=== PATIENT | female | born 1960 | race Caucasian/White ===

== ENCOUNTER 2020-03-06 12:08 | Outpatient (REF) | payer BC, SELFPAY ==
[2020-03-06 13:52] LABS: MANUAL DIFF FLAG NO
[2020-03-06 13:55] LABS: Basophils Percent Auto 0.2 % (0-2); Eosinophils Absolute Auto 0.1 X10*3/uL (0.0-0.4); Eosinophils Percent Auto 1.3 % (0-4); Hematocrit 37.4 % (37-47); Hemoglobin 12.6 g/dl (12.0-16.0); Imm Gran Abs Auto 0.01 X10*3/uL (0.00-0.03); Imm Gran Pct Auto 0.2 % (0.0-0.4); Lymphocytes Absolute Auto 1.5 X10*3/uL (1.2-4.9); Lymphocytes Percent Auto 27.3 % (20-40); Mean Corpuscular HGB Conc 33.7 g/dl (31.0-35.0); Mean Corpuscular Hemoglobin 32.9 pg (27.0-33.0); Mean Corpuscular Volume 97.7 fL (80-98); Mean Platelet Volume 10.3 fL (9.4-12.3); Monocytes Absolute Auto 0.4 X10*3/uL (0.1-1.2); Monocytes Percent Auto 6.5 % (2-11); Neutrophils Absolute Auto 3.5 X10*3/uL (2.0-8.3); Neutrophils Percent Auto 64.5 % (45-73); Platelet Count 197 X10*3/uL (160-400); Red Blood Count 3.83 X10*6/uL (4.20-5.50); Red Cell Distribution Width 13.2 % (11.0-16.0); White Blood Count 5.4 X10*3/uL (4.8-10.8)
[2020-03-06 14:25] LABS: Alanine Aminotransferase 11 U/L (0-31); Albumin Level 4.2 g/dL (3.5-5.0); Alkaline Phosphatase 88 U/L (39-117); Anion Gap 14 (12-20); Aspartate Amino Transferase 11 U/L (5-31); Bilirubin Total 0.5 mg/dL (0.0-1.0); Blood Urea Nitrogen 8 mg/dL (9-16); Calcium 8.7 mg/dL (8.4-10.2); Carbon Dioxide 25 mmol/L (22-29); Chloride 107 mmol/L (96-108); Cholesterol 178 mg/dL; Estimated Glomerular Filt Rate > 60; Glucose Fasting 141 mg/dL (60-99); HDL Cholesterol 48 mg/dL; LDL Cholesterol Calculated 107 mg/dl; Potassium 3.6 mmol/l (3.3-5.1); Sodium 142 mmol/L (135-145); Total Protein 6.9 g/dL (6.5-8.0); Triglycerides 119 mg/dL
[2020-03-06 14:36] LABS: Glucose Urine UA NEG (NEG); Leukocyte Esterase Urine NEG (NEG); Nitrite Urine NEG (NEG); Specific Gravity - Urine 1.025 (1.005-1.025); Urine Blood NEG (NEG); Urine Ketones NEG (NEG); Urine Protein NEG (NEG-TRACE)
[2020-03-06 14:40] LABS: Estimated Average Glucose 120 mg/dL; Hemoglobin A1c % 5.8 %
[2020-03-06 14:45] LABS: Appearance Urine CLEAR; Color Urine YELLOW
[2020-03-06 14:49] LABS: Vitamin D 25-OH Total 16.9 ng/mL (>30)
[2020-03-06 15:05] LABS: Folate 15.9 ng/mL (> or = 4.0); Vitamin B12 273 pg/mL (200-900)
[2020-03-06 15:17] LABS: Microalbum/Creatinine Ratio Ur 7.3 ug/mg cr
[2020-03-06 15:27] LABS: RBC Urine 0 /HPF (0); Squamous Epithelial Cell Urine 2+ /LPF; WBC Urine 0-2 /HPF (0-4)
[2020-03-06 15:28] LABS: Bacteria Urine 2+ /LPF
== END 2020-03-06 12:09 | disposition home or self-care (01) ==
LOC: HO.10HDL 12:08
PROVIDERS: Visit Provider Internal Medicine
DX: E55.9 Vitamin D deficiency, unspecified (principal); E78.5 Hyperlipidemia, unspecified; E66.01 Morbid (severe) obesity due to excess calories; M79.7 Fibromyalgia; L40.50 Arthropathic psoriasis, unspecified; E53.8 Deficiency of other specified B group vitamins; E11.9 Type 2 diabetes mellitus without complications
CPT/HCPCS: 36415; 80053; 80061; 81001; 82043; 82306; 82607; 82746; 83036; 84443; 85025

== ENCOUNTER 2022-02-22 15:20 | Outpatient (REF) | payer BC, SELFPAY ==
--- NOTE | ~2022-02-22 | XR_ITS ---
EXAMINATION: XR SHOULDER, LEFT CLINICAL INFORMATION: Pain COMPARISON: None TECHNIQUE: AP external rotation, Grashey, scapular Y, and axillary views of the left shoulder. FINDINGS: There is loss of left AC joint with inferior spurring. The glenohumeral joint space is normal. No visible acute fracture or dislocation seen. The soft tissues are normal. XR/XR shoulder LT min 2V IMPRESSION: Mild degenerative changes left A.C. joint with inferior spurring. No visible acute fracture or dislocation seen.
== END 2022-02-22 15:21 | disposition home or self-care (01) ==
LOC: HO.XRAY 15:20
PROVIDERS: Visit Provider Internal Medicine
DX: M25.512 Pain in left shoulder (principal)
CPT/HCPCS: 73030

== ENCOUNTER 2022-03-13 14:30 | Emergency (ER) | payer BC, MEDICARE, SELFPAY ==
[2022-03-13] VITALS (7 sets, daily range): BP systolic 100–141; BP diastolic 32–80; PULSE 59–81; RESP 16–20; TEMP 36.1–37; O2SAT 95–99; BMI 49.1
--- NOTE | ~2022-03-13 | CT_ITS ---
EXAMINATION: CT BRAIN AND CT CERVICAL SPINE WITHOUT CONTRAST. CLINICAL INFORMATION: Head injury. Trauma. COMPARISON: None TECHNIQUE: 5 mm thin axial and reformatted 2 mm thin sagittal and coronal images of brain were obtained without contrast. Subsequently axial 3 mm thin and reformatted 2 mm thin sagittal and coronal images of cervical spine were obtained. DLP [id number]. FINDINGS: Brain: There is no acute intra-axial, extra-axial bleed, masses or midline shift. There is no acute infarction evolution. There is no edema. The pleitez to white matter differentiation is maintained. The lateral ventricles are symmetrical in size and configuration without enlargement. The bone windows reveal no calvarial abnormality. There is no scalp soft tissue abnormality. There is mucoperiosteal thickening left maxillary sinus. Rest of the paranasal sinuses are clear. The mastoid sinuses are well expanded and clear. Cervical spine: There is normal cervical lordosis. The vertebral heights, alignment and disc heights are normal. No visible acute fracture, dislocation or subluxation seen. There is moderate ventral spondylosis C4-C5, C5-C6 and C6-C7 disc levels. No aggressive lytic or sclerotic process seen. Mild bilateral C4-C5, C5-C6-C6 facet joint arthropathy seen. The lung apices are clear. The prevertebral and paravertebral soft tissues are normal. Asymmetric thyroid lobes with the right slightly larger than the left. Central airways widely patent. CT/CT head/brain wo IV con IMPRESSION: No acute intracranial process seen. There is no acute fracture, dislocation or subluxation seen in cervical spine.
--- NOTE | ~2022-03-13 | CT_ITS ---
EXAMINATION: CT BRAIN AND CT CERVICAL SPINE WITHOUT CONTRAST. CLINICAL INFORMATION: Head injury. Trauma. COMPARISON: None TECHNIQUE: 5 mm thin axial and reformatted 2 mm thin sagittal and coronal images of brain were obtained without contrast. Subsequently axial 3 mm thin and reformatted 2 mm thin sagittal and coronal images of cervical spine were obtained. DLP [id number]. FINDINGS: Brain: There is no acute intra-axial, extra-axial bleed, masses or midline shift. There is no acute infarction evolution. There is no edema. The pleitez to white matter differentiation is maintained. The lateral ventricles are symmetrical in size and configuration without enlargement. The bone windows reveal no calvarial abnormality. There is no scalp soft tissue abnormality. There is mucoperiosteal thickening left maxillary sinus. Rest of the paranasal sinuses are clear. The mastoid sinuses are well expanded and clear. Cervical spine: There is normal cervical lordosis. The vertebral heights, alignment and disc heights are normal. No visible acute fracture, dislocation or subluxation seen. There is moderate ventral spondylosis C4-C5, C5-C6 and C6-C7 disc levels. No aggressive lytic or sclerotic process seen. Mild bilateral C4-C5, C5-C6-C6 facet joint arthropathy seen. The lung apices are clear. The prevertebral and paravertebral soft tissues are normal. Asymmetric thyroid lobes with the right slightly larger than the left. Central airways widely patent. CT/CT cervical spine wo IV con IMPRESSION: No acute intracranial process seen. There is no acute fracture, dislocation or subluxation seen in cervical spine.
--- NOTE | ~2022-03-13 | XR_ITS ---
EXAMINATION: XR SHOULDER, LEFT CLINICAL INFORMATION: Fall. COMPARISON: None TECHNIQUE: AP external rotation, Grashey, scapular Y, and axillary views of the left shoulder. FINDINGS: There is a nondisplaced surgical neck fracture left humerus. There is no dislocation. The AC joint is unremarkable. The soft tissues are normal. XR/XR shoulder LT min 2V IMPRESSION: Nondisplaced surgical neck fracture left humerus. No dislocation.
--- NOTE | 2022-03-13 15:45 | ECG_ITS ---
Test Reason : FALL Blood Pressure : / mmHG Vent. Rate : 065 BPM Atrial Rate : 065 BPM P-R Int : 162 ms QRS Dur : 092 ms QT Int : 432 ms P-R-T Axes : 037 -34 021 degrees QTc Int : 449 ms Sinus rhythm with marked sinus arrhythmia Left axis deviation Abnormal ECG No previous ECGs available Referred By: Yessy Mohr Electronically Signed By:MARIAN NUR MD
--- NOTE | 2022-03-13 15:46 | ED_ITS ---
HPI - Fall General Chief Complaint: Fall Stated Complaint: L SHOULDER PAIN S/P FALL IN TUB,? DISLOCATION,-LOC Time Seen by Provider: 03/13/22 14:39 History of Present Illness HPI Narrative: Patient is a 61-year-old female was in the bath tub she slipped fell hit the left side of her head. Saw stars never had nausea vomiting never passed out. Patient complaining of pain localized to the head localized to the left shoulder. Unable to move the shoulder since. Patient is not on any blood thinners. No history of TX. Has a history of Osteoarthritis usually walks with a cane. Patient is from home. Related Data Home Medications Medication Instructions Recorded Confirmed folic acid 1 mg tablet 1 mg PO DAILY 01/28/20 02/26/22 ixekizumab 80 mg/mL subcutaneous 80 mg subcut Q4W 05/25/20 02/26/22 auto-injector (Fugate.cl Autoinjector (2 Pack)) ergocalciferol (vitamin D2) 1,250 1,250 mcg PO QWEEK 02/19/21 02/26/22 mcg (50,000 unit) capsule methotrexate sodium 2.5 mg tablet 20 mg PO QWEEK 02/26/22 02/26/22 Previous Rx's Medication Instructions Recorded mupirocin 2 % topical ointment 1 appl topical TID 7 days #22 grams 05/26/20 clotrimazole-betamethasone 1 1 appl topical BID 14 days #45 07/11/20 %-0.05 % topical cream grams lidocaine 5 % topical patch 2 patch topical DAILY 30 days #60 06/25/21 ea nystatin 100,000 unit/gram topical 1 appl topical TID 10 days #60 06/25/21 cream grams qqnjkbaslm-bwgokwcpbtqtt-hfkynqch 1 cap PO BID PRN headaches 30 days 12/12/21 50 mg-325 mg-40 mg capsule #60 caps atorvastatin 20 mg tablet 20 mg PO DAILY 90 days #90 tabs 02/05/22 trazodone 100 mg tablet 150 mg PO BEDTIME for insomnia 30 02/05/22 days #45 tabs oxycodone 5 mg tablet 5 mg PO Q8H PRN pain #10 tabs 03/13/22 Allergies Allergy/AdvReac Type Severity Reaction Status Date / Time aspirin Allergy Unknown Unknown Verified 02/26/22 01:29 Sulfa (Sulfonamide Allergy Unknown pruritis, Verified 02/26/22 01:29 Antibiotics) severe itching metformin AdvReac Unknown diarrhea Verified 02/26/22 01:29 Review of Systems Review of Systems: positive pain to the left shoulder Yes all other systems are reviewed and are negative [facility] Past Medical History Attestation statement: The following information was validated with the patient. Medical History Depression Diabetes mellitus Fibromyalgia Insomnia Lumbar degenerative disc disease Migraine Morbid obesity with BMI of 45.0-49.9, adult Nasal sore Psoriatic arthritis Pure hypercholesterolemia Vitamin B12 deficiency Vitamin D deficiency Surgical History History of colonoscopy (~04/06/04) History of esophagogastroduodenoscopy (EGD) Family History Family History Father No problems noted. Mother No problems noted. Social History Social History Housing: House Alcohol intake: current Alcohol intake frequency: holidays/special occasions only Patient Tobacco Use Status: Former Tobacco user Smoked in Last 30 Days: No e-Cigarette/Vaping Use: Never Used Second Hand Smoke Exposure: Yes Advance Directives: No Advance Directives Information Provided: No Patient : No service: No Current occupational status: disabled Cognitive needs: Yes Hearing needs: No Vision needs: Yes Physical Exam Vital Signs: Vital Signs: Last Vital Signs Temp 98.6 F 03/13/22 20:08 Pulse 65 03/13/22 20:08 Resp 16 03/13/22 20:41 BP 141/80 H 03/13/22 20:08 Pulse Ox 96 03/13/22 20:08 O2 Del Method 03/13/22 20:08 BMI result Body Mass Index 49.1 Appearance: Alert. Oriented X3. No acute distress. Eyes: Pupils equal, round and reactive to light. ENT: Pharynx normal. Neck: Normal inspection. Neck supple. No lymph nodes noted. No crepitus. There is no posterior C-spine tenderness elicited on palpation. No gross step-off noted CVS: Normal heart rate and rhythm. Pulses normal. Normal S1 and S2 Respiratory: No respiratory distress. Breath sounds normal. No Wheezing. No rales Abdomen: Soft and nontender. No rigidity. No distention. good BS x4 Skin: Skin warm and dry. Normal skin color. Normal skin turgor. Extremities: patient's left shoulder held in adduction pain on movement. Sensation over the axillary nerve intact skin intact distal neurovascularly intact movement over the elbow wrist hand was intact capillary refill less than 2 seconds pulse 2 +at radial sensation distally over the median radial and ulnar nerve intact Neuro: Oriented X 3. No motor deficit. No sensory deficit. Moving all extermities. No slurred speech Medications Administered Discontinued Medications Generic Name Dose Route Start Last Admin Trade Name Freq PRN Reason Stop Dose Admin Hydromorphone HCl 0.5 mg 03/13/22 15:44 03/13/22 15:50 Hydromorphone Hcl 0.5 Mg/0.5 Ml Syringe IVPUSH 03/13/22 15:45 0.5 mg ONCE ONE Administration Protocol Hydromorphone HCl 0.5 mg 03/13/22 16:56 03/13/22 17:04 Hydromorphone Hcl 0.5 Mg/0.5 Ml Syringe IVPUSH 03/13/22 16:57 0.5 mg ONCE ONE Administration Protocol Hydromorphone HCl 0.5 mg 03/13/22 20:21 03/13/22 20:41 Hydromorphone Hcl 0.5 Mg/0.5 Ml Syringe IVPUSH 03/13/22 20:22 0.5 mg ONCE ONE Administration Protocol Sodium Chloride 1,000 mls @ 999 mls/hr 03/13/22 17:00 03/13/22 17:04 Ns IV 03/13/22 18:00 999 mls/hr .Q1H1M GERRY Administration Medical Decision Making Differential Diagnosis patient is status post accidental fall. Heading left shoulder. X-ray showed a surgical neck fracture. Patient placed in a shoulder immobilizer. Given pain medication. Offered physical therapy and rehab with case management. Patient did not want rehab or case management or physical therapy. Wants to go home. Ambulated with her cane. Patient given pain medication. Told she can come back at any time. Follow-up with orthopedic on an outpatient basis. Ortho was consulted will closely follow on an outpatient basis. Patient lives with family. Family at bedside at the time of discharge. Aware patient's plan. Will monitor carefully. She is in stable condition with discharge home. Consult Healthcare Provider Management of the patient was discussed with: Marketing Project Lead Finding was discussed with orthopedics will follow up on an outpatient basis. Lab Data MDM Lab Attestation statement: I reviewed the patient's lab results. 03/13/22 15:55 03/13/22 15:55 Labs: Lab Results 03/13/22 03/13/22 03/13/22 Range/Units 15:55 15:55 15:55 WBC 8.4 (4.8-10.8) X10*3/uL RBC 3.65 L (4.20-5.50) X10*6/uL Hgb 11.5 L (12.0-16.0) g/dl Hct 33.4 L (37.0-47.0) % MCV 91.5 (80.0-98.0) fL MCH 31.5 (27.0-33.0) pg MCHC 34.4 (31.0-35.0) g/dl RDW 13.7 (11.0-16.0) % Plt Count 171 (160-400) X10*3/uL MPV 10.1 (9.4-12.3) fL Immature Gran % (Auto) 0.4 (0.0-0.4) % Neut % (Auto) 82.3 H (45-73) % Lymph % (Auto) 12.1 L (20-40) % [place] % (Auto) 4.8 (2-11) % Eos % (Auto) 0.4 (0-4) % Baso % (Auto) 0.0 (0-2) % Lymph # (Auto) 1.0 L (1.2-4.9) X10*3/uL [place] # (Auto) 0.4 (0.1-1.2) X10*3/uL Eos # (Auto) 0.0 (0.0-0.4) X10*3/uL Baso # (Auto) 0.0 (0.0-0.2) X10*3/uL Abs Immat Gran (auto) 0.03 (0.00-0.03) X10*3/uL Absolute Neuts (auto) 6.9 (2.0-8.3) x10*3/uL Absolute Nucleated RBC 0.000 (0.0-0.012) X10*3/uL Nucleated RBC % (auto) 0.0 (0.0-0.2) /100WBC Sodium 142 (135-145) mmol/L Potassium 3.4 (3.3-5.1) mmol/L Chloride 113 H (96-108) mmol/L Carbon Dioxide 20 L (22-29) mmol/L Anion Gap 12 (12-20) BUN 13 (9-16) mg/dL Creatinine 0.68 (0.5-1.4) mg/dL Estim Creat Clear Calc 106.6 Estimated GFR > 60 Random Glucose 132 H (60-115) mg/dL Calcium 8.1 L D (8.4-10.2) mg/dL COVID-19 ([facility]) Negative (Negative) COVID-19 Clin Com See Note Independent Interpretation I performed an independent interpretation of an: Plain X-Ray Interpretation: Fracture and the surgical neck of left humerus, minimally displaced External Record Review External record reviewed: Inpatient record Prescription Management I considered prescription management with: Pain Medication Percocet for pain Chronic Conditions Patient?s care impacted by: Diabetes Social Determinants Patient?s care significantly limited by Social Determinants of Health including: Problems related to primary support group Discharge Plan Discharge Clinical Impression: Fx humeral neck Patient Disposition: Home, Self-Care Instructions: Arm Fracture in Adults (ED), Shoulder Immobilizer (ED) Prescriptions: New oxycodone 5 mg tablet 5 mg PO Q8H PRN (Reason: pain) Qty: 10 0RF Rx Instructions: Partial Fill upon patient request. No Action clotrimazole-betamethasone 1-0.05 % cream 1 appl topical BID 14 Days Qty: 45 1RF rbfjrkibgh-dvhpljrfaqflz-xuli 50-325-40 mg capsule 1 cap PO BID PRN (Reason: headaches) 30 Days Qty: 60 3RF folic acid 1 mg tablet 1 mg PO DAILY Taltz Autoinjector (2 Pack) 80 mg/mL auto-injector 80 mg subcut Q4W mupirocin 2 % ointment 1 appl topical TID 7 Days Qty: 22 1RF ergocalciferol (vitamin D2) 1,250 mcg (50,000 unit) capsule 1,250 mcg PO QWEEK trazodone 100 mg tablet 150 mg PO BEDTIME 30 Days Qty: 45 3RF atorvastatin 20 mg tablet 20 mg PO DAILY 90 Days Qty: 90 1RF methotrexate sodium 2.5 mg tablet 20 mg PO QWEEK nystatin 100,000 unit/gram cream 1 appl topical TID 10 Days Qty: 60 5RF lidocaine 5 % adhesive patch,medicated 2 patch topical DAILY 30 Days Qty: 60 3RF Rx Instructions: leave on most painful area for up to 12 hrs Referrals: Jasbir Taylor MD [Physician] - 03/15/22
[2022-03-13] MEDS: HYDROmorphone HCl 0.5 MG/0.5 ML SYRINGE IVPUSH ×3 (15:50→20:41)
[2022-03-13 16:00] LABS: MANUAL DIFF FLAG NO
[2022-03-13 16:02] LABS: Eosinophils Percent Auto 0.4 % (0-4); Hematocrit 33.4 % (37.0-47.0); Hemoglobin 11.5 g/dl (12.0-16.0); Imm Gran Abs Auto 0.03 X10*3/uL (0.00-0.03); Imm Gran Pct Auto 0.4 % (0.0-0.4); Lymphocytes Percent Auto 12.1 % (20-40); Mean Corpuscular HGB Conc 34.4 g/dl (31.0-35.0); Mean Corpuscular Hemoglobin 31.5 pg (27.0-33.0); Mean Corpuscular Volume 91.5 fL (80.0-98.0); Mean Platelet Volume 10.1 fL (9.4-12.3); Monocytes Absolute Auto 0.4 X10*3/uL (0.1-1.2); Monocytes Percent Auto 4.8 % (2-11); Neutrophils Absolute Auto 6.9 x10*3/uL (2.0-8.3); Neutrophils Percent Auto 82.3 % (45-73); Platelet Count 171 X10*3/uL (160-400); Red Blood Count 3.65 X10*6/uL (4.20-5.50); Red Cell Distribution Width 13.7 % (11.0-16.0); White Blood Count 8.4 X10*3/uL (4.8-10.8)
--- NOTE | 2022-03-13 16:16 | PC.NURSE ---
patient to CT for imaging . patient aware of plan of care .
[2022-03-13 16:21] LABS: COVID-19 Test Negative (Negative); IDNOW Serial# 16C4AD1C
[2022-03-13 16:22] LABS: Anion Gap 12 (12-20); Blood Urea Nitrogen 13 mg/dL (9-16); Calcium 8.1 mg/dL (8.4-10.2); Carbon Dioxide 20 mmol/L (22-29); Chloride 113 mmol/L (96-108); Creatinine Clr Calc Pharmacy 106.6; Estimated Glomerular Filt Rate > 60; Glucose Random 132 mg/dL (60-115); Potassium 3.4 mmol/L (3.3-5.1); Sodium 142 mmol/L (135-145)
--- NOTE | 2022-03-13 16:50 | PC.NURSE ---
Patient a/ox4 . olivella . heart rate regular at 78 beats per minutes . breathing even and unlabored . lungs clear throughout . limited mobility on left shoulder , patient guarding reporting 10 out of 10 pain . abdomen soft . positive bowel sounds in all four quadrents . Iv placed in right A.C . patient medicated with diluided as ordered for pain .labs obtained and sent . patient on hospital monitor . patient aware of plan of care .
[2022-03-13] MEDS: 0.9 % Sodium Chloride 1,000 ML 999 ML IV (17:04)
--- NOTE | 2022-03-13 17:47 | MHC.CM.ED ---
Addendum entered by Camila Esquivel 03/13/22 18:12: HCP reviewed, completed and signed. Copies given. Uploaded into [facility] and [email or web address]. Addendum entered by Camila Esquivel 03/13/22 17:52: Requested HCP. Will complete. Original Note: CM met with patient at request of Dr. MOHR. Pt suffered a fall in the shower and fx surgical neck of L humerus. Pt uses a cane. Refuses PT assessment of need for STR. States she has plenty of family help at home. Lives with and sister in law. Daughter and son-in-law live next door in the duplex. Has no services. Dr. Mohr aware. Will medicate patient for pain, IV fluids and assess ambulation. Pt is requesting to go home. MD luna. Amy x4. Will arrange transport. CM to follow for discharge needs.
--- NOTE | 2022-03-13 17:50 | PC.NURSE ---
Patient reporting pain still at 7 out of 10 and hypotensive at 109/51 . 1 liter of normal saline started as ordered . patient aware of plan of care .
--- NOTE | 2022-03-13 20:12 | PC.NURSE ---
Re-ASSESSMENT: Pt's V/S are slightly elevated, pt is in pain 5/10. Pt's IV are running with a blood pressure bag d/t is going slowly. Pt is a/o x4, and able to communicate clearly. This nurse will work with the tech to place a sling and to ambulate before d/c.
--- NOTE | 2022-03-13 21:13 | MHC.EDTECH ---
patient ambulated well with side by side supervision from this pct and jaimie jama
== END 2022-03-13 21:33 | disposition home or self-care (01) ==
PROVIDERS: Emergency Provider Emergency Medicine Emergency Medical Services; PCP Internal Medicine
DX: S42.215A Unspecified nondisplaced fracture of surgical neck of left humerus, initial encounter for closed fracture (principal); W18.2XXA Fall in (into) shower or empty bathtub, initial encounter; E11.9 Type 2 diabetes mellitus without complications; E78.00 Pure hypercholesterolemia, unspecified; Z87.891 Personal history of nicotine dependence; Z20.822 Contact with and (suspected) exposure to COVID-19; Y93.E1 Activity, personal bathing and showering; Y92.012 Bathroom of single-family (private) house as the place of occurrence of the external cause; Y99.9 Unspecified external cause status
CPT/HCPCS: 36415; 70450; 72125; 73030; 80048; 85025; 87635; 93005; 96361; 96374; 96376; 99285; J1170

== ENCOUNTER → 2022-03-19 10:22 | Outpatient (BNVA) | payer BC, MEDICARE, SELFPAY | PROVIDERS: PCP Internal Medicine; Visit Provider Physician Assistant | DX: S42.202A Unspecified fracture of upper end of left humerus, initial encounter for closed fracture (principal) ==

== ENCOUNTER 2022-04-16 09:46 | Outpatient (REF) | payer BC, SELFPAY | END 2022-04-16 09:47 | disposition home or self-care (01) | LOC: HO.HOSX 09:46 | PROVIDERS: Visit Provider Physician Assistant | DX: Z13.89 Encounter for screening for other disorder (principal) ==

== ENCOUNTER 2022-05-01 09:54 | Outpatient (REF) | payer BC, SELFPAY ==
--- NOTE | ~2022-05-01 | XR_ITS ---
EXAMINATION: XR CERVICAL SPINE XR SHOULDER, RIGHT XR SHOULDER, LEFT XR HUMERUS, LEFT XR HIPS WITH PELVIS, BILATERAL CLINICAL INFORMATION: Nondisplaced fracture medial condyle left humerus. Bilateral osteoarthritis. COMPARISON: None TECHNIQUE: AP pelvis and bilateral hips 5 views, bilateral shoulder 4 views. FINDINGS: AP PELVIS AND BILATERAL HIPS: There is mild reduction in bilateral hip joint space without bony erosive changes. There are no loose bodies or joint effusion seen. There is no visible acute fracture or dislocation. There are subchondral cystic changes bilateral femoral heads. RIGHT SHOULDER: The glenohumeral joint space is mildly reduced with no visible acute fracture or dislocation. There is enthesophyte along the inferior acromion. No soft tissue calcification seen. LEFT SHOULDER: The glenohumeral joint space is reduced. There is a healing fracture left humeral neck, no dislocation seen. The soft tissues are normal. CERVICAL SPINE: There is mild straightening of cervical lordosis. The vertebral heights and alignment are normal. There is loss of C4-C5 disc height with mild ventral spondylosis. The rest of the disc heights are normal. No visible acute fracture, dislocation or lytic process seen. The prevertebral soft tissues are normal. XR/XR hip BI w PEL1V IMPRESSION: Mild degenerative changes bilateral hip joints. No visible acute fracture or dislocation seen. Mild degenerative changes right shoulder joint with enthesophyte along the inferior acromion. There is a healing fracture left humeral neck without dislocation. The soft tissues are normal. Degenerative disc changes C4-C5 disc level with ventral spondylosis. No visible acute fracture or dislocation seen.
--- NOTE | ~2022-05-01 | XR_ITS ---
EXAMINATION: XR CERVICAL SPINE XR SHOULDER, RIGHT XR SHOULDER, LEFT XR HUMERUS, LEFT XR HIPS WITH PELVIS, BILATERAL CLINICAL INFORMATION: Nondisplaced fracture medial condyle left humerus. Bilateral osteoarthritis. COMPARISON: None TECHNIQUE: AP pelvis and bilateral hips 5 views, bilateral shoulder 4 views. FINDINGS: AP PELVIS AND BILATERAL HIPS: There is mild reduction in bilateral hip joint space without bony erosive changes. There are no loose bodies or joint effusion seen. There is no visible acute fracture or dislocation. There are subchondral cystic changes bilateral femoral heads. RIGHT SHOULDER: The glenohumeral joint space is mildly reduced with no visible acute fracture or dislocation. There is enthesophyte along the inferior acromion. No soft tissue calcification seen. LEFT SHOULDER: The glenohumeral joint space is reduced. There is a healing fracture left humeral neck, no dislocation seen. The soft tissues are normal. CERVICAL SPINE: There is mild straightening of cervical lordosis. The vertebral heights and alignment are normal. There is loss of C4-C5 disc height with mild ventral spondylosis. The rest of the disc heights are normal. No visible acute fracture, dislocation or lytic process seen. The prevertebral soft tissues are normal. XR/XR humerus LT IMPRESSION: Mild degenerative changes bilateral hip joints. No visible acute fracture or dislocation seen. Mild degenerative changes right shoulder joint with enthesophyte along the inferior acromion. There is a healing fracture left humeral neck without dislocation. The soft tissues are normal. Degenerative disc changes C4-C5 disc level with ventral spondylosis. No visible acute fracture or dislocation seen.
--- NOTE | ~2022-05-01 | XR_ITS ---
EXAMINATION: XR CERVICAL SPINE XR SHOULDER, RIGHT XR SHOULDER, LEFT XR HUMERUS, LEFT XR HIPS WITH PELVIS, BILATERAL CLINICAL INFORMATION: Nondisplaced fracture medial condyle left humerus. Bilateral osteoarthritis. COMPARISON: None TECHNIQUE: AP pelvis and bilateral hips 5 views, bilateral shoulder 4 views. FINDINGS: AP PELVIS AND BILATERAL HIPS: There is mild reduction in bilateral hip joint space without bony erosive changes. There are no loose bodies or joint effusion seen. There is no visible acute fracture or dislocation. There are subchondral cystic changes bilateral femoral heads. RIGHT SHOULDER: The glenohumeral joint space is mildly reduced with no visible acute fracture or dislocation. There is enthesophyte along the inferior acromion. No soft tissue calcification seen. LEFT SHOULDER: The glenohumeral joint space is reduced. There is a healing fracture left humeral neck, no dislocation seen. The soft tissues are normal. CERVICAL SPINE: There is mild straightening of cervical lordosis. The vertebral heights and alignment are normal. There is loss of C4-C5 disc height with mild ventral spondylosis. The rest of the disc heights are normal. No visible acute fracture, dislocation or lytic process seen. The prevertebral soft tissues are normal. XR/XR cervical spine 5V IMPRESSION: Mild degenerative changes bilateral hip joints. No visible acute fracture or dislocation seen. Mild degenerative changes right shoulder joint with enthesophyte along the inferior acromion. There is a healing fracture left humeral neck without dislocation. The soft tissues are normal. Degenerative disc changes C4-C5 disc level with ventral spondylosis. No visible acute fracture or dislocation seen.
--- NOTE | ~2022-05-01 | XR_ITS ---
EXAMINATION: XR CERVICAL SPINE XR SHOULDER, RIGHT XR SHOULDER, LEFT XR HUMERUS, LEFT XR HIPS WITH PELVIS, BILATERAL CLINICAL INFORMATION: Nondisplaced fracture medial condyle left humerus. Bilateral osteoarthritis. COMPARISON: None TECHNIQUE: AP pelvis and bilateral hips 5 views, bilateral shoulder 4 views. FINDINGS: AP PELVIS AND BILATERAL HIPS: There is mild reduction in bilateral hip joint space without bony erosive changes. There are no loose bodies or joint effusion seen. There is no visible acute fracture or dislocation. There are subchondral cystic changes bilateral femoral heads. RIGHT SHOULDER: The glenohumeral joint space is mildly reduced with no visible acute fracture or dislocation. There is enthesophyte along the inferior acromion. No soft tissue calcification seen. LEFT SHOULDER: The glenohumeral joint space is reduced. There is a healing fracture left humeral neck, no dislocation seen. The soft tissues are normal. CERVICAL SPINE: There is mild straightening of cervical lordosis. The vertebral heights and alignment are normal. There is loss of C4-C5 disc height with mild ventral spondylosis. The rest of the disc heights are normal. No visible acute fracture, dislocation or lytic process seen. The prevertebral soft tissues are normal. XR/XR shoulder LT min 2V IMPRESSION: Mild degenerative changes bilateral hip joints. No visible acute fracture or dislocation seen. Mild degenerative changes right shoulder joint with enthesophyte along the inferior acromion. There is a healing fracture left humeral neck without dislocation. The soft tissues are normal. Degenerative disc changes C4-C5 disc level with ventral spondylosis. No visible acute fracture or dislocation seen.
--- NOTE | ~2022-05-01 | XR_ITS ---
EXAMINATION: XR CERVICAL SPINE XR SHOULDER, RIGHT XR SHOULDER, LEFT XR HUMERUS, LEFT XR HIPS WITH PELVIS, BILATERAL CLINICAL INFORMATION: Nondisplaced fracture medial condyle left humerus. Bilateral osteoarthritis. COMPARISON: None TECHNIQUE: AP pelvis and bilateral hips 5 views, bilateral shoulder 4 views. FINDINGS: AP PELVIS AND BILATERAL HIPS: There is mild reduction in bilateral hip joint space without bony erosive changes. There are no loose bodies or joint effusion seen. There is no visible acute fracture or dislocation. There are subchondral cystic changes bilateral femoral heads. RIGHT SHOULDER: The glenohumeral joint space is mildly reduced with no visible acute fracture or dislocation. There is enthesophyte along the inferior acromion. No soft tissue calcification seen. LEFT SHOULDER: The glenohumeral joint space is reduced. There is a healing fracture left humeral neck, no dislocation seen. The soft tissues are normal. CERVICAL SPINE: There is mild straightening of cervical lordosis. The vertebral heights and alignment are normal. There is loss of C4-C5 disc height with mild ventral spondylosis. The rest of the disc heights are normal. No visible acute fracture, dislocation or lytic process seen. The prevertebral soft tissues are normal. XR/XR shoulder RT min 2V IMPRESSION: Mild degenerative changes bilateral hip joints. No visible acute fracture or dislocation seen. Mild degenerative changes right shoulder joint with enthesophyte along the inferior acromion. There is a healing fracture left humeral neck without dislocation. The soft tissues are normal. Degenerative disc changes C4-C5 disc level with ventral spondylosis. No visible acute fracture or dislocation seen.
== END 2022-05-01 09:55 | disposition home or self-care (01) ==
LOC: HO.XRAY 09:54
PROVIDERS: PCP Internal Medicine; Visit Provider Physical Medicine & Rehabilitation
DX: S42.465A Nondisplaced fracture of medial condyle of left humerus, initial encounter for closed fracture (principal); M16.0 Bilateral primary osteoarthritis of hip; M54.12 Radiculopathy, cervical region; X58.XXXA Exposure to other specified factors, initial encounter; Y93.9 Activity, unspecified; Y92.9 Unspecified place or not applicable; Y99.9 Unspecified external cause status
CPT/HCPCS: 72050; 73030; 73060; 73521

== ENCOUNTER 2022-06-10 11:53 | Outpatient (REF) | payer BC, SELFPAY ==
[2022-06-10 13:53] LABS: Alanine Aminotransferase 15 U/L (0-31); Albumin Level 3.7 g/dL (3.5-5.0); Alkaline Phosphatase 104 U/L (39-117); Anion Gap 11 (12-20); Aspartate Amino Transferase 15 U/L (5-31); Bilirubin Total 0.5 mg/dL (0.0-1.0); Blood Urea Nitrogen 11 mg/dL (9-16); C Reactive Protein 0.86 mg/dL (< or = 0.50); Calcium 8.8 mg/dL (8.4-10.2); Carbon Dioxide 25 mmol/L (22-29); Chloride 111 mmol/L (96-108); Cholesterol 128 mg/dL; Estimated Glomerular Filt Rate > 60; Gamma Glutamyl Transpeptidase 34 U/L (7-33); Glucose Fasting 123 mg/dL (60-99); HDL Cholesterol 39 mg/dL; LDL Cholesterol Calculated 73 mg/dl; Potassium 3.8 mmol/L (3.3-5.1); Sodium 143 mmol/L (135-145); Total Protein 6.4 g/dL (6.5-8.0); Triglycerides 82 mg/dL
[2022-06-10 14:10] LABS: Free T4 (Free Thyroxine) 1.05 ng/dL (0.71-1.85); Insulin 14 uU/mL (2-29); Vitamin D 25-OH Total 39.9 ng/mL (>30)
[2022-06-12 01:23] LABS: Thyroglobulin Antibodies <1 IU/mL (< or = 1); Thyroid Peroxidase Antibodies <1 IU/mL (<9)
[2022-06-14 09:39] LABS: Methylmalonic Acid 136 nmol/L (87-318)
[2022-06-15 15:19] LABS: Triiodothyronine T3 Reverse 20 ng/dL (8-25)
== END 2022-06-10 11:54 | disposition home or self-care (01) ==
LOC: HO.10HDL 11:53
PROVIDERS: Visit Provider Internal Medicine
DX: E03.9 Hypothyroidism, unspecified (principal); E11.9 Type 2 diabetes mellitus without complications; E55.9 Vitamin D deficiency, unspecified; D64.9 Anemia, unspecified; E78.5 Hyperlipidemia, unspecified; K76.0 Fatty (change of) liver, not elsewhere classified; R53.83 Other fatigue; N95.9 Unspecified menopausal and perimenopausal disorder
CPT/HCPCS: 36415; 80053; 80061; 82306; 82977; 83525; 83921; 84439; 84482; 86140; 86376; 86800

== ENCOUNTER 2022-06-11 09:12 | Outpatient (REF) | payer BC, SELFPAY ==
[2022-06-11 13:24] LABS: Hematocrit 35.7 % (37.0-47.0); Hemoglobin 11.4 g/dl (12.0-16.0); Mean Corpuscular HGB Conc 31.9 g/dl (31.0-35.0); Mean Corpuscular Hemoglobin 29.9 pg (27.0-33.0); Mean Corpuscular Volume 93.7 fL (80.0-98.0); Mean Platelet Volume 10.4 fL (9.4-12.3); Platelet Count 188 X10*3/uL (160-400); Red Blood Count 3.81 X10*6/uL (4.20-5.50); Red Cell Distribution Width 14.6 % (11.0-16.0); White Blood Count 5.3 X10*3/uL (4.8-10.8)
[2022-06-12 18:28] LABS: Calcium (PTHI) 9.2 mg/dL (8.6-10.4); PTHI 33 pg/mL (16-77)
[2022-06-13 00:09] LABS: DHEA Sulfate 49 mcg/dL (5-167); Follicle Stimulating Hormone 60.8 mIU/mL; Lutenizing Hormone 38.1 mIU/mL
[2022-06-13 00:13] LABS: Triiodothyronine T3 Free 2.9 pg/mL (2.3-4.2)
[2022-06-13 18:14] LABS: Homocysteine 10.1 umol/L (<10.4)
[2022-06-17 13:59] LABS: Testosterone, Total 21 ng/dL (2-45)
[2022-06-17 19:38] LABS: Progesterone <0.1 ng/mL
[2022-06-17 21:30] LABS: Dihydrotestosterone 6 ng/dL (< OR = 20)
[2022-06-20 21:13] LABS: Estradiol Free 0.15 pg/mL; Estradiol, Ultrasensitive 9 pg/mL
== END 2022-06-11 09:13 | disposition home or self-care (01) ==
LOC: HO.10HDL 09:12
PROVIDERS: Visit Provider Internal Medicine
DX: E03.9 Hypothyroidism, unspecified (principal); E11.9 Type 2 diabetes mellitus without complications; E55.9 Vitamin D deficiency, unspecified; D64.9 Anemia, unspecified; E78.5 Hyperlipidemia, unspecified; K76.0 Fatty (change of) liver, not elsewhere classified; N95.9 Unspecified menopausal and perimenopausal disorder; R53.83 Other fatigue
CPT/HCPCS: 36415; 82627; 82642; 82670; 82681; 83001; 83002; 83090; 83970; 84144; 84402; 84403; 84481; 85027

== ENCOUNTER 2022-09-04 09:15 | Outpatient (REF) | payer BC, SELFPAY ==
--- NOTE | ~2022-09-04 | MM_ITS ---
EXAMINATION: BONE DENSITOMETRY CLINICAL INDICATION: Asymptomatic menopausal state. COMPARISON: This is the patient's baseline examination. TECHNIQUE: Using a [email or web address] DXA System (software version: 13.1) manufactured by [employer], dual-energy x-ray absorptiometry was performed of the lumbar spine and left hip. The images are of good technical quality. Summary results are attached. FINDINGS: AP SPINE L1-L4: BMD 0.944 g/cm2, Z-score -1.9, T-score -2.0, osteopenia. LEFT FEMUR, NECK: BMD 0.830 g/cm2, Z-score -1.0, T-score -1.5, osteopenia. LEFT FEMUR, TOTAL: BMD 0.770 g/cm2, Z-score -1.8, T-score -1.9, osteopenia. IDENTIFIED RISK FACTORS: Early menopause, secondary osteoporosis, hysterectomy, bilateral oophorectomy, history of fracture (adult). HISTORY OF FRACTURE: Humerus. MEDICATIONS: Vitamin D. MM/XR DEXA axial skeleton IMPRESSION: 1. DIAGNOSIS: Osteopenia based on the lowest T-score value of -2.0 in the lumbar spine applying World Health Organization criteria. 2. 10-YEAR FRACTURE RISK PREDICTION, FRAX: Major osteoporotic fracture (clinical spine, forearm, hip or shoulder) 11.6%. Hip fracture 0.9%. 3. Treatment Recommendations: NOF guidelines recommend consideration for treatment in postmenopausal women and men age 50 and older presenting with the following: -A hip or vertebral (clinical or morphometric) fracture. -T-score less than or equal to -2.5 at the femoral neck or spine after appropriate evaluation to exclude secondary causes. -Low bone mass at the hip or spine and a 10-year fracture probability by FRAX of greater than or equal to 3% for hip fracture or greater than or equal to 20% for major osteoporotic fracture based on the [place] adapted WHO algorithm. 4. Other Recommendations: All treatment decisions require clinical judgment and consideration of individual patient factors, including patient preferences, comorbidities, previous drug use, risk factors not captured in the FRAX model (e.g. frailty, falls, vitamin D deficiency, increased bone turnover, interval significant decline in bone density) and possible under or overestimation of fracture risk by FRAX. Additional medical evaluation for secondary cause of low bone mineral density may be appropriate. FUTURE SCAN RECOMMENDATION: People with diagnosed cases of osteoporosis or at high risk for fracture should have regular bone mineral density tests. For patients eligible for Medicare, routine testing is allowed once every 2 years. The testing frequency can be increased to one year for patients who have rapidly progressing disease, those who are receiving or discontinuing medical therapy to restore bone mass, or have additional risk factors.
--- NOTE | ~2022-09-04 | MM_ITS ---
EXAMINATION: MM SCREENING DIGITAL BREAST TOMOSYNTHESIS, BILATERAL CLINICAL INFORMATION: Screening. Asymptomatic. The lifetime risk of breast cancer based on the Tyrer-Cuzick Model is 3.6%. COMPARISON: Mammography: This study is compared with prior exams dating back to 2017. TECHNIQUE: Digital breast tomosynthesis is performed in both the craniocaudal and mediolateral oblique views along with computer-aided detection (CAD). Synthesized 2D images are generated from the tomosynthesis. FINDINGS: There are scattered areas of fibroglandular density (ACR BI-RADS breast composition Category b). In approximately the 12:00 position, there are grouped calcifications which warrant additional imaging with magnification mammography. There is a tissue marker present in the lateral aspect of the left breast from prior benign stereotactic biopsy. In the right breast, there no significant masses, abnormal calcifications, or other abnormalities. MM/MM tomosynthesis screening BI IMPRESSION: Left breast calcifications warrant additional mammographic imaging magnification. No mammographic signs of malignancy right breast. ASSESSMENT: BI-RADS BI-RADS 0 - Incomplete: Needs additional Imaging. RECOMMENDATION: 1. Additional views of the left breast. 2. Radiology department staff will contact the patient for additional imaging. Additional Imaging required This examination should not preclude the clinical evaluation of a suspicious palpable abnormality. This patient's information was entered into a reminder system with a target due date for their next mammogram.
== END 2022-09-04 09:16 | disposition home or self-care (01) ==
LOC: HO.MAMMO 09:15
PROVIDERS: PCP Internal Medicine; Visit Provider Internal Medicine
DX: Z12.31 Encounter for screening mammogram for malignant neoplasm of breast (principal); Z13.820 Encounter for screening for osteoporosis; Z78.0 Asymptomatic menopausal state
CPT/HCPCS: 77063; 77067; 77080

== ENCOUNTER → 2022-09-04 09:30 | Outpatient (BNV) | payer BC, SELFPAY | PROVIDERS: PCP Internal Medicine; Visit Provider Radiology Diagnostic Radiology | DX: Z12.31 Encounter for screening mammogram for malignant neoplasm of breast (principal) | CPT/HCPCS: 77063; 77067 ==

== ENCOUNTER 2022-10-08 11:03 | Outpatient (REF) | payer BC, SELFPAY ==
--- NOTE | ~2022-10-08 | MM_ITS ---
EXAMINATION: MM DIAGNOSTIC DIGITAL MAMMOGRAPHY, LEFT CLINICAL INFORMATION: Follow-up left breast calcifications upper outer quadrant, middle one third. Previous benign biopsy for calcifications left breast. COMPARISON: Mammography: 09/04/2022, dating back to 2018. TECHNIQUE: Digital mammography is performed in the following views: 2-D spot magnification left CC and ML views. FINDINGS: There are scattered areas of fibroglandular density (ACR BI-RADS breast composition Category b). There are loosely grouped calcifications in the upper outer left breast, middle one third. Some of these appear coarse and benign, some of these appear vascular, and some of these appear punctate with tight grouping. No significant pleomorphism, casting, or branching. These calcifications are probably benign. Results are provided to the patient at time of visit by the technologist. MM/MM added views LT IMPRESSION: Probably benign calcifications left breast upper outer quadrant as detailed. Six-month interval follow-up the left breast CC and ML magnification views are recommended to ensure stability. ASSESSMENT: BI-RADS BI-RADS 3 - Probably benign finding(s) - 6 month follow-up suggested RECOMMENDATION: 6 Month F/U This patient's information was entered into a reminder system with a target due date for their next mammogram.
== END 2022-10-08 11:04 | disposition home or self-care (01) ==
LOC: HO.MAMMO 11:03
PROVIDERS: PCP Internal Medicine; Visit Provider Internal Medicine
DX: R92.1 Mammographic calcification found on diagnostic imaging of breast (principal)
CPT/HCPCS: 77065

== ENCOUNTER → 2022-10-08 11:30 | Outpatient (BNV) | payer BC, SELFPAY | PROVIDERS: PCP Internal Medicine; Visit Provider Radiology Diagnostic Radiology | DX: R92.1 Mammographic calcification found on diagnostic imaging of breast (principal) | CPT/HCPCS: 77061; 77065 ==

== ENCOUNTER 2022-10-09 16:08 | Outpatient (AMB) | payer BC, SELFPAY ==
--- NOTE | 2022-10-09 16:10 | MHC.PC.OV ---
Vital Signs 10/09/22 16:11 Height 5 ft 1 in Weight 252 lb 3.341 oz BMI 47.6 BP 116/86 Blood Pressure Location Lt brachial Position Sitting Pulse 101 H Pulse Source Pulse Oximeter Pulse Oximetry (%) 96 Oxygen Delivery Method Room Air Intake Visit Reasons: psoriatic arthritis Feeder Catcher Required: No Accompanied by: Self / Same As Patient Allergies aspirin Allergy (Unknown, Verified 10/10/22 08:31) Unknown Sulfa (Sulfonamide Antibiotics) Allergy (Unknown, Verified 10/10/22 08:31) pruritis, severe itching metformin Adverse Reaction (Unknown, Verified 10/10/22 08:31) diarrhea Medication List - Last Reconciled 10/10/22 by Alexis Murrieta MD atorvastatin 20 mg PO DAILY azithromycin take 500 mg today (day 1), then 250 mg for 4 days (days 2-5) PO tvajlkmovn-mktulfmlbwyfd-hdjs 50-325-40 mg 1 cap PO BID PRN 30 days clotrimazole-betamethasone 1-0.05 % 1 appl topical BID 14 days ergocalciferol (vitamin D2) 1,250 mcg PO QWEEK fluconazole (Diflucan) 150 mg PO DAILY 1 day folic acid 1 mg PO DAILY ixekizumab (Taltz Autoinjector (2 Pack)) 80 mg subcut Q4W lidocaine 5% 2 patches topical DAILY 30 days methotrexate sodium 20 mg PO QWEEK mupirocin 2% 1 appl topical TID 7 days nystatin 1 appl topical TID 10 days prednisone 5 mg PO DIRECTED PRN tramadol 50 mg PO Q4H PRN 7 days trazodone 150 mg (1.5 x 100 mg) PO BEDTIME 30 days Tobacco use date assessed: 10/09/22 Dental Screening Dental Screen Date: 10/09/22 Did you have a dental visit in the last 12 months?: No Did you have a dental problem in the last 6 months where you did not have access to dental care?: No Was dental information given to patient?: Patient has dentist HPI psoriatic arthritis HPI Details Patient comes in today for her follow up visit States that she is starting to get over a cold - has had cough/cold symptoms for a couple of weeks now but still has a recurrent cough and some chest congestion She was reportedly seen by a doctor recently and advised that she has bronchitis and prescribed some oral Prednisone for a few days, which gave her some symptomatic relief She denies any headaches, dizziness, fever or sore throat Denies any chest pains or SOB although her chest still feels slightly tight at times, and using her inhaler gives her some relief when these occur No nausea/vomiting, no abdominal pain No change in bowel habits noted States that she still has a lot of pain and tried going to [facility] a few months ago but finds that she gets more relief from her chiropractor and is now just going to her chiropractor regularly for treatments to help manage her chronic pains She has not been able to get her follow-up labs done prior to her visit today [facility] Medical History Depression Diabetes mellitus Fibromyalgia Insomnia Lumbar degenerative disc disease Migraine Morbid obesity with BMI of 45.0-49.9, adult Nasal sore Psoriatic arthritis Pure hypercholesterolemia Vitamin B12 deficiency Vitamin D deficiency Surgical History History of colonoscopy (~04/06/04) History of esophagogastroduodenoscopy (EGD) Family History Father No problems noted. Mother No problems noted. Social History Housing: House Alcohol intake: current Alcohol intake frequency: holidays/special occasions only Patient Tobacco Use Status: Former Tobacco user e-Cigarette/Vaping Use: Never Used Second Hand Smoke Exposure: Yes service: No Current occupational status: disabled Current occupation: rt hand Cognitive needs: Yes Hearing needs: No Vision needs: Yes Questionnaire PHQ-9 Over the last 2 weeks, how often have you been bothered by any of the following problems? 1. Little interest or pleasure in doing things: not at all 2. Feeling down, depressed, or hopeless: not at all 3. Trouble falling or staying asleep, or sleeping too much: not at all 4. Feeling tired or having little energy: not at all 5. Poor appetite or overeating: not at all 6. Feeling bad about yourself - or that you are a failure or have let yourself or your family down: not at all 7. Trouble concentrating on things, such as reading the newspaper or watching television: not at all 8. Moving or speaking so slowly that other people could have noticed. Or the opposite - being so fidgety or restless that you have been moving around a lot more than usual: not at all 9. Thoughts that you would be better off or of hurting yourself in some way: not at all Total score: 0 Depression Screening Interpretation: Negative 67143 - PHQ-9 Billing: Yes Source: Developed by Drs. Xavier Lewis, Ashley Rea, Jose Napier and colleagues, with an educational jade from [employer] by [employer]. Thrive Questionnaire Date Thrive assessed: 10/09/22 I am a: Patient What is your living situation today?: I have a steady place to live Within the past 12 months, did the food you bought not last and you didn't have the money to get more?: Never true Within the past 12 months, did you worry whether your food would run out before you got money to buy more?: Never true Do you have trouble paying for medicines?: No Do you have trouble getting transportation to medical appointments?: No Do you have trouble paying your heating and electricity bill?: No Do you have trouble taking care of your child, family member or friend?: No Do you have trouble with day-to-day activities such as bathing, preparing meals, shopping, managing finances, etc.?: No Are you currently unemployed and looking for a job?: No Are you interested in more education?: No Please select the resources that you would like help with: None Currently or been in a relationship where the following occur: no concerns reported AUDIT C Alcohol Use Questionnaire (AUDIT-C) 1. How often do you have a drink containing alcohol?: Never 3. How often do you have six or more drinks on one occasion?: Never Total Score: 0 Score Reviewed/Action Taken: Yes NAWAF-7 AMB Questionnaire NAWAF-7 Date NAWAF - 7 assessed: 10/09/22 Feeling nervous, anxious, or on edge: 0 = Not at all Not being able to stop or control worryin = Not at all Worrying too much about different things: 0 = Not at all Trouble relaxin = Not at all Being so restless that it is hard to sit still: 0 = Not at all Becoming easily annoyed or irritable: 0 = Not at all Feeling afraid as if something awful might happen: 0 = Not at all Total NAWAF-7 score (0-4 normal; 5-9 mild; 10-14 moderate; 15-21 severe): 0 Source: Developed by Drs. Xavier Lewis, Ashley Rea, Jose Napier and colleagues, with an educational jade from [employer]. Review of Systems Const Denies chills, Reports fatigue, Denies fever(s) and Denies headache(s) ENT Denies dysphagia, Denies dizziness, Denies otalgia, Denies headache(s), Reports nasal congestion, Reports neck pain, Denies odynophagia, Denies sinus pain and Denies sore throat Card Denies chest pain, Denies palpitations and Denies dyspnea Resp Reports chest congestion, Reports cough (on and off), Denies excessive phlegm production, Denies dyspnea and Denies wheezing GI Denies abdominal pain, Denies constipation, Denies dysphagia, Denies heartburn, Denies diarrhea, Denies nausea, Denies odynophagia and Denies vomiting Denies difficulty voiding, Denies nocturia and Denies dysuria Musc Reports back pain (chronic), Reports myalgias (diffuse), Reports arthralgias (over multiple joints, including knees and hips & more recently, L shoulder), Reports neck pain and Reports stiffness Neuro Denies dizziness and Denies headache(s) Endo Reports fatigue and Denies palpitations Aller/Immun Denies wheezing Physical exam (Primary Care) Vital Signs: Last Vital Signs Pulse 101 H 10/09/22 16:11 BP 116/86 10/09/22 16:11 Pulse Ox 96 10/09/22 16:11 Oxygen Delivery Method Room Air 10/09/22 16:11 BMI result Body Mass Index 47.6 Tobacco/Smoking Status: Tobacco use Status Tobacco use date assessed 10/09/22 10/09/22 16:19 Patient Tobacco Use Status Former Tobacco user 10/09/22 16:19 e-Cigarette/Vaping Use Never Used 10/09/22 16:19 PHQ-9: PHQ-9 Score PHQ-9: Total score 0 10/10/22 08:32 Depression Screening Interpretation: Negative Thrive Assessment: Date of Thrive Assessment Date Thrive assessed 10/09/22 10/09/22 16:19 Currently or been in a relationship where the following occur: no concerns reported Const General: no acute distress and alert HENMT Ears: TM's normal bilaterally and EAC's normal Face and sinus: No sinus tenderness Throat: Yes posterior oropharynx normal and Yes tonsils normal (no TP congestion noted) Neck Neck: Yes no lymphadenopathy and Yes supple Resp Auscultation: no rales, rhonchi throughout and no wheezes Cardio Rate: regular rate Rhythm: regular rhythm Heart sounds: no murmurs GI Palpation (GI): Soft to palpation and nontender Auscultation: normal bowel sounds Back/Spine/Pelvis Cervical Spine: Cervical spine tenderness Thoracic/Lumbar Spine: lumbar spinal tenderness Extrem General: Yes no clubbing, cyanosis or edema Left upper extremity: shoulder/upper arm Details: tenderness Location: of the A-C joint and of the proximal humerus Right lower extremity: hip/thigh Details: tenderness and knee Details: tenderness; no swelling Left lower extremity: hip/thigh Details: tenderness and knee Details: tenderness; no swelling Assessment and Plan Assessment & Plan (1) Osteoarthritis involving multiple joints on both sides of body: Code(s): M15.9 - Polyosteoarthritis, unspecified Plan: Continue Lidocaine patches 5% QD PRN X-rays done a few months ago revealed (+) mild degenerative changes in the hip joints bilaterally with no visible acute changes or fracture and mild degenerative changes in the right shoulder joint with enthesophyte along the inferior acromion. There is a healing fracture of the left humeral neck without dislocation; the soft tissues are normal. (+) degenerative disc changes at the C4-C5 disc level with ventral spondylosis and no visible acute fracture or dislocation seen Follow-up with [facility] as scheduled (2) Psoriatic arthritis: Code(s): L40.50 - Arthropathic psoriasis, unspecified Plan: Is currently still on Methotrexate 8 tablets (20 mg) once a week and Taltz 80 mg SQ Q 4 weeks, and has been seeing Dr. Lopez in [place] for rheumatology follow up and management for the past few years Per request, she was previously referred to the [facility] for a second rheumatology evaluation/opinion and management but has not been seen there yet Follow-up with rheumatology as scheduled (3) Lumbar degenerative disc disease: Code(s): M51.36 - Other intervertebral disc degeneration, lumbar region Plan: Reinforced activity and weight lifting restrictions MRI back in 1999 showed (+) minimal degenerative changes; MRI in 2006 was normal but states that her low back pains have gotten a lot worse over the years; repeat lumbar spine MRI ordered last year for follow up was denied by insurance? Patient used to take?Vicodin ES?tablet 7.5-325 mg 1 tablet up to 4 times a day as needed and?MS Contin ER 60 mg?1 tablet twice a day but she gradually stopped and came off her pain meds over the past year or so and has not really noticed any significant change in her overall pain Is currently only using topical Lidocaine patches daily as needed (4) Fibromyalgia: Code(s): M79.7 - Fibromyalgia Plan: She is again encouraged to continue to try to exercise regularly to help manage her fibromyalgia symptoms but states that this is proving difficult due to the progression of her psoriatic arthritis Patient was also on Carisoprodol 350 mg TID PRN in the past but was encouraged to come off of this due to its habit-forming potential and high risk of dependence and drug interactions with her opioids - this was DISCONTINUED months ago and she is now completely off Soma as well If needed, will start on Tizanidine 4 mg TID PRN Per request, referral is made out today for integrative medicine for her to see Dr. Whiteside to explore alternative treatment options for her chronic pain but states that she also has not been seen by Dr. Whiteside yet and is currently just seeing her chiropractor regularly for treatments (5) Diabetes mellitus: Code(s): E11.9 - Type 2 diabetes mellitus without complications Qualifiers: Diabetes mellitus type: type 2 Diabetes mellitus terminal clerk insulin use: without terminal clerk use Diabetes mellitus complication status: without complication Qualified Code(s): E11.9 - Type 2 diabetes mellitus without complications Plan: In-office HgbA1c was at 6.0% and 6.1% when previously checked over the past year - goal is < 7.0% Reinforced diabetic diet Used to take Januvia 100 mg QD, Metformin 500 mg BID and Glipizide ER 5 mg QD but has not been on any Rx for her DM in a while now (6) Pure hypercholesterolemia: Code(s): E78.00 - Pure hypercholesterolemia, unspecified Plan: Reinforced low cholesterol diet Continue Atorvastatin 20 mg QD Will recheck her labs and fasting lipids in 4 months for follow up (7) Respiratory tract infection: Code(s): J98.8 - Other specified respiratory disorders Plan: Will start patient on Azithromycin QD x5 days (8) Migraine: Code(s): G43.909 - Migraine, unspecified, not intractable, without status migrainosus Qualifiers: Migraine type: unspecified Status migrainosus presence: without status migrainosus Intractability: not intractable Qualified Code(s): G43.909 - Migraine, unspecified, not intractable, without status migrainosus Plan: Continue Fiorinal 1 to 2 tablets every 6 to 8 hours as needed Reinforced avoidance of potential migraine triggers May need to see neurology again if her headaches get worse (9) Vitamin B12 deficiency: Code(s): E53.8 - Deficiency of other specified B group vitamins Plan: Continue Vitamin B12 tablets 1000 mcg daily (10) Vitamin D deficiency: Code(s): E55.9 - Vitamin D deficiency, unspecified Plan: Continue Vitamin D2 66107 units once a week (11) Insomnia: Code(s): G47.00 - Insomnia, unspecified Qualifiers: Insomnia type: unspecified Qualified Code(s): G47.00 - Insomnia, unspecified Plan: Sleep hygiene reinforced Was taking Carisoprodol at bedtime in the past to help her sleep better at night but she has since discontinued Rx Continue Trazodone 100 mg 1.5 tablets (150 mg) Q HS PRN (12) Depression: Code(s): F32.9 - Major depressive disorder, single episode, unspecified Qualifiers: Depression Type: unspecified Qualified Code(s): F32.9 - Major depressive disorder, single episode, unspecified Plan: States that she has been doing okay lately - does not feel that she needs anything at this time but will call if anything changes (13) Morbid obesity with BMI of 45.0-49.9, adult: Code(s): E66.01 - Morbid (severe) obesity due to excess calories; Z68.42 - Body mass index [BMI] 45.0-49.9, adult Plan: Reinforced diet/lose weight; exercise is difficult and is an unlikely option at this time due to patient's physical incapacities and disabilities Plan Follow up in 4 months Orders: Orders Lipid Panel 4 Months E78.00 - Pure hypercholesterolemia, unspecified Hemoglobin A1c 4 Months E11.9 - Type 2 diabetes mellitus without complications Comprehensive [place]. Panel Fast 4 Months E78.00 - Pure hypercholesterolemia, unspecified Vitamin B12 and Folate 4 Months E53.8 - Deficiency of other specified B group vitamins, L40.50 - Arthropathic psoriasis, unspecified C Reactive Protein 4 Months L40.50 - Arthropathic psoriasis, unspecified TSH reflex Free T4 4 Months E78.00 - Pure hypercholesterolemia, unspecified, L40.50 - Arthropathic psoriasis, unspecified Vitamin D 25-OH Total 4 Months E55.9 - Vitamin D deficiency, unspecified, L40.50 - Arthropathic psoriasis, unspecified Complete Blood Count Auto Diff 4 Months I10 - Essential (primary) hypertension, L40.50 - Arthropathic psoriasis, unspecified Erythrocyte Sedimentation Rate 4 Months L40.50 - Arthropathic psoriasis, unspecified, M79.7 - Fibromyalgia UA CC w/rflx Micro + Cult 4 Months L40.50 - Arthropathic psoriasis, unspecified, R30.0 - Dysuria Medications: New prednisone see taper instructions 5 mg PO DIRECTED PRN 18 tabs 0RF joint pain flare up Refilled azithromycin take 500 mg today (day 1), then 250 mg for 4 days (days 2-5) PO 6 tabs 0RF Discontinued amoxicillin-pot clavulanate 875-125 mg Discontinued Reason: Patient Completed Course 1 tab PO BID 10 days 20 tabs 0RF Coding Level of Care Code Est Pt Level 4 (40633) Diagnoses Osteoarthritis involving multiple joints on both sides of body M15.9 Psoriatic arthritis L40.50 Lumbar degenerative disc disease M51.36 Fibromyalgia M79.7 Diabetes mellitus E11.9 Diabetes mellitus type: type 2 Diabetes mellitus shelter insulin use: without shelter use Diabetes mellitus complication status: without complication Pure hypercholesterolemia E78.00 Respiratory tract infection J98.8 Migraine G43.909 Migraine type: unspecified Status migrainosus presence: without status migrainosus Intractability: not intractable Vitamin B12 deficiency E53.8 Vitamin D deficiency E55.9 Insomnia G47.00 Insomnia type: unspecified Depression F32.9 Depression Type: unspecified Morbid obesity with BMI of 45.0-49.9, adult E66.01; Z68.42
[2022-10-09 16:11] VITALS: BP 116/86; PULSE 101; O2SAT 96; BMI 47.6
== END 2022-10-09 16:43 | disposition home or self-care (01) ==
PROVIDERS: PCP Internal Medicine; Visit Provider Internal Medicine
DX: G43.909 Migraine, unspecified, not intractable, without status migrainosus (principal); E11.9 Type 2 diabetes mellitus without complications; E66.01 Morbid (severe) obesity due to excess calories; Z68.42 Body mass index [BMI] 45.0-49.9, adult; F32.9 Major depressive disorder, single episode, unspecified; L40.50 Arthropathic psoriasis, unspecified; E55.9 Vitamin D deficiency, unspecified; M15.9 Polyosteoarthritis, unspecified; M79.7 Fibromyalgia; M51.36 Other intervertebral disc degeneration, lumbar region; E78.00 Pure hypercholesterolemia, unspecified; J98.8 Other specified respiratory disorders
CPT/HCPCS: 99214

== ENCOUNTER 2023-01-09 07:11 | Outpatient (AMB) | payer BC, SELFPAY ==
--- NOTE | 2023-01-09 07:13 | A.OFFPC_ITS ---
Vital Signs 01/09/23 07:13 Height 5 ft 1 in Blood Pressure Location Lt brachial Position Sitting Pulse Source Pulse Oximeter Oxygen Delivery Method Room Air Intake Visit Reasons: left shoulder, arm pain; left leg pain Allergies aspirin Allergy (Unknown, Verified 01/09/23 07:38) Unknown Sulfa (Sulfonamide Antibiotics) Allergy (Unknown, Verified 01/09/23 07:38) pruritis, severe itching metformin Adverse Reaction (Unknown, Verified 01/09/23 07:38) diarrhea Tobacco use date assessed: 10/09/22 Dental Screening Dental Screen Date: 01/09/23 Did you have a dental visit in the last 12 months?: No Did you have a dental problem in the last 6 months where you did not have access to dental care?: No Was dental information given to patient?: Patient has dentist HPI HPI Comments History of Present Illness Details 62-year-old female past medical history significant for diabetes mellitus, lumbar degenerative disc disease, psoriatic arthritis, fibromyalgia, hypercholesteremia, migraines and osteoarthritis involving multiple joints. Patient of Dr. Murrieta, presents today for a telehealth appointment for ongoing left shoulder and left like pain. Patient reports agonizing left leg pain x4 months and left shoulder pain x1 patient reports pain is like a shooting squeezing pain down extremities. Patient states she is unsure if it is just arthritis. Patient takes tramadol or gabapentin as needed for pain with some relief. Patient denies any numbness and left lower extremity, states she does have numbness and left hand with this is related to her history of carpal tunnel. Patient denies any left upper arm and left leg weakness denies any service speech, facial droop or stroke-like symptoms. Denies any chest pain. Denies any bowel or bladder incontinence. Patient currently follows with Dr. Lopez and [place] for rheumatology currently on methotrexate. CT of lumbar spine showed age undetermined compression deformity of superior endplate L3, 35% disc height loss, severe canal narrowing at L4-L5 recommended further evaluation with MRI. Patient reports has upcoming MRI scheduled on January 22. Case reviewed with patients pcp, will start patient on Tizanidine 4mg TID prn. Patient also reports sore throat since Friday, patient states she took at home strep test which was positive; send antibiotics for this. [facility], [facility] Medical History Depression Diabetes mellitus Fibromyalgia Insomnia Lumbar degenerative disc disease Migraine Morbid obesity with BMI of 45.0-49.9, adult Nasal sore Psoriatic arthritis Pure hypercholesterolemia Vitamin B12 deficiency Vitamin D deficiency Surgical History History of colonoscopy (~04/06/04) History of esophagogastroduodenoscopy (EGD) Family History Father No problems noted. Mother No problems noted. Social History Housing: House Alcohol intake: current Alcohol intake frequency: holidays/special occasions only Patient Tobacco Use Status: Former Tobacco user Tobacco use type: Cigarette e-Cigarette/Vaping Use: Never Used Second Hand Smoke Exposure: Yes service: No Current occupational status: disabled Current occupation: rt hand Cognitive needs: Yes Hearing needs: No Vision needs: Yes Questionnaire PHQ-9 Over the last 2 weeks, how often have you been bothered by any of the following problems? 1. Little interest or pleasure in doing things: not at all 2. Feeling down, depressed, or hopeless: not at all 3. Trouble falling or staying asleep, or sleeping too much: not at all 4. Feeling tired or having little energy: not at all 5. Poor appetite or overeating: not at all 6. Feeling bad about yourself - or that you are a failure or have let yourself or your family down: not at all 7. Trouble concentrating on things, such as reading the newspaper or watching television: not at all 8. Moving or speaking so slowly that other people could have noticed. Or the opposite - being so fidgety or restless that you have been moving around a lot more than usual: not at all 9. Thoughts that you would be better off or of hurting yourself in some way: not at all Total score: 0 Depression Screening Interpretation: Negative Depression Screening Done: Yes 58397 - PHQ-9 Billing: Yes Source: Developed by Drs. Xavier Lewis, Ashley Rea, Jose Napier and colleagues, with an educational jade from [employer]. Thrive Questionnaire Date Thrive assessed: 10/09/22 AUDIT C Alcohol Use Questionnaire (AUDIT-C) 1. How often do you have a drink containing alcohol?: Never 3. How often do you have six or more drinks on one occasion?: Never Total Score: 0 Score Reviewed/Action Taken: Yes NAWAF-7 AMB Questionnaire NAWAF-7 Date NAWAF - 7 assessed: 10/09/22 Source: Developed by Drs. Xavier Lewis, Ashley Rea, Jose Napier and colleagues, with an educational jade from [employer]. Review of Systems ENT Denies neck pain and Reports sore throat Card Denies chest pain Musc Reports arthralgias (left shoulder and leg pain ), Denies muscle weakness and Denies neck pain Physical exam (Primary Care) Vital Signs: Oxygen Delivery Method Room Air 01/09/23 07:13 unable to assess telehealth appointment Tobacco/Smoking Status: Tobacco use Status Tobacco use date assessed 10/09/22 01/09/23 07:15 Patient Tobacco Use Status Former Tobacco user 01/09/23 07:15 Tobacco use type Cigarette 01/09/23 07:15 e-Cigarette/Vaping Use Never Used 01/09/23 07:15 PHQ-9: PHQ-9 Score PHQ-9: Total score 0 01/09/23 11:34 Depression Screening Interpretation: Negative Thrive Assessment: Date of Thrive Assessment Date Thrive assessed 10/09/22 01/09/23 07:15 Telehealth Telehealth Location of provider rendering services: practice address Location of patient: address on file Patient Identification confirmed using: Name, : Yes Telehealth method: video (Iphone) Patient verbally consented to treatment: Yes Patient verbally consented to billing insurance company: Yes Patient informed of any privacy concerns related to visit: Yes Assessment and Plan Assessment & Plan (1) Strep throat: Code(s): J02.0 - Streptococcal pharyngitis Plan: At home strep test positive. Given patient currently on methotrexate and there is a severe interaction between methotrexate and penicillins, azithromycin sent to patient's pharmacy. (2) Left shoulder pain: Code(s): M25.512 - Pain in left shoulder Plan: Previous left shoulder x-ray showed healing fracture of left humeral neck without dislocation, mild degenerative changes; soft tissues are normal. Degenerative disc changes at C4-C5 disc level with ventral spondylosis and no visible acute fracture or dislocation seen. (3) Left hip pain: Code(s): M25.552 - Pain in left hip Plan: X-rays completed few months ago revealed mild degenerative changes in the hip joints bilaterally with no visible acute changes or fractures. (4) Fibromyalgia: Code(s): M79.7 - Fibromyalgia Plan: She is again encouraged to continue to try to exercise regularly to help manage her fibromyalgia symptoms but states that this is proving difficult due to the progression of her psoriatic arthritis. Patient previous on Carisoprodol 35omg TID prn, but was this was discontinued months ago due to medication being habit-forming and high risk for Tizanidine 4mg TID prn sent to patients pharmacy. Patient currently waiting appointment with [facility] Dr. Whiteside and sees a chiropractor regularly for treatments. (5) Psoriatic arthritis: Code(s): L40.50 - Arthropathic psoriasis, unspecified Plan: Is currently still on Methotrexate 8 tablets (20 mg) once a week and Taltz 80 mg SQ Q 4 weeks, and has been seeing Dr. Lopez in [place] for rheumatology follow up and management for the past few years Follow-up with rheumatology as schedule (6) Lumbar degenerative disc disease: Code(s): M51.36 - Other intervertebral disc degeneration, lumbar region Plan: Most recent CT cuts and showed severe canal narrowing at L4-5 recommended further evaluation with MRI. Patient reports has MRI scheduled for January 22. Patient denies any lower extremity weakness or bowel or bladder incontinence. Patient currently takes tramadol as needed for pain. Plan Keep scheduled follow up with pcp or follow up sooner if needed. Medications: New azithromycin For 250 mg dose pack: take 500 mg today (day 1), then 250 mg for 4 days (days 2-5) PO 6 tabs 0RF J02.0 - Streptococcal pharyngitis tizanidine 4 mg PO TID PRN 30 tabs 0RF muscle spasticity M79.7 - Fibromyalgia Coding Level of Care Code Tele New Pt Level 4 (61169) Diagnoses Strep throat J02.0 Left shoulder pain M25.512 Left hip pain M25.552 Fibromyalgia M79.7 Psoriatic arthritis L40.50 Lumbar degenerative disc disease M51.36
== END 2023-01-09 10:38 | disposition home or self-care (01) ==
LOC: HO.HMGH 07:11
PROVIDERS: PCP Internal Medicine; Visit Provider Nurse Practitioner Family
DX: J02.0 Streptococcal pharyngitis (principal); M25.512 Pain in left shoulder; M25.552 Pain in left hip; M79.7 Fibromyalgia; M51.36 Other intervertebral disc degeneration, lumbar region
CPT/HCPCS: 99443

== ENCOUNTER 2023-02-10 14:21 | Outpatient (REF) | payer BC, SELFPAY ==
--- NOTE | ~2023-02-10 | XR_ITS ---
EXAMINATION: XR SHOULDER, LEFT CLINICAL INFORMATION: Left shoulder pain. COMPARISON: 05/01/2022 TECHNIQUE: Four views of the left shoulder. FINDINGS: There is a healed proximal humeral fracture with valgus angulation at the fracture site. Glenohumeral joint appears well-preserved. Mild acromioclavicular osteoarthritis. Soft tissues are unremarkable. Bones are osteopenic. Left hemithorax is unremarkable. XR/XR shoulder LT min 2V IMPRESSION: Healed left proximal humeral fracture with valgus angulation at the fracture site. No acute osseous findings.
== END 2023-02-10 14:22 | disposition home or self-care (01) ==
LOC: HO.XRAY 14:21
PROVIDERS: PCP Internal Medicine; Visit Provider Internal Medicine
DX: M25.512 Pain in left shoulder (principal)
CPT/HCPCS: 73030

== ENCOUNTER 2023-02-12 15:20 | Outpatient (AMB) | payer BC, SELFPAY ==
--- NOTE | 2023-02-12 15:20 | A.OFFPC_ITS ---
Intake Visit Reasons: 6M FU psoriatic arthritis, fibromyalgia, HTN, DM Trade Marker Required: No Accompanied by: Self / Same As Patient Allergies aspirin Allergy (Unknown, Verified 02/17/23 11:11) Unknown Sulfa (Sulfonamide Antibiotics) Allergy (Unknown, Verified 02/17/23 11:11) pruritis, severe itching metformin Adverse Reaction (Unknown, Verified 02/17/23 11:11) diarrhea Medication List - Last Reconciled 02/17/23 by Alexis Murrieta MD alendronate 70 mg PO QWEEK atorvastatin 20 mg PO DAILY urbztvdtxq-atcmxmbtgxvhk-uvgd 50-325-40 mg 1 cap PO BID PRN 30 days clotrimazole-betamethasone 1-0.05 % 1 appl topical BID 14 days ergocalciferol (vitamin D2) 1,250 mcg PO QWEEK folic acid 1 mg PO DAILY gabapentin 300 mg PO TID PRN ixekizumab (Taltz Autoinjector (2 Pack)) 80 mg subcut Q4W lidocaine 5% 2 patches topical DAILY 30 days methotrexate sodium 20 mg PO QWEEK mupirocin 2% 1 appl topical TID 7 days nystatin 1 appl topical TID 10 days tizanidine 4 mg PO TID PRN tramadol 50 mg PO Q6H PRN 15 days trazodone 150 mg (1.5 x 100 mg) PO BEDTIME 30 days Tobacco use date assessed: 02/12/23 Dental Screening Dental Screen Date: 02/12/23 Did you have a dental visit in the last 12 months?: No Did you have a dental problem in the last 6 months where you did not have access to dental care?: No Was dental information given to patient?: No HPI 6M FU psoriatic arthritis, fibromyalgia, HTN, DM HPI Details Patient's follow up visit / consultation today is done over video conference (iPhone/iPad/Google Meets/[employer]) - this is a TELEHEALTH visit Patient requested to have her visit changed to a telehealth today due to her increasing pain and limited mobility Patient's current medications have been reviewed and verified with patient and / or caregiver / proxy and have been updated accordingly in the medication list States that she just had an injection into her lower back at L4-L5 yesterday at [facility] - feels that her low back pack is now improving somewhat from her injection She is currently still on Methotrexate and Taltz for psoriatic arthritis and multiple joint pains States that she feels okay otherwise She denies any headaches or dizziness Denies any chest pains, no increased shortness of breath No nausea /vomiting, no abdominal pain No change in bowel habits noted Needs her Atorvastatin Rx refilled States that she had some follow-up labs done at [facility] a couple of weeks ago and would like to know how she did on her recent lab PFS Medical History Insomnia Nasal sore Morbid obesity with BMI of 45.0-49.9, adult Depression Vitamin D deficiency Vitamin B12 deficiency Migraine Pure hypercholesterolemia Fibromyalgia Diabetes mellitus Psoriatic arthritis Lumbar degenerative disc disease Surgical History History of esophagogastroduodenoscopy (EGD) History of colonoscopy (~04/06/04) Family History Father No problems noted. Mother No problems noted. Social History Housing: House Alcohol intake: current Alcohol intake frequency: holidays/special occasions only Patient Tobacco Use Status: Former Tobacco user Tobacco use type: Cigarette e-Cigarette/Vaping Use: Never Used Second Hand Smoke Exposure: Yes service: No Current occupational status: disabled Current occupation: rt hand Cognitive needs: Yes Hearing needs: No Vision needs: Yes Questionnaire PHQ-9 Over the last 2 weeks, how often have you been bothered by any of the following problems? 1. Little interest or pleasure in doing things: not at all 2. Feeling down, depressed, or hopeless: not at all 3. Trouble falling or staying asleep, or sleeping too much: not at all 4. Feeling tired or having little energy: not at all 5. Poor appetite or overeating: not at all 6. Feeling bad about yourself - or that you are a failure or have let yourself or your family down: not at all 7. Trouble concentrating on things, such as reading the newspaper or watching television: not at all 8. Moving or speaking so slowly that other people could have noticed. Or the opposite - being so fidgety or restless that you have been moving around a lot more than usual: not at all 9. Thoughts that you would be better off or of hurting yourself in some way: not at all Total score: 0 Depression Screening Interpretation: Negative Depression Screening Done: Yes 31451 - PHQ-9 Billing: Yes Source: Developed by Drs. Xavier Lewis, Ashley Rea, Jose Naiper and colleagues, with an educational jade from [employer]. Thrive Questionnaire Date Thrive assessed: 02/12/23 I am a: Patient What is your living situation today?: I have a steady place to live Within the past 12 months, did the food you bought not last and you didn't have the money to get more?: Never true Within the past 12 months, did you worry whether your food would run out before you got money to buy more?: Never true Do you have trouble paying for medicines?: No Do you have trouble getting transportation to medical appointments?: No Do you have trouble paying your heating and electricity bill?: No Do you have trouble taking care of your child, family member or friend?: No Do you have trouble with day-to-day activities such as bathing, preparing meals, shopping, managing finances, etc.?: No Are you currently unemployed and looking for a job?: No Are you interested in more education?: No Please select the resources that you would like help with: None Currently or been in a relationship where the following occur: no concerns reported AUDIT C Alcohol Use Questionnaire (AUDIT-C) 1. How often do you have a drink containing alcohol?: Never 3. How often do you have six or more drinks on one occasion?: Never Total Score: 0 Score Reviewed/Action Taken: Yes NAWAF-7 AMB Questionnaire NAWAF-7 Date NAWAF - 7 assessed: 02/12/23 Feeling nervous, anxious, or on edge: 0 = Not at all Not being able to stop or control worryin = Not at all Worrying too much about different things: 0 = Not at all Trouble relaxin = Not at all Being so restless that it is hard to sit still: 0 = Not at all Becoming easily annoyed or irritable: 0 = Not at all Feeling afraid as if something awful might happen: 0 = Not at all Total NAWAF-7 score (0-4 normal; 5-9 mild; 10-14 moderate; 15-21 severe): 0 Source: Developed by Drs. Xavier Lewis, Ashley Rea, Jose Napier and colleagues, with an educational jade from [employer]. Review of Systems Const Denies chills, Reports fatigue, Denies fever(s) and Denies headache(s) ENT Denies dysphagia, Denies dizziness, Denies otalgia, Denies headache(s), Reports neck pain, Denies odynophagia and Denies sore throat Card Denies chest pain, Denies palpitations and Denies dyspnea Resp Denies cough, Denies excessive phlegm production, Denies dyspnea and Denies wheezing GI Denies abdominal pain, Denies constipation, Denies dysphagia, Denies heartburn, Denies diarrhea, Denies nausea, Denies odynophagia and Denies vomiting Denies difficulty voiding, Denies nocturia and Denies dysuria Musc Reports back pain (chronic), Reports myalgias (diffuse), Reports arthralgias (over multiple joints, including knees and hips & more recently, L shoulder), Reports neck pain and Reports stiffness Neuro Denies dizziness and Denies headache(s) Endo Reports fatigue and Denies palpitations Aller/Immun Denies wheezing Physical exam (Primary Care) Vital Signs: Physical examination is not performed as visit / consultation today is done over videoconference - Telehealth visit All physical findings indicated here, if present, are as per patient's and / or caregivers / proxy's report and visual inspection over videoconference, if appropriate or applicable Tobacco/Smoking Status: Tobacco use Status Tobacco use date assessed 02/12/23 02/12/23 15:24 Patient Tobacco Use Status Former Tobacco user 02/12/23 15:24 Tobacco use type Cigarette 02/12/23 15:24 e-Cigarette/Vaping Use Never Used 02/12/23 15:24 PHQ-9: PHQ-9 Score PHQ-9: Total score 0 02/17/23 11:14 Depression Screening Interpretation: Negative Thrive Assessment: Date of Thrive Assessment Date Thrive assessed 02/12/23 02/12/23 15:24 Currently or been in a relationship where the following occur: no concerns reported Telehealth Telehealth Location of provider rendering services: practice address Location of patient: address on file Patient Identification confirmed using: Name, : Yes Telehealth method: video (IPhone) Patient verbally consented to treatment: Yes Patient verbally consented to billing insurance company: Yes Patient informed of any privacy concerns related to visit: Yes Minutes spent on Phone/Video with Pt.: 22 Assessment and Plan Assessment & Plan (1) Osteoarthritis involving multiple joints on both sides of body: Code(s): M15.9 - Polyosteoarthritis, unspecified Plan: Continue Lidocaine patches 5% QD PRN X-rays done a few months ago revealed (+) mild degenerative changes in the hip joints bilaterally with no visible acute changes or fracture and mild d egenerative changes in the right shoulder joint with enthesophyte along the inferior acromion. There is a healed fracture of the left humeral neck without dislocation; the soft tissues are normal. (+) degenerative disc changes at the C4-C5 disc level with ventral spondylosis and no visible acute fracture or dislocation seen Follow-up with [facility] as scheduled (2) Psoriatic arthritis: Code(s): L40.50 - Arthropathic psoriasis, unspecified Plan: She is currently still on Methotrexate 8 tablets (20 mg) once a week and Taltz 80 mg SQ Q 4 weeks, and has been seeing Dr. Lopez in [place] for rheumatology follow up and management for the past few years Per request, she was previously referred to the [facility] for a second rheumatology evaluation/opinion and management but has not been seen there yet Follow-up with rheumatology as scheduled (3) Lumbar degenerative disc disease: Code(s): M51.36 - Other intervertebral disc degeneration, lumbar region Plan: Reinforced activity and weight lifting restrictions MRI back in 1999 showed (+) minimal degenerative changes; MRI in 2006 was normal but states that her low back pains have gotten a lot worse over the years; repeat lumbar spine MRI ordered last year for follow up was denied by insurance? Patient used to take?Vicodin ES?tablet 7.5-325 mg 1 tablet up to 4 times a day as needed and?MS Contin ER 60 mg?1 tablet twice a day but she gradually stopped and came off her pain meds over the past year or so and she has not really noticed any significant change in her overall pain Is currently only using topical Lidocaine patches daily as needed for pain Just had an injection into her lower back at L4-L5 yesterday at [facility] - feels that her low back pack is now improving somewhat from her injection (4) Fibromyalgia: Code(s): M79.7 - Fibromyalgia Plan: She is again encouraged to continue to try to exercise regularly to help manage her fibromyalgia symptoms but states that this is proving difficult due to the progression of her psoriatic arthritis Patient was also on Carisoprodol 350 mg TID PRN in the past but was encouraged to come off of this due to its habit-forming potential and high risk of dependence and drug interactions with her opioids - this was DISCONTINUED months ago and she is now completely off Soma as well If needed, will start on Tizanidine 4 mg TID PRN Per request, a referral was previously made out for integrative medicine for her to see Dr. Whiteside to explore alternative treatment options for her chronic pain but states that she also was not seen by Dr. Whiteside yet and is currently just seeing her chiropractor regularly for treatments (5) Diabetes mellitus: Code(s): E11.9 - Type 2 diabetes mellitus without complications Qualifiers: Diabetes mellitus complication status: without complication Diabetes mellitus termite control representative insulin use: without termite control representative use Diabetes mellitus type: type 2 Qualified Code(s): E11.9 - Type 2 diabetes mellitus without complications Plan: In-office HgbA1c was at 6.0% and 6.1% when previously checked over the past year - goal is < 7.0% Reinforced diabetic diet Used to take Januvia 100 mg QD, Metformin 500 mg BID and Glipizide ER 5 mg QD but has not been on any Rx for her DM in a while now (6) Pure hypercholesterolemia: Code(s): E78.00 - Pure hypercholesterolemia, unspecified Plan: Results of her labs done at [facility] last week reviewed and discussed with patient Reinforced low cholesterol diet Continue Atorvastatin 20 mg QD Will recheck her labs and fasting lipids in 4 months for follow up (7) Migraine: Code(s): G43.909 - Migraine, unspecified, not intractable, without status migrainosus Qualifiers: Intractability: not intractable Migraine type: unspecified Status migrainosus presence: without status migrainosus Qualified Code(s): G43.909 - Migraine, unspecified, not intractable, without status migrainosus Plan: Continue Fiorinal 1 to 2 tablets every 6 to 8 hours as needed Reinforced avoidance of potential migraine triggers May need to see neurology again if her headaches get worse (8) Vitamin B12 deficiency: Code(s): E53.8 - Deficiency of other specified B group vitamins Plan: Continue Vitamin B12 tablets 1000 mcg daily (9) Vitamin D deficiency: Code(s): E55.9 - Vitamin D deficiency, unspecified Plan: Continue Vitamin D2 26187 units once a week (10) Insomnia: Code(s): G47.00 - Insomnia, unspecified Qualifiers: Insomnia type: unspecified Qualified Code(s): G47.00 - Insomnia, unspecified Plan: Sleep hygiene reinforced Was taking Carisoprodol at bedtime in the past to help her sleep better at night but she has since discontinued Rx Continue Trazodone 100 mg 1.5 tablets (150 mg) Q HS PRN (11) Depression: Code(s): F32.9 - Major depressive disorder, single episode, unspecified Qualifiers: Depression Type: unspecified Qualified Code(s): F32.9 - Major depressive disorder, single episode, unspecified Plan: States that she has been doing okay lately - does not feel that she needs anything at this time but will call if anything changes (12) Morbid obesity with BMI of 45.0-49.9, adult: Code(s): E66.01 - Morbid (severe) obesity due to excess calories; Z68.42 - Body mass index [BMI] 45.0-49.9, adult Plan: Reinforced diet/lose weight; exercise is difficult and is an unlikely option at this time due to patient's physical incapacities and disabilities Plan Follow up in 4 months Orders: Orders Complete Blood Count Auto Diff 4 Months I10 - Essential (primary) hypertension UA CC w/rflx Micro + Cult 4 Months R30.0 - Dysuria TSH reflex Free T4 4 Months E78.00 - Pure hypercholesterolemia, unspecified Comprehensive [place]. Panel Fast 4 Months E78.00 - Pure hypercholesterolemia, unspecified Lipid Panel 4 Months E78.00 - Pure hypercholesterolemia, unspecified Vitamin D 25-OH Total 4 Months E55.9 - Vitamin D deficiency, unspecified Medications: Refilled atorvastatin 20 mg PO DAILY 90 tabs 1RF E78.00 - Pure hypercholesterolemia, unspecified Coding Level of Care Code Tele Est Pt Level 4 (17427) Diagnoses Osteoarthritis involving multiple joints on both sides of body M15.9 Psoriatic arthritis L40.50 Lumbar degenerative disc disease M51.36 Fibromyalgia M79.7 Type 2 diabetes mellitus without complication, without long-term current use of insulin E11.9 Diabetes mellitus complication status: without complication Diabetes mellitus nursing home insulin use: without termite control representative use Diabetes mellitus type: type 2 Pure hypercholesterolemia E78.00 Migraine without status migrainosus, not intractable, unspecified migraine type G43.909 Intractability: not intractable Migraine type: unspecified Status migrainosus presence: without status migrainosus Vitamin B12 deficiency E53.8 Vitamin D deficiency E55.9 Insomnia, unspecified type G47.00 Insomnia type: unspecified Depression, unspecified depression type F32.9 Depression Type: unspecified Morbid obesity with BMI of 45.0-49.9, adult E66.01; Z68.42
== END 2023-02-12 16:57 | disposition home or self-care (01) ==
LOC: HO.HMGH 15:20
PROVIDERS: PCP Internal Medicine; Visit Provider Internal Medicine
DX: L40.50 Arthropathic psoriasis, unspecified (principal); M79.7 Fibromyalgia; E11.9 Type 2 diabetes mellitus without complications; F33.9 Major depressive disorder, recurrent, unspecified; E78.00 Pure hypercholesterolemia, unspecified; G43.909 Migraine, unspecified, not intractable, without status migrainosus; E53.8 Deficiency of other specified B group vitamins; E55.9 Vitamin D deficiency, unspecified; G47.00 Insomnia, unspecified
CPT/HCPCS: 99213

== ENCOUNTER 2023-05-06 10:59 | Outpatient (REF) | payer BC, SELFPAY ==
--- NOTE | ~2023-05-06 | MM_ITS ---
EXAMINATION: MM DIAGNOSTIC DIGITAL BREAST TOMOSYNTHESIS, LEFT CLINICAL INFORMATION: Six-month follow-up left breast probably benign calcifications, centrally. Prior benign stereotactic biopsy left breast with clip in the posterolateral inferior aspect. COMPARISON: Mammography: 10/08/2022, 09/04/2022 (BI-RADS 0), 09/30/2018, 09/04/2017, 07/02/2016. TECHNIQUE: Digital breast tomosynthesis is performed in both the craniocaudal and mediolateral oblique views along with computer-aided detection (CAD). Synthesized 2D images are generated from the tomosynthesis. In addition to standard views, a 3-D full-field digital ML view was obtained, as well as 2-D spot magnification left CC and ML views. FINDINGS: There are scattered areas of fibroglandular density (ACR BI-RADS breast composition Category b). There are unchanged loosely grouped calcifications in the upper outer left breast, middle one third. Some of these appear coarse and benign, some of these appear vascular, and some of these appear punctate with tight grouping. No significant pleomorphism, casting, or branching. These calcifications remain probably benign. No aggressive changes. Post benign biopsy clip present in the posterior lateral inferior left breast. The parenchymal pattern is unchanged from prior exams, which has a somewhat nodular appearance. No new masses, developing architectural distortions, or new suspicious calcifications in the left breast. No skin or axillary abnormalities. MM/MM tomosynthesis diagnostic LT IMPRESSION: There are stable probably benign calcifications in the central left breast without aggressive change. No findings suspicious for malignancy left breast. Recommend six-month interval follow-up diagnostic mammogram to include standard magnification to establish a one-year stability when the patient is due for bilateral screening. ASSESSMENT: BI-RADS BI-RADS 3 - Probably benign finding(s) - 12 month follow-up suggested RECOMMENDATION: 6 Month F/U Results were provided to the patient at time of visit by the technologist. This patient's information was entered into a reminder system with a target due date for their next mammogram.
== END 2023-05-06 11:00 | disposition home or self-care (01) ==
LOC: HO.MAMMO 10:59
PROVIDERS: PCP Internal Medicine; Visit Provider Internal Medicine
DX: R92.1 Mammographic calcification found on diagnostic imaging of breast (principal)
CPT/HCPCS: 77061; 77065

== ENCOUNTER → 2023-05-06 11:30 | Outpatient (BNV) | payer BC, SELFPAY | PROVIDERS: PCP Internal Medicine; Visit Provider Radiology Diagnostic Radiology | DX: R92.1 Mammographic calcification found on diagnostic imaging of breast (principal) | CPT/HCPCS: 77061; 77065 ==

== ENCOUNTER 2023-05-16 11:16 | Outpatient (REF) | payer BC, SELFPAY ==
[2023-05-16 12:39] LABS: MANUAL DIFF FLAG NO
[2023-05-16 13:40] LABS: Basophils Percent Auto 0.5 % (0-2); Eosinophils Absolute Auto 0.1 X10*3/uL (0.0-0.4); Eosinophils Percent Auto 2.1 % (0-4); Hematocrit 38.9 % (37.0-47.0); Imm Gran Abs Auto 0.02 X10*3/uL (0.00-0.03); Imm Gran Pct Auto 0.3 % (0.0-0.4); Lymphocytes Absolute Auto 1.5 X10*3/uL (1.2-4.9); Lymphocytes Percent Auto 25.3 % (20-40); Mean Corpuscular HGB Conc 33.4 g/dl (31.0-35.0); Mean Corpuscular Hemoglobin 32.1 pg (27.0-33.0); Mean Platelet Volume 9.9 fL (9.4-12.3); Monocytes Absolute Auto 0.3 X10*3/uL (0.1-1.2); Monocytes Percent Auto 5.9 % (2-11); Neutrophils Absolute Auto 3.8 x10*3/uL (2.0-8.3); Neutrophils Percent Auto 65.9 % (45-73); Platelet Count 182 X10*3/uL (160-400); Red Blood Count 4.05 X10*6/uL (4.20-5.50); Red Cell Distribution Width 13.7 % (11.0-16.0); White Blood Count 5.8 X10*3/uL (4.8-10.8)
[2023-05-16 14:02] LABS: C Reactive Protein 0.54 mg/dL (< or = 0.50); Rheumatoid Factor < 13.0 IU/mL (<15.0)
[2023-05-16 14:18] LABS: Alanine Aminotransferase 35 U/L (0-31); Albumin Level 4.4 g/dL (3.5-5.0); Alkaline Phosphatase 78 U/L (39-117); Anion Gap 13 (12-20); Aspartate Amino Transferase 37 U/L (5-31); Bilirubin Total 0.9 mg/dL (0.0-1.0); Blood Urea Nitrogen 15 mg/dL (9-16); Calcium 9.6 mg/dL (8.4-10.2); Carbon Dioxide 26 mmol/L (22-29); Chloride 107 mmol/L (96-108); Cholesterol 178 mg/dL (<200); Estimated Glomerular Filt Rate > 60; Glucose Fasting 117 mg/dL (60-99); HDL Cholesterol 56 mg/dL (>40); LDL Cholesterol Calculated 102 mg/dL (<100); Potassium 3.8 mmol/L (3.3-5.1); Sodium 142 mmol/L (135-145); Total Protein 7.6 g/dL (6.5-8.0); Triglycerides 104 mg/dL (<150)
[2023-05-16 14:24] LABS: TSH reflex Free T4 0.91 uIU/mL (0.32-4.0); Vitamin D 25-OH Total 27.1 ng/mL (>30)
[2023-05-16 14:27] LABS: Erythrocyte Sedimentation Rate 12 MM/HR (0-20)
[2023-05-16 15:24] LABS: Appearance Urine Cloudy; Color Urine Yellow; Glucose Urine UA Negative (Negative); Leukocyte Esterase Urine Small (1+) (Negative); Nitrite Urine Negative (Negative); PH 5.5 (5.0-9.0); UMIC TRIGGER UACC YES; Urine Blood Negative (Negative); Urine Ketones Negative (Negative); Urine Protein Negative (Neg-Trace)
[2023-05-16 15:27] LABS: Bacteria Urine 1+ (None Seen); Hyaline Casts Urine 0-2 /LPF (0-2); RBC Urine 0-2 /HPF (0-2); UACC Culture Trigger YES
[2023-05-16 16:00] LABS: Creatinine Urine 116.09 mg/dL; Total Protein Urine Random < 7 mg/dL (<12)
[2023-05-19 15:19] LABS: Cyclic Citrullinated Peptide <16 UNITS
== END 2023-05-16 11:17 | disposition home or self-care (01) ==
LOC: HO.LAB 11:16
PROVIDERS: PCP Internal Medicine; Visit Provider Internal Medicine
DX: I10 Essential (primary) hypertension (principal); E78.00 Pure hypercholesterolemia, unspecified; E55.9 Vitamin D deficiency, unspecified; M19.90 Unspecified osteoarthritis, unspecified site; Z79.899 Other long term (current) drug therapy; L40.50 Arthropathic psoriasis, unspecified; L40.9 Psoriasis, unspecified; Z11.59 Encounter for screening for other viral diseases
CPT/HCPCS: 36415; 80053; 80061; 81001; 82306; 82570; 84156; 84443; 85025; 85652; 86140; 86200; 86431; 87086

== ENCOUNTER 2023-05-19 16:52 | Outpatient (AMB) | payer BC, SELFPAY ==
--- NOTE | 2023-05-19 16:58 | A.OFFPC_ITS ---
Vital Signs 05/19/23 17:00 Height 5 ft 1 in Weight 270 lb BMI 51.0 BP 92/56 L Blood Pressure Location Lt brachial Position Sitting Pulse 64 Pulse Source Pulse Oximeter Pulse Oximetry (%) 98 Oxygen Delivery Method Room Air Intake Visit Reasons: , osteopenia, vertebral compression Fx, lumbar DDD Intake Note: Patient is here to follow up on Osteopenia, Vertebral Compression kx, LDDD, DM. [employer] Team Member Required: No Complex Commercial Litigation Paralegal: Not Required per policy Accompanied by: Self / Same As Patient Allergies aspirin Allergy (Unknown, Verified 05/19/23 17:20) Unknown Sulfa (Sulfonamide Antibiotics) Allergy (Unknown, Verified 05/19/23 17:20) pruritis, severe itching metformin Adverse Reaction (Unknown, Verified 05/19/23 17:20) diarrhea Medication List - Last Reconciled 05/19/23 by Alexis Murrieta MD alendronate 70 mg PO QWEEK atorvastatin 20 mg PO DAILY ziaoiwqnzq-bqzjsybockmsz-iedz 50-325-40 mg 1 cap PO BID PRN 30 days clotrimazole-betamethasone 1-0.05 % 1 appl topical BID 14 days ergocalciferol (vitamin D2) 1,250 mcg PO QWEEK folic acid 1 mg PO DAILY gabapentin 300 mg PO TID PRN hydroxychloroquine 200 mg PO BID ixekizumab (Taltz Autoinjector (2 Pack)) 80 mg subcut Q4W lidocaine 5% 2 patches topical DAILY 30 days methotrexate sodium 20 mg PO QWEEK mupirocin 2% 1 appl topical TID 7 days nystatin 1 appl topical TID 10 days secukinumab (Cosentyx UnoReady Pen) mg subcut tizanidine 4 mg PO TID PRN tramadol 50 mg PO Q6H PRN 15 days trazodone 150 mg (1.5 x 100 mg) PO BEDTIME 30 days Tobacco use date assessed: 05/19/23 Dental Screening Dental Screen Date: 05/19/23 Did you have a dental visit in the last 12 months?: Yes Did you have a dental problem in the last 6 months where you did not have access to dental care?: No Was dental information given to patient?: Patient has dentist HPI , osteopenia, vertebral compression Fx, lumbar DDD HPI Details Patient comes in today for her follow up visit States that she has had some sore throat for the past couple of days now and would like to get tested for strep She denies any fever; denies any headaches or dizziness Denies any chest pains, no increased SOB No nausea/vomiting, no abdominal pain No change in bowel habits noted Her her follow up labs done a few days ago - to discuss her results [facility] Medical History Insomnia Nasal sore Morbid obesity with BMI of 45.0-49.9, adult Depression Vitamin D deficiency Vitamin B12 deficiency Migraine Pure hypercholesterolemia Fibromyalgia Diabetes mellitus Psoriatic arthritis Lumbar degenerative disc disease Surgical History History of esophagogastroduodenoscopy (EGD) History of colonoscopy (~04/06/04) Family History Father No problems noted. Mother No problems noted. Social History Housing: House Alcohol intake: current Alcohol intake frequency: holidays/special occasions only Patient Tobacco Use Status: Former Tobacco user Tobacco use type: Cigarette e-Cigarette/Vaping Use: Never Used Second Hand Smoke Exposure: Yes service: No Current occupational status: disabled Current occupation: rt hand Cognitive needs: Yes Hearing needs: No Vision needs: Yes Questionnaire PHQ-9 Over the last 2 weeks, how often have you been bothered by any of the following problems? 1. Little interest or pleasure in doing things: not at all 2. Feeling down, depressed, or hopeless: not at all 3. Trouble falling or staying asleep, or sleeping too much: not at all 4. Feeling tired or having little energy: not at all 5. Poor appetite or overeating: not at all 6. Feeling bad about yourself - or that you are a failure or have let yourself or your family down: not at all 7. Trouble concentrating on things, such as reading the newspaper or watching television: not at all 8. Moving or speaking so slowly that other people could have noticed. Or the opp osite - being so fidgety or restless that you have been moving around a lot more than usual: not at all 9. Thoughts that you would be better off or of hurting yourself in some way: not at all Total score: 0 Depression Screening Interpretation: Negative Depression Screening Done: Yes [id number] - PHQ-9 Billing: Yes Source: Developed by Drs. Xavier Lewis, Ashley Rea, Jose Napier and colleagues, with an educational jade from [employer]. Thrive Questionnaire Date Thrive assessed: 05/19/23 I am a: Patient What is your living situation today?: I have a steady place to live Within the past 12 months, did the food you bought not last and you didn't have the money to get more?: Never true Within the past 12 months, did you worry whether your food would run out before you got money to buy more?: Never true Do you have trouble paying for medicines?: No Do you have trouble getting transportation to medical appointments?: No Do you have trouble paying your heating and electricity bill?: No Do you have trouble taking care of your child, family member or friend?: No Do you have trouble with day-to-day activities such as bathing, preparing meals, shopping, managing finances, etc.?: No Are you currently unemployed and looking for a job?: No Are you interested in more education?: No Currently or been in a relationship where the following occur: no concerns reported THRIVE Score: 0 AUDIT C Alcohol Use Questionnaire (AUDIT-C) 1. How often do you have a drink containing alcohol?: Never 3. How often do you have six or more drinks on one occasion?: Never Total Score: 0 Score Reviewed/Action Taken: Yes NAWAF-7 AMB Questionnaire NAWAF-7 Date NAWAF - 7 assessed: 05/19/23 Feeling nervous, anxious, or on edge: 0 = Not at all Not being able to stop or control worryin = Not at all Worrying too much about different things: 0 = Not at all Trouble relaxin = Not at all Being so restless that it is hard to sit still: 0 = Not at all Becoming easily annoyed or irritable: 0 = Not at all Feeling afraid as if something awful might happen: 0 = Not at all Total NAWAF-7 score (0-4 normal; 5-9 mild; 10-14 moderate; 15-21 severe): 0 Source: Developed by Drs. Xavier Lewis, Ashley Rea, Jose Napier and colleagues, with an educational jade from [employer]. NAWAF-7 Assessment Billing NAWAF-7 Assessment Tool: NAWAF-7 Assessment 03831 Review of Systems Const Denies chills, Reports fatigue, Denies fever(s) and Denies headache(s) ENT Denies dysphagia, Denies dizziness, Denies otalgia, Denies headache(s), Reports neck pain, Denies odynophagia and Reports sore throat Card Denies chest pain, Denies palpitations and Denies dyspnea Resp Denies cough, Denies excessive phlegm production, Denies dyspnea and Denies wheezing GI Denies abdominal pain, Denies constipation, Denies dysphagia, Denies heartburn, Denies diarrhea, Denies nausea, Denies odynophagia and Denies vomiting Denies difficulty voiding, Denies post void dribbling, Denies nocturia, Denies dysuria and Denies urinary urgency Musc Reports back pain (chronic), Reports myalgias (diffuse), Reports arthralgias (over multiple joints, including knees and hips & more recently, L shoulder), Reports neck pain and Reports stiffness Skin/Breast Denies rash Neuro Denies dizziness and Denies headache(s) Endo Reports fatigue and Denies palpitations Aller/Immun Denies wheezing Physical exam (Primary Care) Vital Signs: Last Vital Signs Pulse 64 05/19/23 17:00 BP 92/56 L 05/19/23 17:00 Pulse Ox 98 05/19/23 17:00 Oxygen Delivery Method Room Air 05/19/23 17:00 BMI result Body Mass Index 51.0 Tobacco/Smoking Status: Tobacco use Status Tobacco use date assessed 05/19/23 05/19/23 17:00 Patient Tobacco Use Status Former Tobacco user 05/19/23 16:58 Tobacco use type Cigarette 05/19/23 16:58 e-Cigarette/Vaping Use Never Used 05/19/23 16:58 PHQ-9: PHQ-9 Score PHQ-9: Total score 0 05/19/23 17:25 Depression Screening Interpretation: Negative Thrive Assessment: Date of Thrive Assessment Date Thrive assessed 05/19/23 05/19/23 17:00 Currently or been in a relationship where the following occur: no concerns reported Const General: no acute distress and alert HENMT Ears: TM's normal bilaterally and EAC's normal Face and sinus: No sinus tenderness Throat: Yes posterior oropharynx normal (only (+) minimal erythema) and Yes tonsils normal (no TP congestion noted) Neck Neck: Yes no lymphadenopathy and Yes supple Thyroid: Thyroid normal Resp Auscultation: clear to auscultation bilaterally, no rales and no wheezes Cardio Rate: regular rate Rhythm: regular rhythm Heart sounds: no murmurs GI Palpation (GI): Soft to palpation and nontender Auscultation: normal bowel sounds Back/Spine/Pelvis Cervical Spine: Cervical spine tenderness Thoracic/Lumbar Spine: lumbar spinal tenderness Skin Rashes: no rashes Extrem General: Yes no clubbing, cyanosis or edema Left upper extremity: shoulder/upper arm Details: tenderness Location: of the A- C joint and of the proximal humerus Right lower extremity: hip/thigh Details: tenderness and knee Details: tenderness; no swelling Left lower extremity: hip/thigh Details: tenderness and knee Details: tenderness; no swelling Results AMB Hemoglobin A1c AMB Hemoglobin A1c 5.3 % Last Edit by PRAVIN Mora on 05/19/23 17:30 AMB Rapid Strep AMB Rapid Strep Negative Last Edit by PRAVIN Mora on 05/19/23 17:31 Results Reviewed Results Reviewed: Laboratory Last Values Hgb A1c (Clinic) 5.3 % (4.0-6.0) 05/19/23 16:58 Strep Scn Rapid Clinic Negative 05/19/23 17:18 Laboratory Tests 05/16/23 05/16/23 05/16/23 12:17 12:30 12:30 WBC 5.8 Hgb 13.0 Hct 38.9 Plt Count 182 Sodium 142 Potassium 3.8 Creatinine 0.75 Estimated GFR > 60 Fasting Glucose 117 H Calcium 9.6 D AST 37 H ALT 35 H C-Reactive Protein 0.54 H Triglycerides 104 Cholesterol 178 LDL Cholesterol, Calc 102 H HDL Cholesterol 56 25-OH Vitamin D Total 27.1 L TSH 0.91 Ur Specific [place] 1.020 Urine Protein Negative Urine Glucose (UA) Negative Urine Blood Negative Urine Nitrite Negative Ur Leukocyte Esterase Small (1+) H Rheumatoid Factor < 13.0 Cycl Citrul Peptide IgG <16 Assessment and Plan Assessment & Plan (1) Osteoarthritis involving multiple joints on both sides of body: Code(s): M15.9 - Polyosteoarthritis, unspecified Plan: Continue Lidocaine patches 5% QD PRN X-rays done last year revealed (+) mild degenerative changes in the hip joints bilaterally with no visible acute changes or fracture and mild degenerative changes in the right shoulder joint with enthesophyte along the inferior acromion. There is a healed fracture of the left humeral neck without dislocation; the soft tissues are normal. (+) degenerative disc changes at the C4-C5 disc level with ventral spondylosis and no visible acute fracture or dislocation seen Follow-up with [facility] as scheduled (2) Psoriatic arthritis: Code(s): L40.50 - Arthropathic psoriasis, unspecified Plan: She is currently still on Methotrexate 8 tablets (20 mg) once a week; was switched over from Taltz 80 mg SQ Q 4 weeks to Cosentyx by her current bike designer a few weeks ago Was seeing Dr. Lopez in [place] for rheumatology follow up and management for the past few years but recently switched over to the [facility] [place] Follow-up with rheumatology in [place], [place] as scheduled (3) Lumbar degenerative disc disease: Code(s): M51.36 - Other intervertebral disc degeneration, lumbar region Plan: Reinforced activity and weight lifting restrictions MRI back in 1999 showed (+) minimal degenerative changes; MRI in 2006 was normal but states that her low back pains have gotten a lot worse over the years; repeat lumbar spine MRI ordered last year for follow up was denied by insurance? Patient used to take?Vicodin ES?tablet 7.5-325 mg 1 tablet up to 4 times a day as needed and?MS Contin ER 60 mg?1 tablet twice a day but she gradually stopped and came off her pain meds a couple of years ago and she has not really noticed any significant change in her overall pain Is currently only using topical Lidocaine patches daily as needed for pain She received an injection into her lower back at L4-L5 at [facility] a few months ago, with some relief of her low back pain (4) Fibromyalgia: Code(s): M79.7 - Fibromyalgia Plan: She is again encouraged to continue to try to exercise regularly to help manage her fibromyalgia symptoms but states that this is proving difficult due to the progression of her psoriatic arthritis Patient was also on Carisoprodol 350 mg TID PRN in the past but was encouraged to come off of this due to its habit-forming potential and high risk of dependence and drug interactions with her opioids - this was DISCONTINUED months ago and she is now completely off Soma as well If needed, will start on Tizanidine 4 mg TID PRN Per request, a referral was previously made out for integrative medicine for her to see Dr. Whiteside to explore alternative treatment options for her chronic pain but states that she also was not seen by Dr. Whiteside yet and is currently just seeing her chiropractor regularly for treatments (5) Diabetes mellitus: Code(s): E11.9 - Type 2 diabetes mellitus without complications Qualifiers: Diabetes mellitus complication status: without complication Diabetes mellitus longterm insulin use: without longterm use Diabetes mellitus type: type 2 Qualified Code(s): E11.9 - Type 2 diabetes mellitus without complications Plan: In-office HgbA1c done today is at 5.3% (was at 6.0% and 6.1% when previously checked last year) - goal is < 7.0% Reinforced diabetic diet Used to take Januvia 100 mg QD, Metformin 500 mg BID and Glipizide ER 5 mg QD but has not been on any Rx for her DM in a while now (6) Pure hypercholesterolemia: Code(s): E78.00 - Pure hypercholesterolemia, unspecified Plan: Results of her labs done a few days ago reviewed and discussed with patient Reinforced low cholesterol diet Continue Atorvastatin 20 mg QD Will recheck her labs and fasting lipids in 4 months for follow up (7) Migraine: Code(s): G43.909 - Migraine, unspecified, not intractable, without status migrainosus Qualifiers: Intractability: not intractable Migraine type: unspecified Status migrainosus presence: without status migrainosus Qualified Code(s): G43.909 - Migraine, unspecified, not intractable, without status migrainosus Plan: Reinforced avoidance of potential migraine triggers Continue Fiorinal 1 to 2 tablets every 6 to 8 hours as needed May need to see neurology again if her headaches get worse (8) Vitamin B12 deficiency: Code(s): E53.8 - Deficiency of other specified B group vitamins Plan: Continue Vitamin B12 tablets 1000 mcg daily (9) Vitamin D deficiency: Code(s): E55.9 - Vitamin D deficiency, unspecified Plan: Continue Vitamin D2 41443 units once a week (10) Insomnia: Code(s): G47.00 - Insomnia, unspecified Qualifiers: Insomnia type: unspecified Qualified Code(s): G47.00 - Insomnia, unspecified Plan: Sleep hygiene reinforced Was taking Carisoprodol at bedtime in the past to help her sleep better at night but she has since discontinued Rx Continue Trazodone 100 mg 1.5 tablets (150 mg) Q HS PRN (11) Depression: Code(s): F32.9 - Major depressive disorder, single episode, unspecified Qualifiers: Depression Type: unspecified Qualified Code(s): F32.9 - Major depressive disorder, single episode, unspecified Plan: States that she has been doing okay lately - does not feel that she needs anything at this time but will call if anything changes (12) Morbid obesity with BMI of 45.0-49.9, adult: Code(s): E66.01 - Morbid (severe) obesity due to excess calories; Z68.42 - Body mass index [BMI] 45.0-49.9, adult Plan: Reinforced diet/lose weight; exercise is difficult and is an unlikely option at this time due to patient's physical incapacities and disabilities Plan Follow up in 4 months Orders: Orders AMB Rapid Strep Screen 05/19/23 J02.0 - Streptococcal pharyngitis AMB Hemoglobin A1c 05/19/23 E11.9 - Type 2 diabetes mellitus without complications Comprehensive [place]. Panel Fast 4 Months E78.00 - Pure hypercholesterolemia, unspecified Complete Blood Count Auto Diff 4 Months D64.9 - Anemia, unspecified Lipid Panel 4 Months E78.00 - Pure hypercholesterolemia, unspecified TSH reflex Free T4 4 Months E78.00 - Pure hypercholesterolemia, unspecified Hemoglobin A1c 4 Months E11.9 - Type 2 diabetes mellitus without complications Coding Level of Care Code Est Pt Level 4 (53142) Diagnoses Osteoarthritis involving multiple joints on both sides of body M15.9 Psoriatic arthritis L40.50 Lumbar degenerative disc disease M51.36 Fibromyalgia M79.7 Type 2 diabetes mellitus without complication, without long-term current use of insulin E11.9 Diabetes mellitus complication status: without complication Diabetes mellitus longterm insulin use: without longterm use Diabetes mellitus type: type 2 Pure hypercholesterolemia E78.00 Migraine without status migrainosus, not intractable, unspecified migraine type G43.909 Intractability: not intractable Migraine type: unspecified Status migrainosus presence: without status migrainosus Vitamin B12 deficiency E53.8 Vitamin D deficiency E55.9 Insomnia, unspecified type G47.00 Insomnia type: unspecified Depression, unspecified depression type F32.9 Depression Type: unspecified Morbid obesity with BMI of 45.0-49.9, adult E66.01; Z68.42 Additional Codes NAWAF-7 Assessment Billing - NAWAF-7 Assessment Tool: NAWAF-7 Assessment [id number] ([id number])
[2023-05-19 17:00] VITALS: BP 92/56; PULSE 64; O2SAT 98; BMI 51.0
== END 2023-05-19 17:39 | disposition home or self-care (01) ==
PROVIDERS: PCP Internal Medicine; Visit Provider Internal Medicine
DX: E11.9 Type 2 diabetes mellitus without complications (principal); J02.0 Streptococcal pharyngitis
CPT/HCPCS: 83036; 87880; 99214

== ENCOUNTER 2023-08-27 11:20 | Outpatient (AMB) | payer BC, SELFPAY ==
--- NOTE | 2023-08-27 11:20 | MHC.PC.OV ---
Intake Visit Reasons: 7.2 [facility] Fractured Vertebre Allergies aspirin Allergy (Unknown, Verified 08/27/23 12:05) Unknown Sulfa (Sulfonamide Antibiotics) Allergy (Unknown, Verified 08/27/23 12:05) pruritis, severe itching metformin Adverse Reaction (Unknown, Verified 08/27/23 12:05) diarrhea Medication List - Last Reconciled 08/27/23 by Alexis Murrieta MD alendronate 70 mg PO QWEEK atorvastatin 20 mg PO DAILY utoaileuxq-xzhevfnqmpbyj-imce 50-325-40 mg 1 cap PO BID PRN 30 days clotrimazole-betamethasone 1-0.05 % 1 appl topical BID 14 days ergocalciferol (vitamin D2) 1,250 mcg PO QWEEK folic acid 1 mg PO DAILY gabapentin 300 mg PO TID PRN hydroxychloroquine 200 mg PO BID lidocaine 5% 2 patches topical DAILY 30 days methotrexate sodium 20 mg PO QWEEK mupirocin 2% 1 appl topical TID 7 days nystatin 1 appl topical TID 10 days oxycodone 5 mg PO TID PRN 7 days secukinumab (Cosentyx UnoReady Pen) 300 mg subcut Q4W tizanidine 4 mg PO TID PRN tramadol 50 mg PO Q6H PRN 15 days trazodone 150 mg (1.5 x 100 mg) PO BEDTIME 30 days Tobacco use date assessed: 05/19/23 Dental Screening Dental Screen Date: 05/19/23 HPI 7.2 [facility] Fractured [facility]te[facility] HPI Details Patient's follow up visit / consultation today is done over video conference (iPhone/iPad/Google Meets/Doximity) - this is a TELEHEALTH visit Patient's current medications have been reviewed and verified with patient and/or caregiver/proxy and have been updated accordingly in the medication list Patient states that she is currently experiencing increased pain over her lower back and is looking for a refill on her Oxycodone 5 mg that was prescribed by the ER when she was seen there last week Relates that she went to the ER at [facility] early last week for increasing low back pain that occurred suddenly Recalls that she suddenly felt the sharp pain (in addition to her chronic baseline level of low back pain) after she took a step while she was walking at home and states that she could not move for a few seconds due to the abrupt onset of increased pain over her lower back and the increased pain has been present since Imaging studies done at [facility] revealed (+) L3 vertebral compression fracture that appears to be acute when compared to previous imagings She was seen by PT and was advised outpatient rehab, which she will be starting soon She was also prescribed Lidocaine patches as well as some Oxycodone 5 mg, which patient states that she has been taking sparingly but now needs some refill on this She denies any fever or chills Denies any headaches or dizziness Denies any chest pains, no increased SOB No nausea/vomiting, no abdominal pain No change in bowel habits noted [facility] Medical History Compression fracture of L3 vertebra Insomnia Nasal sore Morbid obesity with BMI of 45.0-49.9, adult Depression Vitamin D deficiency Vitamin B12 deficiency Migraine Pure hypercholesterolemia Fibromyalgia Diabetes mellitus Psoriatic arthritis Lumbar degenerative disc disease Surgical History History of esophagogastroduodenoscopy (EGD) History of colonoscopy (~04/06/04) Family History Father No problems noted. Mother No problems noted. Social History Housing: House Alcohol intake: current Alcohol intake frequency: holidays/special occasions only Patient Tobacco Use Status: Former Tobacco user Tobacco use type: Cigarette e-Cigarette/Vaping Use: Never Used Second Hand Smoke Exposure: Yes service: No Current occupational status: disabled Current occupation: rt hand Cognitive needs: Yes Hearing needs: No Vision needs: Yes Questionnaire Thrive Questionnaire Date Thrive assessed: 05/19/23 AUDIT C Alcohol Use Questionnaire (AUDIT-C) 1. How often do you have a drink containing alcohol?: Never 3. How often do you have six or more drinks on one occasion?: Never Total Score: 0 Score Reviewed/Action Taken: Yes NAWAF-7 AMB Questionnaire NAWAF-7 Date NAWAF - 7 assessed: 05/19/23 Source: Developed by Drs. Xavier Lewis, Ashley Rea, Jose Napier and colleagues, with an educational jade from [employer]. Review of Systems Const Reports fatigue, Denies fever(s) and Denies headache(s) ENT Denies dysphagia, Denies dizziness, Denies otalgia, Denies headache(s), Reports neck pain, Denies odynophagia and Denies sore throat Card Denies chest pain, Denies palpitations and Denies dyspnea Resp Denies cough, Denies excessive phlegm production, Denies dyspnea and Denies wheezing GI Denies abdominal pain, Denies constipation, Denies dysphagia, Denies heartburn, Denies diarrhea, Denies nausea, Denies odynophagia and Denies vomiting Denies difficulty voiding, Denies post void dribbling, Denies nocturia, Denies dysuria and Denies urinary urgency Musc Reports back pain (chronic - increased lately due to acute injury), Reports myalgias (diffuse), Reports arthralgias (over multiple joints, including knees and hips & more recently, L shoulder), Reports neck pain and Reports stiffness Skin/Breast Denies rash Neuro Denies dizziness and Denies headache(s) Endo Reports fatigue and Denies palpitations Aller/Immun Denies wheezing Physical exam (Primary Care) Vital Signs: Physical examination is not performed as visit / consultation today is done over videoconference - Telehealth visit All physical findings indicated here, if present, are as per patient's and / or caregivers / proxy's report and visual inspection over videoconference, if appropriate or applicable Tobacco/Smoking Status: Tobacco use Status Tobacco use date assessed 05/19/23 08/27/23 11:23 Patient Tobacco Use Status Former Tobacco user 08/27/23 11:23 Tobacco use type Cigarette 08/27/23 11:23 e-Cigarette/Vaping Use Never Used 08/27/23 11:23 Thrive Assessment: Date of Thrive Assessment Date Thrive assessed 05/19/23 08/27/23 11:23 Telehealth Telehealth Telehealth Platform: Telephone Location of provider rendering services: practice address Location of patient: address on file Patient Identification confirmed using: Name, : Yes Telehealth method: video (iphone ) Patient verbally consented to treatment: Yes Patient verbally consented to billing insurance company: Yes Patient informed of any privacy concerns related to visit: Yes Minutes spent on Phone/Video with Pt.: 21 Assessment and Plan Assessment & Plan (1) Compression fracture of L3 vertebra: Code(s): S32.030A - Wedge compression fracture of third lumbar vertebra, initial encounter for closed fracture Qualifiers: Encounter type: sequela Qualified Code(s): S32.030S - Wedge compression fracture of third lumbar vertebra, sequela Plan: This was seen on imaging studies done at [facility] last week and appears to be acute in onset Patient denies any recent falls or injuries BMD done last year (08/2022) revealed (+) osteopenia with the lowest T-score value of -2.0 in the lumbar spine She has a Hx of multilevel lumbar spine DDD and was getting injections into her lower back for pain; she most recently had injection to L4-L5 at [facility] a few months ago, with some relief of her low back pain Fall precautions reinforced Patient states that she has an appointment with [facility] in a couple of weeks for her hips and is wondering if they can see her for her back as well - have advised her that she will need to see a neurosurgeon for her back and that the one seeing her in a couple of weeks will be an orthopedic surgeon so she will need a separate referral for her back issue Will refer her to Dr. Hernández at [facility] for further evaluation and management of her compression fracture Have advised patient that I will agree to refill her Oxycodone 5 mg for now but she should continue to be diligent in the way she takes her pain meds and take them as sparingly as possible Oxycodone 5 mg TID PRN #20 - Rx sent She should continue on Tramadol 50 mg TID PRN and take Oxycodone 5 mg only for increased pain that is not adequately relieved by her Tramadol and other usual Rx for pain (2) Psoriatic arthritis: Code(s): L40.50 - Arthropathic psoriasis, unspecified Plan: She was switched over from Taltz 80 mg SQ Q 4 weeks to Cosentyx 300 mg Q 4 weeks by her current options trader a few months ago She was seeing Dr. Lopez in [place] for rheumatology follow up and management for the past few years but recently switched over to the [facility] Follow-up with rheumatology in [place], [place] as scheduled (3) Osteoarthritis involving multiple joints on both sides of body: Code(s): M15.9 - Polyosteoarthritis, unspecified Plan: Continue Lidocaine patches 5% QD PRN X-rays done last year revealed (+) mild degenerative changes in the hip joints bilaterally with no visible acute changes or fracture and mild degenerative changes in the right shoulder joint with enthesophyte along the inferior acromion. There is a healed fracture of the left humeral neck without dislocation; the soft tissues are normal. (+) degenerative disc changes at the C4-C5 disc level with ventral spondylosis and no visible acute fracture or dislocation seen Follow-up with [facility] as scheduled (4) Fibromyalgia: Code(s): M79.7 - Fibromyalgia Plan: She is again encouraged to continue to try to exercise regularly to help manage her fibromyalgia symptoms but states that this is proving difficult due to the progression of her psoriatic arthritis Patient was also on Carisoprodol 350 mg TID PRN in the past but was encouraged to come off of this due to its habit-forming potential and high risk of dependence and drug interactions with her opioids - this was DISCONTINUED months ago and she is now completely off Soma as well If needed, will start her on Tizanidine 4 mg TID PRN Per request, a referral was previously made out for integrative medicine for her to see Dr. Whiteside to explore alternative treatment options for her chronic pain but states that she also was not seen by Dr. Whiteside yet and is currently just seeing her chiropractor regularly for treatments at this time (5) Diabetes mellitus: Code(s): E11.9 - Type 2 diabetes mellitus without complications Qualifiers: Diabetes mellitus type: type 2 Diabetes mellitus superintendent [employer] insulin use: without superintendent [employer] use Diabetes mellitus complication status: without complication Qualified Code(s): E11.9 - Type 2 diabetes mellitus without complications Plan: Her in-office HgbA1c was at 5.3% at her last visit a few months ago (was at 6.0% and 6.1% when previously checked last year) - goal is < 7.0% Reinforced diabetic diet She used to take Januvia 100 mg QD, Metformin 500 mg BID and Glipizide ER 5 mg QD but has not been on any Rx for her DM in a while now and appears to be doing well OFF meds (6) Pure hypercholesterolemia: Code(s): E78.00 - Pure hypercholesterolemia, unspecified Plan: Reinforced low cholesterol diet Continue Atorvastatin 20 mg QD Will recheck her labs and fasting lipids in a couple of months for follow up (7) Migraine: Code(s): G43.909 - Migraine, unspecified, not intractable, without status migrainosus Qualifiers: Migraine type: unspecified Status migrainosus presence: without status migrainosus Intractability: not intractable Qualified Code(s): G43.909 - Migraine, unspecified, not intractable, without status migrainosus Plan: Reinforced avoidance of potential migraine triggers Continue Fiorinal 1 to 2 tablets every 6 to 8 hours as needed May need to see neurology again if her headaches get worse (8) Vitamin B12 deficiency: Code(s): E53.8 - Deficiency of other specified B group vitamins Plan: Continue Vitamin B12 tablets 1000 mcg daily (9) Vitamin D deficiency: Code(s): E55.9 - Vitamin D deficiency, unspecified Plan: Continue Vitamin D2 55583 units once a week (10) Insomnia: Code(s): G47.00 - Insomnia, unspecified Qualifiers: Insomnia type: unspecified Qualified Code(s): G47.00 - Insomnia, unspecified Plan: Sleep hygiene reinforced She was taking Carisoprodol at bedtime in the past to help her sleep better at night but she has since discontinued Rx Continue Trazodone 100 mg 1.5 tablets (150 mg) Q HS PRN (11) Depression: Code(s): F32.9 - Major depressive disorder, single episode, unspecified Qualifiers: Depression Type: unspecified Qualified Code(s): F32.9 - Major depressive disorder, single episode, unspecified Plan: States that she has been doing okay lately - does not feel that she needs anything at this time but will call if anything changes (12) Morbid obesity with BMI of 45.0-49.9, adult: Code(s): E66.01 - Morbid (severe) obesity due to excess calories; Z68.42 - Body mass index [BMI] 45.0-49.9, adult Plan: Reinforced diet/lose weight; exercise is difficult and is an unlikely option at this time due to patient's physical incapacities and disabilities Plan Follow up in early October 2023 (will reschedule appt on 09/10/2023) Orders: Referrals Neurosurgery Referral M48.061 - Spinal stenosis, lumbar region without neurogenic claudication, M51.36 - Other intervertebral disc degeneration, lumbar region, S32.030A - Wedge compression fracture of third lumbar vertebra, initial encounter for closed fracture Medications: New oxycodone Take as needed ONLY for SEVERE pain 5 mg PO TID 7 days PRN 20 tabs 0RF severe pain S32.030A - Wedge compression fracture of third lumbar vertebra, initial encounter for closed fracture Coding Level of Care Code Tele Est Pt Level 4 (01903) Diagnoses Compression fracture of L3 vertebra, sequela S32.030S Encounter type: sequela Psoriatic arthritis L40.50 Osteoarthritis involving multiple joints on both sides of body M15.9 Fibromyalgia M79.7 Type 2 diabetes mellitus without complication, without long-term current use of insulin E11.9 Diabetes mellitus type: type 2 Diabetes mellitus assisted insulin use: without superintendent marine [employer] use Diabetes mellitus complication status: without complication Pure hypercholesterolemia E78.00 Migraine without status migrainosus, not intractable, unspecified migraine type G43.909 Migraine type: unspecified Status migrainosus presence: without status migrainosus Intractability: not intractable Vitamin B12 deficiency E53.8 Vitamin D deficiency E55.9 Insomnia, unspecified type G47.00 Insomnia type: unspecified Depression, unspecified depression type F32.9 Depression Type: unspecified Morbid obesity with BMI of 45.0-49.9, adult E66.01; Z68.42
--- OUTSIDE RECORDS SUMMARY | 2023-08-27 11:21 | XMS_ITS | Continuity of Care Document ---
Author Organization [facility] Address [address] [place] [address]- Care Team Providers Care Licensed Clinical Social Worker Name Role Phone Alexis Murrieta MD Primary Care Physician [phone] [place] [facility] [place] 10/03/22 [facility] [address] [place] [address]- Encounter Diagnosis Cough(Discharge Diagnosis) - 09/26/22 Acute bronchitis(Discharge Diagnosis) - 09/26/22 Attending Physician: Surekha Blanton Referring Physician: Alexis Murrieta MD Allergies, Adverse Reactions, Alerts No Known Allergies Medications atorvastatin 10 mg oral tablet 1 tablet = 10 mg, By Mouth, Daily, # 30 tablet, 0 Refills, Maintenance, 09/26/22 10:25:00 EDT, Partial fill upon patient request if the prescription is for a schedule II opioid drug. Start Date: 09/26/22 Status: Ordered benzonatate 200 mg oral capsule 1 capsule = 200 mg, By Mouth, 3 times a day, PRN as needed for cough, for 14 days, # 42 capsule, 0 Refills, Acute 10/10/22 11:56:00 EDT, 09/26/22 11:56:00 EDT, Capsule, [id number], Partial fill upon patient request if the prescription... Start Date: 09/26/22 Stop Date: 10/10/22 Status: Ordered Cosentyx Subcutaneous Infusion, 0 Refills, Maintenance, 09/26/22 10:25:00 EDT, Partial fill upon patient request if the prescription is for a schedule II opioid drug. Start Date: 09/26/22 Status: Ordered ibuprofen 600 mg oral tablet 1 tablet = 600 mg, By Mouth, Every 6 hours, # 20 tablet, 0 Refills, Maintenance, 04/23/14 21:01:48,Tablet Start Date: 04/23/14 Stop Date: 04/28/14 Status: Ordered Methotrexate 0 Refills, Maintenance, 09/26/22 10:26:00 EDT, Partial fill upon patient request if the prescription is for a schedule II opioid drug. Start Date: 09/26/22 Status: Ordered ProAir HFA 90 mcg/inh inhalation aerosol 2 puffs, Inhalation, 4 times a day, PRN as needed for wheezing, # 18 Gm, 0 Refills, Maintenance, 09/26/22 11:56:00 EDT, Aerosol, [facility] #[id number], Partial fill upon patient request if the prescription is for a schedule II opioid drug., 2 pu... Start Date: 09/26/22 Status: Ordered Problem List Diagnosis Diagnosis Type Effective Dates Health Status Clinical Service Informant Cough Discharge Diagnosis 09/26/22 Acute bronchitis Discharge Diagnosis 09/26/22 Vital Signs Most recent to oldest [Reference Range]: 1 Oxygen Saturation [94-100 %] 96 % (09/26/22 10:26 AM) Pulse Rate [55-90 bpm] 89 bpm (09/26/22 10:26 AM) Blood Pressure [90-138/55-84 mm Hg] 97/6 0mm Hg (09/26/22 10:26 AM) Respiratory Rate [16-30 br/min] 16 br/mi n (09/26/22 10:26 AM) Temperature [96.8-100.4 DegF] 97.8 DegF (09/26/22 10:26 AM) Mode of Delivery (Oxygen) Room air (09/26/22 10:26 AM) Blood pressure sites Arm, right (09/26/22 10:26 AM) Temperature Route Temporal (09/26/22 10:26 AM) Patient Care team information Care Team Personnel Name: Alexis Murrieta MD Position: Reference Physician Member Role: PCP Address: Address: [address] [place] [address]- Care Team Related Persons Name: PRIYANK ALBARRAN Address: [address] [place] [address]
--- OUTSIDE RECORDS SUMMARY | 2023-08-27 11:21 | XMS_ITS | Continuity of Care Document ---
Author Organization [facility] Address [address] [place] [address]- Care Team Providers Care Portable Track Line Marker Name Role Phone Alexis Murrieta MD Primary Care Physician En[place] [facility] [place](s): 09/26/22 - 10/26/22 [facility] [address] [place] [address]- Attending Physician: Millie Muller Admitting Physician: Millie Muller Referring Physician: AdmtrMillie Allergies, Adverse Reactions, Alerts No Known Allergies Medications atorvastatin 10 mg oral tablet 1 tablet = 10 mg, By Mouth, Daily, # 30 tablet, 0 Refills, Maintenance, 09/26/22 10:25:00 EDT, Partial fill upon patient request if the prescription is for a schedule II opioid drug. Start Date: 09/26/22 Status: Ordered Cosentyx Subcutaneous Infusion, 0 Refills, [...] 0 Refills, Maintenance, 09/26/22 11:56:00 EDT, Aerosol, [id number], Partial fill upon patient request if the prescription is for a schedule II opioid drug., 2 pu... Start Date: 09/26/22 Status: Ordered Patient Care team information Care Team Personnel Name: Lit BROOKS, Alexis Gorman Position: Reference Physician Member Role: PCP Address: Address: [address] [place] [address] [address] [place] [address]- Care Team Related Persons Name: PRIYANK ALBARRAN Address: home [address] [place] [address]
--- OUTSIDE RECORDS SUMMARY | 2023-08-27 11:21 | XMS_ITS | Continuity of Care Document ---
Author Organization [facility] ter Address [address] [place] [id number]- Care Team Providers Care Color Worker Name Role Phone Alexis Murrieta MD Primary Care Physician Encounter [facility] Date(s): 08/14/23 - 08/18/[address] [address]- Encounter Diagnosis Compression fracture of L3 vertebra(Final) - 08/14/23 Discharge Disposition: A-D/C Home Attending Physician: Melisa Zhang MD Admitting Physician: Marcelino Baker MD Referring Physician: Not on Staff, Referring MD Referring Physician: Nimo Allen MD Allergies, Adverse Reactions, Alerts No Known Allergies Medications acetaminophen 325 mg oral tablet 650 mg, By Mouth, Every 6 hours, PRN, Refills 0, Maintenance, Pain , Mild, 08/15/23 14:18:00 EDT, Partial fill upon patient request if the prescription is for a schedule II opioid drug. Start Date: 08/15/23 Status: Ordered alendronate 70 mg oral tablet 1 tablet = 70 mg, By Mouth, Every week, # 12 tablet, 0 Refills, Maintenance, 08/14/23 18:44:00 EDT,Tablet, Partial fill upon patient request if the prescription is for a schedule II opioid drug. Start Date: 08/14/23 Status: Ordered atorvastatin 20 mg oral tablet 1 tablet = 20 mg, By Mouth, Daily, # 30 tablet, 0 Refills, Maintenance, 08/14/23 18:44:00 EDT, Tablet, Partial fill upon patient request if the prescription is for a schedule II opioid drug. Start Date: 08/14/23 Status: Ordered Cosentyx UnoReady Pen 300 mg/2 mL subcutaneous solution = 300 mg, Subcutaneous Injection, Every week, 0 Refills, Maintenance, 08/14/23 18:43:00 EDT, Solution, Partial fill upon patient request if the prescription is for a schedule II opioid drug. Start Date: 08/14/23 Stop Date: 09/11/23 Status: Ordered folic acid 1 mg oral tablet 1 mg, 1, tablet, By Mouth, Daily, # 30 tablet, Refills 0, Maintenance, 08/18/23 10:47:00 EDT, Partial fill upon patient request if the prescription is for a schedule II opioid drug. Start Date: 08/18/23 Status: Ordered hydroxychloroquine 400 mg oral tablet = 400 mg, By Mouth, Daily, 0 Refills, Maintenance, 08/18/23 10:46:00 EDT, Tablet, Partial fill uponpatient request if the prescription is for a schedule II opioid drug. Start Date: 08/18/23 Status: Ordered insulin lispro 100 units/mL injectable solution 2-10 units, Subcutaneous Injection, 3 times a day before meals, << Sliding Scale Comments >> 150 - 199 2 units Call if less than 70 200 - 249 4 units 250 - 299 6 units 300 - 349 8 units 350 - 399 10 units Call if greater than 400 <<... Start Date: 08/15/23 Status: Ordered lidocaine 5% topical film Topically, Daily, 0 Refills, Maintenance, 08/15/23 14:18:00 EDT, Patch, Partial fill upon patient request if the prescription is for a schedule II opioid drug. Start Date: 08/15/23 Status: Ordered Nystatin Topical 1 applicator, Topically, 2 times a day, 0 Refills, Maintenance, Powder Start Date: 08/18/23 Status: Ordered oxyCODONE 5 mg oral tablet 5 mg, Tablet, By Mouth, Every 4 hours, Hold for: Drowsiness or RR < 12 or SBP < 90, PRN for Pain , Moderate, Routine, 08/17/23 16:16:00 EDT Start Date: 08/17/23 Stop Date: 08/18/23 Status: Discontinued tiZANidine 4 mg oral tablet 4 mg, 1, tablet, By Mouth, Every 8 hours, PRN, # 90 tablet, Refills 0, Maintenance, Spasm, 08/13/2417:44:00 EDT, Partial fill upon patient request if the prescription is for a schedule II opioid drug. Start Date: 08/14/23 Status: Ordered traZODone 100 mg oral tablet 150 mg, 1.5, tablet, By Mouth, Daily at bedtime, PRN, TAKE 1.5 TABLET BY MOUTH AT BEDTIME NEEDEDFOR INSOMNIA FOR 30 DAYS, Insomnia Start Date: 08/14/23 Status: Ordered Problem List Condition Confirmation Course Effective Dates Status Health St atus Informant Severe obesity Confirmed Active Results Radiology Reports * Exam Date Time Procedure Performing Provider Status 08/14/23 1:48 PM XR Hip w/Pelvis 2-3 View Left Meghan Pineda; Auth (Verified) Notes: (XR Hip w/Pelvis 2-3 View Left) Reason For Exam: nontraumatic pain;Pain RESULT: XR Hip w/Pelvis 2-3 View Left XR Hip w/Pelvis 2-3 View Left Reason: Pain; nontraumatic pain; Clinical Question(s): Fracture COMPARISON: None. FINDINGS: Limited examination due to technique/body habitus. A single view of the pelvis and 2 views of the left hip, a total of 4 radiographs. No evidence of acute fracture. Advanced osteoarthritis is suggested in the hips bilaterally. IMPRESSION: Limited exam without evidence of an acute osseous abnormality. WSN: [id number] Ordering Physician: Asif Walton Dictated By: Fransisco Carranza MD Dictated Date/Time: 08/14/23 1:55 pm Reviewed By: Fransisco Carranza MD Signed By: Fransisco Carranza MD Signed Date/Time: 08/14/23 1:55 pm Transcribed By: OLINDA Transcribed Date/Time: 08/14/23 1:54 pm * Exam Date Time Procedure Performing Provider Status 08/14/23 1:[address] Lumbar Spine W/O Contrast Leighann Coello (Verified) Notes: (CT Lumbar Spine W/O Contrast) Reason For Exam: Spine fracture, recent steroid injection;Other: RESULT: CT Lumbar Spine W/O Contrast CT Lumbar Spine W/O Contrast Reason: Other:; Spine fracture, recent steroid injection; Clinical Question(s): Fracture Dislocation; Order Comment: CLINICAL QUESTION: Fracture/Dislocation TECHNIQUE: Thin section axial images were acquired through the lumbar spine. Bone and soft tissue algorithms were reconstructed along with coronal and sagittal reformats. Weight-based protocol using automatic tube modulation was used to optimize exposure parameters. CTDIvol Body: 67.40 mGy, DLP Body: 1960 mGy*cm. COMPARISON: No relevant FINDINGS: The study is limited due to patient body habitus. There is a superior endplate compression fracture at the L3 level, acute. There is less than 25% loss of height of the vertebral body. No retropulsion is seen. No additional fractures are noted. No definite disc herniation or epidural hematoma is seen. The gallbladder is surgically absent. The remainder of the abdominal contents are unremarkable. IMPRESSION: Acute superior L3 endplate compression fracture. An actionable message ([place]) has been communicated via the [employer] system on 08/14/2023 1:47 PM, Message ID [id number]. WSN: [id number] Ordering Physician: Asif Walton Dictated By: Diandra Blackburn MD Dictated Date/Time: 08/14/23 1:47 pm Reviewed By: Diandra Blackburn MD Signed By: Diandra Blackburn MD Signed Date/Time: 08/14/23 1:47 pm Transcribed By: OLINDA Transcribed Date/Time: 08/14/23 1:45 pm Vital Signs Most recent to oldest [Reference Range]: 1 2 3 Height 155 cm (08/18/23 3:38 AM) 155 cm (08/18/23 12:00 AM) 155 cm (08/17/23 7:18 PM) Weight 118.3 kg (08/14/23 7:01 PM) 118 kg (08/14/23 6:13 PM) 118 kg (08/14/23 2:25 PM) Oxygen Saturation [94-100 %] 100 % (08/18/23 10:00 AM) 99 % (08/18/23 7:00 AM) 98 % (08/18/23 3:38 AM) Pulse Rate [55-90 bpm] 61 bpm (08/18/23 10:00 AM) 58 bpm (08/18/23 7:00 AM) 63 bpm (08/18/23 3:38 AM) Body Mass Index [18.5-24.99 kg/m2] 49.12 kg/m2 *>HHI* (08/14/23 6:13 PM) 49.12 kg/m2 *>HHI* (08/14/23 2:25 PM) Blood Pressure [90-138/55-84 mm Hg] 108/66mm Hg (08/18/23 10:00 AM) 107/53mm Hg (08/18/23 7:00 AM) 104/50mm Hg (08/18/23 3:38 AM) Respiratory Rate [16-30 br/min] 18 br/min (08/18/23 10:11 AM) 17 br/min (08/18/23 7:00 AM) 16 br/min (08/18/23 4:07 AM) Temperature [96.8-100.4 DegF] 98.2 DegF (08/18/23 10:00 AM) 97.8 DegF (08/18/23 7:00 AM) 97.3 DegF (08/18/23 3:38 AM) Mode of Delivery (Oxygen) Room air (08/18/23 10:00 AM) Room air (08/18/23 7:00 AM) Room air (08/18/23 3:38 AM) Blood pressure sites Arm, right (08/18/23 10:00 AM) Arm, right (08/18/23 7:00 AM) Arm, right (08/18/23 3:38 AM) Temperature Route Oral (08/18/23 10:00 AM) Oral (08/18/23 7:00 AM) Oral (08/18/23 3:38 AM) Dry Weight 118 kg (08/14/23 6:13 PM) 118 kg (08/14/23 2:25 PM) 118 kg (08/14/23 12:00 PM) Weight Obtained Via Bed scale (08/14/23 7:01 PM) Social History Social History Type Response Smoking Status Former smoker, quit more than 30 days ago entered on: 08/14/23 Sex Admission evaluation note * Marcelino Baker MD: MODIFY Marcelino Baker MD: MODIFY, MODIFY Shawn BROOKS, Conrad: MODIFY, MODIFY Shawn BROOKS, Conrad: MODIFY, MODIFY Shawn BROOKS, Conrad: MODIFY, MODIFY Conrad Escobar MD: MODIFY Event Display: Admission Note Authored Date: [id number] Patient: ??XIMENA ALBARRAN ? Age:??63 Years?Sex:??Female?:??1960?? Chief Complaint/Reason for Consultation From home. 3 days ago was walking normally and had acute, atraumatic L hip pain, since has progressively gotten worse, today has been unable to ambulate well. History of Present Illness This is a case of a 63-year-old female with past medical history concerning for diabetes, lumbar spinal stenosis, osteoporosis, arthritis who presents to the emergency department on 08/13 in setting of left hip pain.?? Patient states that she has been experiencing chronic lower back pain for severalyears in addition to left-sided hip pain.?? She recently received a steroid injection 1 week ago for the back pain.?? The daughter reports that over the course of the last week, she has been complaining of increased lower back pain and left hip pain.?? The patient reports that while in the bathroomtoday, her left foot gave out due to pain traveling from the foot to the hip however the patient was able to catch herself before falling.?? Medical staff at home were able to bring the patient to the emergency department.?? She also reports that she has numbness over the left lateral thigh howeverthis appears to be a chronic finding. ?? Initial ED evaluation: ? H&H: Within normal limits ??? No white count, borderline platelet level at 160 ??? ESR: 6, CRP: 0.3 ??? Bicarbonate was found to be 20 ??? Otherwise normal electrolytes ??? renal function with creatinine of 0.70 and BUN of 18 ??? Found to be normotensive in the emergency department and bradycardic in the 40s to 50s ??? Saturating well on room air, afebrile ??? CT lumbar spine without contrast: Acute superior L3 endplate compression fracture ??? X-ray hip with pelvis (left): No evidence of acute osseous abnormality ?? Initial ED management: ??? IV morphine 4 mg x 2 ?? Neurosurgery was able to comment on the patient regarding the nontraumatic L3 superior endplate compression fracture with acutely worsening lower back pain and no neurological deficits.?? There isno neurosurgical intervention that is indicated or bracing.?? Recommending pain control at this time. Review of Systems Constitutional: Alert, in no distress. Mental Status: Oriented to person, place and time. Respiratory: Clear to auscultation. No wheezing, rales or rhonchi. Cardiovascular: S1 S2 regular. No murmurs, rubs or gallops. Gastrointestinal: Abdomen soft, non-tender, non-distended. Normal bowel sounds. No pulsatile mass. No hepatosplenomegaly. Genitourinary: No costovertebral angle tenderness. Neurologic: Moves all extremities spontaneously. Sensation intact bilaterally. Psychiatric: Normal mood and affect Objective Vital Signs?? Temperature: 98.1 DegF (08/14/23 16:07:00) Temperature Route: Oral (08/14/23 16:07:00) Pulse Rate:??49 bpm??Low (08/14/23 16:07:00) Respiratory Rate:??15 br/min??Low (08/14/23 16:07:00) Systolic Blood Pressure: 122 mm Hg (08/14/23 16:07:00) Diastolic Blood Pressure:??53 mm Hg??Low (08/14/23 16:07:00) Blood pressure sites: Arm, left (08/14/23 16:07:00) Mean Arterial Pressure: 78 mm Hg (08/14/23 14:25:00) Pulse Pressure: 69 mm Hg (08/14/23 16:07:00) Oxygen Saturation: 98 % (08/14/23 16:07:00) Mode of Delivery (Oxygen): Room air (08/14/23 16:07:00) Early Warning Score: 1 (08/14/23 18:10:02) ? Intake/Output? No Data Available ? Physical Exam Constitutional: Alert, in no distress. Mental Status: Oriented to person, place and time. Respiratory: Clear to auscultation. No wheezing, rales or rhonchi. Cardiovascular: S1 S2 regular. No murmurs, rubs or gallops. Gastrointestinal: Abdomen soft, non-tender, non-distended. Normal bowel sounds. No pulsatile mass. No hepatosplenomegaly. Genitourinary: No costovertebral angle tenderness. Neurologic: Moves all extremities spontaneously. Sensation intact bilaterally. Psychiatric: Normal mood and affect Assessment/Plan This is a case of a 63-year-old female with past medical history concerning for diabetes, lumbar spinal stenosis, osteoporosis, arthritis who presents to the emergency department on 08/13 in setting of left hip pain. ?? Acute back pain ??(M54.9) Compression fracture of L3 vertebra ??(S32.030A) Osteoporosis ??(M81.0) This patient is presenting with acute on chronic lower back pain without??any recent history of trauma??and was found to have L3??endplate compression fracture??with CT imaging Neurosurgery not recommending any acute management, bracing or outpatient follow-up/routine imaging No history of IV drug use, no current concern for STI without recent fever/chills??or bacteremia, urinary/fecal incontinence On examination: neurovascularly intact without any weakness of UE/LE or sensory deficits; Upon review of outside records,??pelvic radiographs??reveals severe bilateral??degenerative arthrosis??with [id number] contact, subcortical sclerosis and subcortical cystic changes and osteophytes??of the hip; Additionally??x-ray of lumbar spine??at OSH reveals??retrolisthesis of L3 on L4 and??anterolisthesis of L4??and L5; facet hypertrophy at L4-L5??and mild L5- S1??neuroforaminal stenosis The reason for the patient's acute presentation is likely the compression fracture however she will??require outpatient management??of??the??bony changes??as mentioned above Likely longstanding osteoporosis??and vitamin deficiencies ?? Plan: ?Pain management??with Tylenol, oxycodone??and lidocaine patch??(pain is now improving) ?Patient taking alendronate outpatient, I will not continue??here as she recently??took it ?Continue to follow-up with pain management??outpatient ? Chronic Medical Conditions: Diabetes mellitus ??(E11.9)??will add on A1c; for the time being we will continue??SSI, hypoglycemia measures and POC's ACHS Hyperlipidemia ??(E78.5): Continue atorvastatin ?? Quality Measures: Code Status:??Full resuscitation Diet:??Regular DVT Prophylaxis:??Enoxaparin ?? Patient has been??seen and discussed with Dr. Baker ?? Dr. Conrad Escobar PGY2 Pager: [phone]? Attending attestation: I have seen and evaluated this patient. ??I have individually performed physical exam, reviewed laboratory and radiologic data. I have discussed the case and its management with the resident in detail and agree with the findings and plan as documented in the resident???s note as above.?? Histories Past Medical History/Problem List Active Problems(1) Severe obesity ? Past Surgical History No surgery history documented. ? Social History Tobacco Details:??Use: Former smoker, quit more than 30 days ago. ? Family History No Family History documented. ? Medications Home Medications Albuterol (ProAir HFA 90 mcg/inh inhalation aerosol)?2?puff(s)?Inhalation?4 times a day?as needed?as needed for wheezing Atorvastatin (atorvastatin 10 mg oral tablet)?1?tab(s)?10?Milligram?By Mouth?Daily Ibuprofen (ibuprofen 600 mg oral tablet)?1?tab(s)?600?Milligram?By Mouth?Every 6 hours?for 5?Days secukinumab (Cosentyx)?Subcutaneous Infusion Trazodone (traZODone 100 mg oral tablet)?TAKE 1.5 TABLET BY MOUTH AT BEDTIME NEEDED FOR INSOMNIA FOR 30 DAYS ? Inpatient Medications Medications (2) Active SCHEDULED: (1) NaCl 0.9% Flush 3ml (NaCL 0.9% Flush) ??3 mL, IV Push, Every 8 hours CONTINUOUS: (0) PRN: (1) NaCl 0.9% Flush 3ml (NaCL 0.9% Flush) ??3 mL, IV Push, Every 8 hours ? Results Recent Labs BLOOD COUNT & DIFF WBC 7.3 k/mm3 ()?? 08/14/2023 12:04 RBC 3.77 m/mm3 (Low)?? 08/14/2023 12:04 Hgb 11.9 Gm/dL ()?? 08/14/2023 12:04 Hct 35.7 % ()?? 08/14/2023 12:04 MCV 94.7 femtoliters ()?? 08/14/2023 12:04 MCH 31.6 pg ()?? 08/14/2023 12:04 MCHC 33.3 g/dL ()?? 08/14/2023 12:04 Platelet Count 160 k/mm3 ()?? 08/14/2023 12:04 RDW-SD 47.9 femtoliters (High)?? 08/14/2023 12:04 MPV 10.4 femtoliters ()?? 08/14/2023 12:04 Nucleated RBC (Automated) 0.0 #/100 WBC'S ()?? 08/14/2023 12:04 Abs. NRBC 0.0 k/mm3 ()?? 08/14/2023 12:04 Abs. Neut 4.9 k/mm3 ()?? 08/14/2023 12:04 Abs. Lymph 1.6 k/mm3 ()?? 08/14/2023 12:04 Abs. [place] 0.5 k/mm3 ()?? 08/14/2023 12:04 Abs. Eo 0.1 k/mm3 ()?? 08/14/2023 12:04 Abs. Baso 0.0 k/mm3 ()?? 08/14/2023 12:04 Neut % 67.9 % ()?? 08/14/2023 12:04 Lymph % 21.8 % ()?? 08/14/2023 12:04 [place] % 6.6 % ()?? 08/14/2023 12:04 Eos % 1.8 % ()?? 08/14/2023 12:04 Baso % 0.1 % ()?? 08/14/2023 12:04 Imm Gran 1.8 % ()?? 08/14/2023 12:04 Abs. Imm Gran 0.1 k/mm3 ()?? 08/14/2023 12:04 ?? CHEM GENERAL Sodium 139 mmol/L ()?? 08/14/2023 12:04 Potassium 4.1 mmol/L ()?? 08/14/2023 12:04 Chloride 105 mmol/L ()?? 08/14/2023 12:04 Bicarbonate Level 20 mmol/L (Low)?? 08/14/2023 12:04 Anion Gap 14 ()?? 08/14/2023 12:04 Glucose Level 116 mg/dL (High)?? 08/14/2023 12:04 BUN 18 mg/dL ()?? 08/14/2023 12:04 Creatinine-Blood 0.70 mg/dL ()?? 08/14/2023 12:04 Estimated GFR Creatinine 98 ML/MIN/1.73 M2 ()?? 08/14/2023 12:04 Calcium 9.5 mg/dL ()?? 08/14/2023 12:04 C-Reactive Protein 0.3 mg/dL ()?? 08/14/2023 12:04 ?? HEME OTHER Sed Rate 6 mm/hr ()?? 08/14/2023 12:04 ?? URINE OTHER Est Creatinine Clearance 63.76 mL/min ()?? 08/14/2023 14:18 ? Hospital Progress note * Keke Sam RN: PERFORM, SIGN, VERIFY Event Display: Progress Note Hospital Authored Date: Patient: XIMENA ALBARRAN Age: 63 years Sex: Female : 1960 Associated Diagnoses: None Author: Keke Sam RN Findings Narrative/Incidental Patient is alert and oriented times 4, denies chestpain, dizziness, and shortness of breath, c/o 6-8/10 low back pain, medicated with tylenol and oxycodone as ordered, plan of care reviewed with pt and hospital team, callbell with pt, will continue to monitor signs and symptoms, and lab results.. * Jennifer BROOKS, [employer]: PERFORM Event Display: Progress Note Hospital Authored Date: Patient: ??XIMENA ALBARRAN ? Age:??63 Years?Sex:??Female?:??1960?? Subjective seen and examined at the bedside; vital, labs and charts reviewed.?? She stated that oxycodone is great for pain control but it only lasted for around 4hrs. Increased oxycodone frequency from Q6hr >> Q4hr prn today for better pain control. CM on board for rehab. Pending ins auth and per CM unlikely will get approval on the . Will f/u on Friday. Review of Systems Negative except as above. Objective Vital Signs?? Temperature: 98.4 DegF (08/17/23 11:01:00) Temperature Route: Oral (08/17/23 11:01:00) Pulse Rate: 56 bpm (08/17/23 11:01:00) Respiratory Rate: 18 br/min (08/17/23 12:54:00) Systolic Blood Pressure: 119 mm Hg (08/17/23 11:01:00) Diastolic Blood Pressure: 75 mm Hg (08/17/23 11:01:00) Blood pressure sites: Arm, right (08/17/23 11:01:00) Mean Arterial Pressure: 90 mm Hg (08/17/23 11:01:00) Pulse Pressure: 44 mm Hg (08/17/23 11:01:00) Oxygen Saturation: 100 % (08/17/23 11:01:00) Mode of Delivery (Oxygen): Room air (08/17/23 11:01:00) Early Warning Score: 0 (08/17/23 12:54:53) ? Intake/Output? 08/13 11:19 08/16 07:00 08/15 07:00 08/14 07:00 08/13 07:00 ?? 08/16 15:47 08/16 15:47 08/16 06:59 08/15 06:59 08/14 06:59 Intake ?360 ?0 ?0 ?360 ?0 Output ? 2150 ?0 ?0 ? 2150 ?0 Net Total ?-1790 ?0 ?0 ?-1790 ?0 ? Urine Count ?1 ?0 ?0 ?1 ?0 ? Physical Exam General : patient is lying on the bed in no apparent acute distress. Respiration : bilateral air entry (+) , no wheezing or crepitations. CVS: S1+S2. Abd: soft, no tenderness. Normoactive bowel sounds. Ext: no pedal edema.?? _ Inpatient Medications Medications (17) Active SCHEDULED: (7) Atorvastatin 20 mg Tablet (atorvastatin 20 mg oral tablet) ??20 mg, By Mouth, Daily Enoxaparin 30 mg Inj (Enoxaparin Inj) ??30 mg 0.3 mL, Subcutaneous Injection, 2 times a day Insulin Lispro 100 units/mL Inj (Insulin LISPRO Sliding Scale) ??2-10 units, Subcutaneous Injection, 3 times a day before meals Lidocaine 5% Topical Patch (Lidocaine 5% Patch) ??1 each, Topically, Daily NaCl 0.9% Flush 3ml (NaCL 0.9% Flush) ??3 mL, IV Push, Every 8 hours Nystatin Powder (Nystatin Topical) ??1 application, Topically, 2 times a day Remove Patch (Remove Lidocaine Patch) ??1 each, Topically, Daily at bedtime CONTINUOUS: (0) PRN: (10) Acetaminophen 325 mg Tablet (Acetaminophen Tablet) ??650 mg, By Mouth, Every 6 hours Dextrose Inj Syringe (Dextrose 50% Inj Syringe (25Gm)) ??12.5 Gm, IV Push Slowly, Every 20 minutes Dextrose Inj Syringe (Dextrose 50% Inj Syringe (25Gm)) ??25 Gm, IV Push Slowly, Every 15 minutes Glucagon 1 mg Inj (Glucagon Inj) ??1 mg, Intramuscular, Once Glucose 40% Gel (15 Gm) (Glucose Gel) ??15 Gm, By Mouth, Every 20 minutes Glucose 40% Gel (15 Gm) (Glucose Gel) ??30 Gm, By Mouth, Every 20 minutes NaCl 0.9% Flush 3ml (NaCL 0.9% Flush) ??3 mL, IV Push, Every 8 hours OxyCODONE 5 mg IR Tablet (oxyCODONE 5 mg oral tablet) ??5 mg, By Mouth, Every 4 hours Tizanidine 4 mg Tablet (tiZANidine 4 mg oral tablet) ??4 mg, By Mouth, Every 8 hours Trazodone 50 mg Tablet (traZODone 50 mg oral tablet) ??150 mg, By Mouth, Daily at bedtime ? Assessment/Plan ?? This is a case of a 63-year-old female with past medical history concerning for diabetes, lumbar spinal stenosis, osteoporosis, arthritis who presents to the emergency department on 08/13 in setting of left hip pain. ?? Acute back pain ??(M54.9) Compression fracture of L3 vertebra ??(S32.030A) Osteoporosis ??(M81.0) This patient is presenting with acute on chronic lower back pain without??any recent history of trauma??and was found to have L3??endplate compression fracture??with CT imaging Neurosurgery not recommending any acute management, bracing or outpatient follow-up/routine imaging On examination: neurovascularly intact without any weakness of UE/LE or sensory deficits; Upon review of outside records,??pelvic radiographs??reveals severe bilateral??degenerative arthrosis??with mgvt-vt-phvq contact, subcortical sclerosis and subcortical cystic changes and osteophytes??of the hip; Additionally??x-ray of lumbar spine??at OSH reveals??retrolisthesis of L3 on L4 and??anterolisthesis of L4??and L5; facet hypertrophy at L4-L5??and mild L5- S1??neuroforaminal stenosis The reason for the patient's acute presentation is likely the compression fracture however she will??require outpatient management??of??the??bony changes??as mentioned above Likely longstanding osteoporosis??and vitamin deficiencies ?? Plan: ?Pain management??with Tylenol, oxycodone??and lidocaine patch?Patient taking alendronate outpatient Seen by PT , recommends rehab, pt agreeable and has a accepting facility, pending ins auth. CM on board. ? Chronic Medical Conditions: Diabetes mellitus ??(E11.9)??we will continue??SSI, hypoglycemia measures and POC's ACHS Hyperlipidemia ??(E78.5): Continue atorvastatin ?Quality Measures: Code Status:??Full resuscitation Diet:??Regular DVT Prophylaxis:??Enoxaparin ? * Verito Huertas RN: PERFORM, SIGN, VERIFY Event Display: Progress Note Hospital Authored Date: [id number] Patient: XIMENA ALBARRAN Age: 63 years Sex: Female : 1960 Associated Diagnoses: None Author: Verito Huertas RN Findings Narrative/Incidental Alert and oriented x 3, vital sign stable except HR-ranges from 40 to low 50's. no complaint of dizziness or lightheaded. C/o low back and left leg pain. no weakness, tingling or numbness reported. Oxycodone 5mg and Tylenol 2 tabs given. also, all scheduled meds and prn trazadone-150mg given per ordered. Pt has been sleeping quitely with no further complain. Will conitnue to monitor for acute changes. Discharge Information Rehabilitation Discharge : Rehab Discharge Index 08/15/2023 10:56 EDT Comments on treatment indicated 63F p/w acute, atraumatic L hip pain after stepping down a step. L3 compression Fx. PT indicated to improve strength, balance, bed mob, transfers, gait, and stairs. Walker: distance < 10 Distance pt will ambulate 20 Full chart review completed Yes Hospital course Hospital course Other findings Received in supine. Pt agreeable to session. Supine-sit CGA. Reports her L hip doesn't sit well. Sit-stand Min A to the RW, for LE positioning to prevent pain, with minimal compliance. Pt stood at the RW with good balance initially, then the pain Plan of care PT Gait training, Transfer training, Therapeutic exercise, Functional Activities, Balance training Note * Sarah Brown LPN: PERFORM Event Display: Discharge/Transfer Note Hospital Authored Date: [id number] Nursing Discharge Note Entered On: 08/18/2023 16:40 EDT Performed On: 08/18/2023 12:20 EDT by Sarah Brown LPN Nursing Discharge Note 2 Discharge Time : 08/18/2023 12:20 EDT Discharge Level of Care at Discharge : FDC facility Discharge Nursing Homes/Rehab Facilities : [facility] Patient Left Unit Via : Wheelchair Patient Accompanied Off Unit with : Responsible adult DC Instructions Provided & Signed by Pt : Yes Patient Understands D/C Instructions : Yes Patient Instructions Discharge Signed : Yes Did Pt have Specialty Bed or Wound Vac : No Sarah Brown LPN - 08/18/2023 16:39 EDT * Melisa Zhang MD: PERFORM Event Display: Discharge/Transfer Note Hospital Authored Date: [id number] Patient: ??XIMENA ALBARRAN ? Age:??63 Years?Sex:??Female?:??1960?? Patient Information Discharge Location: [facility] Primary Care Physician: Alexis Murrieta MD Admit Date/Time: 08/14/23 11:19 Discharge Disposition Discharge Disposition: Usp Facility/Rehab Discharge Diagnosis Compression fracture of L3 vertebra (S32.030A) Acute back pain (M54.9) Diabetes mellitus (E11.9) Hyperlipidemia (E78.5) Osteoporosis (M81.0) _ Discharge Medications Acetaminophen (acetaminophen 325 mg oral tablet)?650?Milligram?By Mouth?Every 6 hours?as needed?Pain , Mild Alendronate (alendronate 70 mg oral tablet)?1?tab(s)?70?Milligram?By Mouth?Every week Atorvastatin (atorvastatin 20 mg oral tablet)?1?tab(s)?20?Milligram?By Mouth?Daily Folic Acid (folic acid 1 mg oral tablet)?1?Milligram?1?tablet?By Mouth?Daily Hydroxychloroquine (hydroxychloroquine 400 mg oral tablet)?400?Milligram?By Mouth?Daily Insulin Lispro (insulin lispro 100 units/mL injectable solution)?2-10 units?Subcutaneous Injection?3 times a day before meals?<< Sliding Scale Comments >>150 - 199 ?? 2 units Call if less than 32511 - 249 ?? 4 units 250 - 299 ?? 6 units 300 - 349 ?? 8 units 350 - 399 ?? 10 units Call if greater than 400<< Sliding Scale Comments >> Lidocaine Topical (lidocaine 5% topical film)?Topically?Daily Nystatin Topical?1?applicator?Topically?2 times a day Oxycodone (oxyCODONE 5 mg oral tablet)?5?Milligram?By Mouth?Every 6 hours?as needed?for 3?Days?Pain , Moderate secukinumab (Cosentyx UnoReady Pen 300 mg/2 mL subcutaneous solution)?300?Milligram?Subcutaneous Injection?Every week?for 4?week(s) Tizanidine (tiZANidine 4 mg oral tablet)?4?Milligram?1?tablet?By Mouth?Every 8 hours?as needed?Spasm Trazodone (traZODone 100 mg oral tablet)?150?Milligram?1.5?tablet?By Mouth?Daily at bedtime?as needed?TAKE 1.5 TABLET BY MOUTH AT BEDTIME NEEDED FOR INSOMNIA FOR 30 DAYS?Insomnia ? Durable Medical Equipment Discharge recommendations: Rehab (08/15/23) Ambulatory devices needed: None (08/15/23) ? Medications Started Oxycodone Allergies Allergies ?(Active and Proposed Allergies Only) NKA? (Severity: Unknown severity, Onset: Unknown) ? Objective Assessment and Plan ??This is a case of a 63-year-old female with past medical history concerning for diabetes, lumbar spinal stenosis, osteoporosis, arthritis who presents to the emergency department on 08/13 in settingof left hip pain. ?? Acute back pain ??(M54.9) Compression fracture of L3 vertebra ??(S32.030A) Osteoporosis ??(M81.0) This patient is presenting with acute on chronic lower back pain without??any recent history of trauma??and was found to have L3??endplate compression fracture??with CT imaging Neurosurgery not recommending any acute management, bracing or outpatient follow-up/routine imaging On examination: neurovascularly intact without any weakness of UE/LE or sensory deficits; Upon review of outside records,??pelvic radiographs??reveals severe bilateral??degenerative arthrosis??with [id number] contact, subcortical sclerosis and subcortical cystic changes and osteophytes??of the hip; Additionally??x-ray of lumbar spine??at [facility] reveals??retrolisthesis of L3 on L4 and??anterolisthesis of L4??and L5; facet hypertrophy at L4-L5??and mild L5- S1??neuroforaminal stenosis The reason for the patient's acute presentation is likely the compression fracture however she will??require outpatient management??of??the??bony changes??as mentioned above Likely longstanding osteoporosis??and vitamin deficiencies ?? Plan: ?Pain management??with Tylenol, oxycodone??and lidocaine patch?Patient taking alendronate outpatient Seen by PT , recommends rehab, pt agreeable and has a accepting facility ? Chronic Medical Conditions: Diabetes mellitus ??(E11.9)??we will continue??SSI, hypoglycemia measures and POC's ACHS Hyperlipidemia ??(E78.5): Continue atorvastatin ?Quality Measures: Code Status:??Full resuscitation Diet:??Regular ? . Physical Exam GENERAL: In no apparent distress HEENT: Head normocephalic, PERRL,Moist mucous membrane. Neck supple CARDIOVASCULAR: Normal rate and rhythm, no murmurs, no rubs, no gallops RESPIRATORY: Lungs clear to auscultation, no wheezes , no crackles ABDOMEN/GI: Nondistended, soft, nontender, normal bowel sounds EXTREMITIES: No pitting edema CONSUMER ANALYST: Alert and oriented x 3.Non focal neuro exam. ? Consultants Neurosurgery Pending Results Add On Lab Order ordered on 08/14/2023 Patient Education Titles WebMD Ignite Patient Education - Back Pain (Acute or Chronic)?? Follow-Up Appointments Added Follow Up ?Time Frame ?Comments Lit BROOKS, Alexis Gorman?1 to 2 weeks Post Discharge Care Discharge Prescriptions ?Written, 08/15/23 14:21:00 EDT Home Health Face to Face ^[facility] Results Discharge Labs BLOOD COUNT & DIFF WBC 8.8 k/mm3 ()?? 08/15/2023 00:45 RBC 3.61 m/mm3 (Low)?? 08/15/2023 00:45 Hgb 11.3 Gm/dL (Low)?? 08/15/2023 00:45 Hct 33.8 % (Low)?? 08/15/2023 00:45 MCV 93.6 femtoliters ()?? 08/15/2023 00:45 MCH 31.3 pg ()?? 08/15/2023 00:45 MCHC 33.4 g/dL ()?? 08/15/2023 00:45 Platelet Count 151 k/mm3 ()?? 08/15/2023 00:45 RDW-SD 47.3 femtoliters (High)?? 08/15/2023 00:45 MPV 10.0 femtoliters ()?? 08/15/2023 00:45 Nucleated RBC (Automated) 0.0 #/100 WBC'S ()?? 08/15/2023 00:45 Abs. NRBC 0.0 k/mm3 ()?? 08/15/2023 00:45 Abs. Neut 4.9 k/mm3 ()?? 08/14/2023 12:04 Abs. Lymph 1.6 k/mm3 ()?? 08/14/2023 12:04 Abs. Catahoula 0.5 k/mm3 ()?? 08/14/2023 12:04 Abs. Eo 0.1 k/mm3 ()?? 08/14/2023 12:04 Abs. Baso 0.0 k/mm3 ()?? 08/14/2023 12:04 Neut % 67.9 % ()?? 08/14/2023 12:04 Lymph % 21.8 % ()?? 08/14/2023 12:04 Catahoula % 6.6 % ()?? 08/14/2023 12:04 Eos % 1.8 % ()?? 08/14/2023 12:04 Baso % 0.1 % ()?? 08/14/2023 12:04 Imm Gran 1.8 % ()?? 08/14/2023 12:04 Abs. Imm Gran 0.1 k/mm3 ()?? 08/14/2023 12:04 ?? CHEM GENERAL Sodium 139 mmol/L ()?? 08/14/2023 12:04 Potassium 4.1 mmol/L ()?? 08/14/2023 12:04 Chloride 105 mmol/L ()?? 08/14/2023 12:04 Bicarbonate Level 20 mmol/L (Low)?? 08/14/2023 12:04 Anion Gap 14 ()?? 08/14/2023 12:04 Glucose Level 116 mg/dL (High)?? 08/14/2023 12:04 Glucose, POC 109 mg/dL (High)?? 08/18/2023 05:39 Hemoglobin A1C (Monitoring) 5.9 % (High)?? 08/14/2023 12:04 BUN 18 mg/dL ()?? 08/14/2023 12:04 Creatinine-Blood 0.70 mg/dL ()?? 08/14/2023 12:04 Estimated GFR Creatinine 98 ML/MIN/1.73 M2 ()?? 08/14/2023 12:04 Calcium 9.5 mg/dL ()?? 08/14/2023 12:04 Magnesium 1.7 mg/dL ()?? 08/15/2023 00:45 C-Reactive Protein 0.3 mg/dL ()?? 08/14/2023 12:04 ?? HEME OTHER Sed Rate 6 mm/hr ()?? 08/14/2023 12:04 ? URINE OTHER Est Creatinine Clearance 63.76 mL/min ()?? 08/14/2023 14:18 ? 35_ minutes spent on discharge * Leighann Kaplan RN: PERFORM, SIGN, VERIFY Event Display: Case Management Discharge Plan Authored Date: [id number] Patient: XIMENA ALBARRAN Age: 63 years Sex: Female : 1960 Associated Diagnoses: None Author: Leighann Kaplan RN Discharge Plan Case Management Discharge Plan : Case Management Discharge Plan Data 08/18/2023 10:47 EDT Discharge Level of Care at Discharge FDC facility Discharge Nursing Homes/Rehab Facilities [facility] Discharge Transportation Arranged [facility] [place] [facility] [address] [facility] [address] [phone] Discharge Arranged Transport Date/Time 08/18/2023 12:00 Mode of Transportation Arranged Ambulance Name of Agency [facility] * Sarah Brown LPN: PERFORM Event Display: Patient Education/Instruction Authored Date: Inpatient Adult Discharge Instructions. [address] [id number] Name: XIMENA ALBARRAN : 1960?? Visit: 08/14/2023 11:19?? Current Date: 08/18/2023 12:02 ?? Account: [id number]?? Inpatient Adult Discharge Instructions We would like to thank you for allowing us to assist you with your healthcare needs. The following includes patient education materials and information regarding your injury/illness. Our entire staffstrives to provide an excellent experience for our patients and their families. PLEASE ENSURE YOU FOLLOW-UP PER THE INSTRUCTIONS BELOW! ?? YOUR OPINION IS IMPORTANT TO US! Please complete the survey you may receive by mail or email. Your feedback will be used to make improvements to the healthcare experiences of our patients and their families. Surveys are administered by [employer] ?? If further treatment with your primary care physician or another doctor is recommended, it is important for you to keep the appointment. Call your primary care physician or return to the Emergency Department immediately if your condition worsens, fails to improve, or new symptoms develop. If you need to find a doctor, you can call [facility] [employer] for a referral at [phone] or toll free at [phone] ([phone]) or log in to [email or web address].. ?? [facility], in keeping with [facility] guidance, no longer requires face masks for staff, patientsor visitors in most situations. Similiar to time spent indoors at other locations, there is the chance that you were exposed to repiratory viruses during your time with us (such as flu or COVID-19). If you develop symptoms concerning for a viral respiratory infection, please seek testing (and treatment if indicated) from your medical provider or home test kit. ?? You can view and manage your care through the patient portal or by using a health care des of your choosing. [employer] is a website that allows you to securely view your medical information including your hospital discharge summary, office visit summaries, medications and follow-up visits. You can also request appointments, renew medications, and request access to your medical information using a health care des of your choosing, or just ask a question. You can enroll at [email or web address] or register during your next office visit. You have been discharged from [facility], Patient Care Unit: D3B??. If you have any questions regarding these instructions, including results of studies pending, afteryou leave, please call us and we will be happy to assist you 16/09. [facility] Your Care Team Attending Physician Melisa Zhang MD?? Consulting Providers Melisa Zhang MD?? Discharging Providers Melisa Zhang MD Reason for Your Visit From home. 3 days ago was walking normally and had acute, atraumatic L hip pain, since has progressively gotten worse, today has been unable to ambulate well.?? Your Diagnosis Acute back pain Diabetes mellitus Hyperlipidemia Osteoporosis Tests Performed Below is a partial list of the tests performed during your hospitalization. You may have had other tests and procedures not included in this list. Please discuss all test results with your provider. Basic Metabolic Panel CBC CBC w/ Differential CRP GLUCOSE POC HEMOGLOBIN A1C Magnesium Level Sedimentation Rate CT Lumbar Spine W/O Contrast XR Hip w/Pelvis 2-3 View Left Add On Lab Order?? Primary Care Provider Alexis Murrieta MD? Advance Directive Health Care Proxy on File No Patient refuses to discuss Discharge Vitals Temperature: 98.2 DegF Height: 155 cm Pulse Rate: 61 bpm Weight: 118.3 kg Respiratory Rate: 18 br/min Body Mass Index:??49.12 kg/m2??Critical Systolic Blood Pressure: 108 mm Hg Body surface area: 2.25 Diastolic Blood Pressure: 66 mm Hg ?? Oxygen Saturation: 100 % ?? Studies Pending All studies ordered during this hospital stay have been completed unless listed below. Please discuss all pending results with your provider listed above in these instructions. ?? Add On Lab Order?? What to do next Instructions From Your Doctor ?? Orders? 08/18/23 11:35:00 EDT?? Prescriptions??, ??08/18/23 11:35:00 EDT , ??08/15/23 14:21:00 EDT?? You Need to Schedule the Following Appointments Follow Up with??Alexis Murrieta MD When:??Within 1 to 2 weeks Where: [address] [place] [address] [place] [id number]- Discharge Medications XIMENA ALBARRAN :1960 Visit Date:08/14/2023 Medications: Please continue your medications until treatment is completed or stopped by your provider. Medications not listed below should be discontinued. Discuss any questions related to medications with your provider. What How Much When Instructions Next Dose New Acetaminophen (acetaminophen 325 mg oral tablet) 650 Milligram Oral Every 6 hours as needed for Pain , Mild as needed follow as prescribe New Hydroxychloroquine (hydroxychloroquine 400 mg oral tablet) 400 Milligram Oral Daily 08/19/23 New Insulin Lispro (insulin lispro 100 units/ mL injectable solution) 2-10 units Subcutaneous Injection 3 times a day before meals << Sliding Scale Comments >> 150 - 199 ?? 2 units Call if less than 70 200 - 249 ?? 4 units 250 - 299 ?? 6 units 300 - 349 ?? 8 units 350 - 399 ?? 10 units Call if greater than 400 << Sliding Scale Comments >> ?? follow as prescribe New Lidocaine Topical (lidocaine 5% topical film) Topically Daily 07/30/23 New Nystatin Topical 1 applicator Topically Twice a day 08/18/23 evening New Oxycodone (oxyCODONE 5 mg oral tablet) 5 Milligram Oral Every 6 hours as needed for Pain , Moderate Duration: 3 Days Printed Prescription as needed follow as prescribe Changed Atorvastatin (atorvastatin 20 mg oral tablet) 1 tab(s) Oral Daily 08/19/23 Changed Folic Acid (folic acid 1 mg oral tablet) 1 tab(s) Oral Daily 08/19/23 Changed Tizanidine (tiZANidine 4 mg oral tablet) 1 tab(s) Oral Every 8 hours as needed for Spasm as needed follow as prescribe Changed Trazodone (traZODone 100 mg oral tablet) 1.5 tab(s) Oral Daily at Bedtime as needed for Insomnia TAKE 1.5 TABLET BY MOUTH AT BEDTIME NEEDED FOR INSOMNIA FOR 30 DAYS ?? as needed follow as prescribe bedtime Changed secukinumab (Cosentyx UnoReady Pen 300 mg/ 2 mL subcutaneous solution) 300 Milligram Subcutaneous Injection Every week Duration: 4 week(s) follow as prescribe Unchanged Alendronate (alendronate 70 mg oral tablet) 1 tab(s) Oral Every week follow as prescribe ?? What How Much When Why Comments Stop Taking Albuterol (ProAir HFA 90 mcg/ inh inhalation aerosol) 2 puff(s) Inhalation 4 times a day as needed for as needed for wheezing Acute bronchitis Stop Taking Ibuprofen (ibuprofen 600 mg oral tablet) 1 tab(s) Oral Every 6 hours Duration: 5 Days Stop Taking Methotrexate Stop Taking Tramadol (traMADol 50 mg oral tablet) 1 tab(s) Oral Every 6 hours as needed for as needed for pain Prescription Given During Visit Oxycodone (oxyCODONE 5 mg oral tablet) - 5 mg, By Mouth, Every 6 hours, # 10 tablet, 0 Refills?? Laboratory Results Below is a partial list of the most recent Laboratory test results done prior to this discharge. You may have had other tests and procedures not included in this list. Please discuss all test resultswith your provider. Est Creatinine Clearance - 63.76 mL/min (08/14/2023) Basic Metabolic Panel (08/14/2023) ???Sodium - 139 mmol/L???Potassium - 4.1 mmol/L???Chloride - 105 mmol/L???Bicarbonate Level - 20 mmol/L???Anion Gap - 14???Glucose Level - 116 mg/dL???BUN - 18 mg/dL???Creatinine-Blood - 0.70 mg/dL???Estimated GFR Creatinine - 98 ML/MIN/1.73 M2???Calcium - 9.5 mg/dL CBC (08/15/2023) ???WBC - 8.8 k/mm3???RBC - 3.61 m/mm3???Hgb - 11.3 Gm/dL???Hct - 33.8 %???MCV - 93.6 femtoliters???MCH - 31.3 pg???MCHC - 33.4 g/dL???Platelet Count - 151 k/mm3???RDW-SD - 47.3 femtoliters???MPV - 10.0 femtoliters???Nucleated RBC (Automated) - 0.0 #/100 WBC'S???Abs. NRBC - 0.0 k/mm3 CBC w/ Differential (08/14/2023) ???WBC - 7.3 k/mm3???RBC - 3.77 m/mm3???Hgb - 11.9 Gm/dL???Hct - 35.7 %???MCV - 94.7 femtoliters???MCH - 31.6 pg???MCHC - 33.3 g/dL???Platelet Count - 160 k/mm3???RDW-SD - 47.9 femtoliters???MPV - 10.4 femtoliters???Nucleated RBC (Automated) - 0.0 #/100 WBC'S???Abs. NRBC - 0.0 k/mm3???Abs. Neut - 4.9 k/mm3???Abs. Lymph - 1.6 k/mm3???Abs. Catahoula - 0.5 k/mm3???Abs. Eo - 0.1 k/mm3???Abs. Baso - 0.0 k/mm3???Neut % - 67.9 %???Lymph % - 21.8 %???Catahoula % - 6.6 %???Eos % - 1.8 %???Baso % - 0.1 %???Imm Gran - 1.8 %???Abs. Imm Gran - 0.1 k/mm3 CRP (08/14/2023) ???C-Reactive Protein - 0.3 mg/dL GLUCOSE POC (08/18/2023) ???Glucose, POC - 139 mg/dL HEMOGLOBIN A1C (08/14/2023) ???Hemoglobin A1C (Monitoring) - 5.9 % Magnesium Level (08/15/2023) ???Magnesium - 1.7 mg/dL Sedimentation Rate (08/14/2023) ???Sed Rate - 6 mm/hr Allergies (NKA means No Known Allergies) NKA Problems Active Problems??(1) Severe obesity?? Education Materials Below is the list of Educational Leaflet Providered with your Discharge Instructions. WebMD Ignite Patient Education - Back Pain (Acute or Chronic)?? Valuables and Belongings I fully understand and agree that [facility] accepts no responsibility for all my personal property including clothing, toilet articles, radios, jewelry, dentures, hearing aids, rings, money, or any other property that is in my possession or is brought to me after admission. I understand certain valuables may be placed in a hospital safe for a short period of time. I understand that the hospital is not liable for loss or damage due to accident, fire, or other natural occurrence while said property is in the safe. I accept full responsibility for any personal property that I keep with me, and will not hold the hospital responsible in case of loss or disappearance. I acknowledge that i have been encouraged to send valuables and belongings home. ?? Review of Valuable and Belonging List: With patient Date for Pt to Sign Valuables/Belongings: 08/14/23 17:44:00 ?? Other Discharge Information ? Case Management Discharge Plan?? Discharge Plan?? Discharge Agency Information?? Discharge Level of Care at Discharge: FDC facility Name [facility] Discharge Transportation Arranged: [facility] [address] [facility] [id number] [phone] ?? Mode of Transportation Arranged: Ambulance ?? Discharge Arranged Transport Date/Time: 08/18/23 12:00:00 ?? Discharge Nursing Homes/Rehab Facilities: [facility] ? Pulmonary Rehab Status?? Pulmonary Rehab Discharge Status?? Respiratory Rate: 18 br/min ? Common Emergency Awareness Tips IS IT A STROKE? Act FAST and Check for these signs: FACE Does the face look uneven? ARM Does one arm drift down? SPEECH Does their speech sound strange? TIME Call at any sign of stroke ?? Heart Attack Signs Chest discomfort: Most heart attacks involve discomfort in the center of the chest and lasts more than a few minutes, or goes away and comes back. It can feel like uncomfortable pressure, squeezing, fullness or pain. Discomfort in upper body: Symptoms can include pain or discomfort in one or both arms, back, neck, jaw or stomach. Shortness of breath: With or without discomfort. Other signs: Breaking out in a cold sweat, nausea, or lightheaded. Remember, MINUTES DO MATTER. If you experience any of these heart attack warning signs, call to get immediate medical attention! ?? Smoking can increase your chances of developing chronic health problems and can cause harmful effects to other family members in your house. If you smoke, you are strongly encouraged to quit. Please call [facility] [employer] at [phone] or [phone] ([phone]) or log in to [email or web address] for referrals to smoking cessation programs. ?? 585 Suicide & Crisis Lifeline is available 16/09 if you or someone you know needs to find a reason to keep living. By calling 663 you'll be connected to a skilled, trained counselor at a crisis center in your area. INPATIENT DISCHARGE INSTRUCTIONS SIGNATURE XIMENA MASON Location:[facility] Registration Date and Time:08/14/2023 11:19 EDT Primary Care Physician: Alexis Murrieta MD, Attending Physician: Melisa Zhang MD, I XIMENA ALBARRAN, have received the above patient education materials/instructions and have verbalized understanding. If ambulance or transport services are being used I further acknowledge being givena choice of service. ?? If you need to contact me, please call me at this number: . Patient/Appraiser Personal Property Name: Patient/Appraiser Personal Property Signature: Relationship to Patient: Witness Name/Signature: Date: * Melisa Zhang MD: PERFORM Event Display: Discharge/Transfer Note Hospital Authored Date: Patient: ??XIMENA ALBARRAN ? Age:??63 Years?Sex:??Female?:??1960?? Patient Information Discharge Location: [facility] Primary Care Physician: Alexis Murrieta MD Admit Date/Time: 08/14/23 11:19 Discharge Disposition Discharge Disposition: Home: No Services Discharge Diagnosis Compression fracture of L3 vertebra (S32.030A) Acute back pain (M54.9) Diabetes mellitus (E11.9) Hyperlipidemia (E78.5) Osteoporosis (M81.0) _ Discharge Medications Acetaminophen (acetaminophen 325 mg oral tablet)?650?Milligram?By Mouth?Every 6 hours?as needed?Pain , Mild Alendronate (alendronate 70 mg oral tablet)?1?tab(s)?70?Milligram?By Mouth?Every week Atorvastatin (atorvastatin 20 mg oral tablet)?1?tab(s)?20?Milligram?By Mouth?Daily Insulin Lispro (insulin lispro 100 units/mL injectable solution)?2-10 units?Subcutaneous Injection?3 times a day before meals?<< Sliding Scale Comments >>150 - 199 ?? 2 units Call if less than [id number] - 249 ?? 4 units 250 - 299 ?? 6 units 300 - 349 ?? 8 units 350 - 399 ?? 10 units Call if greater than 400<< Sliding Scale Comments >> Lidocaine Topical (lidocaine 5% topical film)?Topically?Daily Oxycodone (oxyCODONE 5 mg oral tablet)?5?Milligram?By Mouth?Every 6 hours?as needed?for 3?Days?Pain , Moderate secukinumab (Cosentyx UnoReady Pen 300 mg/2 mL subcutaneous solution)?300?Milligram?Subcutaneous Injection?Every week?for 4?week(s) Tizanidine (tiZANidine 4 mg oral tablet)?4?Milligram?1?tablet?By Mouth?Every 8 hours?as needed?Spasm Trazodone (traZODone 100 mg oral tablet)?150?Milligram?1.5?tablet?By Mouth?Daily at bedtime?as needed?TAKE 1.5 TABLET BY MOUTH AT BEDTIME NEEDED FOR INSOMNIA FOR 30 DAYS?Insomnia ? Durable Medical Equipment Discharge recommendations: Rehab (08/15/23) ? Medications Started Oxycodone Allergies Allergies ?(Active and Proposed Allergies Only) NKA? (Severity: Unknown severity, Onset: Unknown) ? Objective Assessment and Plan ??This is a case of a 63-year-old female with past medical history concerning for diabetes, lumbar spinal stenosis, osteoporosis, arthritis who presents to the emergency department on 08/13 in settingof left hip pain. ?? Acute back pain ??(M54.9) Compression fracture of L3 vertebra ??(S32.030A) Osteoporosis ??(M81.0) This patient is presenting with acute on chronic lower back pain without??any recent history of trauma??and was found to have L3??endplate compression fracture??with CT imaging Neurosurgery not recommending any acute management, bracing or outpatient follow-up/routine imaging On examination: neurovascularly intact without any weakness of UE/LE or sensory deficits; Upon review of outside records,??pelvic radiographs??reveals severe bilateral??degenerative arthrosis??with [id number] contact, subcortical sclerosis and subcortical cystic changes and osteophytes??of the hip; Additionally??x-ray of lumbar spine??at [facility] reveals??retrolisthesis of L3 on L4 and??anterolisthesis of L4??and L5; facet hypertrophy at L4-L5??and mild L5- S1??neuroforaminal stenosis The reason for the patient's acute presentation is likely the compression fracture however she will??require outpatient management??of??the??bony changes??as mentioned above Likely longstanding osteoporosis??and vitamin deficiencies ?? Plan: ?Pain management??with Tylenol, oxycodone??and lidocaine patch?Patient taking alendronate outpatient Seen by PT , recommends rehab, pt agreeable and has a accepting facility ? Chronic Medical Conditions: Diabetes mellitus ??(E11.9)??we will continue??SSI, hypoglycemia measures and POC's ACHS Hyperlipidemia ??(E78.5): Continue atorvastatin ? . Physical Exam GENERAL:?? tearful HEENT: Head normocephalic, PERRL,Moist mucous membrane. Neck supple CARDIOVASCULAR: Normal rate and rhythm, no murmurs, no rubs, no gallops RESPIRATORY: Lungs clear to auscultation, no wheezes , no crackles ABDOMEN/GI: Nondistended, soft, nontender, normal bowel sounds EXTREMITIES: No pitting edema CONSUMER ANALYST: Alert and oriented x 3.Non focal neuro exam. ? Pending Results Add On Lab Order ordered on 08/14/2023 Hemoglobin A1C (Monitoring) ordered on 08/14/2023 Patient Education Titles WebMD Ignite Patient Education - Back Pain (Acute or Chronic)?? Follow-Up Appointments Added Follow Up ?Time Frame ?Comments Lit BROOKS, Alexis Gorman?1 to 2 weeks Post Discharge Care Discharge Prescriptions ?Written, 08/15/23 14:21:00 EDT Home Health Face to Face ^HomeHealth[facility] Results Discharge Labs BLOOD COUNT & DIFF WBC 8.8 k/mm3 ()?? 08/15/2023 00:45 RBC 3.61 m/mm3 (Low)?? 08/15/2023 00:45 Hgb 11.3 Gm/dL (Low)?? 08/15/2023 00:45 Hct 33.8 % (Low)?? 08/15/2023 00:45 MCV 93.6 femtoliters ()?? 08/15/2023 00:45 MCH 31.3 pg ()?? 08/15/2023 00:45 MCHC 33.4 g/dL ()?? 08/15/2023 00:45 Platelet Count 151 k/mm3 ()?? 08/15/2023 00:45 RDW-SD 47.3 femtoliters (High)?? 08/15/2023 00:45 MPV 10.0 femtoliters ()?? 08/15/2023 00:45 Nucleated RBC (Automated) 0.0 #/100 WBC'S ()?? 08/15/2023 00:45 Abs. NRBC 0.0 k/mm3 ()?? 08/15/2023 00:45 Abs. Neut 4.9 k/mm3 ()?? 08/14/2023 12:04 Abs. Lymph 1.6 k/mm3 ()?? 08/14/2023 12:04 Abs. Cata[place]oula 0.5 k/mm3 ()?? 08/14/2023 12:04 Abs. Eo 0.1 k/mm3 ()?? 08/14/2023 12:04 Abs. Baso 0.0 k/mm3 ()?? 08/14/2023 12:04 Neut % 67.9 % ()?? 08/14/2023 12:04 Lymph % 21.8 % ()?? 08/14/2023 12:04 [place]oula % 6.6 % ()?? 08/14/2023 12:04 Eos % 1.8 % ()?? 08/14/2023 12:04 Baso % 0.1 % ()?? 08/14/2023 12:04 Imm Gran 1.8 % ()?? 08/14/2023 12:04 Abs. Imm Gran 0.1 k/mm3 ()?? 08/14/2023 12:04 ?? CHEM GENERAL Sodium 139 mmol/L ()?? 08/14/2023 12:04 Potassium 4.1 mmol/L ()?? 08/14/2023 12:04 Chloride 105 mmol/L ()?? 08/14/2023 12:04 Bicarbonate Level 20 mmol/L (Low)?? 08/14/2023 12:04 Anion Gap 14 ()?? 08/14/2023 12:04 Glucose Level 116 mg/dL (High)?? 08/14/2023 12:04 Glucose, POC 125 mg/dL (High)?? 08/15/2023 10:41 BUN 18 mg/dL ()?? 08/14/2023 12:04 Creatinine-Blood 0.70 mg/dL ()?? 08/14/2023 12:04 Estimated GFR Creatinine 98 ML/MIN/1.73 M2 ()?? 08/14/2023 12:04 Calcium 9.5 mg/dL ()?? 08/14/2023 12:04 Magnesium 1.7 mg/dL ()?? 08/15/2023 00:45 C-Reactive Protein 0.3 mg/dL ()?? 08/14/2023 12:04 ? HEME OTHER Sed Rate 6 mm/hr ()?? 08/14/2023 12:04 ? URINE OTHER Est Creatinine Clearance 63.76 mL/min ()?? 08/14/2023 14:18 ? _35 minutes spent on discharge * Melisa Zhang MD: PERFORM Event Display: Patient Education Leaflets Authored Date: Back Pain (Acute or Chronic) ?? [id number] Back Pain (Acute or Chronic) Back pain is one of the most common problems. The good news is that most people feel better in 1 to2 weeks, and most of the rest in 1 to 2 months. Most people can remain active. People who have pain??describe it differently???not??everyone is the same. ??? The pain can be sharp, stabbing, shooting, aching, cramping or burning. ??? Movement, standing,bending, lifting, sitting, or walking may worsen pain. ??? It can be limited to one spot or area, or it can be more generalized. ??? It can spread upwards, to the front, or go down your arms or legs (sciatica). ??? It can cause muscle spasm. Most of the time, mechanical problems with the muscles??or spine cause the pain. Mechanical problems??are usually caused by an injury to the muscles or ligaments. Illness can cause back pain, but it's usually not caused by a serious illness. Mechanical problems include:? Physical activity such as sports, exercise, work, or normal activity ??? Overexertion, lifting,pushing, pulling incorrectly or too aggressively ??? Sudden twisting, bending, or stretching from an accident, or accidental movement ??? Poor posture ??? Stretching or moving wrong, without noticingpain at the time ??? Poor coordination, lack of regular exercise (check with your doctor about this) ??? Spinal disc disease or arthritis ??? Stress Pain can also be related to , or illness such as appendicitis, bladder or kidney infections, kidney stones, and pelvic infections. Acute back pain usually gets better in??1 to 2 weeks. Back pain related to disk disease, arthritis in the spinal joints, or narrowing of the spinal canal (spinal stenosis) can become chronic and lastfor months or years. Unless you had a physical injury such as a car accident or fall, X-rays are usually not needed for the first assessment of back pain. If pain continues and does not respond to medical treatment, you may need X-rays and other tests. Home care Try this home care advice: ??? When in bed, try??to find a position of comfort. A firm mattress is best. Try lying flat on your back with pillows under your knees. You can also try lying on your side with your knees bent up toward your chest and a pillow between your knees. ??? At first, don't try to stretch out the sore spots. If there is a strain, it's not like the good soreness you get after exercising without an injury. In this case, stretching may make it worse. ??? Don't sit for long periods, as in a long car ride or during other??travel. This puts more stress on the lower back than standing or walking. ??? During the first 24 to 72 hours after an acute injury or flare up of chronic back pain, apply an ice pack to the painful area for 20 minutes and then remove it for 20 minutes. Do this over a period of 60 to 90 minutes or several times a day. This will reduce swelling and pain. Wrap the ice pack in a thintowel or plastic to protect your skin. ??? You can start with ice, then switch to heat. Heat (hot shower, hot bath, or heating pad) reduces pain and works well for muscle spasms. Heat can be applied to the painful area for 20 minutes then remove it for 20 minutes. Do this over a period of 60 to 90 minutes or several times a day. Don't sleep on a heating pad. It can lead to skin wilder or tissue damage. ??? You can alternate ice and heat therapy. Talk with your doctor about??the best treatment for your back pain. ??? Therapeutic massage can help relax the back muscles without stretching them. ??? Be aware of safe lifting methods. Don't lift anything without stretching first. Medicines Talk to your doctor before using medicine, especially if you have other medical problems or are taking other medicines. ??? You may use [id number] medicine as directed on the bottle to control pain, unless another pain medicine was prescribed. Talk with your healthcare provider before using these medicines if you have chronic conditions such as diabetes, liver or kidney disease, stomach ulcers, or digestive bleeding. Also talk with your provider if you take blood thinners. ??? Be careful if you are given a prescription medicines, narcotics, or medicine for muscle spasms. They can cause drowsiness, affect your coordination, reflexes, and judgment. Don't drive or operate heavy machinery. ?? Follow-up care Follow up with your healthcare provider, or as advised.?? If X-rays were taken, you will be told of any new findings that may affect your care. ?? Call 911 Call 911 if any of the following occur: ??? Trouble breathing ??? Confusion ??? Very drowsy or trouble awakening ??? Fainting or loss of consciousness ??? Rapid or very slow heart rate ??? Loss of bowel or bladder control ?? When to seek medical advice Call your healthcare provider right away if any of these occur:? Pain gets worse or spreads toyour legs ??? Your bowel or bladder control changes ??? Fever ??? Blood in your urine ??? Weakness or numbness in one or both legs ??? Numbness in the groin or genital area ?? Last Reviewed Date: 2021 ?? [id number] [employer]. All rights reserved. This information is not intended as a substitute for professional medical care. Always follow your healthcare professional's instructions. ?? Patient Care team information Care Team Personnel Name: Alexis Murrieta MD Position: Reference Physician Member Role: PCP Address: Address: [address] [place] [address] [address] [place] [address]- Name: Mandy Gray RN Position: S RN Member Role: Primary Care Nurse Name: Sarah Brown LPN Position: S RN Member Role: Primary Care Nurse Care Team Related Persons Name: PRIYANK ALBARRAN Address: [address] [place] [address]
== END 2023-08-27 14:05 | disposition home or self-care (01) ==
LOC: HO.HMGH 11:20
PROVIDERS: PCP Internal Medicine; Visit Provider Internal Medicine
DX: E11.9 Type 2 diabetes mellitus without complications (principal); L40.50 Arthropathic psoriasis, unspecified; E66.01 Morbid (severe) obesity due to excess calories; Z68.42 Body mass index [BMI] 45.0-49.9, adult; S32.030S Wedge compression fracture of third lumbar vertebra, sequela; M15.9 Polyosteoarthritis, unspecified; M79.7 Fibromyalgia; E78.00 Pure hypercholesterolemia, unspecified; G43.909 Migraine, unspecified, not intractable, without status migrainosus; E53.8 Deficiency of other specified B group vitamins; E55.9 Vitamin D deficiency, unspecified; G47.00 Insomnia, unspecified; F32.9 Major depressive disorder, single episode, unspecified
CPT/HCPCS: 99214

== ENCOUNTER → 2023-09-15 23:59 | Outpatient (BNV) | payer BC, SELFPAY | PROVIDERS: PCP Internal Medicine; Visit Provider Internal Medicine | DX: E11.9 Type 2 diabetes mellitus without complications (principal); L40.50 Arthropathic psoriasis, unspecified; G47.00 Insomnia, unspecified | CPT/HCPCS: G0179; G0180 ==

== ENCOUNTER 2023-11-06 09:22 | Outpatient (REF) | payer BC, SELFPAY ==
--- NOTE | ~2023-11-06 | MM_ITS ---
EXAMINATION: MM DIAGNOSTIC DIGITAL BREAST TOMOSYNTHESIS, BILATERAL CLINICAL INFORMATION: -6 month follow-up for left breast probably benign calcifications (for 1 year stability). History of benign left stereotactic breast biopsy. COMPARISON: Mammography: 05/06/2023, 10/08/2022, 09/04/2022 (BI-RADS 0), 09/30/2018, 09/04/2017, 07/02/2016. TECHNIQUE: Digital breast tomosynthesis is performed in both the craniocaudal and mediolateral oblique views along with computer-aided detection (CAD). Synthesized 2D images are generated from the tomosynthesis. In addition, added 3-D focal feel the right MLO and left CC views were obtained, as well as spot magnification to the left CC and ML x2 views. FINDINGS: There are scattered areas of fibroglandular density (ACR BI-RADS breast composition Category b). There are unchanged loosely grouped calcifications in the upper outer left breast, middle one third. There has been no increase in number or change in morphology over the past year. Some of these again appear coarse and benign, with some appearing vascular, and some appear punctate with tight grouping, as before. These remain probably benign. Post benign biopsy clip again noted posterior inferior lateral left breast. Scattered dermal calcifications right breast. Stable nodular parenchymal pattern is unchanged from prior exams. No new masses, developing architectural distortions, or suspicious calcifications in either breast. No skin or axillary abnormalities. MM/MM tomosynthesis diagnostic BI IMPRESSION: -There are no findings in either breast suspicious for malignancy. Stable benign findings bilaterally. -Calcifications in the left breast are stable and unchanged over one year. These remain probably benign, and one year follow-up diagnostic left breast mammography (standard magnification views) recommended when the patient is due for bilateral screening. ASSESSMENT: BI-RADS BI-RADS 3 - Probably benign finding(s) - 12 month follow-up suggested RECOMMENDATION: 12 month diagnostic follow up Results were provided to the patient at time of visit by the technologist. This patient's information was entered into a reminder system with a target due date for their next mammogram. Electronically signed by: Elias Rutherford MD 11/06/2023 11:00 AM EDT
== END 2023-11-06 09:23 | disposition home or self-care (01) ==
LOC: HO.MAMMO 09:22
PROVIDERS: PCP Internal Medicine; Visit Provider Internal Medicine
DX: R92.1 Mammographic calcification found on diagnostic imaging of breast (principal)
CPT/HCPCS: 77062; 77066

== ENCOUNTER → 2023-11-06 09:30 | Outpatient (BNV) | payer BC, SELFPAY | PROVIDERS: PCP Internal Medicine; Visit Provider Radiology Diagnostic Radiology | DX: R92.1 Mammographic calcification found on diagnostic imaging of breast (principal) | CPT/HCPCS: 77062; 77066 ==

== ENCOUNTER 2023-12-08 15:47 | Outpatient (AMB) | payer BC, SELFPAY ==
[2023-12-08 15:48] VITALS: BP 110/64; PULSE 78; O2SAT 95; BMI 54.9
--- NOTE | 2023-12-08 15:48 | MHC.PC.OV ---
Vital Signs 12/08/23 15:48 Height 5 ft 1 in Weight 290 lb 9.108 oz BMI 54.9 BP 110/64 Blood Pressure Location Lt brachial Position Sitting Pulse 78 Pulse Source Pulse Oximeter Pulse Oximetry (%) 95 Oxygen Delivery Method Room Air Intake Visit Reasons: lumbar DDD [employer] Apprentice Required: No Accompanied by: Self / Same As Patient Allergies aspirin Allergy (Unknown, Verified 01/23/24 08:14) Unknown Sulfa (Sulfonamide Antibiotics) Allergy (Unknown, Verified 01/23/24 08:14) pruritis, severe itching metformin Adverse Reaction (Unknown, Verified 01/23/24 08:14) diarrhea Medication List - Last Reconciled 12/08/23 by Alexis Murrieta MD atorvastatin 20 mg PO DAILY usawjxuvaf-mcgogpfzogajl-xvku 50-325-40 mg 1 cap PO BID PRN 30 days ergocalciferol (vitamin D2) 1,250 mcg PO QWEEK folic acid 1 mg PO DAILY gabapentin 300 mg PO TID PRN hydroxychloroquine 200 mg PO BID lidocaine 5% 2 patches topical DAILY 30 days methotrexate sodium 20 mg PO QWEEK nystatin 1 appl topical TID 10 days oxycodone 5 mg PO TID PRN 7 days secukinumab (Cosentyx UnoReady Pen) 300 mg subcut Q4W tizanidine 4 mg PO TID PRN tramadol 50 mg PO Q6H PRN 15 days trazodone 150 mg (1.5 x 100 mg) PO BEDTIME 30 days Tobacco use date assessed: 12/08/23 Dental Screening Dental Screen Date: 12/08/23 Did you have a dental visit in the last 12 months?: Yes Did you have a dental problem in the last 6 months where you did not have access to dental care?: No Was dental information given to patient?: Patient has dentist HPI lumbar DDD HPI Details Patient comes in today for her follow up visit States that she continues to experience increased pain in her lower back and over both hips She apparently sustained a compression fracture of her L3 vertebra early last year (sometime around February 2022) from a ground-level fall (recalls that she just stepped down with her foot and suddenly felt a sharp pain in her lower back States that since then, her level of activity has gone down significantly as her low back pain and hip pain gets worse with prolonged walking or standing and as a result, she has gained a lot of weight over the past couple of years even though she hardly eats anything and continues to make a conscious effort not to eat too much She is also now seeing rheumatology at [facility] and continues on her Cosentyx and Methotrexate as well as Hydroxychloroquine for her psoriatic arthritis She is most recently trying epidural steroid injections again to see if this will help calm down her low back pain as she has gotten good results with injections in the past She is also looking for help with her weight and is wondering if in her current condition, she would be able to try some of the GLP-1s to help her lose weight States that she is not looking for any miracles and would be happy if she can take the GLP-1s even if it is just for a couple of months as long as she can shed some of her weight off and thinks that this may also be helpful in easing off some of her lower back and hip pains Adds that she's had some nasal congestion and sore throat for the past couple of days but denies any fever or cough; denies any increased phlegm or sputum production She denies any headaches or dizziness Denies any chest pains, no increased SOB No nausea/vomiting, no abdominal pain No change in bowel habits noted Needs a couple of her Rx refilled She was not able to get her previously ordered labs done prior to her appointment today [facility] Medical History Morbid obesity with BMI of 50.0-59.9, adult Compression fracture of L3 vertebra Insomnia Nasal sore Morbid obesity with BMI of 45.0-49.9, adult Depression Vitamin D deficiency Vitamin B12 deficiency Migraine Pure hypercholesterolemia Fibromyalgia Diabetes mellitus Psoriatic arthritis Lumbar degenerative disc disease Surgical History History of esophagogastroduodenoscopy (EGD) History of colonoscopy (~04/06/04) Family History Father No problems noted. Mother No problems noted. Social History Housing: House Alcohol intake: current Alcohol intake frequency: holidays/special occasions only Patient Tobacco Use Status: Former Tobacco user Tobacco use type: Cigarette e-Cigarette/Vaping Use: Never Used Second Hand Smoke Exposure: Yes service: No Current occupational status: disabled Current occupation: rt hand Cognitive needs: Yes Hearing needs: No Vision needs: Yes Questionnaire PHQ-9 Over the last 2 weeks, how often have you been bothered by any of the following problems? 1. Little interest or pleasure in doing things: not at all 2. Feeling down, depressed, or hopeless: not at all 3. Trouble falling or staying asleep, or sleeping too much: not at all 4. Feeling tired or having little energy: not at all 5. Poor appetite or overeating: not at all 6. Feeling bad about yourself - or that you are a failure or have let yourself or your family down: not at all 7. Trouble concentrating on things, such as reading the newspaper or watching television: not at all 8. Moving or speaking so slowly that other people could have noticed. Or the opposite - being so fidgety or restless that you have been moving around a lot more than usual: not at all 9. Thoughts that you would be better off or of hurting yourself in some way: not at all Total score: 0 Depression Screening Interpretation: Negative Depression Screening Done: Yes 74409 - PHQ-9 Billing: Yes Source: Developed by Drs. Xavier Lewis, Ashley Rea, Jose Napier and colleagues, with an educational jade from [employer] Thrive Questionnaire Date Thrive assessed: 12/08/23 I am a: Patient What is your living situation today?: I have a steady place to live Within the past 12 months, did the food you bought not last and you didn't have the money to get more?: Never true Within the past 12 months, did you worry whether your food would run out before you got money to buy more?: Never true Do you have trouble paying for medicines?: No Do you have trouble getting transportation to medical appointments?: No Do you have trouble paying your heating and electricity bill?: No Do you have trouble taking care of your child, family member or friend?: No Do you have trouble with day-to-day activities such as bathing, preparing meals, shopping, managing finances, etc.?: No Are you currently unemployed and looking for a job?: No Are you interested in more education?: No Please select the resources that you would like help with: None Currently or been in a relationship where the following occur: No concerns reported THRIVE Score: 0 AUDIT C Alcohol Use Questionnaire (AUDIT-C) 1. How often do you have a drink containing alcohol?: Never 3. How often do you have six or more drinks on one occasion?: Never Total Score: 0 Score Reviewed/Action Taken: Yes NAWAF-7 AMB Questionnaire NAWAF-7 Date NAWAF - 7 assessed: 12/08/23 Feeling nervous, anxious, or on edge: 0 = Not at all Not being able to stop or control worryin = Not at all Worrying too much about different things: 0 = Not at all Trouble relaxin = Not at all Being so restless that it is hard to sit still: 0 = Not at all Becoming easily annoyed or irritable: 0 = Not at all Feeling afraid as if something awful might happen: 0 = Not at all Total NAWAF-7 score (0-4 normal; 5-9 mild; 10-14 moderate; 15-21 severe): 0 Source: Developed by Drs. Xavier Lewis, Ashley Rea, Jose Napier and colleagues, with an educational jade from [employer] Review of Systems Const Denies chills, Reports fatigue, Denies fever(s) and Denies headache(s) ENT Denies dysphagia, Denies dizziness, Denies otalgia, Denies headache(s), Reports nasal congestion (mild), Reports neck pain, Denies odynophagia and Reports sore throat (mild; over the past couple of days) Card Denies chest pain, Denies palpitations, Denies dyspnea and Denies dyspnea on exertion Resp Denies chest congestion, Denies cough, Denies excessive phlegm production, Denies dyspnea, Denies dyspnea on exertion and Denies wheezing GI Denies abdominal pain, Denies constipation, Denies dysphagia, Denies heartburn, Denies diarrhea, Denies nausea, Denies odynophagia and Denies vomiting Denies difficulty voiding, Denies post void dribbling, Denies nocturia, Denies dysuria and Denies urinary urgency Musc Reports back pain (chronic - increased lately due to acute injury), Reports myalgias (diffuse), Reports arthralgias (over multiple joints, including knees and hips & more recently, L shoulder), Reports neck pain and Reports stiffness Skin/Breast Reports rash (recurrent - especially over the skin folds under her breasts) Neuro Denies dizziness and Denies headache(s) Endo Reports fatigue and Denies palpitations Aller/Immun Denies wheezing Physical exam (Primary Care) Vital Signs: Last Vital Signs Pulse 78 12/08/23 15:48 BP 110/64 12/08/23 15:48 Pulse Ox 95 12/08/23 15:48 Oxygen Delivery Method Room Air 12/08/23 15:48 BMI result Body Mass Index 54.9 Tobacco/Smoking Status: Tobacco use Status Tobacco use date assessed 12/08/23 12/08/23 15:50 Patient Tobacco Use Status Former Tobacco user 12/08/23 15:50 Tobacco use type Cigarette 12/08/23 15:50 e-Cigarette/Vaping Use Never Used 12/08/23 15:50 PHQ-9: PHQ-9 Score PHQ-9: Total score 0 12/09/23 09:45 Depression Screening Interpretation: Negative Thrive Assessment: Date of Thrive Assessment Date Thrive assessed 12/08/23 12/08/23 15:50 Currently or been in a relationship where the following occur: No concerns reported Const General: no acute distress, alert and tired appearing HENMT Ears: TM's normal bilaterally and EAC's normal Throat: Yes posterior oropharynx normal and Yes tonsils normal (no TP congestion noted) Neck Neck: Yes no lymphadenopathy and Yes supple Thyroid: Thyroid normal Resp Auscultation: clear to auscultation bilaterally, no rales and no wheezes Cardio Rate: regular rate Rhythm: regular rhythm Heart sounds: no murmurs GI Palpation (GI): Soft to palpation and nontender Auscultation: normal bowel sounds General: Yes no CVA tenderness Back/Spine/Pelvis Back: no CVA tenderness Cervical Spine: Cervical spine tenderness Thoracic/Lumbar Spine: lumbar spinal tenderness Skin Other: (+) patchy erythematous rash on the skin folds under her breasts bilaterally Extrem General: Yes no clubbing, cyanosis or edema Left upper extremity: shoulder/upper arm Details: tenderness Location: of the A-C joint and of the proximal humerus Right lower extremity: hip/thigh Details: tenderness and knee Details: tenderness; no swelling Left lower extremity: hip/thigh Details: tenderness and knee Details: tenderness; no swelling Coding Level of Care Code Est Pt Level 4 (85848) Diagnoses Compression fracture of L3 vertebra, sequela S32.030S Encounter type: sequela Psoriatic arthritis L40.50 Osteoarthritis involving multiple joints on both sides of body M15.9 Fibromyalgia M79.7 Type 2 diabetes mellitus without complication, without long-term current use of insulin E11.9 Diabetes mellitus complication status: without complication Diabetes mellitus salvage determiner insulin use: without salvage determiner use Diabetes mellitus type: type 2 Pure hypercholesterolemia E78.00 Migraine without status migrainosus, not intractable, unspecified migraine type G43.909 Intractability: not intractable Migraine type: unspecified Status migrainosus presence: without status migrainosus Candidal intertrigo B37.2 Vitamin B12 deficiency E53.8 Vitamin D deficiency E55.9 Insomnia, unspecified type G47.00 Insomnia type: unspecified Depression, unspecified depression type F32.9 Depression Type: unspecified Morbid obesity with BMI of 50.0-59.9, adult E66.01; Z68.43 Assessment & Plan Assessment & Plan (1) Compression fracture of L3 vertebra: Code(s): S32.030A - Wedge compression fracture of third lumbar vertebra, initial encounter for closed fracture Category: Medical Qualifiers: Encounter type: sequela Qualified Code(s): S32.030S - Wedge compression fracture of third lumbar vertebra, sequela Plan: This was first seen on imaging studies done at [facility] in late July 2023 and appeared to be acute in onset at the time Patient denies any recent falls or injuries prior to her injury being discovered BMD done last year (08/2022) revealed (+) osteopenia with the lowest T-score value of -2.0 in the lumbar spine She has a Hx of multilevel lumbar spine DDD and was getting injections into her lower back for pain; she most recently had injection to L4-L5 at [facility] a few months prior, with some relief of her low back pain Fall precautions reinforced She was referred to Dr. Hernández at [facility] for further evaluation and management of her compression fracture and was subsequently admitted to [facility] in [place] for short-term rehab, which she states helped Continue Tramadol 50 mg TID PRN for pain (2) Psoriatic arthritis: Code(s): L40.50 - Arthropathic psoriasis, unspecified Category: Medical Plan: She was switched over from Taltz 80 mg SQ Q 4 weeks to Cosentyx 300 mg Q 4 weeks by her current petrologist a few months ago She was seeing Dr. Lopez in [place] for rheumatology follow up and management for the past few years but recently switched over to the [facility] and is now following up with her current petrologist in [place] regularly as scheduled (3) Osteoarthritis involving multiple joints on both sides of body: Code(s): M15.9 - Polyosteoarthritis, unspecified Category: Medical Plan: Continue Lidocaine patches 5% QD PRN X-rays done last year revealed (+) mild degenerative changes in the hip joints bilaterally with no visible acute changes or fracture and mild degenerative changes in the right shoulder joint with enthesophyte along the inferior acromion. There is a healed fracture of the left humeral neck without dislocation; the soft tissues are normal. (+) degenerative disc changes at the C4-C5 disc level with ventral spondylosis and no visible acute fracture or dislocation are seen Follow-up with [facility] as scheduled (4) Fibromyalgia: Code(s): M79.7 - Fibromyalgia Category: Medical Plan: She is again encouraged to continue to try exercising regularly to help manage her fibromyalgia symptoms but patient states that this is proving to be difficult due to the progression of her psoriatic arthritis Patient was on Carisoprodol 350 mg TID PRN in the past but was encouraged to come off of it due to its habit-forming potential and high risk of dependence and drug interactions with her opioids - this was DISCONTINUED months ago and she is now completely off Soma as well She was started on Tizanidine 4 mg TID PRN at her last appointment Per request, a referral was also previously made out for integrative medicine for her to see Dr. Whitesied to explore alternative treatment options for her chronic pain but states that she still has not seen Dr. Whiteside yet and is currently just seeing her chiropractor regularly for treatments at this time (5) Diabetes mellitus: Code(s): E11.9 - Type 2 diabetes mellitus without complications Category: Medical Qualifiers: Diabetes mellitus complication status: without complication Diabetes mellitus detention insulin use: without salvage determiner use Diabetes mellitus type: type 2 Qualified Code(s): E11.9 - Type 2 diabetes mellitus without complications Plan: Her in-office HgbA1c was at 5.3% when last checked in April 2023 As she is being sent for follow up labs, will just have her HgbA1c rechecked at the same time Reinforced diabetic diet She used to take Januvia 100 mg QD, Metformin 500 mg BID and Glipizide ER 5 mg QD but has not been on any Rx for her diabetes in a while now and appears to be doing well OFF all meds (6) Pure hypercholesterolemia: Code(s): E78.00 - Pure hypercholesterolemia, unspecified Category: Medical Plan: Reinforced low cholesterol diet Continue Atorvastatin 20 mg QD Patient is advised to try getting her previously ordered follow up labs done ANDRES (7) Migraine: Code(s): G43.909 - Migraine, unspecified, not intractable, without status migrainosus Category: Medical Qualifiers: Intractability: not intractable Migraine type: unspecified Status migrainosus presence: without status migrainosus Qualified Code(s): G43.909 - Migraine, unspecified, not intractable, without status migrainosus Plan: Reinforced avoidance of all potential migraine triggers Continue Fiorinal 1 capsule BID PRN She may need to see neurology again if her headaches progress or get worse (8) Candidal intertrigo: Code(s): B37.2 - Candidiasis of skin and nail Category: Medical Plan: Continue Nystatin topical cream [id number] gm to rash under the breasts TID - Rx refilled (9) Vitamin B12 deficiency: Code(s): E53.8 - Deficiency of other specified B group vitamins Category: Medical Plan: Continue Vitamin B12 tablets 1000 mcg daily (10) Vitamin D deficiency: Code(s): E55.9 - Vitamin D deficiency, unspecified Category: Medical Plan: Continue Vitamin D2 65699 units once a week Will recheck her Vitamin D level as well for follow up (11) Insomnia: Code(s): G47.00 - Insomnia, unspecified Category: Medical Qualifiers: Insomnia type: unspecified Qualified Code(s): G47.00 - Insomnia, unspecified Plan: Sleep hygiene reinforced She was taking Carisoprodol at bedtime in the past to help her sleep better at night but she has since discontinued Rx Continue Trazodone 100 mg 1.5 tablets (150 mg) Q HS PRN (12) Depression: Code(s): F32.9 - Major depressive disorder, single episode, unspecified Category: Medical Qualifiers: Depression Type: unspecified Qualified Code(s): F32.9 - Major depressive disorder, single episode, unspecified Plan: She is currently not on any Rx for depression and states that she has been doing okay lately - does not feel that she needs anything at this time but will call if anything changes (13) Morbid obesity with BMI of 50.0-59.9, adult: Code(s): E66.01 - Morbid (severe) obesity due to excess calories; Z68.43 - Body mass index [BMI] 50.0-59.9, adult Category: Medical Plan: Reinforced diet/lose weight; exercise is difficult and is an unlikely option at this time due to patient's physical incapacities and disabilities Patient is inquiring about the possibility of starting her on a GLP1 for weight loss Have advised her to try getting her follow up labs done first and if these come back okay, then I will consider starting her on a GLP1 to try to help her lose some weight - she states that she will try to get them done ANDRES Plan Follow up in 4 months Orders: Orders Vitamin D 25-OH Total 12/08/23 E55.9 - Vitamin D deficiency, unspecified UA CC w/rflx Micro + Cult 12/08/23 R30.0 - Dysuria Medications: Refilled nystatin 1 appl topical TID 60 grams 5RF 10 days trazodone 150 mg (1.5 x 100 mg) PO BEDTIME 45 tabs 3RF for insomnia 30 days
== END 2023-12-08 17:00 | disposition home or self-care (01) ==
PROVIDERS: PCP Internal Medicine; Visit Provider Internal Medicine
DX: E11.9 Type 2 diabetes mellitus without complications (principal); L40.50 Arthropathic psoriasis, unspecified; E66.01 Morbid (severe) obesity due to excess calories; Z68.43 Body mass index [BMI] 50.0-59.9, adult; S32.030S Wedge compression fracture of third lumbar vertebra, sequela; M15.9 Polyosteoarthritis, unspecified; M79.7 Fibromyalgia; E78.00 Pure hypercholesterolemia, unspecified; G43.909 Migraine, unspecified, not intractable, without status migrainosus; B37.2 Candidiasis of skin and nail; E53.8 Deficiency of other specified B group vitamins; E55.9 Vitamin D deficiency, unspecified

== ENCOUNTER → 2023-12-08 15:47 | Outpatient (BNVA) | payer BC, SELFPAY | PROVIDERS: PCP Internal Medicine; Visit Provider Internal Medicine ==

== ENCOUNTER 2024-01-21 10:21 | Outpatient (REF) | payer BC, SELFPAY ==
[2024-01-21 11:00] LABS: MANUAL DIFF FLAG NO
[2024-01-21 11:45] LABS: Appearance Urine Clear; Basophils Percent Auto 0.2 % (0-2); Color Urine Yellow; Eosinophils Absolute Auto 0.1 X10*3/uL (0.0-0.4); Eosinophils Percent Auto 3.3 % (0-4); Glucose Urine UA Negative (Negative); Hematocrit 37.8 % (37.0-47.0); Hemoglobin 12.5 g/dl (12.0-16.0); Leukocyte Esterase Urine Trace (Negative); Lymphocytes Absolute Auto 1.7 X10*3/uL (1.2-4.9); Lymphocytes Percent Auto 39.3 % (20-40); Mean Corpuscular HGB Conc 33.1 g/dl (31.0-35.0); Mean Corpuscular Hemoglobin 31.6 pg (27.0-33.0); Mean Corpuscular Volume 95.5 fL (80.0-98.0); Mean Platelet Volume 10.3 fL (9.4-12.3); Monocytes Absolute Auto 0.3 X10*3/uL (0.1-1.2); Monocytes Percent Auto 7.9 % (2-11); Neutrophils Absolute Auto 2.1 x10*3/uL (2.0-8.3); Neutrophils Percent Auto 49.3 % (45-73); Nitrite Urine Negative (Negative); PH 5.5 (5.0-9.0); Platelet Count 178 X10*3/uL (160-400); Red Blood Count 3.96 X10*6/uL (4.20-5.50); Red Cell Distribution Width 13.6 % (11.0-16.0); UMIC TRIGGER UACC YES; Urine Blood Negative (Negative); Urine Ketones Negative (Negative); Urine Protein Trace mg/dL (Neg-Trace); White Blood Count 4.2 X10*3/uL (4.8-10.8)
[2024-01-21 11:48] LABS: Bacteria Urine None Seen (None Seen); RBC Urine 0-2 /HPF (0-2); WBC Urine 0-5 /HPF (0-5)
[2024-01-21 12:04] LABS: Estimated Average Glucose 114 mg/dL; Hemoglobin A1C 118.6317 umol/L; Hemoglobin A1c % 5.6 % (<6.0); Total Hemoglobin (HGBA1C) 3139.8536 umol/L
[2024-01-21 12:20] LABS: Alanine Aminotransferase 23 U/L (0-31); Albumin Level 4.1 g/dL (3.5-5.0); Alkaline Phosphatase 84 U/L (39-117); Anion Gap 15 (12-20); Aspartate Amino Transferase 29 U/L (5-31); Bilirubin Total 0.8 mg/dL (0.0-1.0); Blood Urea Nitrogen 17 mg/dL (9-16); C Reactive Protein 0.66 mg/dL (< or = 0.50); Calcium 9.4 mg/dL (8.4-10.2); Carbon Dioxide 23 mmol/L (22-29); Chloride 108 mmol/L (96-108); Cholesterol 134 mg/dL (<200); Estimated Glomerular Filt Rate > 60; Glucose Fasting 146 mg/dL (60-99); HDL Cholesterol 49 mg/dL (>40); LDL Cholesterol Calculated 68 mg/dL (<100); Potassium 3.8 mmol/L (3.3-5.1); Sodium 142 mmol/L (135-145); Total Protein 7.1 g/dL (6.5-8.0); Triglycerides 85 mg/dL (<150)
[2024-01-21 12:25] LABS: Erythrocyte Sedimentation Rate 13 MM/HR (0-20)
[2024-01-21 12:46] LABS: Folate 10.5 ng/mL (> or = 4.0); TSH reflex Free T4 1.28 uIU/mL (0.32-4.0); Vitamin B12 331 pg/mL (200-900); Vitamin D 25-OH Total 22.3 ng/mL (>30)
== END 2024-01-21 10:22 | disposition home or self-care (01) ==
LOC: HO.LAB 10:21
PROVIDERS: PCP Internal Medicine; Visit Provider Internal Medicine
DX: E53.8 Deficiency of other specified B group vitamins (principal); L40.50 Arthropathic psoriasis, unspecified; M79.7 Fibromyalgia; E11.9 Type 2 diabetes mellitus without complications; E78.00 Pure hypercholesterolemia, unspecified; D64.9 Anemia, unspecified; E55.9 Vitamin D deficiency, unspecified
CPT/HCPCS: 36415; 80053; 80061; 81001; 82306; 82607; 82746; 83036; 84443; 85025; 85652; 86140

== ENCOUNTER 2024-01-21 12:03 | Outpatient (AMB) | payer BC, SELFPAY ==
[2024-01-21 12:22] VITALS: BP 122/70; BMI 51.8
--- NOTE | 2024-01-21 12:22 | A.OFFPC_ITS ---
Vital Signs 01/21/24 12:22 Height 5 ft 1 in Weight 274 lb BMI 51.8 BP 122/70 Blood Pressure Location Lt brachial Intake Visit Reasons: Yeast Infection Watch Assembly Instructor Required: No Accompanied by: Self / Same As Patient Allergies aspirin Allergy (Unknown, Verified 01/23/24 08:14) Unknown Sulfa (Sulfonamide Antibiotics) Allergy (Unknown, Verified 01/23/24 08:14) pruritis, severe itching metformin Adverse Reaction (Unknown, Verified 01/23/24 08:14) diarrhea Medication List - Last Reconciled 01/23/24 by Alexis Murrieta MD atorvastatin 20 mg PO DAILY ushqgsvjsm-cwjpzhrizgpsx-hthp 50-325-40 mg 1 cap PO BID PRN 30 days doxycycline monohydrate 100 mg PO BID 10 days ergocalciferol (vitamin D2) 1,250 mcg PO QWEEK folic acid 1 mg PO DAILY gabapentin 300 mg PO TID PRN hydroxychloroquine 200 mg PO BID lidocaine 5% 2 patches topical DAILY 30 days methotrexate sodium 20 mg PO QWEEK nystatin 1 appl topical TID 10 days oxycodone 5 mg PO TID PRN 7 days secukinumab (Cosentyx UnoReady Pen) 300 mg subcut Q4W semaglutide (weight loss) (Wegovy) 0.25 mg (0.5 mL) subcut QWEEK 4 weeks tizanidine 4 mg PO TID PRN tramadol 50 mg PO Q6H PRN 15 days trazodone 150 mg (1.5 x 100 mg) PO BEDTIME 30 days Tobacco use date assessed: 12/08/23 Dental Screening Dental Screen Date: 12/08/23 HPI Yeast Infection HPI Details Patient comes in today mainly for the persistent rash under her breasts She was previously being treated for this with Nystatin topical powder, which she states helped clear up her rash initially but the rash keeps recurring and notes that lately it does not even seem to be helping anymore Patient feels that her recent rash not only does not clear up with Nystatin powder any longer but notes that it seems to be deeper lately as she has noticed that the rash would sometimes bleed slightly She would also like to know how her labs done earlier today came out and if she is now able to be started on a GLP1 to help her lose weight States that she plans to talk to her web application dev specialist regarding her Hydroxychloroquine at her upcoming appointment whether it can be stopped or not if she is to start on a GLP1 for weight loss She denies any fever, headaches or dizziness Denies any chest pains, no SOB No nausea/vomiting, no abdominal pain No change in bowel habits noted Still has increased pain (chronic) over her lower back and over her joints, especially in her hips - states that her current meds help but sometimes barely PFSH Medical History Morbid obesity with BMI of 50.0-59.9, adult Compression fracture of L3 vertebra Insomnia Nasal sore Morbid obesity with BMI of 45.0-49.9, adult Depression Vitamin D deficiency Vitamin B12 deficiency Migraine Pure hypercholesterolemia Fibromyalgia Diabetes mellitus Psoriatic arthritis Lumbar degenerative disc disease Surgical History History of esophagogastroduodenoscopy (EGD) History of colonoscopy (~04/06/04) Family History Father No problems noted. Mother No problems noted. Social History Housing: House Alcohol intake: current Alcohol intake frequency: holidays/special occasions only Patient Tobacco Use Status: Former Tobacco user Tobacco use type: Cigarette e-Cigarette/Vaping Use: Never Used Second Hand Smoke Exposure: Yes service: No Current occupational status: disabled Current occupation: rt hand Cognitive needs: Yes Hearing needs: No Vision needs: Yes Questionnaire Thrive Questionnaire Date Thrive assessed: 12/08/23 NAWAF-7 AMB Questionnaire NAWAF-7 Date NAWAF - 7 assessed: 12/08/23 Source: Developed by Drs. Xavier Lewis, Ashley Rea, Jose Napier and colleagues, with an educational jade from [employer]. Review of Systems Const Denies chills, Reports fatigue, Denies fever(s) and Denies headache(s) ENT Denies dysphagia, Denies dizziness, Denies otalgia, Denies headache(s), Reports neck pain (chronic), Denies odynophagia and Denies sore throat Card Denies chest pain, Denies palpitations, Denies dyspnea and Denies dyspnea on exertion Resp Denies chest congestion, Denies cough, Denies excessive phlegm production, Denies dyspnea, Denies dyspnea on exertion and Denies wheezing GI Denies abdominal pain, Denies constipation, Denies dysphagia, Denies heartburn, Denies diarrhea, Denies nausea, Denies odynophagia and Denies vomiting Denies difficulty voiding, Denies post void dribbling, Denies nocturia, Denies dysuria and Denies urinary urgency Musc Reports back pain (chronic - increased lately due to acute injury), Reports myalgias (diffuse), Reports arthralgias (over multiple joints, including knees and hips & more recently, L shoulder), Reports neck pain (chronic) and Reports stiffness Skin/Breast Reports rash (painful rash under breasts - see HPI) Neuro Denies dizziness and Denies headache(s) Endo Reports fatigue and Denies palpitations Aller/Immun Denies wheezing Physical exam (Primary Care) Vital Signs: Last Vital Signs BP 122/70 01/21/24 12:22 BMI result Body Mass Index 51.8 Tobacco/Smoking Status: Tobacco use Status Tobacco use date assessed 12/08/23 01/21/24 12:23 Patient Tobacco Use Status Former Tobacco user 01/21/24 12:23 Tobacco use type Cigarette 01/21/24 12:23 e-Cigarette/Vaping Use Never Used 01/21/24 12:23 Thrive Assessment: Date of Thrive Assessment Date Thrive assessed 12/08/23 01/21/24 12:23 Const General: no acute distress, alert and tired appearing HENMT Ears: TM's normal bilaterally and EAC's normal Throat: Yes posterior oropharynx normal and Yes tonsils normal (no TP congestion noted) Neck Neck: Yes no lymphadenopathy and Yes supple Thyroid: Thyroid normal Resp Auscultation: clear to auscultation bilaterally, no rales and no wheezes Cardio Rate: regular rate Rhythm: regular rhythm Heart sounds: no murmurs GI Palpation (GI): Soft to palpation and nontender Auscultation: normal bowel sounds General: Yes no CVA tenderness Back/Spine/Pelvis Back: no CVA tenderness Cervical Spine: Cervical spine tenderness Thoracic/Lumbar Spine: lumbar spinal tenderness Skin Other: (+) patchy erythema over the skin folds under the breasts, with a large area of abraded skin under the right breast Extrem General: Yes no clubbing, cyanosis or edema Left upper extremity: shoulder/upper arm Details: tenderness Location: of the A- C joint and of the proximal humerus Right lower extremity: hip/thigh Details: tenderness and knee Details: tenderness; no swelling Left lower extremity: hip/thigh Details: tenderness and knee Details: tenderness; no swelling Results Reviewed Results Reviewed: Laboratory Tests 03/06/20 05/16/23 01/21/24 12:43 12:30 10:52 WBC 4.2 L Hgb 12.5 Hct 37.8 Plt Count 178 ESR 13 Sodium 142 Potassium 3.8 Creatinine 0.83 Estimated GFR > 60 Fasting Glucose 146 H Hemoglobin A1c % 5.8 5.6 Calcium 9.4 AST 29 ALT 23 Triglycerides 85 Cholesterol 134 LDL Cholesterol, Calc 68 HDL Cholesterol 49 TSH 0.91 Ur Specific [place] 1.020 Urine Protein Trace Urine Glucose (UA) Negative Urine Blood Negative Urine Nitrite Negative Ur Leukocyte Esterase Trace H Coding Level of Care Code Est Pt Level 4 (71270) Complex EM visit Add On G2211 Diagnoses Candidal intertrigo B37.2 Cellulitis of skin L03.90 Compression fracture of L3 vertebra, sequela S32.030S Encounter type: sequela Psoriatic arthritis L40.50 Osteoarthritis involving multiple joints on both sides of body M15.9 Fibromyalgia M79.7 Type 2 diabetes mellitus without complication, without long-term current use of insulin E11.9 Diabetes mellitus type: type 2 Diabetes mellitus press tender long goods insulin use: without half-way use Diabetes mellitus complication status: without complication Pure hypercholesterolemia E78.00 Migraine without status migrainosus, not intractable, unspecified migraine type G43.909 Migraine type: unspecified Status migrainosus presence: without status migrainosus Intractability: not intractable Vitamin B12 deficiency E53.8 Vitamin D deficiency E55.9 Insomnia, unspecified type G47.00 Insomnia type: unspecified Depression, unspecified depression type F32.9 Depression Type: unspecified Morbid obesity with BMI of 50.0-59.9, adult E66.01; Z68.43 Assessment & Plan Assessment & Plan (1) Candidal intertrigo: Code(s): B37.2 - Candidiasis of skin and nail Category: Medical Plan: Continue Nystatin topical cream 841708 gm to rash under the breasts TID (2) Cellulitis of skin: Code(s): L03.90 - Cellulitis, unspecified Category: Medical Plan: Mainly involving the intertriginous areas under the breasts, especially on the right side Will start patient empirically on oral Doxycycline 100 mg BID x 10 days (3) Compression fracture of L3 vertebra: Code(s): S32.030A - Wedge compression fracture of third lumbar vertebra, initial e ncounter for closed fracture Category: Medical Qualifiers: Encounter type: sequela Qualified Code(s): S32.030S - Wedge compression fracture of third lumbar vertebra, sequela Plan: This was first seen on imaging studies done at [facility] in late July 2023 and appeared to be acute in onset at the time Patient denies any recent falls or injuries prior to her injury being discovered BMD done last year (08/2022) revealed (+) osteopenia with the lowest T-score value of -2.0 in the lumbar spine She has a Hx of multilevel lumbar spine DDD and was getting injections into her lower back for pain; she most recently had injection to L4-L5 at [facility] a few months prior, with some relief of her low back pain Fall precautions reinforced She was referred to Dr. Hernández at [facility] for further evaluation and management of her compression fracture and was subsequently admitted to [facility] in [place] for short-term rehab, which she states helped Continue Tramadol 50 mg TID PRN for pain (4) Psoriatic arthritis: Code(s): L40.50 - Arthropathic psoriasis, unspecified Category: Medical Plan: She was switched over from Taltz 80 mg SQ Q 4 weeks to Cosentyx 300 mg Q 4 weeks by her current web application dev specialist a few months ago She was seeing Dr. Lopez in [place] for rheumatology follow up and management for the past few years but recently switched over to the [place] [facility] and is now following up with her current web application dev specialist in [place], [place] regularly as scheduled (5) Osteoarthritis involving multiple joints on both sides of body: Code(s): M15.9 - Polyosteoarthritis, unspecified Category: Medical Plan: Continue Lidocaine patches 5% QD PRN X-rays done last year revealed (+) mild degenerative changes in the hip joints bilaterally with no visible acute changes or fracture and mild degenerative changes in the right shoulder joint with enthesophyte along the inferior acromion. There is a healed fracture of the left humeral neck without dislocation; the soft tissues are normal. (+) degenerative disc changes at the C4-C5 disc level with ventral spondylosis and no visible acute fracture or dislocation are seen Follow-up with [facility] as scheduled (6) Fibromyalgia: Code(s): M79.7 - Fibromyalgia Category: Medical Plan: She is again encouraged to continue to try exercising regularly to help manage her fibromyalgia symptoms but patient states that this is proving to be very difficult due to the progression of her psoriatic arthritis Patient was on Carisoprodol 350 mg TID PRN in the past but was encouraged to come off of it due to its habit-forming potential and high risk of dependence and drug interactions with her opioids - this was DISCONTINUED months ago and she is now completely off Soma as well She was started on Tizanidine 4 mg TID PRN at her last appointment Per request, a referral was also previously made out for integrative medicine for her to see Dr. Whiteside to explore alternative treatment options for her chronic pain but states that she still has not seen Dr. Whiteside yet and is currently just seeing her chiropractor regularly for treatments at this time (7) Diabetes mellitus: Code(s): E11.9 - Type 2 diabetes mellitus without complications Category: Medical Qualifiers: Diabetes mellitus type: type 2 Diabetes mellitus press tender long goods insulin use: without press tender long goods use Diabetes mellitus complication status: without complication Qualified Code(s): E11.9 - Type 2 diabetes mellitus without complications Plan: Her HgbA1c was at 5.6% on her labs done earlier today; was at 5.3% earlier this year Reinforced diabetic diet She used to take Januvia 100 mg QD, Metformin 500 mg BID and Glipizide ER 5 mg QD but has not been on any Rx for her diabetes in a while now and appears to be doing well OFF all meds (8) Pure hypercholesterolemia: Code(s): E78.00 - Pure hypercholesterolemia, unspecified Category: Medical Plan: Results of her labs done earlier today reviewed and discussed with patient - her cholesterol levels remain well-controlled on her current Rx Reinforced low cholesterol diet Continue Atorvastatin 20 mg QD (9) Migraine: Code(s): G43.909 - Migraine, unspecified, not intractable, without status migrainosus Category: Medical Qualifiers: Migraine type: unspecified Status migrainosus presence: without status migrainosus Intractability: not intractable Qualified Code(s): G43.909 - Migraine, unspecified, not intractable, without status migrainosus Plan: Reinforced avoidance of all potential migraine triggers Continue Fiorinal 1 capsule BID PRN She may need to see neurology again if her headaches progress or get worse (10) Vitamin B12 deficiency: Code(s): E53.8 - Deficiency of other specified B group vitamins Category: Medical Plan: Continue Vitamin B12 tablets 1000 mcg daily (11) Vitamin D deficiency: Code(s): E55.9 - Vitamin D deficiency, unspecified Category: Medical Plan: Continue Vitamin D2 72283 units once a week (12) Insomnia: Code(s): G47.00 - Insomnia, unspecified Category: Medical Qualifiers: Insomnia type: unspecified Qualified Code(s): G47.00 - Insomnia, unspecified Plan: Sleep hygiene reinforced She was taking Carisoprodol at bedtime in the past to help her sleep better at night but she has since discontinued Rx Continue Trazodone 100 mg 1.5 tablets (150 mg) Q HS PRN (13) Depression: Code(s): F32.9 - Major depressive disorder, single episode, unspecified Category: Medical Qualifiers: Depression Type: unspecified Qualified Code(s): F32.9 - Major depressive disorder, single episode, unspecified Plan: She is currently not on any Rx for depression and states that she has been doing okay lately - does not feel that she needs anything at this time but will call if anything changes (14) Morbid obesity with BMI of 50.0-59.9, adult: Code(s): E66.01 - Morbid (severe) obesity due to excess calories; Z68.43 - Body mass index [BMI] 50.0-59.9, adult Category: Medical Plan: Reinforced diet/lose weight; exercise is difficult and is an unlikely option at this time due to patient's physical incapacities and disabilities As previously discussed and with her labs done earlier today all coming out okay, will go ahead and start patient on a trial of Wegovy 0.25 mg SQ once a week Plan Follow up as scheduled in March 2024 Medications: New semaglutide (weight loss) (Wegovy) administer weeks 1 through 4 of therapy 0.25 mg (0.5 mL) subcut QWEEK 4 weeks 2 mL 0RF doxycycline monohydrate 100 mg PO BID 10 days 20 caps 0RF
== END 2024-01-21 13:22 | disposition home or self-care (01) ==
PROVIDERS: PCP Internal Medicine; Visit Provider Internal Medicine
DX: E11.9 Type 2 diabetes mellitus without complications (principal); L40.50 Arthropathic psoriasis, unspecified; E66.01 Morbid (severe) obesity due to excess calories; Z68.43 Body mass index [BMI] 50.0-59.9, adult; L03.90 Cellulitis, unspecified; B37.2 Candidiasis of skin and nail; M15.9 Polyosteoarthritis, unspecified; S32.030S Wedge compression fracture of third lumbar vertebra, sequela; M79.7 Fibromyalgia; E78.00 Pure hypercholesterolemia, unspecified; G43.909 Migraine, unspecified, not intractable, without status migrainosus; E53.8 Deficiency of other specified B group vitamins

== ENCOUNTER 2024-03-31 08:54 | Outpatient (REF) | payer BC, SELFPAY ==
--- NOTE | ~2024-03-31 | XR_ITS ---
CLINICAL HISTORY: J98.8 - Other specified respiratory disorders 2 view chest x-ray Comparison: CR - CHEST 2 VIEWS [id number] - 04/03/16 12:19 EST Findings: The lungs are clear. Normal size heart. No acute fracture. IMPRESSION: 1. No acute findings. This document has been electronically signed by: Melissa Cheek MD on 03/31/2024 16:57:54
--- OUTSIDE RECORDS SUMMARY | 2024-03-31 09:03 | XMS_ITS | Encounter Summary ---
Author Organization [facility] Address [address] [place] [address] Care Team Providers Care Consulting Practice Manager Name Role Phone Alexis Murrieta MD Primary Care Provider [phone]- [phone] Encounter Details Date Type Department Care Team (Late st Contact Info) Description 03/05/2024 Refill [facility] [address] [place] [address] Shannan Avalos, PharmD [address] [place], [place] [id number] Psoriatic arthritis (HCC) Social History Tobacco Use Types Packs/Day Years Used Date Smoking Tobacco: Former Cigarettes Smokeless Tobacco: Never Alcohol Use Standard Drinks/Week Comments Yes 2 (1 standard drink = 0.6 oz pur e alcohol) [facility] [place] [facility] Occupat [facility] - Occupational Stress Questionnaire Answer Date Recorded Do you feel stress - tense, restless, nervous, or anxious, or unable to sleep at night because your mind is troubled all the time - these days? Not at all 08/07/2023 Physical Activity Answer Date Recorded On average, how many days pe r week do you engage in moderate to strenuous exercise (like a brisk walk)? 0 days 08/07/2023 On average, how many minutes do you exercise per day at this level? 0 min 08/07/2023 Sex and Gender Information Value Date Recorded Sex Assigned at Female 10/20/2023 3:45 PM EDT Gender Identity Female 10/20/2023 3:45 PM EDT Sexual Orientation Heterosexual (straight) 10/19 3:45 PM EDT documented as of this encounter Plan of Treatment Not on file documented as of this encounter Visit Diagnoses Diagnosis Psoriatic arthritis (HCC) Psoriatic arthropathy documented in this encounter Care Teams Consulting Practice Manager Relationship Specialty Start Date End Date Alexis Murrieta MD [address] [place] [address] Dr [place]ley, [place] [address] PCP - General Internal Medicine 02/27/22 documented as of this encounter
--- OUTSIDE RECORDS SUMMARY | 2024-03-31 09:03 | XMS_ITS | Encounter Summary ---
Author Organization [facility] Address [address] [place] [address] Care Team Providers Care Director Radio News Name Role Phone Alexis Murrieta MD Primary Care Provider [phone]- [phone] Encounter Details Date Type Department Care Team (Late st Contact Info) Description 11/25/2023 Scanned Document [facility] Rheumatology [address] [phone] Osei Dickey MD [address] [place] [id number] Social History Tobacco Use Types Packs/Day Years Used Date Smoking Tobacco: Former Cigarettes Smokeless Tobacco: Never Alcohol Use Standard Drinks/Week Comments Yes 2 (1 standard drink = 0.6 oz pur e alcohol) [facility] [place] [facility] Occupat ional Health - Occupational Stress [...] documented as of this encounter Visit Diagnoses Not on filedocumented in this encounter Care Teams Director Radio News Relationship Specialty Start Date End Date Alexis Murrieta MD [address] [place] [address] Dr Hartley, [place] [address] PCP - General Internal Medicine 02/27/22 documented as of this encounter
--- OUTSIDE RECORDS SUMMARY | 2024-03-31 09:03 | XMS_ITS | Clinical Summary ---
Author Organization [facility] Address [address] [place] [id number] Care Team Providers Care Emotionally Impaired Teacher Name Role Phone Alexis Murrieta MD Primary Care Provider +1- [phone] Allergies No known active allergies Medications Medication Sig Dispensed Refills Start Date End Date Status traMADol (ULTRAM) 50 MG tablet TAKE 1 TO 2 TABLETS BY MOUTH TWICE DAILY NEEDED ONLY WITH ACETAMINOPHEN 1000MG 3 Active traZODone (DESYREL) 100 MG tablet TAKE 1 AND 1/2 TABLETS BY MOUTH AT BEDTIME FOR INSOMNIA 3 Active atorvastatin (LIPITOR) 20 MG tablet Take 1 tablet (20 mg total) by mouth daily. 3 Active lidocaine (LIDODERM) 5 % patch APPLY 2 PATCHES TOPICALLY TO THE SKIN DAILY. LEAVE ON MOST PAINFUL AREA FOR UP TO 12 HOURS 3 Active ergocalciferol 62258 units Cap TAKE 1 CAPSULE BY MOUTH 1 TIME A WEEK 3 Active gabapentin (NEURONTIN) 300 MG capsule Take 1 capsule (300 mg total) by mouth 3 (three) times a day as needed. 3 Active tiZANidine (ZANAFLEX) 4 MG tablet 3 Active clobetasol (TEMOVATE) 0.05 % creamIndications :Psoriasis Apply topically 2 (two) times a day. 2 times a day no more than 2 weeks at a time 30 g 1 3 Active LORazepam (ATIVAN) 1 MG tabletIndication s:Anxiety due to invasive procedure,Spinal stenosis of lumbar region with neurogenic claudication Take 1-2 tabs by mouth 1 hour before the procedure 10 tablet 4 Active doxycycline (MONODOX) 100 MG capsule 1 capsule (100 mg total) by Mouth/Oral Cavity route every 12 hours. 4 Active Wegovy 0.25 MG/0.5ML Solution Auto-injector 4 Active nystatin (MYCOSTATIN) 760175 UNIT/GM cream APPLY TOPICALLY TO THE AFFECTED AREA THREE TIMES DAILY FOR 10 DAYS 4 Active folic acid (FOLVITE) 1 MG tabletIndication s:Psoriatic arthritis (HCC) Take 1 tablet (1 mg total) by mouth daily. 90 tablet 1 4 Active methoTREXate (RHEUMATREX) 2.5 mg tabletIndication s:Psoriatic arthritis (HCC) Take 8 tablets (20 mg total) by mouth once a week 96 tablet 4 Active secukinumab (Cosentyx UnoReady) 300 MG/2ML subcutaneous auto-injectorInd ications:Psoriat ic arthritis (HCC) Inject 2 mL (300 mg total) under the skin every 28 days (4 weeks). 2 mL 3 5 Active secukinumab (Cosentyx UnoReady) 300 MG/2ML subcutaneous auto-injectorInd ications:Psoriat ic arthritis (HCC) Inject 2 mL (300 mg total) under the skin every 28 days (4 weeks). 2 mL 2 4 025 Discontinued Cosentyx UnoReady 300 MG/2ML subcutaneous auto-injectorInd ications:Psoriat ic arthritis (HCC) INJECT 300MG SUBCUTANEOUSLY EVERY 4 WEEKS 2 mL 2 5 025 Discontinued(Re order) Active Problems Problem Noted Date Diagnosed Date Spinal stenosis of lumbar re gion with neurogenic claudication 08/07/2023 Chronic bilateral low back pain with bilateral s ciatica 06/13/2023 Bilateral hip pain 06/13/2023 Psoriatic arthritis 06/26/2022 Encounters Date Type Department Care Team Description 03/05/2024 Refill [facility] [address] [place] [address] Shannan Avalos, PharmD Psoriatic arthritis ([facility]) 03/05/[address] [facility] [place] [address] [facility] [address] [place] [phone] Osei Dickey MD Psoriatic arthritis ([facility]) 01/27/2024 3:00 PM EST Office Visit [facility] Rheumatology [address] [place] [phone] Osei Dickey MD Psoriatic arthritis (HCC) (Primary Dx); Psoriasis; Osteoarthritis of both hips, unspecified osteoarthritis type; Chronic midline low back pain with left-sided sciatica; Arthritis; High risk medication use; Need for hepatitis B screening test; Need for hepatitis C screening test 01/27/2024 Travel 01/08/2024 Telephone [facility] [address] [place] [address] [address] [place] [phone] Osei Dickey MD Prior Authorization Renewal Approval (COSENTYX UNOREADY SOLUTION AUTO-INJECTOR 300 MG/2ML) from Last 3 Months Family History Relation Name Status Comments Father Mother Social History Tobacco Use Types Packs/Day Years Used Date Smoking Tobacco: Former Cigarettes Smokeless Tobacco: Never Tobacco Cessation:Counseling Given: Not Answered Alcohol Use Standard Drinks/Week Comments Yes 2 (1 standard drink = 0.6 oz pur e alcohol) [facility] [place] [facility] Occupat ional Health - Occupational Stress [...] Orientation Heterosexual (straight) 10/19 3:45 PM EDT Last Filed Vital Signs Vital Sign Reading Time Taken Comments Blood Pressure 107/66 01/27/2024 2:40 PM EST Pulse 64 01/27/2024 2:40 PM EST Temperature 36.6 ??C (97.9 ??F) 01/21/2023 3:26 PM ES T Respiratory Rate - - Oxygen Saturation 98% 01/27/2024 2:40 PM EST Inhaled Oxygen Concentration - - Weight 122 kg (270 lb) 01/27/2024 2:40 PM EST Height 154.9 cm (5' 1 ) 01/27/2024 2:40 PM EST Body Mass Index 51.02 01/27/2024 2:40 PM EST Plan of Treatment Health Maintenance Due Date Last Done Comments Hepatitis C Virus Screening 1962 Quantiferon Gold TB 1972 HIV Screening 08/05/1975 DTaP/Tdap/Td Vaccines (1 - Tdap) 1981 Pneumococcal Vaccines 50+ (1 of 2 - PCV) 1981 Zoster (Shingles) Vaccine (1 of 2) 1981 Pap Smear (Ages 21-65) 08/05/1983 Mammogram 2002 Colonoscopy 08/05/2007 RSV Vaccine 60 years and older and Patients (1 - Risk 60-74 years 1-dose series) 2022 Influenza Vaccine 09/25/2023 11/23/2022 COVID-19 Vaccine ( season) 2023 11/23/2022, 12/26/2021, 01/24/2021, Additional history exists Hepatitis B Vaccines Aged Out No long er eligible based on patient's age to complete this topic Care Teams Emotionally Impaired Teacher Relationship Specialty Start Date End Date Alexis Murrieta MD [address] [place] [address] Dr [address] [place] [address] PCP - General Internal Medicine 02/27/22
--- OUTSIDE RECORDS SUMMARY | 2024-03-31 09:03 | XMS_ITS | Encounter Summary ---
Author Organization [facility] Address [address] [place] [address] Care Team Providers Care Digital Marketing Program Manager Name Role Phone Alexis Murrieta MD Primary Care Provider +1- [phone] Reason for Visit * Reason Comments Prior Authorization Encounter Details Date Type Department Care Team ([facility] st Contact Info) Description 2023 Telephone [facility] [place] [address] [place] [id number] Rob Schroeder MD [address] [place] [phone] Prior Authorization Social History Tobacco Use Types Packs/Day Years Used Date Smoking Tobacco: Former Cigarettes Smokeless Tobacco: Never Alcohol Use Standard Drinks/Week Comments Yes 2 (1 standard drink = 0.6 oz pur e alcohol) [facility] - Occupational Stress [...] on filedocumented in this encounter Care Teams Digital Marketing Program Manager Relationship Specialty Start Date End Date Alexis Murrieta MD [address] [place] [address] Dr Hartley, [place] [address] PCP - General Internal Medicine 02/27/22 documented as of this encounter
--- OUTSIDE RECORDS SUMMARY | 2024-03-31 09:03 | XMS_ITS ---
Author Name [facility] Organization Unknown History of Medication Use Medication Directions Dispensed Refills Start Date End Date Status Cosentyx UnoReady 300 MG/2ML subcutaneous auto-injector INJECT 300MG SUBCUTANEOUSLY EVERY 4 WEEKS 5 03/05/19 25 aborted gabapentin (NEURONTIN) 300 MG capsule Take 1 capsule (300 mg total) by mouth 3 (three) times a day as needed. 3 active Wegovy 0.25 MG/0.5ML Solution Auto-injector 4 active hydroxychloroquine (PLAQUENIL) 200 MG tablet Take 2 tablets (400 mg total) by mouth every morning with breakfast. With food or milk. 4 08/12/19 24 active bupivacaine preservative free (MARCAINE) 0.25 % injection 1 mL 1 mL, Epidural, Once, On [place] 08/07/23 at 1330, For 1 dose 4 08/07/19 24 completed ergocalciferol 37348 units Cap TAKE 1 CAPSULE BY MOUTH 1 TIME A WEEK 3 active folic acid (FOLVITE) 1 MG tablet 3 05/13/19 24 active triamcinolone acetonide (KENALOG-40) 40 MG/ML injection 40 mg 40 mg, Epidural, Once, On [place] 08/07/23 at 1330, For 1 dose, Shake well before use. Administer immediately after withdrawal from vial. 4 08/07/19 24 completed alendronate (FOSAMAX) 70 MG tablet TAKE 1 TABLET BY MOUTH EVERY 7 DAYS IN THE AM WITH FULL GLASS OF WATER ON EMPTY STOMACH. DONT TAKE ANYTHING BY MOUTH /LIE DOWN FOR NEXT 30 MINS 4 01/27/20 24 active clobetasol (TEMOVATE) 0.05 % cream Apply topically 2 (two) times a day. 2 times a day no more than 2 weeks at a time 3 active doxycycline (MONODOX) 100 MG capsule 1 capsule (100 mg total) by Mouth/Oral Cavity route every 12 hours. 4 active lidocaine (LIDODERM) 5 % patch APPLY 2 PATCHES TOPICALLY TO THE SKIN DAILY. LEAVE ON MOST PAINFUL AREA FOR UP TO 12 HOURS 3 active secukinumab (COSENTYX SENSOREADY PEN) 150 MG/ML subcutaneous injection Inject 1 mL (150 mg total) under the skin. 3 05/13/19 24 active traZODone (DESYREL) 100 MG tablet TAKE 1 AND 1/2 TABLETS BY MOUTH AT BEDTIME FOR INSOMNIA 3 active Problems Problem Status Onset Date Problem Type Date of Resoluti on Source Chronic bilateral low back pain with bilateral sciatica active 2023-06-13 [facility] Bilateral hip pain active 2023-06-13 [facility] Psoriatic arthritis active 2022-06-26 [facility] Spinal stenosis of lumbar region with neurogenic claudication active 2023-08-07 [facility]Act [facility]
--- OUTSIDE RECORDS SUMMARY | 2024-03-31 09:03 | XMS_ITS | Encounter Summary ---
Author Organization [facility] Address [address] [place] [address] Care Team Providers Care Inventory Transcriber Name Role Phone Alexis Murrieta MD Primary Care Provider [phone]- [phone] Reason for Visit * Reason Comments Medication Refill Encounter Details Date Type Department Care Team ([facility] st Contact Info) Description 03/05/2024 Refill [facility] Rheumatology [address] [phone] Osei Dickey MD [address] [place] [phone] Psoriatic arthritis (HCC) Social History Tobacco Use Types Packs/Day Years Used Date Smoking Tobacco: Former Cigarettes Smokeless Tobacco: Never Alcohol Use Standard Drinks/Week Comments Yes 2 (1 standard drink = 0.6 oz pur e alcohol) [facility] [place] of Occupat ional Health - Occupational Stress [...] arthropathy documented in this encounter Care Teams Inventory Transcriber Relationship Specialty Start Date End Date Alexis Murrieta MD [address] [place] [address] Dr Hartley, [place] [address] PCP - General Internal Medicine 02/27/22 documented as of this encounter
--- OUTSIDE RECORDS SUMMARY | 2024-03-31 09:03 | XMS_ITS ---
Author Organization [facility] on Address Unknown Problems Problem Status Start Date End Date WEDGE COMPRESSION FRACTURE O F THIRD LUMBAR VERTEBRA, SUBSEQUENT ENCOUNTER FOR FRACTURE WITH ROUTINE HEALING (Primary) (S32.030D - ICD-10-CM) ACTIVE 08/18/2023 SPINAL STENOSIS, LUMBAR CONSTANCE ON WITHOUT NEUROGENIC CLAUDICATION (M48.061 - ICD-10-CM) ACTIVE 08/18/2023 OTHER LOW BACK PAIN (M54.59 - ICD-10-CM) ACTIVE 08/18/2023 TYPE 2 DIABETES MELLITUS WIT HOUT COMPLICATIONS (E11.9 - ICD-10-CM) ACTIVE 08/18/2023 AGE-RELATED OSTEOPOROSIS WIT HOUT CURRENT PATHOLOGICAL FRACTURE (M81.0 - ICD-10-CM) ACTIVE 08/18/2023 ARTHROPATHIC PSORIASIS, UNSPECIFIED (L40.50 - ICD-10-C M) ACTIVE 08/18/2023 FIBROMYALGIA (M79.7 - ICD-10-CM) ACTIVE 08/18/19 OBSTRUCTIVE SLEEP APNEA (ROSALEE LT) (PEDIATRIC) (G47.33 - ICD-10-CM) ACTIVE 08/18/2023 CHRONIC FATIGUE, UNSPECIFIED (R53.82 - ICD-10-CM) ACTI VE 08/18/2023 POLYOSTEOARTHRITIS, UNSPECIFIED (M15.9 - ICD-10-CM) AC TIVE 08/18/2023 INSOMNIA, UNSPECIFIED (G47.00 - ICD-10-CM) ACTIVE 08/18/2023 Encounters Encounter Performer Performer Role Encounter Diagnoses Location Date Discharge - Discharged to home or self care - [facility] [place] - Private home/apt. with home health services [facility] 08/18/2023 01:08 pm EDT - 08/26/2023 11:36 am EDT Immunizations Vaccine Date Pneumococcal Polysaccharide Vaccine (PPS V23) 11/06/2016 12:00 am EDT TDAP( Tetanus/Diptheria/Perutssis) 06/18 12:00 am EDT SARS-COV-2 (COVID-19) 06/06/2020 12:00 a m EDT SARS-COV-2 (COVID-19) 05/09/2020 12:00 a m EDT SARS-COV-2 (COVID-19 BOOSTER) 12/26/2021 12:00 am EDT SARS-COV-2 (COVID-19 BOOSTER) 01/24/2021 12:00 am EST RSV, recombinant, protein subunit RSVpre F, adjuvant rec influenza, unspecified formulation 11/23 12:00 am EDT COVID-19 vaccine, vector-nr, rS-Ad26, PF , 0.5 mL 11/23/2022 12:00 am EDT COVID-19 vaccine, vector-nr, rS-Ad26, PF , 0.5 mL 11/23/2022 12:00 am EDT Social History
--- OUTSIDE RECORDS SUMMARY | 2024-03-31 09:03 | XMS_ITS | Encounter Summary ---
Author Organization [facility] Address [address] [place] [address] Care Team Providers Care Ratings Analyst Name Role Phone Alexis Murrieta MD Primary Care Provider +1- [phone] Encounter Details Date Type Department Care Team (Late st Contact Info) Description 02/26/2022 Scanned Document [facility] Rheumatology, Scan Social History Tobacco Use Types Packs/Day Years Used Date Smoking Tobacco: Never Assessed Sex and Gender Information Value Date Recorded Sex Assigned at Female 10/20/2023 3:45 PM EDT Gender Identity Female 10/20/2023 3:45 PM EDT Sexual Orientation Heterosexual (straight) 10/19 3:45 PM EDT documented as of this encounter Plan of Treatment Not on file documented as of this encounter Visit Diagnoses Not on filedocumented in this encounter Care Teams Ratings Analyst Relationship Specialty Start Date End Date Alexis Murrieta MD [address] [place] [address] [place] [id number] PCP - General Internal Medicine 02/27/22 documented as of this encounter
[2024-03-31 10:30] LABS: Appearance Urine Clear; Color Urine Yellow; Glucose Urine UA Negative (Negative); Leukocyte Esterase Urine Negative (Negative); Nitrite Urine Negative (Negative); PH 5.5 (5.0-9.0); Specific Gravity - Urine 1.025 (1.005-1.025); Urine Blood Negative (Negative); Urine Ketones Negative (Negative); Urine Protein Negative (Neg-Trace)
== END 2024-03-31 08:55 | disposition home or self-care (01) ==
LOC: HO.LAB 08:54
PROVIDERS: PCP Internal Medicine; Visit Provider Internal Medicine
DX: J40 Bronchitis, not specified as acute or chronic (principal); S32.030S Wedge compression fracture of third lumbar vertebra, sequela; L40.50 Arthropathic psoriasis, unspecified; M15.9 Polyosteoarthritis, unspecified; M79.7 Fibromyalgia; E11.9 Type 2 diabetes mellitus without complications; E78.00 Pure hypercholesterolemia, unspecified; G43.909 Migraine, unspecified, not intractable, without status migrainosus; E53.8 Deficiency of other specified B group vitamins; E55.9 Vitamin D deficiency, unspecified; G47.00 Insomnia, unspecified; F32.9 Major depressive disorder, single episode, unspecified; E66.01 Morbid (severe) obesity due to excess calories; Z68.43 Body mass index [BMI] 50.0-59.9, adult; R30.0 Dysuria; J98.8 Other specified respiratory disorders; Z79.899 Other long term (current) drug therapy
CPT/HCPCS: 71046; 81003; 96127

== ENCOUNTER 2024-03-31 15:07 | Outpatient (AMB) | payer BC, SELFPAY ==
[2024-03-31 15:09] VITALS: BP 128/84; PULSE 75; O2SAT 97; BMI 52.9
--- NOTE | 2024-03-31 15:09 | A.OFFPC_ITS ---
Vital Signs 03/31/24 15:09 Height 5 ft 1 in Weight 279 lb 15.793 oz BMI 52.9 BP 128/84 Blood Pressure Location Lt brachial Position Sitting Pulse 75 Pulse Source Pulse Oximeter Pulse Oximetry (%) 97 Oxygen Delivery Method Room Air Intake Visit Reasons: 4 month f/u Global Sales Manager Required: No Accompanied by: Self / Same As Patient Allergies aspirin Allergy (Unknown, Verified 03/31/24 15:38) Unknown Sulfa (Sulfonamide Antibiotics) Allergy (Unknown, Verified 03/31/24 15:38) pruritis, severe itching metformin Adverse Reaction (Unknown, Verified 03/31/24 15:38) diarrhea Medication List - Last Reconciled 03/31/24 by Alexis Murrieta MD alendronate 70 mg PO QWEEK 3 months atorvastatin 20 mg PO DAILY kltqwsuvbq-psegkkhuchzmu-xzwf 50-325-40 mg 1 cap PO BID PRN 30 days cefuroxime axetil 500 mg PO BID 10 days doxycycline monohydrate 100 mg PO BID 10 days ergocalciferol (vitamin D2) 1,250 mcg PO QWEEK folic acid 1 mg PO DAILY gabapentin 300 mg PO TID PRN hydroxychloroquine 200 mg PO BID lidocaine 5% 2 patches topical DAILY 30 days methotrexate sodium 20 mg PO QWEEK nystatin 1 appl topical TID 10 days oxycodone 5 mg PO TID PRN 7 days secukinumab (Cosentyx UnoReady Pen) 300 mg subcut Q4W semaglutide (weight loss) (Wegovy) 0.25 mg (0.5 mL) subcut QWEEK 4 weeks tizanidine 4 mg PO TID PRN tramadol 50 mg PO Q6H PRN 15 days trazodone 150 mg (1.5 x 100 mg) PO BEDTIME 30 days Tobacco use date assessed: 03/31/24 Dental Screening Dental Screen Date: 03/31/24 Did you have a dental visit in the last 12 months?: Yes Did you have a dental problem in the last 6 months where you did not have access to dental care?: No Was dental information given to patient?: Patient has dentist HPI 4 month f/u HPI Details Patient comes in today for her follow up visit States that she has been experiencing increased cough and congestion for over a couple of weeks now Was recently prescribed some Abx at a local walk-in clinic for what she states was diagnosed as a walking pneumonia - states that she just finished her Abx Tx but has only experienced partial relief of her symptoms She continues to experience increased fatigue, with frequent/recurrent chest tightness and congestion often to the point were she sometimes feels like choking on her own phlegm States that she has also noticed some wheezing at times recently She denies any fever; denies any headaches or dizziness Denies any exertional chest pains No nausea/vomiting, no abdominal pain No change in bowel habits noted She is currently again on Cosentyx, which she started back in January 2024 for her psoriatic arthritis She was also supposed to start on Wegovy to help with weight loss but she has not yet started the medication because she has been sick lately There was also a question from [facility] as to why she was taken off her Fosamax - patient states that this was temporarily held when she was diagnosed with vertebral compression fracture last year but she also started back on this a couple weeks ago when her prescription was renewed [facility] Medical History Morbid obesity with BMI of 50.0-59.9, adult Compression fracture of L3 vertebra Insomnia Nasal sore Morbid obesity with BMI of 45.0-49.9, adult Depression Vitamin D deficiency Vitamin B12 deficiency Migraine Pure hypercholesterolemia Fibromyalgia Diabetes mellitus Psoriatic arthritis Lumbar degenerative disc disease Surgical History History of esophagogastroduodenoscopy (EGD) History of colonoscopy (~04/06/04) Family History Father No problems noted. Mother No problems noted. Social History Housing: House Alcohol intake: current Alcohol intake frequency: holidays/special occasions only Patient Tobacco Use Status: Former Tobacco user Tobacco use type: Cigarette e-Cigarette/Vaping Use: Never Used Second Hand Smoke Exposure: Yes service: No Current occupational status: disabled Current occupation: rt hand Cognitive needs: Yes Hearing needs: No Vision needs: Yes Questionnaire PHQ-9 Over the last 2 weeks, how often have you been bothered by any of the following problems? 1. Little interest or pleasure in doing things: not at all 2. Feeling down, depressed, or hopeless: not at all 3. Trouble falling or staying asleep, or sleeping too much: not at all 4. Feeling tired or having little energy: not at all 5. Poor appetite or overeating: not at all 6. Feeling bad about yourself - or that you are a failure or have let yourself or your family down: not at all 7. Trouble concentrating on things, such as reading the newspaper or watching television: not at all 8. Moving or speaking so slowly that other people could have noticed. Or the opposite - being so fidgety or restless that you have been moving around a lot more than usual: not at all 9. Thoughts that you would be better off or of hurting yourself in some way: not at all Total score: 0 Depression Screening Interpretation: Negative Depression Screening Done: Yes 81630 - PHQ-9 Billing: Yes Source: Developed by Drs. Xavier Lewis, Ashley Rea, Jose Napier and colleagues, with an educational jade from [employer] Business Plan. Thrive Questionnaire Date Thrive assessed: 03/31/24 I am a: Patient What is your living situation today?: I have a steady place to live Within the past 12 months, did the food you bought not last and you didn't have the money to get more?: Never true Within the past 12 months, did you worry whether your food would run out before you got money to buy more?: Never true Do you have trouble paying for medicines?: No Do you have trouble getting transportation to medical appointments?: No Do you have trouble paying your heating and electricity bill?: No Do you have trouble taking care of your child, family member or friend?: No Do you have trouble with day-to-day activities such as bathing, preparing meals, shopping, managing finances, etc.?: No Are you currently unemployed and looking for a job?: No Are you interested in more education?: No Please select the resources that you would like help with: None Currently or been in a relationship where the following occur: No concerns reported THRIVE Score: 0 AUDIT C Alcohol Use Questionnaire (AUDIT-C) 1. How often do you have a drink containing alcohol?: Never 3. How often do you have six or more drinks on one occasion?: Never Total Score: 0 Score Reviewed/Action Taken: Yes NAWAF-7 AMB Questionnaire NAWAF-7 Date NAWAF - 7 assessed: 03/31/24 Feeling nervous, anxious, or on edge: 0 = Not at all Not being able to stop or control worryin = Not at all Worrying too much about different things: 0 = Not at all Trouble relaxin = Not at all Being so restless that it is hard to sit still: 0 = Not at all Becoming easily annoyed or irritable: 0 = Not at all Feeling afraid as if something awful might happen: 0 = Not at all Total NAWAF-7 score (0-4 normal; 5-9 mild; 10-14 moderate; 15-21 severe): 0 Source: Developed by Drs. Xavier Lewis, Ashley Rea, Jose Napier and colleagues, with an educational jade from [employer] Business Plan. Review of Systems Const Denies chills, Reports fatigue, Denies fever(s) and Denies headache(s) ENT Denies dysphagia, Denies dizziness, Denies otalgia, Denies headache(s), Reports neck pain (chronic), Denies odynophagia and Denies sore throat Card Denies chest pain, Denies palpitations and Reports dyspnea on exertion Resp Reports chest congestion (chest feels tight often lately), Reports cough (recurrent), Reports excessive phlegm production (feels like choking on her phlegm at times), Reports dyspnea on exertion and Reports wheezing (at times) GI Denies abdominal pain, Denies constipation, Denies dysphagia, Denies heartburn, Denies diarrhea, Denies nausea, Denies odynophagia and Denies vomiting Denies difficulty voiding, Denies post void dribbling, Denies nocturia, Denies dysuria and Denies urinary urgency Musc Reports back pain (chronic - increased lately due to acute injury), Reports myalgias (diffuse), Reports arthralgias (over multiple joints, including knees and hips & more recently, L shoulder), Reports neck pain (chronic) and Reports stiffness Skin/Breast Reports rash (painful rash under breasts - see HPI) Neuro Denies dizziness and Denies headache(s) Endo Reports fatigue and Denies palpitations Aller/Immun Reports wheezing (at times) Physical exam (Primary Care) Vital Signs: Last Vital Signs Pulse 75 03/31/24 15:09 BP 128/84 03/31/24 15:09 Pulse Ox 97 03/31/24 15:09 Oxygen Delivery Method Room Air 03/31/24 15:09 BMI result Body Mass Index 52.9 Tobacco/Smoking Status: Tobacco use Status Tobacco use date assessed 03/31/24 03/31/24 15:18 Patient Tobacco Use Status Former Tobacco user 03/31/24 15:18 Tobacco use type Cigarette 03/31/24 15:18 e-Cigarette/Vaping Use Never Used 03/31/24 15:18 PHQ-9: PHQ-9 Score PHQ-9: Total score 0 03/31/24 16:03 Depression Screening Interpretation: Negative Thrive Assessment: Date of Thrive Assessment Date Thrive assessed 03/31/24 03/31/24 15:18 Currently or been in a relationship where the following occur: No concerns reported Const General: no acute distress, alert and tired appearing HENMT Ears: TM's normal bilaterally and EAC's normal Throat: Yes posterior oropharynx normal and Yes tonsils normal (no TP congestion noted) Neck Neck: Yes supple and No lymphadenopathy Thyroid: Thyroid normal Resp Auscultation: no crackles, no rales, rhonchi (scattered) throughout, wheezes expiratory wheezes and diminished lung sounds bilateral Cardio Rate: regular rate Rhythm: regular rhythm Heart sounds: no murmurs GI Palpation (GI): Soft to palpation and nontender Auscultation: normal bowel sounds General: Yes no CVA tenderness Back/Spine/Pelvis Back: no CVA tenderness Cervical Spine: Cervical spine tenderness Thoracic/Lumbar Spine: lumbar spinal tenderness Skin Other: (+) patchy erythema over the skin folds under the breasts, with a large area of abraded skin under the right breast Extrem General: Yes no clubbing, cyanosis or edema Left upper extremity: shoulder/upper arm Details: tenderness Location: of the A- C joint and of the proximal humerus Right lower extremity: hip/thigh Details: tenderness and knee Details: tenderness; no swelling Left lower extremity: hip/thigh Details: tenderness and knee Details: tenderness; no swelling Coding Level of Care Code Est Pt Level 4 (96712) Diagnoses Bronchitis J40 Compression fracture of L3 vertebra, sequela S32.030S Encounter type: sequela Psoriatic arthritis L40.50 Osteoarthritis involving multiple joints on both sides of body M15.9 Fibromyalgia M79.7 Type 2 diabetes mellitus without complication, without long-term current use of insulin E11.9 Diabetes mellitus type: type 2 Diabetes mellitus long-term insulin use: without long-term use Diabetes mellitus complication status: without complication Pure hypercholesterolemia E78.00 Migraine without status migrainosus, not intractable, unspecified migraine type G43.909 Migraine type: unspecified Status migrainosus presence: without status migrainosus Intractability: not intractable Vitamin B12 deficiency E53.8 Vitamin D deficiency E55.9 Insomnia, unspecified type G47.00 Insomnia type: unspecified Depression, unspecified depression type F32.9 Depression Type: unspecified Morbid obesity with BMI of 50.0-59.9, adult E66.01; Z68.43 Additional Codes PHQ-9 - 67354 - PHQ-9 Billing: Yes ([id number]) Assessment & Plan Assessment & Plan (1) Bronchitis: Code(s): J40 - Bronchitis, not specified as acute or chronic Category: Medical Plan: Will send patient for chest x-rays for further evaluation - suspect that she may have asthma and/or COPD, which is currently being exacerbation by her recent respiratory tract infection Will start her for now on oral Prednisone 20 mg QD x 5 days, as well as on Pulmicort Flexhaler 180 mcg 1 inhalation BID and Albuterol HFA 2 inhalations Q 6 hours PRN (2) Compression fracture of L3 vertebra: Code(s): S32.030A - Wedge compression fracture of third lumbar vertebra, initial encounter for closed fracture Category: Medical Qualifiers: Encounter type: sequela Qualified Code(s): S32.030S - Wedge compression fracture of third lumbar vertebra, sequela Plan: This was first seen on imaging studies done at [facility] in late July 2023 and appeared to be acute in onset at the time Patient denies any recent falls or injuries prior to her injury being discovered BMD done in 08/2022 revealed (+) osteopenia with the lowest T-score value of -2.0 in the lumbar spine She has a Hx of multilevel lumbar spine DDD and was getting injections into her lower back for pain; she most recently had injection to L4-L5 at [facility] a few months prior, with some relief of her low back pain Fall precautions reinforced She was referred to Dr. Hernández at [facility] for further evaluation and management of her compression fracture and was subsequently admitted to [facility] in [place] for short-term rehab, which she states helped Continue Tramadol 50 mg TID PRN for pain (3) Psoriatic arthritis: Code(s): L40.50 - Arthropathic psoriasis, unspecified Category: Medical Plan: She was switched over from Taltz 80 mg SQ Q 4 weeks to Cosentyx 300 mg Q 4 weeks by her current ultrasound tech a few months ago - she was off Cosentyx for a while but started back on it a couple of months ago in January [address] Lopez in [place] for rheumatology follow up and management for the past few years but recently switched over to the [facility] and is now following up with her current ultrasound tech in [place], [place] regularly as scheduled (4) Osteoarthritis involving multiple joints on both sides of body: Code(s): M15.9 - Polyosteoarthritis, unspecified Category: Medical Plan: Continue Lidocaine patches 5% QD PRN X-rays done last year revealed (+) mild degenerative changes in the hip joints bilaterally with no visible acute changes or fracture and mild degenerative changes in the right shoulder joint with enthesophyte along the inferior acromion. There is a healed fracture of the left humeral neck without dislocation; the soft tissues are normal. (+) degenerative disc changes at the C4-C5 disc level with ventral spondylosis and no visible acute fracture or dislocation are seen Follow-up with [facility] as scheduled (5) Fibromyalgia: Code(s): M79.7 - Fibromyalgia Category: Medical Plan: She is again encouraged to continue to try exercising regularly to help manage her fibromyalgia symptoms but patient states that this is proving to be very difficult due to the progression of her psoriatic arthritis Patient was on Carisoprodol 350 mg TID PRN in the past but was encouraged to come off of it due to its habit-forming potential and high risk of dependence and drug interactions with her opioids - this was DISCONTINUED months ago and she is now completely off Soma as well She is now on Tizanidine 4 mg TID PRN Per request, a referral was also previously made out for integrative medicine for her to see Dr. Whiteside to explore alternative treatment options for her c hronic pain but states that she still has not seen Dr. Whiteside yet and is currently just seeing her chiropractor regularly for treatments at this time (6) Diabetes mellitus: Code(s): E11.9 - Type 2 diabetes mellitus without complications Category: Medical Qualifiers: Diabetes mellitus type: type 2 Diabetes mellitus long-term insulin use: without ferry terminal supervisor use Diabetes mellitus complication status: without complication Qualified Code(s): E11.9 - Type 2 diabetes mellitus without complications Plan: Her HgbA1c was at 5.6% when last checked in December 2023 Reinforced diabetic diet She used to take Januvia 100 mg QD, Metformin 500 mg BID and Glipizide ER 5 mg QD but has not been on any Rx for her diabetes in a while now and appears to be doing well OFF all meds (7) Pure hypercholesterolemia: Code(s): E78.00 - Pure hypercholesterolemia, unspecified Category: Medical Plan: She does not have any follow up labs done since December 2023 Reinforced low cholesterol diet Continue Atorvastatin 20 mg QD Will recheck her labs and fasting lipids in 3 months for follow up (8) Migraine: Code(s): G43.909 - Migraine, unspecified, not intractable, without status migrainosus Category: Medical Qualifiers: Migraine type: unspecified Status migrainosus presence: without status migrainosus Intractability: not intractable Qualified Code(s): G43.909 - Migraine, unspecified, not intractable, without status migrainosus Plan: Reinforced avoidance of all potential migraine triggers Continue Fiorinal 1 capsule BID PRN She may need to see neurology again if her headaches progress or get worse (9) Vitamin B12 deficiency: Code(s): E53.8 - Deficiency of other specified B group vitamins Category: Medical Plan: Continue Vitamin B12 tablets 1000 mcg daily (10) Vitamin D deficiency: Code(s): E55.9 - Vitamin D deficiency, unspecified Category: Medical Plan: Continue Vitamin D2 39266 units once a week (11) Insomnia: Code(s): G47.00 - Insomnia, unspecified Category: Medical Qualifiers: Insomnia type: unspecified Qualified Code(s): G47.00 - Insomnia, unspecified Plan: Sleep hygiene reinforced She was taking Carisoprodol at bedtime in the past to help her sleep better at night but she has since discontinued Rx Continue Trazodone 100 mg 1.5 tablets (150 mg) Q HS PRN (12) Depression: Code(s): F32.9 - Major depressive disorder, single episode, unspecified Category: Medical Qualifiers: Depression Type: unspecified Qualified Code(s): F32.9 - Major depressive disorder, single episode, unspecified Plan: She is currently not on any Rx for depression and states that she has been doing okay lately - does not feel that she needs anything at this time but will call if anything changes (13) Morbid obesity with BMI of 50.0-59.9, adult: Code(s): E66.01 - Morbid (severe) obesity due to excess calories; Z68.43 - Body mass index [BMI] 50.0-59.9, adult Category: Medical Plan: Reinforced diet/lose weight; exercise is difficult and is an unlikely option at this time due to patient's physical incapacities and disabilities We started patient on a trial of Wegovy 0.25 mg SQ once a week at her last visit but patient states that since she has been sick for the past several weeks, she has not yet started on the medication States that she would like to wait until her current respiratory symptoms improve before starting on Wegovy in his hoping she should be able to get this started in the next week or two Plan Follow up in 3 months Orders: Orders Hemoglobin A1c 3 Months R73.9 - Hyperglycemia, unspecified Comprehensive [place]. Panel Fast 3 Months E78.00 - Pure hypercholesterolemia, unspecified Lipid Panel 3 Months E78.00 - Pure hypercholesterolemia, unspecified UA CC w/rflx Micro + Cult 3 Months R30.0 - Dysuria Vitamin D 25-OH Total 3 Months E55.9 - Vitamin D deficiency, unspecified XR chest 2V 05/25 J98.8 - Other specified respiratory disorders Complete Blood Count Auto Diff 3 Months D64.9 - Anemia, unspecified TSH reflex Free T4 3 Months E78.00 - Pure hypercholesterolemia, unspecified Vitamin B12 and Folate 3 Months E53.8 - Deficiency of other specified B group vitamins Medications: New budesonide 180 mcg/actuation (Pulmicort Flexhaler) 1 inh inhalation BID 30 days 1 ea 3RF albuterol sulfate 90 mcg/actuation (Ventolin HFA) 2 puffs inhalation Q6H 30 days PRN 8.5 grams 5RF shortness of breath or wheezing prednisone 20 mg PO DAILY 5 days 5 tabs 0RF
--- OUTSIDE RECORDS SUMMARY | 2024-03-31 16:08 | XMS_ITS | Encounter Summary ---
Author Organization [facility] Address [address] [place] [address] Care Team Providers Care International Relations Professor Name Role Phone Alexis Murrieta MD Primary Care Provider [phone] Reason for Visit * Reason Comments Prior Authorization Encounter Details Date Type Department Care Team ([facility] st Contact Info) Description 2023 Telephone [facility] [place] [address] [place] [id number] Rob Schroeder MD [address] [place] [id number] Prior Authorization Social History Tobacco Use Types Packs/Day Years Used Date Smoking Tobacco: Former Cigarettes Smokeless Tobacco: Never Alcohol Use Standard Drinks/Week Comments Yes 2 (1 standard drink = 0.6 oz pur e alcohol) [facility] [place] of Occupat ional Health - Occupational Stress [...] on filedocumented in this encounter Care Teams International Relations Professor Relationship Specialty Start Date End Date Alexis Murrieta MD [address] [place] [address] Dr [place], [place] [address] PCP - General Internal Medicine 02/27/22 documented as of this encounter
--- OUTSIDE RECORDS SUMMARY | 2024-03-31 16:08 | XMS_ITS | Clinical Summary ---
Author Organization [facility] Address [address] [place] [id number] Care Team Providers Care Civil Service Worker Name Role Phone Alexis Murrieta MD Primary Care Provider [phone]- [phone] Allergies No known active allergies Medications Medication [...] UP TO 12 HOURS 3 Active ergocalciferol 28496 units Cap TAKE 1 CAPSULE BY MOUTH [...] MG/0.5ML Solution Auto-injector 4 Active nystatin (MYCOSTATIN) 583140 UNIT/GM cream APPLY TOPICALLY TO THE AFFECTED [...] Type Department Care Team Description 03/05/2024 Refill [facility] [address] [place] [address] Shannan Avalos, PharmD Psoriatic arthritis ([facility]) 03/05/2024 Refill [facility] [place] [address] [facility] [address] [place] [phone] Osei Dickey MD Psoriatic arthritis ([facility]) 01/27/2024 3:00 PM EST Office Visit [facility] [address] [place] [phone] Osei Dickey MD Psoriatic arthritis (HCC) (Primary Dx); Psoriasis; Osteoarthritis of both hips, unspecified osteoarthritis type; Chronic midline low back pain with left-sided sciatica; Arthritis; High risk medication use; Need for hepatitis B screening test; Need for hepatitis C screening test 01/27/2024 Travel 01/08/2024 Telephone [facility] [address] [place] [address] [address] [place] [phone] Osei Dickey MD Prior Authorization Renewal Approval (COSENTYX UNOREADY SOLUTION AUTO-INJECTOR 300 MG/2ML) from Last 3 Months Family History Relation Name Status Comments Father Mother Social History Tobacco Use Types Packs/Day Years Used Date Smoking Tobacco: Former Cigarettes Smokeless Tobacco: Never Tobacco Cessation:Counseling Given: Not Answered Alcohol Use Standard Drinks/Week Comments Yes 2 (1 standard drink = 0.6 oz pur e alcohol) [facility] [place] of Occupat ional Health - Occupational Stress [...] age to complete this topic Care Teams Civil Service Worker Relationship Specialty Start Date End Date Alexis Murrieta MD [address] [place] [address] Dr [address] [place] [address] PCP - General Internal Medicine 02/27/22
--- OUTSIDE RECORDS SUMMARY | 2024-03-31 16:08 | XMS_ITS | Encounter Summary ---
Author Organization [facility] Address [address] [place] [address] Care Team Providers Care Business Development Specialist Name Role Phone Alexis Murrieta MD Primary Care Provider +1- [phone] Encounter Details Date Type Department Care Team (Late st Contact Info) Description 11/25/2023 Scanned Document [facility] Rheumatology [address] [address] Osei Dickey MD [address] [place] [id number] Social History Tobacco Use Types Packs/Day Years Used Date Smoking Tobacco: Former Cigarettes Smokeless Tobacco: Never Alcohol Use Standard Drinks/Week Comments Yes 2 (1 standard drink = 0.6 oz pur e alcohol) [facility] [place] of Occupat ional Health - Occupational Stress [...] on filedocumented in this encounter Care Teams Business Development Specialist Relationship Specialty Start Date End Date Alexis Murrieta MD [address] [place] [address] Dr Hartley, [place]EN[place] [address] PCP - General Internal Medicine 02/27/22 documented as of this encounter
--- OUTSIDE RECORDS SUMMARY | 2024-03-31 16:08 | XMS_ITS | Encounter Summary ---
Author Organization [facility] Address [address] [place] [address] Care Team Providers Care Mandarin Tutor Name Role Phone Alexis Murrieta MD Primary Care Provider +1- [phone] Encounter Details Date Type Department Care Team (Late st Contact Info) Description 02/26/2022 Scanned Document [facility] RHEUMATOLOGY SCAN Rheumatology, Scan Social History Tobacco [...] on filedocumented in this encounter Care Teams Mandarin Tutor Relationship Specialty Start Date End Date Alexis Murrieta MD [address] [place] [address] [place] [address] PCP - General Internal Medicine 02/27/22 documented as of this encounter
--- OUTSIDE RECORDS SUMMARY | 2024-03-31 16:08 | XMS_ITS | Encounter Summary ---
Author Organization [facility] Address [address] [place] [address] Care Team Providers Care General Road Supervisor Name Role Phone Alexis Murrieta MD Primary Care Provider +1- [phone] Encounter Details Date Type Department Care Team (Late st Contact Info) Description 03/05/2024 Refill [facility] [address] [place] [address] Shannan Avalos, PharmD [address] [place], [place] [id number] Psoriatic arthritis (HCC) Social History Tobacco Use Types Packs/Day Years Used Date Smoking Tobacco: Former Cigarettes Smokeless Tobacco: Never Alcohol Use Standard Drinks/Week Comments Yes 2 (1 standard drink = 0.6 oz pur e alcohol) [facility] [place] of Occupat ional Health - Occupational Stress [...] arthropathy documented in this encounter Care Teams General Road Supervisor Relationship Specialty Start Date End Date Alexis Murrieta MD [address] [place] [address] Dr Hartley, [place]EN[place] [address] PCP - General Internal Medicine 02/27/22 documented as of this encounter
--- OUTSIDE RECORDS SUMMARY | 2024-03-31 16:08 | XMS_ITS | Encounter Summary ---
Author Organization [facility] Address [address] [place] [address] Care Team Providers Care Trucking Contractor Name Role Phone Alexis Murrieta MD Primary Care Provider +1- [phone] Reason for Visit * Reason Comments Medication Refill Encounter Details Date Type Department Care Team ([facility] st Contact Info) Description 03/05/2024 Refill [facility] Medical [facility] Rheumatology [address] [address] Osei Dickey MD [address] [place] [phone] Psoriatic arthritis (HCC) Social History Tobacco Use Types Packs/Day Years Used Date Smoking Tobacco: Former Cigarettes Smokeless Tobacco: Never Alcohol Use Standard Drinks/Week Comments Yes 2 (1 standard drink = 0.6 oz pur e alcohol) [facility] [place] of Occupat ional Health - Occupational Stress [...] arthropathy documented in this encounter Care Teams Trucking Contractor Relationship Specialty Start Date End Date Alexis Murrieta MD [address] [place] [address] Dr Hartley, [place]EN[place] [address] PCP - General Internal Medicine 02/27/22 documented as of this encounter
== END 2024-03-31 16:08 | disposition home or self-care (01) ==
PROVIDERS: PCP Internal Medicine; Visit Provider Internal Medicine
DX: E11.9 Type 2 diabetes mellitus without complications (principal); L40.50 Arthropathic psoriasis, unspecified; Z68.43 Body mass index [BMI] 50.0-59.9, adult; E66.01 Morbid (severe) obesity due to excess calories; J40 Bronchitis, not specified as acute or chronic; S32.030S Wedge compression fracture of third lumbar vertebra, sequela; M15.9 Polyosteoarthritis, unspecified; M79.7 Fibromyalgia; E78.00 Pure hypercholesterolemia, unspecified; G43.909 Migraine, unspecified, not intractable, without status migrainosus; E53.8 Deficiency of other specified B group vitamins; E55.9 Vitamin D deficiency, unspecified

== ENCOUNTER → 2024-03-31 16:27 | Outpatient (BNV) | payer BC, SELFPAY | PROVIDERS: PCP Internal Medicine; Visit Provider Radiology Diagnostic Radiology | DX: J98.8 Other specified respiratory disorders (principal) | CPT/HCPCS: 71046 ==

== ENCOUNTER 2024-07-06 15:29 | Outpatient (AMB) | payer BC, SELFPAY ==
[2024-07-06 15:44] VITALS: BP 130/76; PULSE 81; O2SAT 97; BMI 48.9
--- NOTE | 2024-07-06 15:44 | MHC.PC.OV ---
Vital Signs 07/06/24 15:44 Height 5 ft 1 in Weight 259 lb BMI 48.9 BP 130/76 Blood Pressure Location Lt brachial Position Sitting Pulse 81 Pulse Source Pulse Oximeter Pulse Oximetry (%) 97 Oxygen Delivery Method Room Air Intake Visit Reasons: 3 month f/u Inverted Block Operator Required: No Accompanied by: Self / Same As Patient Allergies aspirin Allergy (Unknown, Verified 07/06/24 16:13) Unknown Sulfa (Sulfonamide Antibiotics) Allergy (Unknown, Verified 07/06/24 16:13) pruritis, severe itching metformin Adverse Reaction (Unknown, Verified 07/06/24 16:13) diarrhea Medication List - Last Reconciled 07/06/24 by Alexis Murrieta MD albuterol sulfate 90 mcg/actuation (Ventolin HFA) 2 puffs inhalation Q6H PRN 30 days alendronate 70 mg PO QWEEK 3 months atorvastatin 20 mg PO DAILY azithromycin take 500 mg today (day 1), then 250 mg for 4 days (days 2-5) PO budesonide 180 mcg/actuation (Pulmicort Flexhaler) 1 inh inhalation BID 30 days lsohuxmpeo-hbzdwxhlbguiq-uups 50-325-40 mg 1 cap PO BID PRN 30 days cefuroxime axetil 500 mg PO BID 10 days doxycycline monohydrate 100 mg PO BID 10 days ergocalciferol (vitamin D2) 1,250 mcg PO QWEEK folic acid 1 mg PO DAILY gabapentin 300 mg PO TID PRN hydroxychloroquine 200 mg PO BID lidocaine 5% 2 patches topical DAILY 30 days methotrexate sodium 20 mg PO QWEEK nystatin 1 appl topical TID 10 days oxycodone 5 mg PO TID PRN 7 days prednisone 20 mg PO DAILY 5 days secukinumab (Cosentyx UnoReady Pen) 300 mg subcut Q4W semaglutide (weight loss) 0.5 mg (0.5 mL) subcut QWEEK 4 weeks tizanidine 4 mg PO TID PRN tramadol 50 mg PO Q6H PRN 15 days trazodone 150 mg (1.5 x 100 mg) PO BEDTIME 30 days Tobacco use date assessed: 07/06/24 Dental Screening Dental Screen Date: 07/06/24 Did you have a dental visit in the last 12 months?: Yes Did you have a dental problem in the last 6 months where you did not have access to dental care?: No Was dental information given to patient?: Patient has dentist HPI 3 month f/u HPI Details Patient comes in today for her follow up visit States that she has been experiencing recurrent sharp chest pains over the past couple of weeks Notes that her symptoms appear randomly and do not seem to be associated with activity or exertion She denies any increased SOB She denies any headaches or dizziness No nausea/vomiting, no abdominal pain No change in bowel habits noted States that she has been tolerating her Ozempic well without any problems and so far has already lost about 20 pound since she started taking the medication a couple of months ago She was not able to get her follow up labs done prior to her appointment today as she was waiting for her labs orders from her automatic serging machine operator in [place] so she can get them all done at the same time [facility] Medical History Morbid obesity with BMI of 50.0-59.9, adult Compression fracture of L3 vertebra Insomnia Nasal sore Morbid obesity with BMI of 45.0-49.9, adult Depression Vitamin D deficiency Vitamin B12 deficiency Migraine Pure hypercholesterolemia Fibromyalgia Diabetes mellitus Psoriatic arthritis Lumbar degenerative disc disease Surgical History History of esophagogastroduodenoscopy (EGD) History of colonoscopy (~04/06/04) Family History Father No problems noted. Mother No problems noted. Social History Housing: House Alcohol intake: current Alcohol intake frequency: holidays/special occasions only Patient Tobacco Use Status: Former Tobacco user Tobacco use type: Cigarette e-Cigarette/Vaping Use: Never Used Second Hand Smoke Exposure: Yes service: No Current occupational status: disabled Current occupation: rt hand Current occupational exposures/hazards: No Cognitive needs: Yes Hearing needs: No Vision needs: Yes Questionnaire PHQ-9 Over the last 2 weeks, how often have you been bothered by any of the following problems? 1. Little interest or pleasure in doing things: not at all 2. Feeling down, depressed, or hopeless: not at all 3. Trouble falling or staying asleep, or sleeping too much: not at all 4. Feeling tired or having little energy: not at all 5. Poor appetite or overeating: not at all 6. Feeling bad about yourself - or that you are a failure or have let yourself or your family down: not at all 7. Trouble concentrating on things, such as reading the newspaper or watching television: not at all 8. Moving or speaking so slowly that other people could have noticed. Or the opposite - being so fidgety or restless that you have been moving around a lot more than usual: not at all 9. Thoughts that you would be better off or of hurting yourself in some way: not at all Total score: 0 Depression Screening Interpretation: Negative Depression Screening Done: Yes 33130 - PHQ-9 Billing: Yes Source: Developed by Drs. Xavier Lewis, Ashley Rea, Jose Napier and colleagues, with an educational jade from [employer]. Thrive Questionnaire Date Thrive assessed: 07/06/24 I am a: Patient What is your living situation today?: I have a steady place to live Within the past 12 months, did the food you bought not last and you didn't have the money to get more?: Never true Within the past 12 months, did you worry whether your food would run out before you got money to buy more?: Never true Do you have trouble paying for medicines?: No Do you have trouble getting transportation to medical appointments?: No Do you have trouble paying your heating and electricity bill?: No Do you have trouble taking care of your child, family member or friend?: No Do you have trouble with day-to-day activities such as bathing, preparing meals, shopping, managing finances, etc.?: No Are you currently unemployed and looking for a job?: No Are you interested in more education?: No Please select the resources that you would like help with: None Currently or been in a relationship where the following occur: No concerns reported THRIVE Score: 0 AUDIT C Alcohol Use Questionnaire (AUDIT-C) 1. How often do you have a drink containing alcohol?: Never 3. How often do you have six or more drinks on one occasion?: Never Total Score: 0 Score Reviewed/Action Taken: Yes NAWAF-7 AMB Questionnaire NAWAF-7 Date NAWAF - 7 assessed: 07/06/24 Feeling nervous, anxious, or on edge: 0 = Not at all Not being able to stop or control worryin = Not at all Worrying too much about different things: 0 = Not at all Trouble relaxin = Not at all Being so restless that it is hard to sit still: 0 = Not at all Becoming easily annoyed or irritable: 0 = Not at all Feeling afraid as if something awful might happen: 0 = Not at all Total NAWAF-7 score (0-4 normal; 5-9 mild; 10-14 moderate; 15-21 severe): 0 Source: Developed by Drs. Xavier Lewis, Ashley Rea, Jose Napier and colleagues, with an educational jade from [employer]. Review of Systems Const Denies chills, Reports fatigue, Denies fever(s) and Denies headache(s) ENT Denies dysphagia, Denies dizziness, Denies otalgia, Denies headache(s), Reports neck pain (chronic), Denies odynophagia and Denies sore throat Card Reports chest pain (recurrent, sharp ), Denies palpitations and Reports dyspnea on exertion (mild) Resp Denies chest congestion, Denies cough and Reports dyspnea on exertion (mild) GI Denies abdominal pain, Denies constipation, Denies dysphagia, Denies heartburn, Denies diarrhea, Denies nausea, Denies odynophagia and Denies vomiting Denies difficulty voiding, Denies post void dribbling, Denies nocturia, Denies dysuria and Denies urinary urgency Musc Reports back pain (chronic - increased lately due to acute injury), Reports myalgias (diffuse), Reports arthralgias (over multiple joints, including knees and hips & more recently, L shoulder), Reports neck pain (chronic) and Reports stiffness Skin/Breast Denies rash Neuro Denies dizziness and Denies headache(s) Endo Reports fatigue and Denies palpitations Physical exam (Primary Care) Vital Signs: Last Vital Signs Pulse 81 07/06/24 15:44 BP 130/76 07/06/24 15:44 Pulse Ox 97 07/06/24 15:44 Oxygen Delivery Method Room Air 07/06/24 15:44 BMI result Body Mass Index 48.9 Tobacco/Smoking Status: Tobacco use Status Tobacco use date assessed 07/06/24 07/06/24 15:50 Patient Tobacco Use Status Former Tobacco user 07/06/24 15:50 Tobacco use type Cigarette 07/06/24 15:50 e-Cigarette/Vaping Use Never Used 07/06/24 15:50 PHQ-9: PHQ-9 Score PHQ-9: Total score 0 07/06/24 16:15 Depression Screening Interpretation: Negative Thrive Assessment: Date of Thrive Assessment Date Thrive assessed 07/06/24 07/06/24 15:50 Currently or been in a relationship where the following occur: No concerns reported Const General: no acute distress and alert HENMT Ears: TM's normal bilaterally and EAC's normal Throat: Yes posterior oropharynx normal and Yes tonsils normal (no TP congestion noted) Neck Neck: Yes supple and No lymphadenopathy Thyroid: Thyroid normal Resp Auscultation: clear to auscultation bilaterally, no rales and no wheezes Cardio Rate: regular rate Rhythm: regular rhythm Heart sounds: no murmurs GI Palpation (GI): Soft to palpation and nontender Auscultation: normal bowel sounds General: Yes no CVA tenderness Back/Spine/Pelvis Back: no CVA tenderness Cervical Spine: Cervical spine tenderness Thoracic/Lumbar Spine: lumbar spinal tenderness Skin Rashes: no rashes Extrem General: Yes no clubbing, cyanosis or edema Left upper extremity: shoulder/upper arm Details: tenderness Location: of the A-C joint and of the proximal humerus Right lower extremity: hip/thigh Details: tenderness and knee Details: tenderness; no swelling Left lower extremity: hip/thigh Details: tenderness and knee Details: tenderness; no swelling Coding Level of Care Code Est Pt Level 4 (03277) Complex EM visit Add On G2211 Diagnoses Compression fracture of L3 vertebra, sequela S32.030S Encounter type: sequela Psoriatic arthritis L40.50 Osteoarthritis involving multiple joints on both sides of body M15.9 Fibromyalgia M79.7 Type 2 diabetes mellitus without complication, without long-term current use of insulin E11.9 Diabetes mellitus type: type 2 Diabetes mellitus retirement insulin use: without local company intermodal truck driver use Diabetes mellitus complication status: without complication Pure hypercholesterolemia E78.00 Migraine without status migrainosus, not intractable, unspecified migraine type G43.909 Migraine type: unspecified Status migrainosus presence: without status migrainosus Intractability: not intractable Vitamin B12 deficiency E53.8 Vitamin D deficiency E55.9 Insomnia, unspecified type G47.00 Insomnia type: unspecified Depression, unspecified depression type F32.9 Depression Type: unspecified Morbid obesity with BMI of 45.0-49.9, adult E66.01; Z68.42 Additional Codes PHQ-9 - 79089 - PHQ-9 Billing: Yes ([id number]) Assessment & Plan Assessment & Plan (1) Compression fracture of L3 vertebra: Code(s): S32.030A - Wedge compression fracture of third lumbar vertebra, initial encounter for closed fracture Category: Medical Qualifiers: Encounter type: sequela Qualified Code(s): S32.030S - Wedge compression fracture of third lumbar vertebra, sequela Plan: This was first seen on imaging studies done at [facility] in late July 2023 and appeared to be acute in onset at the time Patient denies any recent falls or injuries prior to her injury being discovered BMD done in 08/2022 revealed (+) osteopenia with the lowest T-score value of -2.0 in the lumbar spine She has a Hx of multilevel lumbar spine DDD and was getting injections into her lower back for pain; she most recently had injection to L4-L5 at [facility] a few months prior, with some relief of her low back pain She was referred to Dr. Hernández at [facility] for further evaluation and management of her compression fracture and was subsequently admitted to [facility] in [place] for short-term rehab, which she states helped somewhat Continue Tramadol 50 mg TID PRN for pain (2) Psoriatic arthritis: Code(s): L40.50 - Arthropathic psoriasis, unspecified Category: Medical Plan: She was switched over from Taltz 80 mg SQ Q 4 weeks to Cosentyx 300 mg Q 4 weeks by her current automatic serging machine operator a few months ago - she was off Cosentyx for a while but started back on it in January [address] Lopez in [place] for rheumatology follow up and management for the past few years but recently switched over to the [facility] and is now following up with her current automatic serging machine operator in [place], [place] regularly as scheduled (3) Osteoarthritis involving multiple joints on both sides of body: Code(s): M15.9 - Polyosteoarthritis, unspecified Category: Medical Plan: Continue Lidocaine patches 5% QD PRN X-rays done last year revealed (+) mild degenerative changes in the hip joints bilaterally with no visible acute changes or fracture and mild degenerative changes in the right shoulder joint with enthesophyte along the inferior acromion. There is a healed fracture of the left humeral neck without dislocation; the soft tissues are normal. (+) degenerative disc changes at the C4-C5 disc level with ventral spondylosis and no visible acute fracture or dislocation are seen Follow-up with [facility] as scheduled (4) Fibromyalgia: Code(s): M79.7 - Fibromyalgia Category: Medical Plan: She is again encouraged to continue to try exercising regularly to help manage her fibromyalgia symptoms but patient states that this is proving to be very difficult due to the progression of her psoriatic arthritis Patient was on Carisoprodol 350 mg TID PRN in the past but was encouraged to come off of it due to its habit-forming potential and high risk of dependence and drug interactions with her opioids - this was DISCONTINUED last year Continue Tizanidine 4 mg TID PRN Per request, a referral was also previously made out for integrative medicine for her to see Dr. Whiteside to explore alternative treatment options for her chronic pain but states that she still has not seen Dr. Whiteside yet and is currently just seeing her chiropractor regularly for treatments at this time (5) Diabetes mellitus: Code(s): E11.9 - Type 2 diabetes mellitus without complications Category: Medical Qualifiers: Diabetes mellitus type: type 2 Diabetes mellitus retirement insulin use: without retirement use Diabetes mellitus complication status: without complication Qualified Code(s): E11.9 - Type 2 diabetes mellitus without complications Plan: Her HgbA1c was at 5.6% when last checked in December 2023 Reinforced diabetic diet She used to take Januvia 100 mg QD, Metformin 500 mg BID and Glipizide ER 5 mg QD but has not been on any Rx for her diabetes in a while She was started on Ozempic 0.25 mg SQ Q week at her last visit and is now on 5 mg once a week (6) Pure hypercholesterolemia: Code(s): E78.00 - Pure hypercholesterolemia, unspecified Category: Medical Plan: She does not have any follow up labs done since December 2023 She was not able to get her follow up labs done prior to her appointment today as she was waiting for her labs orders from her automatic serging machine operator in [place] so she can get them all done at the same time States that she received the orders yesterday and will try to get all of her labs done ANDRES Reinforced low cholesterol diet Continue Atorvastatin 20 mg QD Will recheck her labs and fasting lipids again in 3 months for follow up (7) Migraine: Code(s): G43.909 - Migraine, unspecified, not intractable, without status migrainosus Category: Medical Qualifiers: Migraine type: unspecified Status migrainosus presence: without status migrainosus Intractability: not intractable Qualified Code(s): G43.909 - Migraine, unspecified, not intractable, without status migrainosus Plan: Reinforced avoidance of all potential migraine triggers Continue Fiorinal 1 capsule BID PRN She may need to see neurology again if her headaches progress or get worse (8) Vitamin B12 deficiency: Code(s): E53.8 - Deficiency of other specified B group vitamins Category: Medical Plan: Continue Vitamin B12 tablets 1000 mcg daily (9) Vitamin D deficiency: Code(s): E55.9 - Vitamin D deficiency, unspecified Category: Medical Plan: Continue Vitamin D2 37082 units once a week (10) Insomnia: Code(s): G47.00 - Insomnia, unspecified Category: Medical Qualifiers: Insomnia type: unspecified Qualified Code(s): G47.00 - Insomnia, unspecified Plan: Sleep hygiene reinforced She was taking Carisoprodol at bedtime in the past to help her sleep better at night but she has since discontinued Rx Continue Trazodone 100 mg 1.5 tablets (150 mg) Q HS PRN (11) Depression: Code(s): F32.9 - Major depressive disorder, single episode, unspecified Category: Medical Qualifiers: Depression Type: unspecified Qualified Code(s): F32.9 - Major depressive disorder, single episode, unspecified Plan: She is currently not on any Rx for depression and states that she has been doing okay lately - does not feel that she needs anything at this time but will call if anything changes (12) Morbid obesity with BMI of 45.0-49.9, adult: Code(s): E66.01 - Morbid (severe) obesity due to excess calories; Z68.42 - Body mass index [BMI] 45.0-49.9, adult Category: Medical Plan: Reinforced diet/lose weight; exercise is difficult and is an unlikely option due to patient's physical incapacities and disabilities We started patient on a trial of Semaglutide 0.25 mg SQ once a week and she has been able to lose about 20 pounds since Plan Follow up in 3 months Orders: Orders Comprehensive [place]. Panel Fast 3 Months E78.00 - Pure hypercholesterolemia, unspecified Microalbumin, Random (w Creat) 3 Months E11.9 - Type 2 diabetes mellitus without complications Hemoglobin A1c 3 Months E11.9 - Type 2 diabetes mellitus without complications Complete Blood Count Auto Diff 3 Months D64.9 - Anemia, unspecified Lipid Panel 3 Months E78.00 - Pure hypercholesterolemia, unspecified TSH reflex Free T4 3 Months E78.00 - Pure hypercholesterolemia, unspecified UA CC w/rflx Micro + Cult 3 Months R30.0 - Dysuria Vitamin B12 and Folate 3 Months E53.8 - Deficiency of other specified B group vitamins Vitamin D 25-OH Total 3 Months E55.9 - Vitamin D deficiency, unspecified
--- OUTSIDE RECORDS SUMMARY | 2024-07-06 16:18 | XMS_ITS | Encounter Summary ---
Author Organization [facility] Address [address] [place] [address] Care Team Providers Care Digital Marketing Program Manager Name Role Phone Alexis Murrieta MD Primary Care Provider +1- [phone] Encounter Details Date Type Department Care Team ([facility] Contact Info) Description 11/25/2023 Scanned Document [facility] Rheumatology [address] [address] Osei Dickey MD [address] [place] [address] Social History Tobacco Use Types Packs/Day Years Used Date Smoking Tobacco: Former Cigarettes Smokeless Tobacco: Never Alcohol Use Standard Drinks/Week Comments Yes 2 (1 standard drink = 0.6 oz pur e alcohol) [facility] of Occupat ional Health - Occupational Stress [...] day at this level? 0 min 08/07/2023 Comments No Sex and Gender Information Value Date Recorded Sex Assigned at Female 10/20/2023 3:45 PM EDT Legal Sex Female 6:27 PM EST Gender Identity Female 10/20/2023 3:45 PM EDT Sexual Orientation Heterosexual (straight) 10/19 3:45 PM EDT documented as of this encounter Plan of Treatment Upcoming Encounters Date Type Department Care Team (Late st Contact Info) Description 09/09/2024 2:00 PM EDT Office Visit [facility] Rheumatology [address] [place] [address] Osei Dickey MD 31 [facility] [address] [place] [address] documented as of this encounter Visit Diagnoses Not on filedocumented in this encounter Care Teams Digital Marketing Program Manager Relationship Specialty Start Date End Date Alexis Murrieta MD [address] [place] [address] [address] [place] [address] PCP - General Internal Medicine 02/27/22 documented as of this encounter
--- OUTSIDE RECORDS SUMMARY | 2024-07-06 16:18 | XMS_ITS | Encounter Summary ---
Author Organization [facility] Address [address] [place] [address] Care Team Providers Care Apple Picking Supervisor Name Role Phone Alexis Murrieta MD Primary Care Provider +1- [phone] Encounter Details Date Type Department Care Team (Late st Contact Info) Description 02/26/2022 Scanned Document [facility] RHEUMATOLOGY SCAN Rheumatology, Scan Social History Tobacco Use Types Packs/Day Years Used Date Smoking Tobacco: Never Assessed Comments Unknown Sex and Gender Information Value Date Recorded Sex Assigned at Female 10/20/2023 3:45 PM EDT Legal Sex Female 6:27 PM EST Gender Identity Female 10/20/2023 3:45 PM EDT Sexual Orientation Heterosexual (straight) 10/19 3:45 PM EDT documented as of this encounter Plan of Treatment Upcoming Encounters Date Type Department Care Team (Late st Contact Info) Description 09/09/2024 2:00 PM EDT Office Visit [facility] Rheumatology [address] [phone] Osei Dickey MD [address] [place] [address] documented as of this encounter Visit Diagnoses Not on filedocumented in this encounter Care Teams Apple Picking Supervisor Relationship Specialty Start Date End Date Alexis Murrieta MD [address] [place] [address] [place] [address] PCP - General Internal Medicine 02/27/22 documented as of this encounter
--- OUTSIDE RECORDS SUMMARY | 2024-07-06 16:18 | XMS_ITS | Encounter Summary ---
Author Organization [facility] Address [address] [place] [address] Care Team Providers Care Bait Man Name Role Phone Alexis Murrieta MD Primary Care Provider +1- [phone] Reason for Visit * Reason Comments Prior Authorization Encounter Details Date Type Department Care Team ([facility] st Contact Info) Description 2023 Telephone [facility] PHYSICAL MEDICINE & RE[place]AB [place] [address] [place] [phone] Rob Schroeder MD [address] [place] [phone] Prior Authorization Social History Tobacco Use Types Packs/Day Years Used Date Smoking Tobacco: Former Cigarettes Smokeless Tobacco: Never Alcohol Use Standard Drinks/Week Comments Yes 2 (1 standard drink = 0.6 oz pur e alcohol) [facility] of Occupat ional Health - Occupational Stress [...] Description 09/09/2024 2:00 PM EDT Office Visit [facility] Rheumatology [address] [phone] Osei Dickey MD [address] [address] documented as of this encounter Visit Diagnoses Not on filedocumented in this encounter Care Teams Bait Man Relationship Specialty Start Date End Date Alexis Murrieta MD [address] [place] [address] [address] [place] [address] PCP - General Internal Medicine 02/27/22 documented as of this encounter
--- OUTSIDE RECORDS SUMMARY | 2024-07-06 16:18 | XMS_ITS | Encounter Summary ---
Author Organization [facility] Address [address] [place] [address] Care Team Providers Care Predictive Maintenance Specialist Name Role Phone Alexis Murrieta MD Primary Care Provider +1- [phone] Reason for Visit * Reason Comments Medication Refill Encounter Details Date Type Department Care Team ([facility] st Contact Info) Description 06/25/[address] [facility] Rheumatology [address] [address] Osei Dickey MD [address] [place] [phone] Psoriatic arthritis (HCC) Social History Tobacco Use Types Packs/Day Years Used Date Smoking Tobacco: Former Cigarettes Smokeless Tobacco: Never Alcohol Use Standard Drinks/Week Comments Yes 2 (1 standard drink = 0.6 oz pur e alcohol) [facility] of Occupat ional Health - Occupational Stress [...] PM EDT documented as of this encounter Miscellaneous Notes * Telephone Encounter - Yarelis Rivera MA - 07/01/2024 10:20 AM EDT Pt called back and I let the pt know about the message below. * Telephone Encounter - Morena Garcia RN - 06/29/2024 8:21 AM EDT Lab slip mailed to patient and phone call * Telephone Encounter - Morena Garcia RN - 06/29/2024 8:13 AM EDT Last seen 01/27/24 Next apt 09/09/24 Labs -- message sent to patient Last filled 03/27 documented in this encounter Plan of Treatment Upcoming Encounters Date Type Department Care Team (Late st Contact Info) Description 09/09/2024 2:00 PM EDT Office Visit [facility] Rheumatology [address] [phone] Osei Dickey MD [address] [place] [address] documented as of this encounter Visit Diagnoses Diagnosis Psoriatic arthritis (HCC) Psoriatic arthropathy documented in this encounter Care Teams Predictive Maintenance Specialist Relationship Specialty Start Date End Date Alexis Murrieta MD [address] [place] [address] [address] [place] [address] PCP - General Internal Medicine 02/27/22 documented as of this encounter
--- OUTSIDE RECORDS SUMMARY | 2024-07-06 16:18 | XMS_ITS | Clinical Summary ---
Author Organization [facility] Address [address] [place] [address] Care Team Providers Care Steel Unloader Name Role Phone Alexis Murrieta MD Primary Care Provider +1- [phone] Allergies No known active allergies Medications traMADol (ULTRAM) 50 MG tablet TAKE 1 TO 2 TABLETS BY MOUTH TWICE DAILY NEEDED ONLY WITH ACETAMINOPHEN 1000MG 023 Active traZODone (DESYREL) 100 MG tablet TAKE 1 AND 1/2 TABLETS BY MOUTH AT BEDTIME FOR INSOMNIA 023 Active atorvastatin (LIPITOR) 20 MG tablet Take 1 tablet (20 mg total) by mouth daily. 023 Active lidocaine (LIDODERM) 5 % patch APPLY 2 PATCHES TOPICALLY TO THE SKIN DAILY. LEAVE ON MOST PAINFUL AREA FOR UP TO 12 HOURS 023 Active ergocalciferol 61835 units Cap TAKE 1 CAPSULE BY MOUTH 1 TIME A WEEK 023 Active gabapentin (NEURONTIN) 300 MG capsule Take 1 capsule (300 mg total) by mouth 3 (three) times a day as needed. 023 Active tiZANidine (ZANAFLEX) 4 MG tablet 023 Active clobetasol (TEMOVATE) 0.05 % creamIndication s:Psoriasis Apply topically 2 (two) times a day. 2 times a day no more than 2 weeks at a time 30 g 1 023 Active LORazepam (ATIVAN) 1 MG tabletIndicatio ns:Anxiety due to invasive procedure,Spina l stenosis of lumbar region with neurogenic claudication Take 1-2 tabs by mouth 1 hour before the procedure 10 tablet 024 Active doxycycline (MONODOX) 100 MG capsule 1 capsule (100 mg total) by Mouth/Oral Cavity route every 12 hours. 024 Active Wegovy 0.25 MG/0.5ML Solution Auto-injector 024 Active nystatin (MYCOSTATIN) 186324 UNIT/GM cream APPLY TOPICALLY TO THE AFFECTED AREA THREE TIMES DAILY FOR 10 DAYS 024 Active folic acid (FOLVITE) 1 MG tabletIndicatio ns:Psoriatic arthritis (HCC) Take 1 tablet (1 mg total) by mouth daily. 90 tablet 1 024 Active secukinumab (Cosentyx UnoReady) 300 MG/2ML subcutaneous auto-injectorIn dications:Psori atic arthritis (HCC) Inject 2 mL (300 mg total) under the skin every 28 days (4 weeks). 2 mL 3 025 Active methoTREXate (RHEUMATREX) 2.5 mg tabletIndicatio ns:Psoriatic arthritis (HCC) TAKE 8 TABLETS BY MOUTH ONCE A WEEK 32 tablet 025 Active methoTREXate (RHEUMATREX) 2.5 mg tabletIndicatio ns:Psoriatic arthritis (HCC) Take 8 tablets (20 mg total) by mouth once a week 96 tablet 024 2024 Discontinued secukinumab (Cosentyx UnoReady) 300 MG/2ML subcutaneous auto-injectorIn dications:Psori atic arthritis (HCC) Inject 2 mL (300 mg total) under the skin every 28 days (4 weeks). 2 mL 3 025 2024 Discontinued Active Problems Problem Noted Date Diagnosed Date Spinal stenosis of lumbar re gion with neurogenic claudication 08/07/2023 Chronic bilateral low back pain with bilateral s ciatica 06/13/2023 Bilateral hip pain 06/13/2023 Psoriatic arthritis 06/26/2022 Encounters Date Type Department Care Team Description 06/29/2024 Telephone [facility] Rheumatology [address] [phone] Morena Garcia RN 06/25/2024 Refill [facility] Rheumatology [address] [phone] Osei Dickey MD Psoriatic arthritis (HCC) 05/28/2024 Refill [facility] [address] [place] [address] Osei Dickey MD Psoriatic arthritis (HCC) from Last 3 Months Family History Relation Name Status Comments Father Mother Social History Tobacco Use Types Packs/Day Years Used Date Smoking Tobacco: Former Cigarettes Smokeless Tobacco: Never Tobacco Cessation:Counseling Given: Not Answered Alcohol Use Standard Drinks/Week Comments Yes 2 (1 standard drink = 0.6 oz pur e alcohol) [facility] of Occupat ional Health - Occupational Stress [...] 01/27/2024 2:40 PM EST Plan of Treatment Upcoming Encounters Date Type Department Care Team (Late st Contact Info) Description 09/09/2024 2:00 PM EDT Office Visit [facility] Rheumatology [address] [phone] Osei Dickey MD [address] [address] Health Maintenance Due Date Last Done Comments [...] - Risk 60-74 years 1-dose series) 2022 COVID-19 Vaccine ( season) 2023 11/23/2022, 12/26/2021, 01/24/2021, Additional history exists Influenza Vaccine 09/24/2024 11/23/2022 Hepatitis B Vaccines Aged Out No long er eligible based on patient's age to complete this topic Insurance [facility] Care Teams Steel Unloader Relationship Specialty Start Date End Date Alexis Murrieta MD [address] [place] [address] Dr [place], [place] [address] PCP - General Internal Medicine 02/27/22
== END 2024-07-06 16:20 | disposition home or self-care (01) ==
LOC: HO.HMCH 15:29
PROVIDERS: PCP Internal Medicine; Visit Provider Internal Medicine
DX: E11.9 Type 2 diabetes mellitus without complications (principal); L40.50 Arthropathic psoriasis, unspecified; E66.01 Morbid (severe) obesity due to excess calories; Z68.42 Body mass index [BMI] 45.0-49.9, adult; S32.030S Wedge compression fracture of third lumbar vertebra, sequela; M15.9 Polyosteoarthritis, unspecified; M79.7 Fibromyalgia; E78.00 Pure hypercholesterolemia, unspecified; G43.909 Migraine, unspecified, not intractable, without status migrainosus; E53.8 Deficiency of other specified B group vitamins; E55.9 Vitamin D deficiency, unspecified; G47.00 Insomnia, unspecified

== ENCOUNTER → 2024-07-06 15:29 | Outpatient (BNVA) | payer BC, SELFPAY | PROVIDERS: PCP Internal Medicine; Visit Provider Internal Medicine | DX: L40.50 Arthropathic psoriasis, unspecified (principal); M15.9 Polyosteoarthritis, unspecified; M79.7 Fibromyalgia; E11.9 Type 2 diabetes mellitus without complications; E78.00 Pure hypercholesterolemia, unspecified; G43.909 Migraine, unspecified, not intractable, without status migrainosus; E53.8 Deficiency of other specified B group vitamins; E55.9 Vitamin D deficiency, unspecified; G47.00 Insomnia, unspecified; F32.9 Major depressive disorder, single episode, unspecified; E66.01 Morbid (severe) obesity due to excess calories; Z68.42 Body mass index [BMI] 45.0-49.9, adult; S32.030S Wedge compression fracture of third lumbar vertebra, sequela; Z79.899 Other long term (current) drug therapy | CPT/HCPCS: 96127 ==

== ENCOUNTER 2024-07-22 09:31 | Outpatient (REF) | payer BC, SELFPAY ==
[2024-07-22 12:34] LABS: MANUAL DIFF FLAG NO
[2024-07-22 13:27] LABS: Basophils Percent Auto 0.2 % (0-2); Eosinophils Absolute Auto 0.2 X10*3/uL (0.0-0.4); Eosinophils Percent Auto 4.8 % (0-4); Hematocrit 38.1 % (37.0-47.0); Hemoglobin 12.2 g/dl (12.0-16.0); Imm Gran Abs Auto 0.01 X10*3/uL (0.00-0.03); Imm Gran Pct Auto 0.2 % (0.0-0.4); Lymphocytes Absolute Auto 1.5 X10*3/uL (1.2-4.9); Lymphocytes Percent Auto 35.4 % (20-40); Mean Corpuscular Hemoglobin 31.3 pg (27.0-33.0); Mean Corpuscular Volume 97.7 fL (80.0-98.0); Mean Platelet Volume 10.7 fL (9.4-12.3); Monocytes Absolute Auto 0.3 X10*3/uL (0.1-1.2); Monocytes Percent Auto 7.6 % (2-11); Neutrophils Absolute Auto 2.2 x10*3/uL (2.0-8.3); Neutrophils Percent Auto 51.8 % (45-73); Platelet Count 165 X10*3/uL (160-400); Red Cell Distribution Width 14.1 % (11.0-16.0); White Blood Count 4.2 X10*3/uL (4.8-10.8)
[2024-07-22 13:36] LABS: Estimated Average Glucose 100 mg/dL; Hemoglobin A1c % 5.1 % (<6.0); Rheumatoid Factor < 13.0 IU/mL (<15.0)
[2024-07-22 13:52] LABS: Appearance Urine Cloudy; Color Urine Yellow; Glucose Urine UA Negative (Negative); Leukocyte Esterase Urine Trace (Negative); Nitrite Urine Negative (Negative); PH 5.5 (5.0-9.0); Specific Gravity - Urine 1.015 (1.005-1.025); UMIC TRIGGER UACC YES; Urine Blood Negative (Negative); Urine Ketones Negative (Negative); Urine Protein Negative (Neg-Trace)
[2024-07-22 13:53] LABS: Total Protein Urine Random < 7 mg/dL (<12)
[2024-07-22 13:59] LABS: HBc Num1 0.05 S/CO (0.00-0.79); HBsAGNum1 0.35 S/CO (0.00-0.99); Hepatitis B Core Antibody Nonreactive (Nonreactive); Hepatitis B Surface Antigen Negative (Negative); ~HepC Num1 0.15 S/CO (0.00-0.79); ~Hepatitis B Surface Antibody NONREACTIVE (Nonreactive); ~Hepatitis C Antibody Nonreactive (Nonreactive)
[2024-07-22 14:08] LABS: Folate > 20.0 ng/mL (> or = 4.0); Vitamin B12 310 pg/mL (200-900)
[2024-07-22 14:13] LABS: Erythrocyte Sedimentation Rate 13 MM/HR (0-20)
[2024-07-22 14:15] LABS: Bacteria Urine 1+ (None Seen); Hyaline Casts Urine 0-2 /LPF (0-2); RBC Urine 0-2 /HPF (0-2); WBC Urine 0-5 /HPF (0-5)
[2024-07-22 14:57] LABS: Alanine Aminotransferase 27 U/L (0-31); Albumin Level 4.1 g/dL (3.5-5.0); Alkaline Phosphatase 82 U/L (39-117); Anion Gap 12 (12-20); Aspartate Amino Transferase 30 U/L (5-31); Bilirubin Total 0.7 mg/dL (0.0-1.0); Blood Urea Nitrogen 14 mg/dL (9-16); C Reactive Protein 1.02 mg/dL (< or = 0.50); Carbon Dioxide 24 mmol/L (22-29); Chloride 111 mmol/L (96-108); Cholesterol 161 mg/dL (<200); Estimated Glomerular Filt Rate > 60; Glucose Fasting 103 mg/dL (60-99); HDL Cholesterol 49 mg/dL (>40); LDL Cholesterol Calculated 95 mg/dL (<100); Potassium 3.8 mmol/L (3.3-5.1); Sodium 143 mmol/L (135-145); Total Protein 6.9 g/dL (6.5-8.0); Triglycerides 89 mg/dL (<150); Uric Acid 7.3 mg/dL (2.4-5.7)
[2024-07-22 15:04] LABS: Vitamin D 25-OH Total 23.2 ng/mL (>30)
[2024-07-25 19:09] LABS: TS Negative Control Passed; TS Panel A 0; TS Panel B 0; TS Positive Control Passed; TSpotTB Negative (Negative)
[2024-07-26 14:58] LABS: Cyclic Citrullinated Peptide <16 UNITS
[2024-07-27 23:54] LABS: HLA B27 Negative (Negative)
[2024-07-29 11:54] LABS: Anti Nuclear Antibody Screen POSITIVE (NEGATIVE); Anti Nuclear Antibody Titer 1:40 titer
== END 2024-07-22 09:32 | disposition home or self-care (01) ==
LOC: HO.10HDL 09:31
PROVIDERS: Visit Provider Internal Medicine
DX: L40.50 Arthropathic psoriasis, unspecified (principal); M19.90 Unspecified osteoarthritis, unspecified site; Z79.899 Other long term (current) drug therapy; Z11.59 Encounter for screening for other viral diseases; R73.9 Hyperglycemia, unspecified; E78.00 Pure hypercholesterolemia, unspecified; D64.9 Anemia, unspecified; E55.9 Vitamin D deficiency, unspecified; E53.8 Deficiency of other specified B group vitamins
CPT/HCPCS: 36415; 80053; 80061; 81001; 81003; 82306; 82570; 82607; 82746; 83036; 84156; 84443; 84550; 85025; 85652; 86038; 86039; 86140; 86200; 86431; 86481; 86704; 86706; 86803; 86812; 87340

== ENCOUNTER 2024-11-20 10:25 | Outpatient (REF) | payer BC, SELFPAY ==
--- OUTSIDE RECORDS SUMMARY | 2024-11-20 10:28 | XMS_ITS | Encounter Summary ---
Author Organization [facility] Address [address] [place] [address] Care Team Providers Care Medical Office Receptionist Name Role Phone Alexis Murrieta MD Primary Care Provider +1- [phone] Reason for Visit * Reason Comments Prior Authorization Encounter Details Date Type Department Care Team ([facility] Contact Info) Description 2023 Telephone [facility] PHYSICAL MEDICINE & REHAB [place] [address] [place] [phone] Rob Schroeder MD [address] [place] [address] Prior Authorization Social History Tobacco Use Types Packs/Day Years Used Date Smoking Tobacco: Former Cigarettes Smokeless Tobacco: Never Alcohol Use Standard Drinks/Week Comments Yes 2 (1 standard drink = 0.6 oz pur e alcohol) [facility] of Occupat ional Health - Occupational Stress [...] Care Team (Late st Contact Info) Description 04/12/2025 10:30 AM EST Office Visit [facility] Rheumatology [address] [address] Osei Dickey MD [address] [place] [address] documented as of this encounter Visit Diagnoses Not on filedocumented in this encounter Care Teams Medical Office Receptionist Relationship Specialty Start Date End Date Alexis Murrieta MD [address] [place] [address] Dr Garcia [address] [address], [place] [address] PCP - General Internal Medicine 02/27/22 documented as of this encounter
--- OUTSIDE RECORDS SUMMARY | 2024-11-20 10:28 | XMS_ITS | Encounter Summary ---
Author Organization [facility] Address [address] [place] [address] Care Team Providers Care [employer] Name Role Phone Alexis Murrieta MD Primary Care Provider +1- [phone] Encounter Details Date Type Department Care Team (Late st Contact Info) Description 11/25/2023 Scanned Document [facility] Rheumatology [address] [phone] Osei Dickey MD [address] [place] [address] Social History Tobacco Use Types Packs/Day Years Used Date Smoking Tobacco: Former Cigarettes Smokeless Tobacco: Never Alcohol Use Standard Drinks/Week Comments Yes 2 (1 standard drink = 0.6 oz pur e alcohol) [facility] [place] of Occupat ional Health - Occupational Stress [...] Description 04/12/2025 10:30 AM EST Office Visit [facility] Rheumatology [address] [address] Osei Dickey MD [address] [address] documented as of this encounter Visit Diagnoses Not on filedocumented in this encounter Care Teams [employer] Relationship Specialty Start Date End Date Alexis Murrieta MD [address] [place] [address] Dr Garcia [address] [place] [address] PCP - General Internal Medicine 02/27/22 documented as of this encounter
--- OUTSIDE RECORDS SUMMARY | 2024-11-20 10:28 | XMS_ITS | Encounter Summary ---
Author Organization [facility] Address [address] [place] [address] Care Team Providers Care Psychological Aide Name Role Phone Alexis Murrieta MD Primary Care Provider +1- [phone] Encounter Details Date Type Department Care Team (Late st Contact Info) Description 02/26/2022 Scanned Document [facility] RHEUMATOLOGY SCAN Rheumatology, Scan Social History [...] Description 04/12/2025 10:30 AM EST Office Visit [facility] Rheumatology [address] [phone] Osei Dickey MD [address] [place] [address] documented as of this encounter Visit Diagnoses Not on filedocumented in this encounter Care Teams Psychological Aide Relationship Specialty Start Date End Date Alexis Murrieta MD [address] [place] [address] [place], [place] PCP - General Internal Medicine 02/27/22 documented as of this encounter
--- OUTSIDE RECORDS SUMMARY | 2024-11-20 10:28 | XMS_ITS | Encounter Summary ---
Author Organization [facility] Address [address] [facility] [address] [place] [address] Phone Care Team Providers Care Head Filter Press Tender Name Role Phone Alexis Murrieta MD Primary Care Provider +1 -[phone] Encounter Details Date Type Department Care Team (Late st Contact Info) Description 12/16/2022 Procedure Pass [facility], [address] [address] Social History Tobacco Use Types Packs/Day Years Used Date Smoking Tobacco: Former Smokeless Tobacco: Never Education Answer Date Recorded Are you interested in more education? Not on jn e 06/20/2022 Are you concerned about learning? Not on file 06/20/2022 No 06/20/2022 No 06/20/2022 Digital Access Answer Date Recorded No 07/18/2022 No 07/18/2022 Reliable internet access at home? Not on file 07/18/2022 Device with a working camera? Not on file Comments Unknown Sex and Gender Information Value Date Recorded Sex Assigned at Not on file Legal Sex Female 7:41 PM EST Gender Identity Not on file Sexual Orientation Not on file documented as of this encounter Plan of Treatment Not on file documented as of this encounter Visit Diagnoses Not on filedocumented in this encounter Care Teams Head Filter Press Tender Relationship Specialty Start Date End Date Alexis Murrieta MD [address] [place] [address] [place] [address] PCP - General Internal Medicine 12/24/16 documented as of this encounter Additional Source Comments The information contained in this document represents components of the legal health record. It is not the complete legal health record.[facility]
--- OUTSIDE RECORDS SUMMARY | 2024-11-20 10:28 | XMS_ITS | Encounter Summary ---
Author Organization [facility] Address [address] [facility] [address] [place] [address] Phone Care Team Providers Care Methods Time Analyst Name Role Phone Alexis Murrieta MD Primary Care Provider +1 -[phone] Encounter Details Date Type Department Care Team (Late st Contact Info) Description 11/19/2022 Procedure Pass [facility], Ct Scan - [address] [address] Social History Tobacco Use Types Packs/Day Years [...] on filedocumented in this encounter Care Teams Methods Time Analyst Relationship Specialty Start Date End Date Alexis Murrieta MD [address] [place] [address] [place] [address] PCP - General Internal Medicine 12/24/16 documented as of this encounter Additional Source Comments The information contained in this document represents components of the legal health record. It is not the complete legal health record.[facility]
--- OUTSIDE RECORDS SUMMARY | 2024-11-20 10:28 | XMS_ITS | Patient Health Record ---
Author Organization [facility] Address [address] [place] [phone] Care Team Providers Care Methods Analyst Name Role Phone Xavier Wyman Unavailable [phone] Reason For Referral No Information Plan Of Treatment No Information
--- OUTSIDE RECORDS SUMMARY | 2024-11-20 10:28 | XMS_ITS ---
Author Name [facility] Unknown History of Medication Use Medication Directions Dispensed Refills Start Date End Date Status Cosentyx UnoReady 300 MG/2ML subcutaneous auto-injector INJECT 300MG SUBCUTANEOUSLY EVERY 4 WEEKS 5 03/05/19 25 aborted Wegovy 0.25 MG/0.5ML Solution Auto-injector 4 active doxycycline (MONODOX) 100 MG capsule 1 capsule (100 mg total) by Mouth/Oral Cavity route every 12 hours. 4 active bupivacaine preservative free (MARCAINE) 0.25 % injection 1 mL 1 mL, Epidural, Once, On [place] 08/07/23 at 1330, For 1 dose 4 08/07/19 24 completed triamcinolone acetonide (KENALOG-40) 40 MG/ML injection 40 mg 40 mg, Epidural, Once, On [place] 08/07/23 at 1330, For 1 dose, Shake well before use. Administer immediately after withdrawal from vial. 4 08/07/19 24 completed hydroxychloroquine (PLAQUENIL) 200 MG tablet Take 2 tablets (400 mg total) by mouth every morning with breakfast. With food or milk. 4 08/12/19 24 active alendronate (FOSAMAX) 70 MG tablet TAKE 1 [...] 2 weeks at a time 3 active gabapentin (NEURONTIN) 300 MG capsule Take 1 capsule (300 mg total) by mouth 3 (three) times a day as needed. 3 active secukinumab (COSENTYX SENSOREADY PEN) 150 MG/ML subcutaneous injection Inject 1 mL (150 mg total) under the skin. 3 05/13/19 24 active traZODone (DESYREL) 100 MG tablet TAKE 1 AND 1/2 TABLETS BY MOUTH AT BEDTIME FOR INSOMNIA 3 active lidocaine (LIDODERM) 5 % patch APPLY 2 PATCHES TOPICALLY TO THE SKIN DAILY. LEAVE ON MOST PAINFUL AREA FOR UP TO 12 HOURS 3 active ergocalciferol 55286 units Cap TAKE 1 CAPSULE BY MOUTH 1 TIME A WEEK 3 active folic acid (FOLVITE) 1 MG tablet 3 05/13/19 24 active Problems Problem Status Onset Date Problem Type Date of Resoluti on Source Bilateral hip pain active 2023-06-13 [facility] Psoriatic arthritis active 2022-06-26 [facility] Chronic bilateral low back pain with bilateral sciatica active 2023-06-13 ProblemAct [facility] Spinal stenosis of lumbar region with neurogenic claudication active 2023-08-07 ProblemAct [facility] Psoriatic arthritis active 2022-06-26 ProblemAct [facility] Spinal stenosis of lumbar region with neurogenic claudication active 2023-08-07 ProblemAct [facility] Bilateral hip pain active 2023-06-13 ProblemAct [facility] Encounters Encounter Type Encounter Reason Primary Diagnosis Location Date Ambulatory Follow-up Follow-up [facility] 11/12/2024 Ambulatory Unspecified osteoarthritis, unspecified site Unspecified osteoarthritis, unspecified site [facility] 01/27/2024 Ambulatory Arthropathic psoriasis, unspecified Arthropathic psoriasis, unspecified [facility] 08/26/2023 Ambulatory Spinal stenosis, lumbar region with neurogenic claudication Spinal stenosis, lumbar region with neurogenic claudication [facility] 08/07/2023 Ambulatory Spinal stenosis, lumbar region with neurogenic claudication Spinal stenosis, lumbar region with neurogenic claudication [facility] 06/13/2023 Ambulatory Arthropathic psoriasis, unspecified Arthropathic psoriasis, unspecified [facility] 05/13/2023 Ambulatory Lumbago with sciatica, left side Lumbago with sciatica, left side [facility] 01/21/2023 Ambulatory Unspecified osteoarthritis, unspecified site [facility] 06/26/2022 Emergency COVID+ [facility] 05/24/2021 Care Team Organization Name Specialty Phone Email Start Date End Da [facility] [place] JOHN [facility] 11/13/2024 [facility] 08/13/2023 [place] DAY LOPEZ Primary Care 06/26/2022 [facility] DAY JOHN Primary Care 04/15/202204/15 [facility] VERIFY,PCP Primary Care 2 10/13/2023 [facility] PCP VERIFY Primary Care 2 05/24/2021
--- OUTSIDE RECORDS SUMMARY | 2024-11-20 10:28 | XMS_ITS ---
Author Organization [facility] on Care Team Providers Care Rail Switch Operator Name Role Phone Nimo Allen Unavailable Unavailable Roney Fernández Unavailable Unavailable Sara Leone Unavailable Unavailable Allergies and adverse reactions No Known Allergies Care Team Name Role Address Phone Organization Dates Nimo Allen PCP [address] [place] [address], [place], [address], [place] (Office): : [facility] 08/18/2023 - 08/26/2023 Roney Fernández [address] [place], [address], [place] (Office): [facility] 08/18/2023 - 08/26/2023 Sara Leone [address] [place] [address], [address], [place] (Office): : [facility] 08/18/2023 - 08/26/2023 Immunizations Immunization Status Vaccine Details Vaccine Code CodeSystem Date Notes Pneumococcal Polysaccharide Vaccine (PPSV23) completed pneumococcal polysaccharide vaccine, 23 valent 33 CVX created date: 08/18/2023 administer ed date: 11/06/2016 Verified in [facility]. TDAP( Tetanus/Diptheria /Perutssis) completed tetanus toxoid, reduced diphtheria toxoid, and acellular pertussis vaccine, adsorbed 115 CVX created date: 08/18/2023 administer ed date: 06/19/2015 Verified in [facility]. SARS-COV-2 (COVID-19) completed SARS-COV-2 (COVID-19) vaccine, mRNA, spike protein, LNP, preservative free, 100 mcg/0.5mL dose or 50 mcg/0.25mL dose Mfg: Moderna Step 2 of Multi-step with next step required 207 CVX created date: 08/18/2023 administer ed date: 06/06/2020 Verified in [facility]. SARS-COV-2 (COVID-19) completed SARS-COV-2 (COVID-19) vaccine, mRNA, spike protein, LNP, preservative free, 100 mcg/0.5mL dose or 50 mcg/0.25mL dose Mfg: Moderna Step 1 of Multi-step with next step required 207 CVX created date: 08/18/2023 administer ed date: 05/09/2020 Verified in [facility]. SARS-COV-2 (COVID-19 BOOSTER) completed SARS-COV-2 (COVID-19) vaccine, mRNA, spike protein, LNP, bivalent, preservative free, 50 mcg/0.5 mL or 25 mcg/0.25 mL dose Mfg: Moderna Bivalent Booster 229 CVX created date: 08/18/2023 administer ed date: 12/26/2021 Verified in [facility]. SARS-COV-2 (COVID-19 BOOSTER) completed SARS-COV-2 (COVID-19) vaccine, mRNA, spike protein, LNP, preservative free, 100 mcg/0.5mL dose or 50 mcg/0.25mL dose Mfg: Moderna Booster # 1 207 CVX created date: 08/18/2023 administer ed date: 01/24/2021 Verified in [facility]. RSV, recombinant, protein subunit RSVpreF, adjuvant rec new Respiratory syncytial virus (RSV), vaccine, recombinant, protein subunit RSV prefusion F, adjuvant reconstituted, 0.5 mL, preservative free 303 CVX created date: 08/19/2023 consent date: 08/19/2023 influenza, unspecified formulation completed influenza virus vaccine, unspecified formulation 88 CVX created date: 08/18/2023 administer ed date: 11/23/2022 Verified in [facility]. COVID-19 vaccine, vector-nr, rS-Ad26, PF, 0.5 mL completed SARS-COV-2 (COVID-19) vaccine, mRNA, spike protein, LNP, preservative free, kevin-sucrose, 30 mcg/0.3 mL dose Mfg: Moderna Spikevax 309 CVX created date: 08/19/2023 consent date: 08/19/2023 administer ed date: 11/23/2022 Verified in [facility]. COVID-19 vaccine, vector-nr, rS-Ad26, PF, 0.5 mL completed SARS-COV-2 (COVID-19) vaccine, mRNA, spike protein, LNP, preservative free, 50 mcg/0.5 mL dose Mfg: Moderna Spikevax 312 CVX created date: 08/18/2023 administer ed date: 11/23/2022 Verified in [facility]. Mental Status Section Date Assessment Total Score Description 08/26/2023 CAM 0 No delirium ind icated Problems Problem # Description Date of onset Resolved Date Code CodeSystem Concern Status 1 AGE-RELATED OSTEOPOROSIS WITHOUT CURRENT PATHOLOGICAL FRACTURE 08/18/[address] active 2 ARTHROPATHIC PSORIASIS, UNSPECIFIED 08/18/[address] active 3 CHRONIC FATIGUE, UNSPECIFIED 08/18/[address] active 4 FIBROMYALGIA 08/18/[address] acti ve 5 INSOMNIA, UNSPECIFIED 08/18/[address] active 6 OBSTRUCTIVE SLEEP APNEA (ADULT) (PEDIATRIC) 08/18/[address] active 7 OTHER LOW BACK PAIN 08/18/[address] active 8 POLYOSTEOARTHRITIS, UNSPECIFIED 08/18/[address] active 9 SPINAL STENOSIS, LUMBAR REGION WITHOUT NEUROGENIC CLAUDICATION 08/18/[address] active 10 TYPE 2 DIABETES MELLITUS WITHOUT COMPLICATIONS 08/18/[address] active 11 WEDGE COMPRESSION FRACTURE OF THIRD LUMBAR VERTEBRA, SUBSEQUENT ENCOUNTER FOR FRACTURE WITH ROUTINE HEALING 08/18/[address] active Reason for Referral No Reasons for Referral Entered Social History Social History Observation Description Start Date End Date Code Code System Current Smoking Status Tobacco smoking consumption unknown 829887166 SNOMED CT Sex Assigned At Female 1960 13088-9 [facility] Gender Identity Sexual Orientation Vital Signs Code Code System Vitals Name Values and Units Timing Information 92315-2 [facility] Pain Level Value=1.0 08/26/2023 9279-1 [facility] Respiratory Rate Value=16.0 Units=/m in 08/25/2023 8462-4 [facility] Blood Pressure-Diastolic Value=66 Un its=mmHg 08/25/2023 8480-6 [facility] Blood Pressure-Systolic Mawai=336 Un its=mmHg 08/25/2023 8310-5 [facility] Body Temperature Value=97.4 Units= F 08/25/2023 8867-4 [facility] Heart rate Value=66.0 Units=/min 02/2023 28460-9 [facility] O2 % dC Oximetry Value=96.0 Units= % 08/25/2023 2339-0 [facility] Blood Sugar Dckdu=112.0 Units=mg/dL 08/25/2023 41172-2 [facility] Weight Cwjzc=636.0 Units=Lbs 8302-2 [facility] Height Value=60.0 Units=Inches 08/18/2023
--- OUTSIDE RECORDS SUMMARY | 2024-11-20 10:29 | XMS_ITS | Encounter Summary ---
Author Organization [facility] Address [address] [place] [address] Care Team Providers Care Pallet Stone Positioner Name Role Phone Alexis Murrieta MD Primary Care Provider [phone]- [phone] Encounter Details Date Type Department Care Team (Late st Contact Info) Description 11/12/2024 Orders Only [facility] Rheumatology [address] [place] [address] Alexis Murrieta MD [address] [place] [id number] Social History Tobacco Use Types Packs/Day Years Used Date Smoking Tobacco: Former Cigarettes Smokeless Tobacco: Never Alcohol Use Standard Drinks/Week Comments Yes 2 (1 standard drink = 0.6 oz pur e alcohol) [facility] - Occupational Stress [...] Description 04/12/2025 10:30 AM EST Office Visit [facility] Rheumatology [address] [place] [address] Osei Dickey MD [address] [facility] [address] [place] [address] documented as of this encounter Procedures Procedure Name Priority Date/Time Associated Diagnosis Comments IMAGING DEXA Routine 09/04/2022 2:23 PM EDT IMAGING DEXA Routine 09/04/2022 2:21 PM EDT documented in this encounter Results * Imaging Dexa (09/04/2022 2:23 PM EDT) Anatomical Region Laterality Modality Other us Alexis Murrieta MD IMG LEGACY PROCEDURES Marjorie l Result * Imaging Dexa (09/04/2022 2:21 PM EDT) Anatomical Region Laterality Modality Other us Alexis Murrieta MD IMG LEGACY PROCEDURES Marjorie l Result documented in this encounter Visit Diagnoses Not on filedocumented in this encounter Care Teams Pallet Stone Positioner Relationship Specialty Start Date End Date Alexis Murrieta MD [address] [place] [address] Dr [address] [place] [address] PCP - General Internal Medicine 02/27/22 documented as of this encounter
--- OUTSIDE RECORDS SUMMARY | 2024-11-20 10:29 | XMS_ITS | Clinical Summary ---
Author Organization [facility] Address [address] [address] Phone Care Team Providers Care Power Electronics Research Engineer Name Role Phone Alexis Murrieta MD Primary Care Provider [phone] Allergies Active Allergy Reactions Criticality Noted Date Comments Aspirin Lightheadedness 03/06/1994 Medications butalbital-acetam inophen-caffeine (FIORICET, ESGIC) 50-325-40 mg per tablet Take 1 tablet by mouth every 4 (four) hours as needed for pain (specific location in comments). Active atorvastatin (LIPITOR) 20 MG tablet Take 20 mg by mouth daily. Active clobetasol (TEMOVATE) 0.05 % ointmentIndicatio ns:Psoriatic arthritis Apply topically as needed. 45 g 01/23/20 21 Active lidocaine (LIDODERM) 5 % APPLY 1 PATCH TOPICALLY TO THE SKIN DAILY. LEAVE ON MOST PAINFUL AREA FOR UP TO 12 HOURS 04/08/19 22 Active traZODone (DESYREL) 100 MG tablet Take 100 mg by mouth nightly at bedtime as needed. 04/18/19 22 Active ergocalciferol (DRISDOL) 50,000 unit capsuleIndication s:Vitamin D insufficiency TAKE 1 CAPSULE BY MOUTH 1 TIME A WEEK 13 capsule 1 04/16/19 23 Active folic acid (FOLVITE) 1 MG tabletIndications :Psoriatic arthritis,Methotr exate, jail, current use TAKE 1 TABLET(1000 MCG) BY MOUTH DAILY 90 tablet 3 06/27/19 23 Active hydrOXYchloroQUIN E (PLAQUENIL) 200 mg tabletIndications :Psoriatic arthritis Take 1 tab daily with food if ok take 1 tab twice daily with food 60 tablet 11 09/17/19 Active Additional Information Patient taking differently: 200 mg Oral 2 times daily, (No instructions reported), Reported on 01/30/2023 gabapentin (NEURONTIN) 300 MG capsuleIndication s:Psoriatic arthritis,Chronic left-sided low back pain with left-sided sciatica,Fibromya lgia TAKE 1 CAPSULE BY MOUTH THREE TIMES DAILY NEEDED 90 capsule 3 12/04/19 Active tiZANidine (ZANAFLEX) 4 MG tablet Take 4 mg by mouth 3 (three) times a day as needed. 01/21/20 Active traMADoL (ULTRAM) 50 mg tablet TAKE 1 TO 2 TABLETS BY MOUTH TWICE DAILY NEEDED ONLY WITH ACETAMINOPHEN 1000MG 06/06/19 Active acetaminophen (TYLENOL) 500 MG tablet Take 1,000 mg by mouth every 6 (six) hours as needed for pain (specific location in comments). Take with tramadol Active secukinumab (COSENTYX) 150 mg/mL subcutaneous pen injectionIndicati ons:Psoriatic arthritis Inject 2 mL (300 mg total) under the skin every 28 days. 2 mL 01/31/20 Active methotrexate 2.5 MG Oral tabletIndications :Psoriatic arthritis TAKE 8 TABLETS BY MOUTH ONCE A WEEK 96 tablet 1` 01/31/20 Active alendronate (FOSAMAX) 70 MG tabletIndications :Age-related osteoporosis with current pathological fracture with routine healing, subsequent encounter Take 1 tablet (70 mg total) by mouth every 7 days. Take in the morning with a full glass of water, on an empty stomach, and do not take anything else by mouth or lie down for the next 30 min. 4 tablet 01/31/20 Active Active Problems Problem Noted Date Diagnosed Date Compression fracture of L3 vertebra 01/30/2023 Assessment & Plan (01/30/2023 10:09 PM EST): Due to its chronicity she is not amenable to kyphoplasty. To prevent additional compression fractures I am prescribing her bone preserving treatment with Fosamax (alendronate weekly. She was provided with pamphlet on its most frequent side effects for reference at home after reviewing them briefly in the office including but not limited to GI upset including heartburn and esophageal erosions, diarrhea, arthralgias, bone pain, fatigue, risk of atrial fibrillation and rare but possible osteonecrosis of the jaw. Spinal stenosis 01/30/2023 Assessment & Plan (01/30/2023 10:01 PM EST): Due to moderate to severe stenosis at L4-5 documented on MRI I requested spinal cortisone injection by interventional radiologist-Dr. Segundo Rucker. Avoid falls, injuries, stooping, bending, sudden turns, heavy lifting. Osteoporosis with current pa thological fracture with routine healing 01/30/2023 Assessment & Plan (01/30/2023 10:02 PM EST): Due to documented L3 compression fracture I am offering her bone preserving therapy with Fosamax (alendronate) taken weekly on an empty stomach with full 8 ounces glass of plain water and remain upright for at least 30 minutes. Proper calcium and vitamin D supplementation reviewed and strongly encouraged. Benefits of daily weightbearing exercises reviewed and strongly encouraged Class 3 severe obesity due t o excess calories with serious comorbidity and body mass index (BMI) of 45.0 to 49.9 in adult 09/16/2022 Assessment & Plan (01/30/2023 10:09 PM EST): Continue diligent portion control. Limit concentrated sugars, saturated fats and calories in the diet. Keep well-hydrated. If unable to achieve expected goal consider formal dietary/nutritional support. Assessment & Plan (09/17/2022 10:30 AM EDT): Congratulations on 2 pounds weight loss since June 2022-keep it off. Continue diligent portion control. Limit concentrated sugars, saturated fats and calories in the diet. Keep well-hydrated. If unable to achieve expected goal consider formal dietary/nutritional support. Long-term current use of secukinumab 09/16/2022 Assessment & Plan (01/30/2023 3:35 PM EST): Hold Cosentyx whenever feeling sick, running fever or taking antibiotics. Complete entire course of antibiotic and wait at least 48 hours after the last dose to make sure that infection does not recur before returning to usual every 4 weeks subcutaneous administration of Cosentyx on Friday. Avoid sick contacts. Make sure to inform any new MD, PA or BEAD FORMING MACHINE SET UP OPERATOR about chronic immunosuppression with Cosentyx and methotrexate particularly in emergency situations. Assessment & Plan (09/17/2022 10:36 AM EDT): Hold Cosentyx whenever feeling sick, running fever or taking antibiotics. Complete entire course of antibiotic and wait at least 48 hours after the last dose to make sure that infection does not recur before returning to usual every 4 weeks subcutaneous administration of Cosentyx on Friday. Avoid sick contacts. Make sure to inform any new MD, PA or BEAD FORMING MACHINE SET UP OPERATOR about chronic immunosuppression with Cosentyx and methotrexate particularly in emergency situations. Ischial bursitis of left side 07/18/2022 Assessment & Plan (07/28/2022 9:18 PM EDT): Gentle warm packs followed by stretching, massage and consideration for therapeutic ultrasound versus/and acupuncture and/or chiropractic treatments. Continue regular warm pool exercising. Consider personal cyber transport systems specialist sessions-she has list of several personal trainers from [employer] in [place], [place]-see copy in media section of [employer]. Chronic left-sided low back pain with left-sided sciatica 10/18/2021 Assessment & Plan (07/28/2022 9:12 PM EDT): Use warm packs versus warm shower prior to gentle, regular ROM, and core muscle strengthening exercises. Work on bringing her body weight as close as possible to ideal range for her height. Avoid bending, stooping, sudden turns, heavy lifting. Continue warm pool walking daily. May need to consider more aggressive measures if above strategies unsuccessful. She is scheduled to see Dr. Castellon at [facility] on 07/31/2022 Assessment & Plan (11/18/2021 3:12 PM EDT): Use warm packs versus warm shower prior to gentle, regular ROM, and core muscle strengthening exercises. Work on bringing her body weight as close as possible to ideal range for her height. Avoid bending, stooping, sudden turns, heavy lifting. Continue warm pool walking daily. May need to consider more aggressive measures if above strategies unsuccessful. Trochanteric bursitis, left hip 03/18/2021 Overview (03/18/2021): Exam consistent with Left trochanteric bursitis which is very common in pt's with OA of the hips Injection today -please see procedure note Consider IA injection under fluoroscopy If injections is ineffective or there is more joint irritability Assessment & Plan (03/18/2021 5:15 PM EST): Exam consistent with Left trochanteric bursitis which is very common in pt's with OA of the hips Injection today -please see procedure note Consider IA injection to the left hip under fluoroscopy If injections is ineffective or there is more joint irritability Myalgia 01/22/2021 Bilateral hand numbness 07/21/2020 Assessment & Plan (04/30/2021 4:07 PM EST): Cervical spine x-rays from 09/12/2020 did not reveal significant abnormalities explaining her symptoms. She is awaiting formal EMG/NCS to assess degree and origin of her problems. Assessment & Plan (09/26/2020 9:08 PM EDT): Cervical spine x-rays from 09/12/2020 did not reveal significant abnormalities explaining her symptoms. She is awaiting formal EMG/NCS to assess degree and origin of her problems. Assessment & Plan (07/21/2020 2:55 PM EDT): Cervical spine x-ray requested and formal EMG/NCS to assess degree and origin of her problems. Cutaneous abscess of chest wall 12/10/2019 Assessment & Plan (12/10/2019 4:15 PM EDT): According to her description reappearance after several years since September 2019 with tenderness to palpation and fluctuance for which she got prescription for cephalexin 500 mg every 8 hours =3 times daily for 7 days that she is educated to start tomorrow since she took methotrexate weekly dose today. I encouraged her to keep well-hydrated to let her body metabolize methotrexate properly before starting cephalexin. She is educated to hold methotrexate and Humira for at least additional 48 hours after the last dose of antibiotic to make sure that it does not recur before restarting methotrexate and Humira on their respective usual dosing schedule. Call if problems or questions. She is educated to continue probiotics while taking antibiotic and make sure to complete entire course even if abscess improved before completion of the 7-day course of cephalexin. Chronic pain of left knee 03/31/2019 Assessment & Plan (03/31/2019 1:46 PM EST): Procedure: After an informed oral consent, under sterile conditions using Ethyl chloride spray for local anesthesia I have injected 40 mg DepoMedrol and 2 cc 1% Lidocaine into Left knee from infero-medial approach uneventfully. Details of post-procedure care were explained to the patient in the office and given in writing. Skin rash 11/12/2018 Methotrexate, jail, current use 03/19/2018 Assessment & Plan (01/30/2023 10:03 PM EST): Carefully continue methotrexate 8 tabs= 20 mg weekly every Friday along with 1 mg folic acid daily except Friday Keep well-hydrated. Avoid sick contacts. Hold methotrexate whenever running fever, taking antibiotics or feeling sick. Wait 48 hours after the last dose of antibiotic before restarting regular methotrexate dosing. Remain alcohol free while taking methotrexate Use double contraception if sexually active while taking methotrexate. Inform any new , BEAD FORMING MACHINE SET UP OPERATOR, PA about chronic immunosuppression with methotrexate especially in emergency situations. Assessment & Plan (09/17/2022 10:34 AM EDT): Carefully continue methotrexate 8 tabs= 20 mg weekly every Friday along with 1 mg folic acid daily except Friday Keep well-hydrated. Avoid sick contacts. Hold methotrexate whenever running fever, taking antibiotics or feeling sick. Wait 48 hours after the last dose of antibiotic before restarting regular methotrexate dosing. Remain alcohol free while taking methotrexate Use double contraception if sexually active while taking methotrexate. Inform any new , BEAD FORMING MACHINE SET UP OPERATOR, PA about chronic immunosuppression with methotrexate especially in emergency situations. Assessment & Plan (07/28/2022 9:22 PM EDT): Carefully continue methotrexate 8 tabs= 20 mg weekly every Friday along with 1 mg folic acid daily except Friday Keep well-hydrated. Avoid sick contacts. Hold methotrexate whenever running fever, taking antibiotics or feeling sick. Wait 48 hours after the last dose of antibiotic before restarting regular methotrexate dosing. Remain alcohol free while taking methotrexate Use double contraception if sexually active while taking methotrexate. Inform any new MD, BEAD FORMING MACHINE SET UP OPERATOR, PA about chronic immunosuppression with methotrexate especially in emergency situations. Assessment & Plan (10/18/2021 5:05 PM EDT): Increase the dose to 8 tabs weekly Keep well-hydrated. Avoid sick contacts. Hold methotrexate whenever running fever, taking antibiotics or feeling sick. Wait 48 hours after the last dose of antibiotic before restarting regular methotrexate dosing. Remain alcohol free while taking methotrexate Use double contraception if sexually active while taking methotrexate. Inform any new MD, BEAD FORMING MACHINE SET UP OPERATOR, PA about chronic immunosuppression with methotrexate especially in emergency situations. Assessment & Plan (04/30/2021 4:08 PM EST): Increase the dose to 8 tabs weekly Keep well-hydrated. Avoid sick contacts. Hold methotrexate whenever running fever, taking antibiotics or feeling sick. Wait 48 hours after the last dose of antibiotic before restarting regular methotrexate dosing. Remain alcohol free while taking methotrexate Use double contraception if sexually active while taking methotrexate. Inform any new MD BEAD FORMING MACHINE SET UP OPERATOR, PA about chronic immunosuppression with methotrexate especially in emergency situations. Assessment & Plan (01/22/2021 4:46 PM EST): Increase the dose to 8 tabs weekly Keep well-hydrated. Avoid sick contacts. Hold methotrexate whenever running fever, taking antibiotics or feeling sick. Wait 48 hours after the last dose of antibiotic before restarting regular methotrexate dosing. Remain alcohol free while taking methotrexate Use double contraception if sexually active while taking methotrexate. Inform any new MD, BEAD FORMING MACHINE SET UP OPERATOR, PA about chronic immunosuppression with methotrexate especially in emergency situations. Assessment & Plan (09/20/2020 4:26 PM EDT): Take exactly as prescribed. Keep well-hydrated. Avoid sick contacts. Hold methotrexate whenever running fever, taking antibiotics or feeling sick. Wait 48 hours after the last dose of antibiotic before restarting regular methotrexate dosing. Remain alcohol free while taking methotrexate Use double contraception if sexually active while taking methotrexate. Inform any new , BEAD FORMING MACHINE SET UP OPERATOR, PA about chronic immunosuppression with methotrexate especially in emergency situations. Assessment & Plan (07/21/2020 2:58 PM EDT): Take exactly as prescribed. Keep well-hydrated. Avoid sick contacts. Hold methotrexate whenever running fever, taking antibiotics or feeling sick. Wait 48 hours after the last dose of antibiotic before restarting regular methotrexate dosing. Remain alcohol free while taking methotrexate Use double contraception if sexually active while taking methotrexate. Inform any new MD BEAD FORMING MACHINE SET UP OPERATOR, PA about chronic immunosuppression with methotrexate especially in emergency situations. Assessment & Plan (05/12/2020 4:03 PM EDT): Take exactly as prescribed. Keep well-hydrated. Avoid sick contacts. Hold methotrexate whenever running fever, taking antibiotics or feeling sick. Wait 48 hours after the last dose of antibiotic before restarting regular methotrexate dosing. Remain alcohol free while taking methotrexate Use double contraception if sexually active while taking methotrexate. Inform any new MD BEAD FORMING MACHINE SET UP OPERATOR, PA about chronic immunosuppression with methotrexate especially in emergency situations. Assessment & Plan (03/10/2020 4:03 PM EST): Take exactly as prescribed. Keep well-hydrated. Avoid sick contacts. Hold methotrexate whenever running fever, taking antibiotics or feeling sick. Wait 48 hours after the last dose of antibiotic before restarting regular methotrexate dosing. Remain alcohol free while taking methotrexate Use double contraception if sexually active while taking methotrexate. Inform any new MD BEAD FORMING MACHINE SET UP OPERATOR, PA about chronic immunosuppression with methotrexate especially in emergency situations. Assessment & Plan (12/10/2019 4:05 PM EDT): Take exactly as prescribed. Keep well-hydrated. Avoid sick contacts. Hold methotrexate whenever running fever, taking antibiotics or feeling sick. Wait 48 hours after the last dose of antibiotic before restarting regular methotrexate dosing. Remain alcohol free while taking methotrexate Use double contraception if sexually active while taking methotrexate. Inform any new MD BEAD FORMING MACHINE SET UP OPERATOR, PA about chronic immunosuppression with methotrexate especially in emergency situations. Assessment & Plan (09/03/2019 3:59 PM EDT): Take exactly as prescribed. Keep well-hydrated. Avoid sick contacts. Hold methotrexate whenever running fever, taking antibiotics or feeling sick. Wait 48 hours after the last dose of antibiotic before restarting regular methotrexate dosing. Remain alcohol free while taking methotrexate Use double contraception if sexually active while taking methotrexate. Inform any new MD, BEAD FORMING MACHINE SET UP OPERATOR, PA about chronic immunosuppression with methotrexate especially in emergency situations. Assessment & Plan (04/29/2019 4:42 PM EST): Take exactly as prescribed. Keep well-hydrated. Avoid sick contacts. Hold methotrexate whenever running fever, taking antibiotics or feeling sick. Wait 48 hours after the last dose of antibiotic before restarting regular methotrexate dosing. Remain alcohol free while taking methotrexate Use double contraception if sexually active while taking methotrexate. Inform any new CARMINE BROOKS, PA about chronic immunosuppression with methotrexate especially in emergency situations. Assessment & Plan (03/31/2019 1:58 PM EST): Take exactly as prescribed. Keep well-hydrated. Avoid sick contacts. Hold methotrexate whenever running fever, taking antibiotics or feeling sick. Wait 48 hours after the last dose of antibiotic before restarting regular methotrexate dosing. Remain alcohol free while taking methotrexate Use double contraception if sexually active while taking methotrexate. Inform any new CARMINE BROOKS, PA about chronic immunosuppression with methotrexate especially in emergency situations. Assessment & Plan (02/19/2019 8:55 PM EST): Take exactly as prescribed. Keep well-hydrated. Avoid sick contacts. Hold methotrexate whenever running fever, taking antibiotics or feeling sick. Wait 48 hours after the last dose of antibiotic before restarting regular methotrexate dosing. Remain alcohol free while taking methotrexate Use double contraception if sexually active while taking methotrexate. Inform any new CARMINE BROOKS, PA about chronic immunosuppression with methotrexate especially in emergency situations. Assessment & Plan (10/25/2018 11:43 AM EDT): Take exactly as prescribed. Keep well-hydrated. Avoid sick contacts. Hold methotrexate whenever running fever, taking antibiotics or feeling sick. Wait 48 hours after the last dose of antibiotic before restarting regular methotrexate dosing. Remain alcohol free while taking methotrexate Use double contraception if sexually active while taking methotrexate. Inform any new MD BEAD FORMING MACHINE SET UP OPERATOR, PA about chronic immunosuppression with methotrexate especially in emergency situations. Assessment & Plan (07/02/2018 11:15 PM EDT): Take exactly as prescribed. Keep well-hydrated. Avoid sick contacts. Hold methotrexate whenever running fever, taking antibiotics or feeling sick. Remain alcohol free while taking methotrexate Use double contraception if sexually active while taking methotrexate. Inform any new CARMINE BROOKS, PA about chronic immunosuppression with methotrexate especially in emergency situations. Assessment & Plan (05/06/2018 11:14 PM EDT): Take exactly as prescribed. Keep well-hydrated. Avoid sick contacts. Hold methotrexate whenever running fever, taking antibiotics or feeling sick. Remain alcohol free while taking methotrexate Use double contraception if sexually active while taking methotrexate. Inform any new MD, BEAD FORMING MACHINE SET UP OPERATOR, PA about chronic immunosuppression with methotrexate especially in emergency situations. NSAID long-term use 01/29/2018 Assessment & Plan (10/18/2021 5:05 PM EDT): Take the lowest dose, with least frequency, for shortest time. Remember to take it always with food. Favor topical over oral preparations. Assessment & Plan (04/30/2021 4:08 PM EST): Take the lowest dose, with least frequency, for shortest time. Remember to take it always with food. Favor topical over oral preparations. Assessment & Plan (02/13/2021 6:39 PM EST): Take the lowest dose, with least frequency, for shortest time. Remember to take it always with food. Favor topical over oral preparations. Assessment & Plan (09/20/2020 4:26 PM EDT): Take the lowest dose, with least frequency, for shortest time. Remember to take it always with food. Favor topical over oral preparations. Assessment & Plan (07/21/2020 2:58 PM EDT): Take the lowest dose, with least frequency, for shortest time. Remember to take it always with food. Favor topical over oral preparations. Assessment & Plan (05/12/2020 4:03 PM EDT): Take the lowest dose, with least frequency, for shortest time. Remember to take it always with food. Favor topical over oral preparations. Assessment & Plan (03/10/2020 4:03 PM EST): Take the lowest dose, with least frequency, for shortest time. Remember to take it always with food. Favor topical over oral preparations. Assessment & Plan (12/10/2019 4:05 PM EDT): Take the lowest dose, with least frequency, for shortest time. Remember to take it always with food. Favor topical over oral preparations. Assessment & Plan (09/03/2019 3:58 PM EDT): Take the lowest dose, with least frequency, for shortest time. Remember to take it always with food. Favor topical over oral preparations. Assessment & Plan (04/29/2019 4:43 PM EST): Take the lowest dose, with least frequency, for shortest time. Remember to take it always with food. Favor topical over oral preparations. Assessment & Plan (03/31/2019 1:59 PM EST): Take the lowest dose, with least frequency, for shortest time. Remember to take it always with food. Favor topical over oral preparations. Assessment & Plan (02/19/2019 8:55 PM EST): Take the lowest dose, with least frequency, for shortest time. Remember to take it always with food. Favor topical over oral preparations. Assessment & Plan (10/25/2018 11:43 AM EDT): Take the lowest dose, with least frequency, for shortest time. Remember to take it always with food. Favor topical over oral preparations. Assessment & Plan (07/02/2018 11:14 PM EDT): Take the lowest dose, with least frequency, for shortest time. Remember to take it always with food. Favor topical over oral preparations. Assessment & Plan (05/06/2018 11:13 PM EDT): Take the lowest dose, with least frequency, for shortest time. Remember to take it always with food. Favor topical over oral preparations. Psoriatic arthritis 07/24/2017 Assessment & Plan (01/30/2023 10:11 PM EST): Monitoring labs requested today and prior to next visit in 3 months and standing orders in [facility]. Carefully continue weekly oral methotrexate for Friday and daily folic acid except for the day of weekly methotrexate dose. Carefully continue Cosentyx 300 mg subcutaneously every 4 weeks on Friday. Continue Plaquenil 200 mg twice daily. I have educated her to follow-up with her expansion joint finisher within 12 months of starting Plaquenil. Keep well-hydrated. Gentle, regular stretching and strengthening exercises after warm pack in addition to weekly chiropractic treatments that appear helpful. Avoid falls, injuries and sick contacts. Get the labs prior to next visit in 3 mths. Call with questions or problems in the interim. Assessment & Plan (09/17/2022 10:34 AM EDT): Carefully continue weekly oral methotrexate for Friday and daily folic acid except for the day of weekly methotrexate dose. Carefully continue Cosentyx 300 mg subcutaneously every 4 weeks on Friday. Felicita is interested in optimizing her DMARD therapy and agrees to add Plaquenil 200 mg daily for a week and if no side effects continue at 200 mg twice daily. I reviewed with her most frequent side effects of Plaquenil including GI disturbance, skin discoloration, increased sun photosensitivity and rare but possible retinopathy, cardiomyopathy or neuropathy. She was provided with pamphlet on its side effects for review and keep as a reference at home. I have educated her to follow-up with her expansion joint finisher within 12 months of starting Plaquenil. Keep well-hydrated. Continue daily walking in a pool and gentle, regular ROM, retching and muscle strengthening exercises in addition to weekly chiropractic treatments that appear helpful. Avoid falls, injuries and sick contacts. Get the labs prior to next visit in 4 mths. Call with questions or problems in the interim. Assessment & Plan (07/28/2022 9:20 PM EDT): Carefully continue weekly oral methotrexate and daily folic acid except for the day of weekly methotrexate dose. Due to difficulty affording Taltz I have provided her with different therapeutic options in its place such as Cosentyx, Tremfya versus Stelara-she is asked to read the pamphlets, write her questions and check her insurance formulary for coverage. She is applying for [employer] financial assistance by [employer] Start Form that I have filled for her during the visit and faxed to at 4:41 PM- see details in media section of epic. Due to severe pain, stiffness and swelling in her joints that prevents her from sleeping and functioning at home she requests short prednisone taper understanding that it will increase her glucose in the serum and may require additional monitoring/adjustments in antidiabetic therapy. I provided her with prescription for prednisone 5 mg #18 to be taken 15 mg 3 days with breakfast, 10 mg 3 days, 5 mg 3 days. Keep well-hydrated. Avoid sick contacts. Get the labs prior to next visit in 2 mths. Call with questions or problems in the interim. Assessment & Plan (11/18/2021 3:10 PM EDT): Carefully continue weekly oral methotrexate and daily meloxicam as prescribed along with folic acid daily except for the day of weekly methotrexate dose. Due to difficulty affording Taltz I have provided her with different therapeutic options in its place such as Cosentyx, Tremfya versus Stelara-she is asked to read the pamphlets, write her questions and check her insurance formulary for coverage. Keep well-hydrated. Avoid sick contacts. Get the labs prior to next visit in 4 mths. Call with questions or problems in the interim. Assessment & Plan (04/30/2021 4:03 PM EST): Carefully continue weekly oral methotrexate and daily meloxicam as prescribed along with folic acid daily except for the day of weekly methotrexate dose. Due to inability to afford Taltz I am providing her with different therapeutic options in its place such as Cosentyx, Tremfya versus Stelara-she is asked to read the pamphlets, write her questions and check her insurance formulary for coverage. Keep well-hydrated. Avoid sick contacts. Get the labs prior to next visit in 3 mths. Call with questions or problems in the interim. Assessment & Plan (02/13/2021 6:38 PM EST): Carefully continue weekly oral methotrexate and daily meloxicam as prescribed along with folic acid daily except for the day of weekly methotrexate dose. Due to inability to afford Taltz I am providing her with different therapeutic options in its place such as Cosentyx, Tremfya versus Stelara-she is asked to read the pamphlets, write her questions and check her insurance formulary for coverage. Keep well-hydrated. Avoid sick contacts. Get the labs prior to next visit in 3 mths. Call with questions or problems in the interim. Assessment & Plan (09/26/2020 9:05 PM EDT): Carefully continue 80 mg Taltz (ixekizumab) subcutaneously every 4 wks along with weekly oral methotrexate and daily meloxicam as prescribed along with folic acid daily except for the day of weekly methotrexate dose. I suggested her to rearrange the days of week for her methotrexate and Taltz and separate it from weekly vitamin D. For example she can take vitamin D every Friday, Taltz every 4 weeks on Friday and methotrexate every week on Friday. It may be easier to monitor for possible side effects and their relation to specific medications. Keep well-hydrated. Avoid sick contacts. Get the labs prior to next visit in 2 mths. Call with questions or problems in the interim. Assessment & Plan (07/21/2020 2:54 PM EDT): Carefully continue 80 mg Taltz (ixekizumab) subcutaneously every 4 wks along with weekly oral methotrexate and daily meloxicam as prescribed along with folic acid daily except for the day of weekly methotrexate dose. Keep well-hydrated. Avoid sick contacts. Get the labs prior to next visit in 2 mths. Call with questions or problems in the interim. Assessment & Plan (05/21/2020 2:09 PM EDT): Carefully continue 80 mg Taltz (ixekizumab) subcutaneously every 4 wks along with weekly oral methotrexate and daily meloxicam as prescribed along with folic acid daily except for the day of weekly methotrexate dose. Keep well-hydrated. Avoid sick contacts. I have reassured Felicita that there is very low likelihood of her merline COVID-19 while coming to lab for monitoring blood tests since every healthcare worker is practicing social distancing, wearing facial mask and using only disposable syringes and needles for testing. There is ample time between the patients to clean the equipment and rooms used for examining and blood collecting. Get the labs prior to next visit in 2 mths. We discussed the plan to see me in the office next time in 2 months to evaluate her left leg weakness. Call with questions or problems in the interim. Assessment & Plan (03/10/2020 4:01 PM EST): Carefully start 80 mg Taltz (ixekizumab) subcutaneous every 4 wks along with weekly oral methotrexate and daily meloxicam as prescribed along with folic acid daily except for the day of weekly methotrexate dose. Keep well-hydrated. Avoid sick contacts. I have reassured Felicita that there is very low likelihood of her merline COVID-19 while coming to lab for monitoring blood tests since every healthcare worker is practicing social distancing, wearing facial mask and using only disposable syringes and needles for testing. There is ample time between the patients to clean the equipment and rooms used for examining and blood collecting. Get the labs prior to next visit in 2 mths. We discussed the plan to see me in the office next time in 2 months to evaluate her left leg weakness. Call with questions or problems in the interim. Assessment & Plan (12/10/2019 4:19 PM EDT): Carefully continue subcutaneous Humira every 14 days along with weekly oral methotrexate and daily meloxicam as prescribed along with folic acid daily except for the day of weekly methotrexate dose. She agrees to continue Humira subcutaneously every 14 days since she gets some days here and there that she has less difficulty walking since September/early October 2019. Keep well-hydrated. Avoid sick contacts. I have reassured Felicita that there is very low likelihood of her merline COVID-19 while coming to lab for monitoring blood tests since every healthcare worker is practicing social distancing, wearing facial mask and using only disposable syringes and needles for testing. There is ample time between the patients to clean the equipment and rooms used for examining and blood collecting. Get the labs prior to next visit in 2 mths. We discussed the plan to see me in the office next time in 2 months to evaluate her left leg weakness. Call with questions or problems in the interim. Assessment & Plan (09/03/2019 4:16 PM EDT): Carefully continue subcutaneous Humira every 14 days along with weekly oral methotrexate and daily meloxicam as prescribed along with folic acid daily except for the day of weekly methotrexate dose. She agrees to continue Humira subcutaneously every 14 days for additional 4 months to complete 6 months of therapy as long as she is not getting worsening joint or skin issues or other signs of intolerance. Keep well-hydrated. Avoid sick contacts. I have reassured Felicita that there is very low likelihood of her merline COVID-19 while coming to lab for monitoring blood tests since every healthcare worker is practicing social distancing, wearing facial mask and using only disposable syringes and needles for testing. There is ample time between the patients to clean the equipment and rooms used for examining and blood collecting. Get the labs today and prior to next visit in 3 mths. Call with questions or problems in the interim. Assessment & Plan (05/02/2019 11:28 PM EDT): Carefully continue weekly methotrexate and daily meloxicam as prescribed along with folic acid daily except for the day of weekly methotrexate dose. Carefully continue every 4 weeks Cimzia provided no fevers, feeling sick or taking antibiotics. Due to poor response to Cimzia administered over the last 6 months I suggested her to switch to subcutaneous Humira every 14 days. Keep well-hydrated. Avoid sick contacts. Get the labs today and prior to next visit in 2 mths. Call with questions or problems in the interim. Assessment & Plan (03/31/2019 1:57 PM EST): Carefully continue weekly methotrexate and daily meloxicam as prescribed along with folic acid daily except for the day of weekly methotrexate dose. Carefully continue every 4 weeks Cimzia provided no fevers, feeling sick or taking antibiotics. Keep well-hydrated. Avoid sick contacts. Get the labs today and prior to next visit in 3 mths. Call with questions or problems in the interim. Assessment & Plan (02/19/2019 9:06 PM EST): Carefully continue weekly methotrexate and daily meloxicam as prescribed along with folic acid daily except for the day of weekly methotrexate dose. Carefully continue every 4 weeks Cimzia provided no fevers, feeling sick or taking antibiotics. Keep well-hydrated. Avoid sick contacts. Get the labs today and prior to next visit in 3 mths. On patient's request I agreed to inject her right buttock with a mixture of Depo-Medrol and lidocaine to shorten current flare: Procedure: After an informed oral consent, under sterile conditions using Ethyl chloride spray for local anesthesia I have injected 40 mg DepoMedrol and 2 cc 1% Lidocaine into outer upper quadrant of Right buttock uneventfully. Call with questions or problems in the interim. Assessment & Plan (10/25/2018 11:47 AM EDT): Carefully continue weekly methotrexate and daily meloxicam as prescribed along with folic acid daily except for the day of weekly methotrexate dose. Keep well-hydrated. Avoid sick contacts. Check with her PCP-Dr. Murrieta which pneumonia vaccine she should receive now ( Prevnar or Pneumovax) and get Shingrix vaccine first dose prior to starting Cimzia and hold methotrexate x 14 days after vaccination to allow for immunity to develop. Get the labs today and prior to next visit in 2 mths. Call with questions or problems in the interim. Due to her scary experience with Humira subcutaneous injections I am offering her to bring Cimzia to the office and inject the 1st dose under our supervision and be observed for at least 30-minutes following it. Get the yearly influenza vaccination by mid November 2018. Assessment & Plan (07/02/2018 11:12 PM EDT): Carefully continue weekly methotrexate and daily meloxicam as prescribed along with folic acid daily except for the day of weekly methotrexate dose. Keep well-hydrated. Avoid sick contacts. Check with her PCP-Dr. Murrieta which pneumonia vaccine she should receive now ( Prevnar or Pneumovax) and get Shingrix vaccine first dose prior to starting Cimzia and hold methotrexate x 14 days after vaccination to allow for immunity to develop. Get the labs prior to next visit in 6 wks. Call with questions or problems in the interim. Due to her scary experience with Humira subcutaneous injections I am offering her to bring Cimzia to the office and inject the 1st dose under our supervision and be observed for at least 30-minutes following it. Assessment & Plan (05/06/2018 11:12 PM EDT): Carefully continue weekly methotrexate and daily meloxicam as prescribed along with folic acid daily except for the day of weekly methotrexate dose. Keep well-hydrated. Avoid sick contacts. Get the labs prior to next visit in 2 months. Call with questions or problems in the interim. Due to her scary experience with Humira subcutaneous injections I am offering her to bring Enbrel to the office and inject the first dose under our supervision and be observed for at least 30-minutes following it. Fibromyalgia 07/24/2017 Assessment & Plan (01/30/2023 10:04 PM EST): Balance rest and activity. Gentle, regular exercise routine. Regular involvement in hobbies/favorite activities. Avoid falls, injuries, overuse. Well-balanced nutritionally diet. Proper hydration. Follow mindfulness approach on daily basis as described in book written by Dr Jose L Jacob [facility] -I previously sent her pamphlet on fibromyalgia with useful websites to collaborate and share information with other fibromyalgia patients if interested. Another book that may help her manage chronic pain is written by Dr. She Glaser Managing your pain before it manages you Assessment & Plan (09/17/2022 10:34 AM EDT): Balance rest and activity. Gentle, regular exercise routine. Regular involvement in hobbies/favorite activities. Avoid falls, injuries, overuse. Well-balanced nutritionally diet. Proper hydration. Follow mindfulness approach on daily basis as described in book written by Dr Jose L [facility] -I previously sent her pamphlet on fibromyalgia with useful websites to collaborate and share information with other fibromyalgia patients if interested. Assessment & Plan (07/28/2022 9:11 PM EDT): Balance rest and activity. Gentle, regular exercise routine. Regular involvement in hobbies/favorite activities. Avoid falls, injuries, overuse. Well-balanced nutritionally diet. Proper hydration. Follow mindfulness approach on daily basis as described in book written by Dr Jose L Jacob [facility] -I previously sent her pamphlet on fibromyalgia with useful websites to collaborate and share information with other fibromyalgia patients if interested. Assessment & Plan (10/18/2021 5:04 PM EDT): Balance rest and activity. Gentle, regular exercise routine. Regular involvement in hobbies/favorite activities. Avoid falls, injuries, overuse. Well-balanced nutritionally diet. Proper hydration. Follow mindfulness approach on daily basis as described in book written by Dr Jose L [facility] -I previously sent her pamphlet on fibromyalgia with useful websites to collaborate and share information with other fibromyalgia patients if interested. Assessment & Plan (04/30/2021 4:07 PM EST): Balance rest and activity. Gentle, regular exercise routine. Regular involvement in hobbies/favorite activities. Avoid falls, injuries, overuse. Well-balanced nutritionally diet. Proper hydration. Follow mindfulness approach on daily basis as described in book written by Dr Jose L [facility] -I previously sent her pamphlet on fibromyalgia with useful websites to collaborate and share information with other fibromyalgia patients if interested. Assessment & Plan (02/13/2021 6:42 PM EST): Balance rest and activity. Gentle, regular exercise routine. Regular involvement in hobbies/favorite activities. Avoid falls, injuries, overuse. Well-balanced nutritionally diet. Proper hydration. Follow mindfulness approach on daily basis as described in book written by Dr Jose L [facility] -I previously sent her pamphlet on fibromyalgia with useful websites to collaborate and share information with other fibromyalgia patients if interested. Assessment & Plan (09/20/2020 4:27 PM EDT): Balance rest and activity. Gentle, regular exercise routine. Regular involvement in hobbies/favorite activities. Avoid falls, injuries, overuse. Well-balanced nutritionally diet. Proper hydration. Carefully continue Soma and follow mindfulness approach on daily basis. She would benefit from reading book written by Dr Jose L garza adressing management strategies for patients with fibromyalgia utilizing mindfulness approach-I sent her pamphlet on fibromyalgia with useful websites to collaborate and share information with other fibromyalgia patients if interested. Assessment & Plan (07/21/2020 2:55 PM EDT): Balance rest and activity. Gentle, regular exercise routine. Regular involvement in hobbies/favorite activities. Avoid falls, injuries, overuse. Well-balanced nutritionally diet. Proper hydration. Carefully continue Soma and follow mindfulness approach on daily basis. She would benefit from reading book written by Dr Jose L [facility] adressing management strategies for patients with fibromyalgia utilizing mindfulness approach-I sent her pamphlet on fibromyalgia with useful websites to collaborate and share information with other fibromyalgia patients if interested. Assessment & Plan (05/12/2020 4:03 PM EDT): Balance rest and activity. Gentle, regular exercise routine. Regular involvement in hobbies/favorite activities. Avoid falls, injuries, overuse. Well-balanced nutritionally diet. Proper hydration. Carefully continue Soma and follow mindfulness approach on daily basis. She would benefit from reading book written by Dr Jose L [facility] adressing management strategies for patients with fibromyalgia utilizing mindfulness approach-I sent her pamphlet on fibromyalgia with useful websites to collaborate and share information with other fibromyalgia patients if interested. Assessment & Plan (03/10/2020 4:03 PM EST): Balance rest and activity. Gentle, regular exercise routine. Regular involvement in hobbies/favorite activities. Avoid falls, injuries, overuse. Well-balanced nutritionally diet. Proper hydration. Carefully continue Soma and follow mindfulness approach on daily basis. Assessment & Plan (12/10/2019 4:05 PM EDT): Balance rest and activity. Gentle, regular exercise routine. Regular involvement in hobbies/favorite activities. Avoid falls, injuries, overuse. Well-balanced nutritionally diet. Proper hydration. Carefully continue Soma and follow mindfulness approach on daily basis. Assessment & Plan (09/03/2019 3:57 PM EDT): Balance rest and activity. Gentle, regular exercise routine. Regular involvement in hobbies/favorite activities. Avoid falls, injuries, overuse. Well-balanced nutritionally diet. Proper hydration. Carefully continue Soma and follow mindfulness approach on daily basis. Assessment & Plan (05/02/2019 11:28 PM EDT): Balance rest and activity. Gentle, regular exercise routine. Regular involvement in hobbies/favorite activities. Avoid falls, injuries, overuse. Well-balanced nutritionally diet. Proper hydration. Carefully continue Soma and follow mindfulness approach on daily basis. Assessment & Plan (02/19/2019 8:54 PM EST): Balance rest and activity. Gentle, regular exercise routine. Regular involvement in hobbies/favorite activities. Avoid falls, injuries, overuse. Well-balanced nutritionally diet. Proper hydration. Carefully continue Soma and follow mindfulness approach on daily basis. Assessment & Plan (10/25/2018 11:42 AM EDT): Balance rest and activity. Gentle, regular exercise routine. Regular involvement in hobbies/favorite activities. Avoid falls, injuries, overuse. Well-balanced nutritionally diet. Proper hydration. Carefully continue Soma and follow mindfulness approach on daily basis. Assessment & Plan (07/02/2018 11:13 PM EDT): Balance rest and activity. Gentle, regular exercise routine. Regular involvement in hobbies/favorite activities. Avoid falls, injuries, overuse. Well-balanced nutritionally diet. Proper hydration. Carefully continue Soma and follow mindfulness approach on daily basis. Assessment & Plan (05/06/2018 11:12 PM EDT): Balance rest and activity. Gentle, regular exercise routine. Regular involvement in hobbies/favorite activities. Avoid falls, injuries, overuse. Well-balanced nutritionally diet. Proper hydration. Carefully continue Soma and follow mindfulness approach on daily basis. Primary osteoarthritis involving multiple joints 07/24/2017 Assessment & Plan (01/30/2023 3:35 PM EST): Joint protection, energy conservation. Avoid falls, injuries, overuse. Gentle, regular exercise routine as tolerated. Topical cream versus patch as needed. Assistive devices and splints as needed. Work on reducing body weight as close as possible to ideal range for her height. Felicita is concerned about increasing difficulty walking and is interested in discussing more aggressive options so she can enjoy walking again. She would benefit from regular warm pool exercising such as at [facility] in [place], [place]. Assessment & Plan (09/16/2022 4:30 PM EDT): Joint protection, energy conservation. Avoid falls, injuries, overuse. Gentle, regular exercise routine as tolerated. Topical cream versus patch as needed. Assistive devices and splints as needed. Work on reducing body weight as close as possible to ideal range for her height. Felicita is concerned about increasing difficulty walking and is interested in discussing more aggressive options so she can enjoy walking again. She would benefit from regular warm pool exercising such as at [place], [place]. Assessment & Plan (07/28/2022 9:11 PM EDT): Joint protection, energy conservation. Avoid falls, injuries, overuse. Gentle, regular exercise routine as tolerated. Topical cream versus patch as needed. Assistive devices and splints as needed. Work on reducing body weight as close as possible to ideal range for her height. Felicita is concerned about increasing difficulty walking and is interested in discussing more aggressive options so she can enjoy walking again. She would benefit from regular warm pool exercising such as at [place], [place]. Assessment & Plan (10/18/2021 5:03 PM EDT): Joint protection, energy conservation. Avoid falls, injuries, overuse. Gentle, regular exercise routine as tolerated. Topical cream versus patch as needed. Assistive devices and splints as needed. Work on reducing body weight as close as possible to ideal range for her height. Felicita is concerned about increasing difficulty walking and is interested in discussing more aggressive options so she can enjoy walking again. She would benefit from regular warm pool exercising such as at [place], [place]. Assessment & Plan (02/13/2021 6:38 PM EST): Joint protection, energy conservation. Avoid falls, injuries, overuse. Gentle, regular exercise routine as tolerated. Topical cream versus patch as needed. Assistive devices and splints as needed. Work on reducing body weight as close as possible to ideal range for her height. Felicita is concerned about increasing difficulty walking and is interested in discussing more aggressive options so she can enjoy walking again. She would benefit from regular warm pool exercising such as at [place], [place]. Assessment & Plan (09/20/2020 4:25 PM EDT): Joint protection, energy conservation. Avoid falls, injuries, overuse. Gentle, regular exercise routine as tolerated. Topical cream versus patch as needed. Assistive devices and splints as needed. Work on reducing body weight as close as possible to ideal range for her height. Felicita is concerned about increasing difficulty walking and is interested in discussing more aggressive options so she can enjoy walking again. Assessment & Plan (07/21/2020 2:54 PM EDT): Joint protection, energy conservation. Avoid falls, injuries, overuse. Gentle, regular exercise routine as tolerated. Topical cream versus patch as needed. Assistive devices and splints as needed. Work on reducing body weight as close as possible to ideal range for her height. Felicita is concerned about increasing difficulty walking and is interested in discussing more aggressive options so she can enjoy walking again. Assessment & Plan (05/12/2020 4:06 PM EDT): Joint protection, energy conservation. Avoid falls, injuries, overuse. Gentle, regular exercise routine as tolerated. Topical cream versus patch as needed. Assistive devices and splints as needed. Work on reducing body weight as close as possible to ideal range for her height. Felicita is concerned about increasing difficulty walking and is interested in discussing more aggressive options so she can enjoy walking again. Assessment & Plan (03/10/2020 4:02 PM EST): Joint protection, energy conservation. Avoid falls, injuries, overuse. Gentle, regular exercise routine as tolerated. Topical cream versus patch as needed. Assistive devices and splints as needed. Work on reducing body weight as close as possible to ideal range for her height. Assessment & Plan (12/10/2019 4:04 PM EDT): Joint protection, energy conservation. Avoid falls, injuries, overuse. Gentle, regular exercise routine as tolerated. Topical cream versus patch as needed. Assistive devices and splints as needed. Work on reducing body weight as close as possible to ideal range for her height. Assessment & Plan (09/03/2019 3:57 PM EDT): Joint protection, energy conservation. Avoid falls, injuries, overuse. Gentle, regular exercise routine as tolerated. Topical cream versus patch as needed. Assistive devices and splints as needed. Work on reducing body weight as close as possible to ideal range for her height. Assessment & Plan (04/29/2019 4:42 PM EST): Joint protection, energy conservation. Avoid falls, injuries, overuse. Gentle, regular exercise routine as tolerated. Topical cream versus patch as needed. Assistive devices and splints as needed. Work on reducing body weight as close as possible to ideal range for her height. Assessment & Plan (03/31/2019 1:48 PM EST): Joint protection, energy conservation. Avoid falls, injuries, overuse. Gentle, regular exercise routine as tolerated. Topical cream versus patch as needed. Assistive devices and splints as needed. Work on reducing body weight as close as possible to ideal range for her height. Assessment & Plan (02/19/2019 9:06 PM EST): Joint protection, energy conservation. Avoid falls, injuries, overuse. Gentle, regular exercise routine as tolerated. Topical cream versus patch as needed. Assistive devices and splints as needed. Work on reducing body weight as close as possible to ideal range for her height. On patient's request I agreed to inject her right knee with a mixture of Depo- Medrol and lidocaine: Procedure: After an informed oral consent, under sterile conditions using Ethyl chloride spray for local anesthesia I have injected 40 mg DepoMedrol and 2 cc 1% Lidocaine into Right knee from infero-medial approach uneventfully. Details of post-procedure care were explained to the patient in the office and given in writing. Assessment & Plan (10/25/2018 11:42 AM EDT): Joint protection, energy conservation. Avoid falls, injuries, overuse. Gentle, regular exercise routine as tolerated. Topical cream versus patch as needed. Assistive devices and splints as needed. Work on reducing body weight as close as possible to ideal range for her height. Consider formal physical therapy versus local steroid injection if not better or worse Assessment & Plan (07/02/2018 11:12 PM EDT): Joint protection, energy conservation. Avoid falls, injuries, overuse. Gentle, regular exercise routine as tolerated. Topical cream versus patch as needed. Assistive devices and splints as needed. Consider formal physical therapy versus local steroid injection if not better or worse Assessment & Plan (05/06/2018 11:12 PM EDT): Joint protection, energy conservation. Avoid falls, injuries, overuse. Gentle, regular exercise routine as tolerated. Topical cream versus patch as needed. Assistive devices and splints as needed. Consider formal physical therapy versus local steroid injection if not better or worse ROBLES on CPAP 07/24/2017 Assessment & Plan (10/18/2021 5:05 PM EDT): Continue nightly CPAP as instructed Work on bringing body weight as close as possible to ideal range for her height. Assessment & Plan (04/30/2021 4:08 PM EST): Continue nightly CPAP as instructed Work on bringing body weight as close as possible to ideal range for her height. Assessment & Plan (01/22/2021 4:48 PM EST): Continue nightly CPAP as instructed Work on bringing body weight as close as possible to ideal range for her height. Assessment & Plan (09/20/2020 4:25 PM EDT): Continue nightly CPAP as instructed Work on bringing body weight as close as possible to ideal range for her height. Assessment & Plan (07/21/2020 2:51 PM EDT): Continue nightly CPAP as instructed Work on bringing body weight as close as possible to ideal range for her height. Assessment & Plan (05/12/2020 3:59 PM EDT): Continue nightly CPAP as instructed Work on bringing body weight as close as possible to ideal range for her height. Assessment & Plan (03/10/2020 4:02 PM EST): Continue nightly CPAP as instructed Work on bringing body weight as close as possible to ideal range for her height. Assessment & Plan (12/10/2019 4:01 PM EDT): Continue nightly CPAP as instructed Work on bringing body weight as close as possible to ideal range for her height. Assessment & Plan (09/03/2019 3:54 PM EDT): Continue nightly CPAP as instructed Work on bringing body weight as close as possible to ideal range for her height. Assessment & Plan (04/29/2019 4:43 PM EST): Continue nightly CPAP as instructed Work on bringing body weight as close as possible to ideal range for her height. Assessment & Plan (03/31/2019 2:01 PM EST): Continue nightly CPAP as instructed Work on bringing body weight as close as possible to ideal range for her height. Assessment & Plan (02/19/2019 8:52 PM EST): Continue nightly CPAP as instructed Work on bringing body weight as close as possible to ideal range for her height. Assessment & Plan (10/25/2018 11:36 AM EDT): Continue nightly CPAP as instructed Work on bringing body weight as close as possible to ideal range for her height. Assessment & Plan (07/02/2018 11:06 PM EDT): Continue nightly CPAP as instructed Work on bringing body weight as close as possible to ideal range for her height. Assessment & Plan (05/06/2018 11:08 PM EDT): Continue nightly CPAP as instructed Work on bringing body weight as close as possible to ideal range for her height. Type 2 diabetes mellitus without complication Assessment & Plan (07/28/2022 9:05 PM EDT): Keep blood glucose in 90-110 mg % Limit or eliminate concentrated sugars from the diet. Close follow-up with PCP/diabetic nurse educator/funeral driver as scheduled. Assessment & Plan (05/12/2020 4:00 PM EDT): Keep blood glucose in 90-110 mg % Limit or eliminate concentrated sugars from the diet. Close follow-up with PCP/diabetic nurse educator/funeral driver as scheduled. Assessment & Plan (03/10/2020 4:02 PM EST): Keep blood glucose in 90-110 mg % Limit or eliminate concentrated sugars from the diet. Close follow-up with PCP/diabetic nurse educator/funeral driver as scheduled. Assessment & Plan (09/03/2019 3:55 PM EDT): Keep blood glucose in 90-110 mg % Limit or eliminate concentrated sugars from the diet. Close follow-up with PCP/diabetic nurse educator/funeral driver as scheduled. Assessment & Plan (04/18/2019 7:50 PM EST): Keep blood glucose in 90-110 mg % Limit or eliminate concentrated sugars from the diet. Close follow-up with PCP/diabetic nurse educator/funeral driver as scheduled. Assessment & Plan (10/25/2018 11:36 AM EDT): Keep blood glucose in 90-110 mg % Limit or eliminate concentrated sugars from the diet. Close follow-up with PCP/diabetic nurse educator/funeral driver as scheduled. Assessment & Plan (07/02/2018 11:07 PM EDT): Keep blood glucose in 90-110 mg % Limit or eliminate concentrated sugars from the diet. Close follow-up with PCP/diabetic nurse educator/funeral driver as scheduled. Assessment & Plan (05/06/2018 11:09 PM EDT): Keep blood glucose in 90-110 mg % Limit or eliminate concentrated sugars from the diet. Close follow-up with PCP/diabetic nurse educator/funeral driver as scheduled. director long term care prescription opiate use 07/24/2017 Assessment & Plan (09/20/2020 4:27 PM EDT): Take exactly as prescribed, try to limit frequency by employing non-for pharmacologic measures such as topical creams, warm packs, patches, regular relaxation/mediation/positive imagery sessions etc. Build up regular exercise routine up to the goal of 30-45 minutes daily. Monitor for increasing shortness of breath, reduced respiratory drive, increasing constipation Assessment & Plan (07/21/2020 2:55 PM EDT): Take exactly as prescribed, try to limit frequency by employing non-for pharmacologic measures such as topical creams, warm packs, patches, regular relaxation/mediation/positive imagery sessions etc. Build up regular exercise routine up to the goal of 30-45 minutes daily. Monitor for increasing shortness of breath, reduced respiratory drive, increasing constipation Assessment & Plan (05/12/2020 4:03 PM EDT): Take exactly as prescribed, try to limit frequency by employing non-for pharmacologic measures such as topical creams, warm packs, patches, regular relaxation/mediation/positive imagery sessions etc. Build up regular exercise routine up to the goal of 30-45 minutes daily. Monitor for increasing shortness of breath, reduced respiratory drive, increasing constipation Assessment & Plan (12/10/2019 4:05 PM EDT): Take exactly as prescribed, try to limit frequency by employing non-for pharmacologic measures such as topical creams, warm packs, patches, regular relaxation/mediation/positive imagery sessions etc. Build up regular exercise routine up to the goal of 30-45 minutes daily. Monitor for increasing shortness of breath, reduced respiratory drive, increasing constipation Assessment & Plan (09/03/2019 3:58 PM EDT): Take exactly as prescribed, try to limit frequency by employing non-for pharmacologic measures such as topical creams, warm packs, patches, regular relaxation/mediation/positive imagery sessions etc. Build up regular exercise routine up to the goal of 30-45 minutes daily. Monitor for increasing shortness of breath, reduced respiratory drive, increasing constipation Assessment & Plan (04/29/2019 4:43 PM EST): Take exactly as prescribed, try to limit frequency by employing non-for pharmacologic measures such as topical creams, warm packs, patches, regular relaxation/mediation/positive imagery sessions etc. Build up regular exercise routine up to the goal of 30-45 minutes daily. Monitor for increasing shortness of breath, reduced respiratory drive, increasing constipation Assessment & Plan (02/19/2019 8:55 PM EST): Take exactly as prescribed, try to limit frequency by employing non-for pharmacologic measures such as topical creams, warm packs, patches, regular relaxation/mediation/positive imagery sessions etc. Build up regular exercise routine up to the goal of 30-45 minutes daily. Monitor for increasing shortness of breath, reduced respiratory drive, increasing constipation Assessment & Plan (10/25/2018 11:43 AM EDT): Take exactly as prescribed, try to limit frequency by employing non-for pharmacologic measures such as topical creams, warm packs, patches, regular relaxation/mediation/positive imagery sessions etc. Build up regular exercise routine up to the goal of 30-45 minutes daily. Monitor for increasing shortness of breath, reduced respiratory drive, increasing constipation Assessment & Plan (07/02/2018 11:13 PM EDT): Take exactly as prescribed, try to limit frequency by employing non-for pharmacologic measures such as topical creams, warm packs, patches, regular relaxation/mediation/positive imagery sessions etc. Build up regular exercise routine up to the goal of 30-45 minutes daily. Monitor for increasing shortness of breath, reduced respiratory drive, increasing constipation Assessment & Plan (05/06/2018 11:13 PM EDT): Take exactly as prescribed, try to limit frequency by employing non-for pharmacologic measures such as topical creams, warm packs, patches, regular relaxation/mediation/positive imagery sessions etc. Build up regular exercise routine up to the goal of 30-45 minutes daily. Monitor for increasing shortness of breath, reduced respiratory drive, increasing constipation On statin therapy 07/24/2017 Assessment & Plan (04/30/2021 4:08 PM EST): .Monitor for muscle tenderness, swelling and weakness Assessment & Plan (01/22/2021 4:46 PM EST): Monitor for muscle tenderness, swelling and weakness Assessment & Plan (09/20/2020 4:26 PM EDT): Monitor for muscle tenderness, swelling and weakness Assessment & Plan (07/21/2020 2:57 PM EDT): Monitor for muscle tenderness, swelling and weakness Assessment & Plan (05/12/2020 4:03 PM EDT): Monitor for muscle tenderness, swelling and weakness Assessment & Plan (03/10/2020 4:03 PM EST): Monitor for muscle tenderness, swelling and weakness Assessment & Plan (12/10/2019 4:05 PM EDT): Monitor for muscle tenderness, swelling and weakness Assessment & Plan (09/03/2019 3:58 PM EDT): Monitor for muscle tenderness, swelling and weakness Assessment & Plan (04/29/2019 4:43 PM EST): Monitor for muscle tenderness, swelling and weakness Assessment & Plan (03/31/2019 2:00 PM EST): Monitor for muscle tenderness, swelling and weakness Assessment & Plan (02/19/2019 8:55 PM EST): Monitor for muscle tenderness, swelling and weakness Assessment & Plan (07/02/2018 11:14 PM EDT): Monitor for muscle tenderness, swelling and weakness Assessment & Plan (05/06/2018 11:13 PM EDT): Monitor for muscle tenderness, swelling and weakness Vitamin D insufficiency 07/24/2017 Assessment & Plan (01/30/2023 10:10 PM EST): Continue weekly 50,000 units supplementation to bring serum level into optimal range: 40-45 ng/ml . Assessment & Plan (10/18/2021 5:07 PM EDT): Continue weekly 50,000 units supplementation to bring serum level into optimal range: 40-45 ng/ml . Assessment & Plan (04/30/2021 4:09 PM EST): Continue weekly 50,000 units supplementation to bring serum level into optimal range: 40-45 ng/ml . Assessment & Plan (01/22/2021 4:49 PM EST): Continue weekly 50,000 units supplementation to bring serum level into optimal range: 40-45 ng/ml . Assessment & Plan (09/26/2020 9:02 PM EDT): Continue weekly 50,000 units supplementation to bring serum level into optimal range: 40-45 ng/ml . Assessment & Plan (07/21/2020 2:52 PM EDT): She run out of vitamin D a while ago. Repeated serum concentration returned low saw I encouraged her to continue weekly 50,000 units supplementation . Assessment & Plan (05/12/2020 4:00 PM EDT): She run out of vitamin D a while ago. Get serum level to make sure that she does not require additional supplementation. Assessment & Plan (03/10/2020 3:49 PM EST): Continue supplementation as prescribed to restore deficit. Assessment & Plan (12/10/2019 4:03 PM EDT): Continue supplementation as prescribed to restore deficit. Assessment & Plan (09/03/2019 3:55 PM EDT): Continue proper supplementation as prescribed to restore deficit. Assessment & Plan (04/29/2019 4:43 PM EST): Continue proper supplementation as prescribed to restore deficit. Assessment & Plan (03/31/2019 2:01 PM EST): Continue proper supplementation as prescribed to restore deficit. Assessment & Plan (02/19/2019 8:53 PM EST): Continue proper supplementation as prescribed to restore deficit. Assessment & Plan (10/25/2018 11:37 AM EDT): Keep blood glucose in 90-110 mg % Limit or eliminate concentrated sugars from the diet. Close follow-up with PCP/diabetic nurse educator/funeral driver as scheduled. Assessment & Plan (07/02/2018 11:07 PM EDT): Continue proper supplementation as prescribed to restore deficit. Assessment & Plan (05/06/2018 11:10 PM EDT): Continue proper supplementation to restore deficit. Chronic fatigue 07/24/2017 Resolved Problems Problem Noted Date Diagnosed Date Resolved Date Class 3 severe obesity due t o excess calories with serious comorbidity and body mass index (BMI) of 50.0 to 59.9 in adult 11/18/2021 Assessment & Plan (11/18/2021 3:13 PM EDT): Continue diligent portion control. Limit concentrated sugars, saturated fats and calories in the diet. Keep well-hydrated. If unable to achieve expected goal consider formal dietary/nutritional support. Long-term use of immunosuppressant medication 05/13/1909/16/2022 Assessment & Plan (10/18/2021 5:04 PM EDT): Take exactly as prescribed, try to limit frequency by employing non-for pharmacologic measures such as topical creams, warm packs, patches, regular relaxation/mediation/positive imagery sessions etc. Build up regular exercise routine up to the goal of 30-45 minutes daily. Monitor for increasing shortness of breath, reduced respiratory drive, increasing constipation Assessment & Plan (09/20/2020 4:26 PM EDT): Continue monthly Taltz injections as prescribed and return for regular lab monitoring as requested. Hold injection whenever running fever, feeling sick or taking antibiotics. Avoid sick contacts. Make sure to inform any new MD, PA, BEAD FORMING MACHINE SET UP OPERATOR about chronic immunosuppression particularly in emergency situations. Assessment & Plan (07/21/2020 2:58 PM EDT): Continue monthly Taltz injections as prescribed and return for regular lab monitoring as requested. Hold injection whenever running fever, feeling sick or taking antibiotics. Avoid sick contacts. Make sure to inform any new MD, PA, BEAD FORMING MACHINE SET UP OPERATOR about chronic immunosuppression particularly in emergency situations. Assessment & Plan (05/12/2020 4:09 PM EDT): Continue monthly Taltz injections as prescribed and return for regular lab monitoring as requested. Hold injection whenever running fever, feeling sick or taking antibiotics. Avoid sick contacts. Make sure to inform any new MD, PA, BEAD FORMING MACHINE SET UP OPERATOR about chronic immunosuppression particularly in emergency situations. Class 3 severe obesity due t o excess calories with serious comorbidity and body mass index (BMI) of 45.0 to 49.9 in adult 03/10/2020 Assessment & Plan (04/30/2021 4:07 PM EST): Portion control. Limit concentrated sugars, saturated fats and calories in the diet. Keep well-hydrated. If unable to achieve expected goal consider formal dietary/nutritional support. Assessment & Plan (01/22/2021 4:49 PM EST): Portion control. Limit concentrated sugars, saturated fats and calories in the diet. Keep well-hydrated. If unable to achieve expected goal consider formal dietary/nutritional support. Assessment & Plan (09/26/2020 9:10 PM EDT): She admits to drinking soda and realized that it is the easiest way to reduce her caloric intake-I have advised her to stop drinking soda and switch it over to water-based fluids or simple water. Portion control. Limit concentrated sugars, saturated fats and calories in the diet. Keep well-hydrated. If unable to achieve expected goal consider formal dietary/nutritional support. Assessment & Plan (07/21/2020 2:53 PM EDT): Portion control. Limit concentrated sugars, saturated fats and calories in the diet. Keep well-hydrated. If unable to achieve expected goal consider formal dietary/nutritional support. Assessment & Plan (05/12/2020 4:01 PM EDT): Portion control. Limit concentrated sugars, saturated fats and calories in the diet. Keep well-hydrated. If unable to achieve expected goal consider formal dietary/nutritional support. Assessment & Plan (03/10/2020 4:03 PM EST): Portion control. Limit concentrated sugars, saturated fats and calories in the diet. Keep well-hydrated. If unable to achieve expected goal consider formal dietary/nutritional support. Encounter for monitoring of adalimumab therapy 12/10/2019 05/12/2020 Assessment & Plan (12/10/2019 4:07 PM EDT): Inject exactly as prescribed. Hold whenever running fever, feeling sick, taking antibiotics. Make sure to inform any new MD, PA, BEAD FORMING MACHINE SET UP OPERATOR about chronic immunosuppression with Humira (adalimumab) especially in emergency situations. Call if questions or problems. Encounter for monitoring certolizumab therapy 04/29/1909/03/2019 Assessment & Plan (05/02/2019 11:30 PM EDT): Hold injection if sick, running fevers or taking antibiotics. Inform any new MD, PA, BEAD FORMING MACHINE SET UP OPERATOR about chronic immunosuppression with Cimzia and methotrexate whenever change in clinical status or in emergency situations. Class 3 severe obesity due t o excess calories with serious comorbidity in adult 11/28/20172020 Assessment & Plan (12/10/2019 4:03 PM EDT): Portion control. Limit concentrated sugars, saturated fats and calories in the diet. Keep well-hydrated. If unable to achieve expected goal consider formal dietary/nutritional support. Assessment & Plan (09/03/2019 3:55 PM EDT): Portion control. Limit concentrated sugars, saturated fats and calories in the diet. Keep well-hydrated. If unable to achieve expected goal consider formal dietary/nutritional support. Assessment & Plan (04/29/2019 4:42 PM EST): Portion control. Limit concentrated sugars, saturated fats and calories in the diet. Keep well-hydrated. If unable to achieve expected goal consider formal dietary/nutritional support. Assessment & Plan (03/31/2019 1:58 PM EST): Portion control. Limit concentrated sugars, saturated fats and calories in the diet. Keep well-hydrated. If unable to achieve expected goal consider formal dietary/nutritional support. Assessment & Plan (02/19/2019 8:54 PM EST): Portion control. Limit concentrated sugars, saturated fats and calories in the diet. Keep well-hydrated. If unable to achieve expected goal consider formal dietary/nutritional support. Assessment & Plan (10/25/2018 11:37 AM EDT): Portion control. Limit concentrated sugars, saturated fats and calories in the diet. Keep well-hydrated. If unable to achieve expected goal consider formal dietary/nutritional support. Assessment & Plan (07/02/2018 11:08 PM EDT): Portion control. Limit concentrated sugars, saturated fats and calories in the diet. Keep well-hydrated. If unable to achieve expected goal consider formal dietary/nutritional support. Assessment & Plan (05/06/2018 11:10 PM EDT): Portion control. Limit concentrated sugars, saturated fats and calories in the diet. Keep well-hydrated. If unable to achieve expected goal consider formal dietary/nutritional support. Class 3 obesity with serious comorbidity and body mass index (BMI) of 45.0 to 49.9 in adult 07/24/2017 01/29/2018 Social History Tobacco Use Types Packs/Day Years [...] with a working camera? Not on file Intimate Partner Violence Answer Date R ecorded Are you denied basic needs s uch as food, clothing, or medical care? No 02/11/2023 In the past 12 months have y ou been in a relationship with a person who hurts, threatens, or tries to control you? No 02/11/2023 Are you denied basic needs s uch as food, clothing, or medical care? No 02/11/2023 In the past 12 months have y ou been in a relationship with a person who hurts, threatens, or tries to control you? No 02/11/2023 Comments Unknown Sex and Gender Information Value Date Recorded Sex Assigned at Not on file Legal Sex Female 7:41 PM EST Gender Identity Not on file Sexual Orientation Not on file Last Filed Vital Signs Vital Sign Reading Time Taken Comments Blood Pressure 126/56 02/11/2023 12:30 PM EST Pulse 52 02/11/2023 12:30 PM EST Temperature 36.1 C (96.9 F) 02/11/2023 12:30 PM EST Respiratory Rate 18 02/11/2023 12:30 PM EST Oxygen Saturation 98% 02/11/2023 12:30 PM EST Inhaled Oxygen Concentration - - Weight 119.7 kg (264 lb) 01/30/2023 3:28 PM EST Height 154.9 cm (5' 1 ) 01/30/2023 3:28 PM EST Body Mass Index 49.88 01/30/2023 3:28 PM EST Plan of Treatment Health Maintenance Due Date Last Done Comments DEPRESSION SCREENING 1974 SMOKING Hx and SMOKELESS TOBACCO SCREENING 08/05/1975 HEPATITIS C SCREENING 1980 HIV ONE-TIME SCREENING (18-65 YEARS) 1980 ZOSTER VACCINES (1 of 2) 1981 PAP SMEAR 08/05/1983 MAMMOGRAM 2002 COLOGUARD 08/05/2007 COLONOSCOPY 08/05/2007 COLORECTAL CANCER SCREENING 08/05/2007 FIT TEST 08/05/2007 FOBT 08/05/2007 SIGMOIDOSCOPY 08/05/2007 VIRTUAL COLONOSCOPY 08/05/2007 DIABETIC EYE EXAM 07/24/2017 PNEUMOCOCCAL VACCINES (50+ years) (2 of 2 - PCV) 11/06/2017 11/06/2016 RSV VACCINE (1 - Risk 60-74 years 1-dose series) 2022 HEMOGLOBIN A1C 03/19/2023 09/16/2022, 03/0 07/2022, 09/14/2021, Additional history exists BLOOD PRESSURE 08/01/2023 01/30/2023 URINE MICROALBUMIN/CREATININE RATIO 09/17/2023 09/16/2022, 09/14/2021, 03/13/2021 INFLUENZA VACCINE (#1) 2024 , 12/26/2021, 01/24/2021, Additional history exists COVID-19 VACCINE ( season) 2024 11/23/2022, 12/26/2021, 01/24/2021, Additional history exists Adult Td,Tdap Booster 06/18/2025 06/19/2015 HEPATITIS A VACCINES Aged Out No long er eligible based on patient's age to complete this topic HIB VACCINES Aged Out No longer eligi ble based on patient's age to complete this topic MENINGOCOCCAL VACCINES (ACWY) Aged Out No longer eligible based on patient's age to complete this topic MENINGOCOCCAL VACCINES (B) Aged Out N o longer eligible based on patient's age to complete this topic Medical Devices Not on file Procedures Procedure Name Priority Date/Time Associated Diagnosis Comments MICROALBUMIN/CREATI NINE RATIO, RANDOM URINE Routine 09/16/2022 3:41 PM EDT Type 2 diabetes mellitus without complication, without long-term current use of insulin Vitamin D deficiency, unspecified Dysuria Pure hypercholesterolemia Type 2 diabetes mellitus without complication, unspecified whether jail insulin use HEMOGLOBIN A1C Routine 09/16/2022 3:29 PM EDT Type 2 diabetes mellitus without complication, without long-term current use of insulin from Last 3 Months or Most Recently Relevant to Health Maintenance Results * Microalbumin/creatinine ratio, random urine (09/16/2022 3:41 PM EDT) URINE MICROALBUMIN <1.2 0 - 2.3 mg/dL [facility] URINE CREATININE 136 mg/dL [facility] MICROALB/CRE RATIO NOT CALCULATED 0 - 20 mg/g Cre [facility] Comment:due to Microalbumin <1.2 Urine (Urine) 09/16/2022 3:4 1 PM EDT 09/16/2022 3:45 PM EDT us Alexis Murrieta MD URINE ORDERABLES Final Re sult [address] [address] * (ABNORMAL) Hemoglobin A1c (09/16/2022 3:29 PM EDT) HEMOGLOBIN A1C 6.2(H) 4.3 - 5.8 % [facility] Blood 09/16/2022 3:2 9 PM EDT 09/16/2022 3:36 PM EDT us Alexis Murrieta MD LAB BLOOD ORDERABLES Marjorie l Result Performing Organization Address City/[facility]/ZIP Co de Phone Number [address] [address] from Last 3 Months or Most Recently Relevant to Health Maintenance Insurance [facility] [place] [address] [place] [address] [place] [address] [place] [address] [place] [address] Care Teams Power Electronics Research Engineer Relationship Specialty Start Date End Date Alexis Murrieta MD [address] [place] [address] [place] [address] PCP - General Internal Medicine 12/24/16 Additional Source Comments The information contained in this document represents components of the legal health record. It is not the complete legal health record.[facility]
--- OUTSIDE RECORDS SUMMARY | 2024-11-20 10:29 | XMS_ITS | Encounter Summary ---
Author Organization [facility] Address [address] [address] Phone Care Team Providers Care Digital Account Supervisor Name Role Phone Alexis Murrieta MD Primary Care Provider [phone] Encounter Details Date Type Department Care Team (Late st Contact Info) Description 02/11/2023 Procedure Pass [facility] [address] [place] [address] Social History Tobacco Use Types Packs/Day Years [...] filedocumented in this encounter Care Teams Digital Account Supervisor Relationship Specialty Start Date End Date Alexis Murrieta MD [address] [place] [address] [place] [address] PCP - General Internal Medicine 12/24/16 documented as of this encounter Additional Source Comments The information contained in this document represents components of the legal health record. It is not the complete legal health record.[facility]
--- OUTSIDE RECORDS SUMMARY | 2024-11-20 10:29 | XMS_ITS | Clinical Summary ---
Author Organization [facility] Address [address] [place] [address] Care Team Providers Care Diesel Mechanic Apprentice Name Role Phone Alexis Murrieta MD Primary Care Provider [phone] Allergies No known active allergies Medications traMADol [...] UP TO 12 HOURS 023 Active ergocalciferol 47844 units Cap TAKE 1 CAPSULE BY MOUTH 1 TIME A WEEK 023 Active tiZANidine (ZANAFLEX) 4 MG tablet 023 Active clobetasol (TEMOVATE) 0.05 % creamIndication s:Psoriasis Apply topically 2 (two) times a day. 2 times a day no more than 2 weeks at a time 30 g 1 023 Active Additional Information Patient taking differently:TopicalAs needed, 2 times a day no more than 2 weeks at a time, Reported on 11/12/2024 LORazepam (ATIVAN) 1 MG tabletIndicatio ns:Anxiety due to invasive procedure,Spina l stenosis of lumbar region with neurogenic claudication Take 1-2 tabs by mouth 1 hour before the procedure 10 tablet 024 Active Additional Information Patient taking differently: As needed, Take 1-2 tabs by mouth 1 hour before the procedure, Reported on 11/12/2024 doxycycline (MONODOX) 100 MG capsule 1 capsule (100 mg total) by Mouth/Oral Cavity route every 12 hours. Active Wegovy 0.25 MG/0.5ML Solution Auto-injector Active nystatin (MYCOSTATIN) 958248 UNIT/GM cream APPLY TOPICALLY TO THE AFFECTED AREA THREE TIMES DAILY FOR 10 DAYS Active folic acid (FOLVITE) 1 MG tabletIndicatio ns:Psoriatic arthritis (HCC) TAKE 1 TABLET(1 MG) BY MOUTH DAILY 90 tablet 1 Active Cosentyx UnoReady 300 MG/2ML subcutaneous auto-injectorIn dications:Psori atic arthritis (HCC) INJECT 300MG SUBCUTANEOUSLY EVERY 4 WEEKS 2 mL 3 Active Additional Information Patient not taking.Reported on 11/12/2024 methoTREXate (RHEUMATREX) 2.5 mg tabletIndicatio ns:Psoriatic arthritis (HCC) Take 8 tablets (20 mg total) by mouth once a week 32 tablet Active aspirin enteric coated (Ecotrin) 325 MG EC tablet Take 1 tablet (325 mg total) by mouth. Active celeCOXIB (CeleBREX) 200 MG capsule Take 1 capsule (200 mg total) by mouth. Active PANTOprazole (PROTONIX) 40 MG EC tablet Take 1 tablet (40 mg total) by mouth. Active gabapentin (NEURONTIN) 300 MG capsule Take 1 capsule (300 mg total) by mouth 3 (three) times a day as needed. 023 2024 Discontinued methoTREXate (RHEUMATREX) 2.5 mg tabletIndicatio ns:Psoriatic arthritis (HCC) Take 8 tablets (20 mg total) by mouth once a week 32 tablet 025 2024 Discontinued(R eorder) Active Problems Problem Noted Date Diagnosed Date Spinal stenosis of lumbar re gion with neurogenic claudication 08/07/2023 Chronic bilateral low back pain with bilateral s ciatica 06/13/2023 Bilateral hip pain 06/13/2023 Psoriatic arthritis 06/26/2022 Encounters Date Type Department Care Team Description 11/12/2024 10:30 AM EDT Office Visit [facility] Rheumatology [address] [address] Osei Dickey MD Psoriatic arthritis (HCC) (Primary Dx); Psoriasis ; High risk medication use; Arthritis 11/12/2024 Orders Only [facility] Rheumatology [address] [address] Alexis Murrieta MD 11/12/2024 Travel 11/08/2024 Refill [facility] Rheumatology [address] [address] Osei Dickey MD Psoriatic arthritis (HCC) 09/17/2024 Refill [facility] Rheumatology [address] [address] Osei Dickey MD Psoriatic arthritis (HCC) 09/09/2024 Telephone [facility] [address] [place] [phone] Osei Dickey MD Prior Authorization (Cosentyx ) 09/07/2024 Refill [facility] Rheumatology [address] [address] Osei Dickey MD Psoriatic arthritis (HCC) from Last 3 Months Family History Relation Name Status Comments Father Mother Social History Tobacco Use Types Packs/Day Years Used Date Smoking Tobacco: Former Cigarettes Smokeless Tobacco: Never Tobacco Cessation:Counseling Given: Not Answered Alcohol Use Standard Drinks/Week Comments Yes 2 (1 standard drink = 0.6 oz pur e alcohol) [place] [facility] - Occupational Stress [...] Sign Reading Time Taken Comments Blood Pressure 117/70 11/12/2024 10:15 AM EDT Pulse 56 11/12/2024 10:15 AM EDT Temperature 36.6 C (97.9 F) 01/21/2023 3:26 PM EST Respiratory Rate - - Oxygen Saturation 98% 11/12/2024 10:15 AM EDT Inhaled Oxygen Concentration - - Weight 109 kg (240 lb) 11/12/2024 10:15 AM EDT Height 154.9 cm (5' 1 ) 11/12/2024 10:15 AM EDT Body Mass Index 45.35 11/12/2024 10:15 AM EDT Plan of Treatment Upcoming Encounters Date Type Department Care Team (Late st Contact Info) Description 04/12/2025 10:30 AM EST Office Visit [facility] Rheumatology [address] [address] Osei Dickey MD [address] [place] [phone] Health Maintenance Due Date Last Done Comments Quantiferon Gold TB 1972 HIV Screening 08/05/1975 DTaP/Tdap/Td Vaccines (1 - Tdap) 1981 Pneumococcal Vaccines 50+ (1 of 2 - PCV) 1981 Zoster (Shingles) Vaccine (1 of 2) 1981 Pap Smear (Ages 21-65) 08/05/1983 Mammogram 2002 Colonoscopy 08/05/2007 RSV Vaccine 60 years and older and Patients (1 - Risk 60-74 years 1-dose series) 2022 Influenza Vaccine 09/24/2024 11/23/2022 COVID-19 Vaccine ( season) 2024 11/23/2022, 12/26/2021, 01/24/2021, Additional history exists Hepatitis C Virus Screening Completed 07/22/2024 Hepatitis B Vaccines Aged Out No long er eligible based on patient's age to complete this topic Procedures Procedure Name Priority Date/Time Associated Diagnosis Comments HEPATITIS C VIRUS (HCV) ANTIBODY Routine 07/22/2024 High risk medication use Need for hepatitis C screening test from Last 3 Months or Most Recently Relevant to Health Maintenance Results * HEPATITIS C VIRUS (HCV) ANTIBODY (07/22/2024) Blood Blood specimen / Unknown 07/22/2024 Osei Dickey MD LAB BLOOD ORDERABLES Final Res ult [facility] from Last 3 Months or Most Recently Relevant to Health Maintenance Insurance [employer] - HMO Care Teams Diesel Mechanic Apprentice Relationship Specialty Start Date End Date Alexis Murrieta MD [address] [place] [address] [place] PCP - General Internal Medicine 02/27/22
--- OUTSIDE RECORDS SUMMARY | 2024-11-20 10:29 | XMS_ITS | Encounter Summary ---
Author Organization [facility] Address [address] [facility] [address] [place] [address] Phone Care Team Providers Care Punch Press Operator Name Role Phone Alexis Murrieta MD Primary Care Provider [phone] Encounter Details Date Type Department Care Team (Late st Contact Info) Description 03/31/2019 Ancillary Orders [facility] Rheumatology [address] [place] [address] Elsa Bourne MD [address] [facility], [address] [place] [address] [email or web address] Chronic pain of left knee; Psoriatic arthritis Social History Tobacco Use Types Packs/Day Years Used Date Smoking Tobacco: Former Smokeless Tobacco: Never Comments Unknown Sex and Gender Information Value Date Recorded Sex Assigned at Not on file Legal Sex Female 7:41 PM EST Gender Identity Not on file Sexual Orientation Not on file documented as of this encounter Plan of Treatment Not on file documented as of this encounter Results * XR KNEE 4 OR MORE VIEWS (BILATERAL) (03/31/2019 2:27 PM EST) Anatomical Region Laterality Modality Knee Bilateral, Knee Right, Knee Left Radiographic Imaging 03/31/2019 2:33 PM EST Impressions 03/31/2019 2:36 PM EST Progressive moderate bilateral osteoarthritis. No erosive changes. POS - [id number] Narrative 03/31/2019 2:36 PM EST HISTORY: As above. No trauma. COMPARISON: 07/24/2017. BILATERAL KNEE RADIOGRAPH FINDINGS: Six views obtained with weightbearing. No acute fracture or malalignment. Progressive moderate bilateral medial knee compartment joint space narrowing and small osteophytes. Stable mild patellofemoral joint space narrowing and moderate-sized osteophytes and tibial spine osteophytes. No evidence of bone lesions, erosions or chondrocalcinosis. No destructive bone lesions. Small bilateral joint effusions. Large habitus. Procedure Note Suzy Castillo MD - 03/31/2019 HISTORY: As above. No trauma. COMPARISON: 07/24/2017. BILATERAL KNEE RADIOGRAPH FINDINGS: Six views obtained with weightbearing. No acute fracture or malalignment. Progressive moderate bilateral medialknee compartment joint space narrowing and small osteophytes. Stable mildpatellofemoral joint space narrowing and moderate-sized osteophytes andtibial spine osteophytes. No evidence of bone lesions, erosions orchondrocalcinosis. No destructive bone lesions. Small bilateral jointeffusions. Large habitus. IMPRESSION: Progressive moderate bilateral osteoarthritis. No erosive changes. POS - [id number] Elsa Bourne MD IMG XR LOWER EXTREMITY F inal Result documented in this encounter Visit Diagnoses Diagnosis Chronic pain of left knee Psoriatic arthritis Psoriatic arthropathy Chronic pain of left knee Psoriatic arthritis Psoriatic arthropathy documented in this encounter Care Teams Punch Press Operator Relationship Specialty Start Date End Date Alexis Murrieta MD [address] [place] [address] Dr Garcia [address] [place] [id number] PCP - General Internal Medicine 12/24/16 documented as of this encounter Additional Source Comments The information contained in this document represents components of the legal health record. It is not the complete legal health record.[facility]
[2024-11-20 10:43] LABS: MANUAL DIFF FLAG NO
[2024-11-20 11:36] LABS: Hematocrit 39.4 % (37.0-47.0); Hemoglobin 13.0 g/dl (12.0-16.0); Imm Gran Abs Auto 0.01 X10*3/uL (0.00-0.03); Imm Gran Pct Auto 0.2 % (0.0-0.4); Lymphocytes Absolute Auto 2.3 X10*3/uL (1.2-4.9); Mean Corpuscular HGB Conc 33.0 g/dl (31.0-35.0); Mean Corpuscular Hemoglobin 31.0 pg (27.0-33.0); Mean Corpuscular Volume 94.0 fL (80.0-98.0); NRBC Abs Auto 0.000 X10*3/uL (0.0-0.012); NRBC Pct Auto 0.0 /100WBC (0.0-0.2); Platelet Count 173 X10*3/uL (160-400); Red Blood Count 4.19 X10*6/uL (4.20-5.50); White Blood Count 5.8 X10*3/uL (4.8-10.8)
[2024-11-20 11:39] LABS: Appearance Urine Clear; Glucose Urine UA Negative (Negative); PH 5.5 (5.0-9.0); Specific Gravity - Urine <= 1.005 (1.005-1.025)
[2024-11-20 11:52] LABS: Total Hemoglobin (HGBA1C) 3415.1623 umol/L
[2024-11-20 12:14] LABS: Alanine Aminotransferase 25 U/L (0-31); Albumin Level 4.3 g/dL (3.5-5.0); Alkaline Phosphatase 127 U/L (39-117); Anion Gap 12 (12-20); Aspartate Amino Transferase 34 U/L (5-31); Blood Urea Nitrogen 16 mg/dL (9-16); Calcium 9.3 mg/dL (8.4-10.2); Carbon Dioxide 25 mmol/L (22-29); Chloride 109 mmol/L (96-108); Cholesterol 163 mg/dL (<200); Estimated Glomerular Filt Rate > 60; HDL Cholesterol 46 mg/dL (>40); Potassium 4.1 mmol/L (3.3-5.1); Sodium 142 mmol/L (135-145); Total Protein 7.3 g/dL (6.5-8.0); Triglycerides 100 mg/dL (<150)
[2024-11-20 12:32] LABS: Folate 10.8 ng/mL (> or = 4.0); Vitamin B12 283 pg/mL (200-900)
== END 2024-11-20 10:26 | disposition home or self-care (01) ==
LOC: HO.LAB 10:25
PROVIDERS: PCP Internal Medicine; Visit Provider Internal Medicine
DX: E11.9 Type 2 diabetes mellitus without complications (principal); R30.0 Dysuria; E53.8 Deficiency of other specified B group vitamins; E78.00 Pure hypercholesterolemia, unspecified; D64.9 Anemia, unspecified; E55.9 Vitamin D deficiency, unspecified
CPT/HCPCS: 36415; 80053; 80061; 81003; 82043; 82306; 82570; 82607; 82746; 83036; 84443; 85025

== ENCOUNTER 2024-12-01 15:23 | Outpatient (AMB) | payer BC, SELFPAY ==
[2024-12-01 15:25] VITALS: BP 100/62; PULSE 75; O2SAT 97; BMI 46.7
--- NOTE | 2024-12-01 15:25 | MHC.PC.OV ---
Vital Signs 12/01/24 15:25 Height 5 ft 1 in Weight 247 lb BMI 46.7 BP 100/62 Blood Pressure Location Lt brachial Position Sitting Pulse 75 Pulse Source Pulse Oximeter Pulse Oximetry (%) 97 Oxygen Delivery Method Room Air Intake Visit Reasons: 3mth f/u Rail Manager Required: No Accompanied by: Self / Same As Patient Allergies aspirin Allergy (Unknown, Verified 12/01/24 16:12) Unknown Sulfa (Sulfonamide Antibiotics) Allergy (Unknown, Verified 12/01/24 16:12) pruritis, severe itching metformin Adverse Reaction (Unknown, Verified 12/01/24 16:12) diarrhea Medication List - Last Reconciled 12/01/24 by Alexis Murrieta MD albuterol sulfate 90 mcg/actuation (Ventolin HFA) 2 puffs inhalation Q6H PRN 30 days alendronate 70 mg PO QWEEK 3 months atorvastatin 20 mg PO DAILY budesonide 180 mcg/actuation (Pulmicort Flexhaler) 1 inh inhalation BID 30 days kdfdcgepty-aalewxmksmsrm-ynmt 50-325-40 mg 1 cap PO BID PRN 30 days ergocalciferol (vitamin D2) 1,250 mcg PO QWEEK folic acid 1 mg PO DAILY gabapentin 300 mg PO TID PRN hydroxychloroquine 200 mg PO BID lidocaine 5% 2 patches topical DAILY 30 days methotrexate sodium 20 mg PO QWEEK nystatin 1 appl topical TID 10 days oxycodone 5 mg PO TID PRN 7 days secukinumab (Cosentyx UnoReady Pen) 300 mg subcut Q4W semaglutide (weight loss) 1.7 mg (0.75 mL) subcut QWEEK 4 weeks tizanidine 4 mg PO TID PRN tramadol 50 mg PO Q6H PRN 15 days trazodone 150 mg (1.5 x 100 mg) PO BEDTIME 30 days Tobacco use date assessed: 12/01/24 Dental Screening Dental Screen Date: 12/01/24 Did you have a dental visit in the last 12 months?: Yes Did you have a dental problem in the last 6 months where you did not have access to dental care?: No Was dental information given to patient?: Patient has dentist HPI 3mth f/u HPI Details Patient comes in today for her follow-up visit She had a total left hip arthroplasty done a couple of months ago on 10/15/2024 at [facility] and is scheduled for her right hip arthroplasty next month on 12/31/2024 States that she is currently still experiencing some pain in her hips although her left hip pain has improved significantly since her hip surgery in September 2024 She continues to experience increased pain over her low back and other joints, especially in her left shoulder lately and there are times when she can hardly move her shoulder due to severe pain She denies any recent injury or trauma to her left shoulder She denies any headaches or dizziness Denies any chest pains, no increased shortness of breath No nausea/vomiting, no abdominal pain No change in bowel habits noted She has lost about 40 lb in the past year but she has not taken her Semaglutide injections in the past couple of weeks since she experience severe nausea and vomiting when she went back on it after hip surgery late last month when she was started back on it at 1.7 mg States that she was doing well on the lower 1 mg dose but had to stop taking it just before hip surgery and did not go back on it until late last month Needs a couple of her Rx refilled She also had some follow-up labs done a couple of weeks ago - to discuss her results [facility] Medical History Morbid obesity with BMI of 50.0-59.9, adult Compression fracture of L3 vertebra Insomnia Nasal sore Morbid obesity with BMI of 45.0-49.9, adult Depression Vitamin D deficiency Vitamin B12 deficiency Migraine Pure hypercholesterolemia Fibromyalgia Diabetes mellitus Psoriatic arthritis Lumbar degenerative disc disease Surgical History (Updated 12/06/24 @ 03:31 by Alexis Murrieta MD) History of total left hip arthroplasty History of esophagogastroduodenoscopy (EGD) History of colonoscopy (~04/06/04) Family History Father No problems noted. Mother No problems noted. Social History Housing: House Alcohol intake: current Alcohol intake frequency: holidays/special occasions only Patient Tobacco Use Status: Former Tobacco user Tobacco use type: Cigarette e-Cigarette/Vaping Use: Never Used Second Hand Smoke Exposure: Yes service: No Current occupational status: disabled Current occupation: rt hand Current occupational exposures/hazards: No Cognitive needs: Yes Hearing needs: No Vision needs: Yes Questionnaire Thrive Questionnaire Date Thrive assessed: 07/06/24 AUDIT C Alcohol Use Questionnaire (AUDIT-C) 1. How often do you have a drink containing alcohol?: Never 3. How often do you have six or more drinks on one occasion?: Never Total Score: 0 Score Reviewed/Action Taken: Yes NAWAF-7 AMB Questionnaire NAWAF-7 Date NAWAF - 7 assessed: 07/06/24 Source: Developed by Drs. Xavier Lewis, Ashley Rea, Jose Napier and colleagues, with an educational jade from [employer]. Review of Systems Const Denies chills, Reports fatigue, Denies fever(s) and Denies headache(s) ENT Denies dysphagia, Denies dizziness, Denies otalgia, Denies headache(s), Reports neck pain (chronic), Denies odynophagia and Denies sore throat Card Reports chest pain (recurrent, sharp ), Denies palpitations and Reports dyspnea on exertion (mild) Resp Denies chest congestion, Denies cough and Reports dyspnea on exertion (mild) GI Denies abdominal pain, Denies constipation, Denies dysphagia, Denies heartburn, Denies diarrhea, Denies nausea, Denies odynophagia and Denies vomiting Denies difficulty voiding, Denies post void dribbling, Denies nocturia, Denies dysuria and Denies urinary urgency Musc Reports back pain (chronic - increased lately due to acute injury), Reports myalgias (diffuse), Reports arthralgias (over multiple joints, including knees and hips & L shoulder), Reports neck pain (chronic) and Reports stiffness Skin/Breast Denies rash Neuro Denies dizziness and Denies headache(s) Endo Reports fatigue and Denies palpitations Physical exam (Primary Care) Vital Signs: Last Vital Signs Pulse 75 12/01/24 15:25 BP 100/62 12/01/24 15:25 Pulse Ox 97 12/01/24 15:25 Oxygen Delivery Method Room Air 12/01/24 15:25 BMI result Body Mass Index 46.7 Tobacco/Smoking Status: Tobacco use Status Tobacco use date assessed 12/01/24 12/01/24 15:27 Patient Tobacco Use Status Former Tobacco user 12/01/24 15:27 Tobacco use type Cigarette 12/01/24 15:27 e-Cigarette/Vaping Use Never Used 12/01/24 15:27 Thrive Assessment: Date of Thrive Assessment Date Thrive assessed 07/06/24 12/01/24 15:27 Const General: no acute distress and alert HENMT Ears: TM's normal bilaterally and EAC's normal Throat: Yes posterior oropharynx normal and Yes tonsils normal (no TP congestion noted) Neck Neck: Yes supple and No lymphadenopathy Thyroid: Thyroid normal Resp Auscultation: clear to auscultation bilaterally, no rales and no wheezes Cardio Rate: regular rate Rhythm: regular rhythm Heart sounds: no murmurs GI Palpation (GI): Soft to palpation and nontender Auscultation: normal bowel sounds General: Yes no CVA tenderness Back/Spine/Pelvis Back: no CVA tenderness Cervical Spine: Cervical spine tenderness Thoracic/Lumbar Spine: lumbar spinal tenderness Skin Rashes: no rashes Extrem General: Yes no clubbing, cyanosis or edema Left upper extremity: shoulder/upper arm Details: tenderness Location: of the A-C joint and of the proximal humerus Right lower extremity: hip/thigh Details: tenderness Location: of the hip and knee Details: tenderness; no swelling Left lower extremity: hip/thigh Details: tenderness (improved with surgery in September 2024) Location: of the hip and knee Details: tenderness; no swelling Results Reviewed Results Reviewed: Laboratory Tests 11/20/24 11/20/24 10:35 10:42 WBC 5.8 Hgb 13.0 Hct 39.4 Plt Count 173 Sodium 142 Potassium 4.1 Creatinine 0.77 Estimated GFR > 60 Fasting Glucose 94 Hemoglobin A1c % 5.3 Calcium 9.3 AST 34 H ALT 25 Alkaline Phosphatase 127 H Triglycerides 100 Cholesterol 163 LDL Cholesterol, Calc 97 HDL Cholesterol 46 Vitamin B12 283 25-OH Vitamin D Total 25.8 L TSH 0.49 Ur Specific [place] <= 1.005 Urine Protein Negative Urine Glucose (UA) Negative Urine Blood Negative Urine Nitrite Negative Ur Leukocyte Esterase Negative Coding Level of Care Code Est Pt Level 4 (90608) Diagnoses Compression fracture of L3 vertebra, sequela S32.030S Encounter type: sequela Psoriatic arthritis L40.50 Osteoarthritis involving multiple joints on both sides of body M15.9 Left shoulder pain, unspecified chronicity M25.512 Chronicity: unspecified Fibromyalgia M79.7 Type 2 diabetes mellitus without complication, without long-term current use of insulin E11.9 Diabetes mellitus complication status: without complication Diabetes mellitus continuous churn buttermaker insulin use: without continuous churn buttermaker use Diabetes mellitus type: type 2 Pure hypercholesterolemia E78.00 Migraine without status migrainosus, not intractable, unspecified migraine type G43.909 Intractability: not intractable Migraine type: unspecified Status migrainosus presence: without status migrainosus Vitamin B12 deficiency E53.8 Vitamin D deficiency E55.9 Insomnia, unspecified type G47.00 Insomnia type: unspecified Depression, unspecified depression type F32.9 Depression Type: unspecified Morbid obesity with BMI of 45.0-49.9, adult E66.01; Z68.42 Assessment & Plan Assessment & Plan (1) Compression fracture of L3 vertebra: Code(s): S32.030A - Wedge compression fracture of third lumbar vertebra, initial encounter for closed fracture Category: Medical Qualifiers: Encounter type: sequela Qualified Code(s): S32.030S - Wedge compression fracture of third lumbar vertebra, sequela Plan: This was first seen on imaging studies done at [facility] in late July 2023 and appeared to be acute in onset at the time Patient denies any recent falls or injuries prior to her injury being discovered BMD done in 08/2022 revealed (+) osteopenia with the lowest T-score value of -2.0 in the lumbar spine She has a Hx of multilevel lumbar spine DDD and was getting injections into her lower back for pain; she most recently had injection to L4-L5 at [facility] a few months prior, with some relief of her low back pain She was referred to Dr. Hernández at [facility] for further evaluation and management of her compression fracture and was subsequently admitted to [facility] in [place] for short-term rehab, which she states helped somewhat Continue Tramadol 50 mg TID PRN for pain (2) Psoriatic arthritis: Code(s): L40.50 - Arthropathic psoriasis, unspecified Category: Medical Plan: She was switched over from Taltz 80 mg SQ Q 4 weeks to Cosentyx 300 mg Q 4 weeks by her current tax economist a few months ago - she was off Cosentyx for a while but started back on it in January [address] Lopez in [place] for rheumatology follow up and management for the past few years but recently switched over to the [facility] and is now following up with her current tax economist in [place], [place] regularly as scheduled (3) Osteoarthritis involving multiple joints on both sides of body: Code(s): M15.9 - Polyosteoarthritis, unspecified Category: Medical Plan: Continue Lidocaine patches 5% QD PRN X-rays done last year revealed (+) mild degenerative changes in the hip joints bilaterally with no visible acute changes or fracture and mild degenerative changes in the right shoulder joint with enthesophyte along the inferior acromion. There is a healed fracture of the left humeral neck without dislocation; the soft tissues are normal. (+) degenerative disc changes at the C4-C5 disc level with ventral spondylosis and no visible acute fracture or dislocation are seen She is S/P total left hip arthroplasty on 10/15/2024 and is scheduled for total right hip arthroplasty on 12/31/2024 Follow-up with [facility] as scheduled (4) Left shoulder pain: Code(s): M25.512 - Pain in left shoulder Category: Medical Qualifiers: Chronicity: unspecified Qualified Code(s): M25.512 - Pain in left shoulder Plan: Suspect calcific tendinitis of the left shoulder Will start her for now on a trial of oral Prednisone 20 mg x 3 days to see if this will help provide some temporary relief of her left shoulder pain Will send patient for x-rays of the left shoulder for further evaluation (5) Fibromyalgia: Code(s): M79.7 - Fibromyalgia Category: Medical Plan: She is again encouraged to continue to try exercising regularly to help manage her fibromyalgia symptoms but patient states that this is proving to be very difficult due to the progression of her psoriatic arthritis Patient was on Carisoprodol 350 mg TID PRN in the past but was encouraged to come off of it due to its habit-forming potential and high risk of dependence and drug interactions with her opioids - this was DISCONTINUED last year Continue Tizanidine 4 mg TID PRN Per request, a referral was also previously made out for integrative medicine for her to see Dr. Whiteside to explore alternative treatment options for her chronic pain but states that she still has not seen Dr. Whiteside yet and is currently just seeing her chiropractor regularly for treatments at this time (6) Diabetes mellitus: Code(s): E11.9 - Type 2 diabetes mellitus without complications Category: Medical Qualifiers: Diabetes mellitus complication status: without complication Diabetes mellitus assisted insulin use: without continuous churn buttermaker use Diabetes mellitus type: type 2 Qualified Code(s): E11.9 - Type 2 diabetes mellitus without complications Plan: Her HgbA1c was at 5.3% on her labs done a couple of weeks ago - goal is <6.5% Reinforced diabetic diet She used to take Januvia 100 mg QD, Metformin 500 mg BID and Glipizide ER 5 mg QD but has not been on any Rx for her diabetes in a while She was on weekly Semaglutide injections but had to stop taking it for about a month after her hip surgery but developed severe nausea and vomiting when she started back on it about 2 to 3 weeks ago at 1.7 mg and has not been on it since (7) Pure hypercholesterolemia: Code(s): E78.00 - Pure hypercholesterolemia, unspecified Category: Medical Plan: Results of her labs done a couple of weeks ago reviewed and discussed with patient Reinforced low cholesterol diet Continue Atorvastatin 20 mg QD Will recheck her labs and fasting lipids in 3 months for follow up (8) Migraine: Code(s): G43.909 - Migraine, unspecified, not intractable, without status migrainosus Category: Medical Qualifiers: Intractability: not intractable Migraine type: unspecified Status migrainosus presence: without status migrainosus Qualified Code(s): G43.909 - Migraine, unspecified, not intractable, without status migrainosus Plan: Reinforced avoidance of all potential migraine triggers Continue Fiorinal 1 capsule BID PRN She may need to see neurology again if her headaches progress or get worse (9) Vitamin B12 deficiency: Code(s): E53.8 - Deficiency of other specified B group vitamins Category: Medical Plan: Continue Vitamin B12 tablets 1000 mcg daily (10) Vitamin D deficiency: Code(s): E55.9 - Vitamin D deficiency, unspecified Category: Medical Plan: Continue Vitamin D2 91845 units once a week (11) Insomnia: Code(s): G47.00 - Insomnia, unspecified Category: Medical Qualifiers: Insomnia type: unspecified Qualified Code(s): G47.00 - Insomnia, unspecified Plan: Sleep hygiene reinforced She was taking Carisoprodol at bedtime in the past to help her sleep better at night but she has since discontinued Rx Continue Trazodone 100 mg 1.5 tablets (150 mg) Q HS PRN (12) Depression: Code(s): F32.9 - Major depressive disorder, single episode, unspecified Category: Medical Qualifiers: Depression Type: unspecified Qualified Code(s): F32.9 - Major depressive disorder, single episode, unspecified Plan: She is currently not on any Rx for depression and states that she has been doing okay lately - does not feel that she needs anything at this time but will call if anything changes (13) Morbid obesity with BMI of 45.0-49.9, adult: Code(s): E66.01 - Morbid (severe) obesity due to excess calories; Z68.42 - Body mass index [BMI] 45.0-49.9, adult Category: Medical Plan: Reinforced diet/lose weight; exercise is difficult and is an unlikely option due to patient's physical incapacities and disabilities She has been able to lose almost another 10 pounds since her last visit She was on weekly Semaglutide injections but had to stop taking it for about a month after her hip surgery but developed severe nausea and vomiting when she started back on it about 2 to 3 weeks ago at 1.7 mg and has not been on it since Will have patient go and get some follow-up labs done [facility] to look into her recent nausea and vomiting post Semaglutide injection Plan Follow up in 3 months Orders: Orders XR shoulder LT min 2V 12/01/24 M25.512 - Pain in left shoulder Complete Blood Count Auto Diff 12/01/24 D64.9 - Anemia, unspecified, R11.2 - Nausea with vomiting, unspecified Comprehensive Met. Panel 12/01/24 R11.2 - Nausea with vomiting, unspecified Complete Blood Count Auto Diff 3 Months D64.9 - Anemia, unspecified Lipid Panel 3 Months E78.00 - Pure hypercholesterolemia, unspecified TSH reflex Free T4 3 Months E78.00 - Pure hypercholesterolemia, unspecified UA CC w/rflx Micro + Cult 3 Months R30.0 - Dysuria Vitamin D 25-OH Total 3 Months E55.9 - Vitamin D deficiency, unspecified Vitamin B12 and Folate 3 Months E53.8 - Deficiency of other specified B group vitamins Lipase 12/01/24 R10.9 - Unspecified abdominal pain, R11.2 - Nausea with vomiting, unspecified Comprehensive [place]. Panel Fast 3 Months E78.00 - Pure hypercholesterolemia, unspecified Medications: New prednisone 20 mg PO DAILY 3 tabs 0RF 3 days cholecalciferol (vitamin D3) 50 mcg PO DAILY 90 caps 3RF 90 days E55.9 - Vitamin D deficiency, unspecified mecobalamin (vitamin B12) 1,000 mcg PO DAILY 90 tabs 3RF 90 days
== END 2024-12-01 16:29 | disposition home or self-care (01) ==
LOC: HO.HMCH 15:24
PROVIDERS: Visit Provider Internal Medicine
DX: E11.9 Type 2 diabetes mellitus without complications (principal); L40.50 Arthropathic psoriasis, unspecified; E66.01 Morbid (severe) obesity due to excess calories; Z68.42 Body mass index [BMI] 45.0-49.9, adult; M15.9 Polyosteoarthritis, unspecified; S32.030S Wedge compression fracture of third lumbar vertebra, sequela; M25.512 Pain in left shoulder; M79.7 Fibromyalgia; E78.00 Pure hypercholesterolemia, unspecified; G43.909 Migraine, unspecified, not intractable, without status migrainosus; E53.8 Deficiency of other specified B group vitamins; E55.9 Vitamin D deficiency, unspecified

== ENCOUNTER 2024-12-23 09:41 | Outpatient (REF) | payer BC, SELFPAY ==
[2024-12-23 11:14] LABS: Hematocrit 39.3 % (37.0-47.0); Hemoglobin 12.7 g/dl (12.0-16.0); Imm Gran Abs Auto 0.01 X10*3/uL (0.00-0.03); Imm Gran Pct Auto 0.2 % (0.0-0.4); Lymphocytes Absolute Auto 1.8 X10*3/uL (1.2-4.9); MANUAL DIFF FLAG NO; Mean Corpuscular HGB Conc 32.3 g/dl (31.0-35.0); Mean Corpuscular Hemoglobin 30.7 pg (27.0-33.0); Mean Corpuscular Volume 94.9 fL (80.0-98.0); NRBC Abs Auto 0.000 X10*3/uL (0.0-0.012); NRBC Pct Auto 0.0 /100WBC (0.0-0.2); Platelet Count 200 X10*3/uL (160-400); Red Blood Count 4.14 X10*6/uL (4.20-5.50); White Blood Count 4.4 X10*3/uL (4.8-10.8)
--- OUTSIDE RECORDS SUMMARY | 2024-12-23 11:33 | XMS_ITS | Encounter Summary ---
Author Organization [facility], Located Within [facility] Address [address] [place] [address] Care Team Providers Care Comp Field Case Manager Name Role Phone Alexis Murrieta MD Primary Care Provider [phone] Reason for Visit * Reason Comments Prior Authorization Encounter Details Date Type Department Care Team ([facility] Contact Info) Description 2023 Telephone [facility] [place] [address] [place] [id number] Rob Schroeder MD [address] [place] [phone] Prior Authorization Social History Tobacco Use Types Packs/Day Years Used Date Smoking Tobacco: Former Cigarettes Smokeless Tobacco: Never Alcohol Use Standard Drinks/Week Comments Yes 2 (1 standard drink = 0.6 oz pur e alcohol) [facility] - Occupational Stress [...] Description 04/12/2025 10:30 AM EST Office Visit [facility] Rheumatology [address] [id number] Osei Dickey MD [address] [place] [id number] documented as of this encounter Visit Diagnoses Not on filedocumented in this encounter Care Teams Comp Field Case Manager Relationship Specialty Start Date End Date Alexis Murrieta MD [address] [place] [address] Dr Garcia [address] [place] [address], [place] [address] PCP - General Internal Medicine 02/27/22 documented as of this encounter
--- OUTSIDE RECORDS SUMMARY | 2024-12-23 11:33 | XMS_ITS | Clinical Summary ---
Author Organization Formerly [facility] Address [address] [place] [address] Care Team Providers Care Integrated Marketing Specialist Name Role Phone Alexis Murrieta MD Primary Care Provider [phone]- [phone] Allergies No known active allergies Medications traMADol (ULTRAM) 50 MG tablet TAKE 1 TO 2 TABLETS BY MOUTH TWICE DAILY NEEDED ONLY WITH ACETAMINOPHEN 1000MG 06/06/19 23 Active traZODone (DESYREL) 100 MG tablet TAKE 1 AND 1/2 TABLETS BY MOUTH AT BEDTIME FOR INSOMNIA 05/31/19 23 Active atorvastatin (LIPITOR) 20 MG tablet Take 1 tablet (20 mg total) by mouth daily. 05/06/19 23 Active lidocaine (LIDODERM) 5 % patch APPLY 2 PATCHES TOPICALLY TO THE SKIN DAILY. LEAVE ON MOST PAINFUL AREA FOR UP TO 12 HOURS 05/02/19 23 Active ergocalciferol 16116 units Cap TAKE 1 CAPSULE BY MOUTH 1 TIME A WEEK 04/16/19 23 Active tiZANidine (ZANAFLEX) 4 MG tablet 01/21/20 23 Active clobetasol (TEMOVATE) 0.05 % creamIndications :Psoriasis Apply topically 2 (two) times a day. 2 times a day no more than 2 weeks at a time 30 g 1 01/22/20 23 Active Additional Information Patient taking differently:TopicalAs needed, 2 times a day no more than 2 weeks at a time, Reported on 11/12/2024 LORazepam (ATIVAN) 1 MG tabletIndication s:Anxiety due to invasive procedure,Spinal stenosis of lumbar region with neurogenic claudication Take 1-2 tabs by mouth 1 hour before the procedure 10 tablet 06/13/19 24 Active Additional Information Patient taking differently: As needed, Take 1-2 tabs by mouth 1 hour before the procedure, Reported on 11/12/2024 doxycycline (MONODOX) 100 MG capsule 1 capsule (100 mg total) by Mouth/Oral Cavity route every 12 hours. 01/21/20 Active Wegovy 0.25 MG/0.5ML Solution Auto-injector 01/23/20 24 Active nystatin (MYCOSTATIN) 332428 UNIT/GM cream APPLY TOPICALLY TO THE AFFECTED AREA THREE TIMES DAILY FOR 10 DAYS 12/08/19 24 Active folic acid (FOLVITE) 1 MG tabletIndication s:Psoriatic arthritis (HCC) TAKE 1 TABLET(1 MG) BY MOUTH DAILY 90 tablet 1 07/24/19 25 Active Cosentyx UnoReady 300 MG/2ML subcutaneous auto-injectorInd ications:Psoriat ic arthritis (HCC) INJECT 300MG SUBCUTANEOUSLY EVERY 4 WEEKS 2 mL 3 09/10/19 25 Active Additional Information Patient not taking.Reported on 11/12/2024 methoTREXate (RHEUMATREX) 2.5 mg tabletIndication s:Psoriatic arthritis (HCC) Take 8 tablets (20 mg total) by mouth once a week 32 tablet 11/10/19 25 Active aspirin enteric coated (Ecotrin) 325 MG EC tablet Take 1 tablet (325 mg total) by mouth. 10/17/19 25 Active celeCOXIB (CeleBREX) 200 MG capsule Take 1 capsule (200 mg total) by mouth. 10/17/19 25 Active PANTOprazole (PROTONIX) 40 MG EC tablet Take 1 tablet (40 mg total) by mouth. 10/17/19 25 Active Active Problems Problem Noted Date Diagnosed Date Spinal stenosis of lumbar re gion with neurogenic claudication 08/07/2023 Chronic bilateral low back pain with bilateral s ciatica 06/13/2023 Bilateral hip pain 06/13/2023 Psoriatic arthritis 06/26/2022 Encounters Date Type Department Care Team Description 11/12/2024 10:30 AM EDT Office Visit [facility] Rheumatology [address] [address] Osei Dickey MD Psoriatic arthritis (HCC) (Primary Dx); Psoriasis ; High risk medication use; Arthritis 11/12/2024 Orders Only [facility] Rheumatology [address] [address] Alexis Murrieta MD 11/12/2024 Travel 11/08/2024 [facility] Rheumatology [address] [address] Osei Dickey MD Psoriatic arthritis (HCC) from Last 3 Months Family History Relation Name Status Comments Father Mother Social History Tobacco Use Types Packs/Day Years Used Date Smoking Tobacco: Former Cigarettes Smokeless Tobacco: Never Tobacco Cessation:Counseling Given: Not Answered Alcohol Use Standard Drinks/Week Comments Yes 2 (1 standard drink = 0.6 oz pur e alcohol) [facility] [place] of Occupat ional Health - Occupational Stress [...] Description 04/12/2025 10:30 AM EST Office Visit [facility] Rheumatology [place] [address] [facility] [address] [place] [address] Osei Dickey MD 31 [facility] [address] [place] [address] Health Maintenance Due Date Last Done Comments Quantiferon Gold TB 1972 HIV Screening 08/05/1975 DTaP/Tdap/Td Vaccines (1 - Tdap) 1981 Pneumococcal Vaccines 50+ (1 of 2 - PCV) 1981 Zoster (Shingles) Vaccine (1 of 2) 1981 Pap Smear (Ages 21-65) 08/05/1983 Mammogram 2002 Colonoscopy 08/05/2007 RSV Vaccine 50 years and older and Patients (1 - Risk 50-74 years 1-dose series) 2012 Influenza Vaccine 09/24/2024 11/23/2022 COVID-19 Vaccine ( [...] (07/22/2024) Blood Blood specimen / Unknown 07/22/2024 us Osei Dickey MD LAB BLOOD ORDERABLES Final Res ult [facility] from Last 3 Months or Most Recently Relevant to Health Maintenance Insurance [employer] OF STATE - HMO Care Teams Integrated Marketing Specialist Relationship Specialty Start Date End Date Alexis Murrieta MD [address] [place] [address] [place] [address] PCP - General Internal Medicine 02/27/22
--- OUTSIDE RECORDS SUMMARY | 2024-12-23 11:33 | XMS_ITS | Encounter Summary ---
Author Organization [facility] Address [address] [facility] [address] [place] [address] Phone Care Team Providers Care Patient Financial Specialist Name Role Phone Alexis Murrieta MD Primary Care Provider [phone] [phone] Encounter Details Date Type Department Care Team (Late st Contact Info) Description 12/16/2022 Procedure Pass [facility], [address] [address] Social History Tobacco Use Types Packs/Day Years [...] on filedocumented in this encounter Care Teams Patient Financial Specialist Relationship Specialty Start Date End Date Alexis Murrieta MD [address] [place] [address] [place] [address] PCP - General Internal Medicine 12/24/16 documented as of this encounter Additional Source Comments The information contained in this document represents components of the legal health record. It is not the complete legal health record.[facility]
--- OUTSIDE RECORDS SUMMARY | 2024-12-23 11:33 | XMS_ITS | Clinical Summary ---
Author Organization [facility] Address [address] [address] Phone Care Team Providers Care Fire And Safety Helper Name Role Phone Alexis Murrieta MD Primary Care Provider [phone] [phone] Allergies Active Allergy Reactions Criticality Noted Date [...] (FOLVITE) 1 MG tabletIndications :Psoriatic arthritis,Methotr exate, termite control servicer, current use TAKE 1 TABLET(1000 MCG) BY [...] to inform any new MD, PA or HELP DESK CONSULTANT about chronic immunosuppression with Cosentyx and methotrexate [...] to inform any new MD, PA or HELP DESK CONSULTANT about chronic immunosuppression with Cosentyx and methotrexate particularly in emergency situations. Ischial bursitis of left side 07/18/2022 Assessment & Plan (07/28/2022 9:18 PM EDT): Gentle warm packs followed by stretching, massage and consideration for therapeutic ultrasound versus/and acupuncture and/or chiropractic treatments. Continue regular warm pool exercising. Consider personal active directory specialist sessions-she has list of several personal trainers from [employer] in [place], [place]-see copy in media section of [employer]. Chronic left-sided low back pain with left-sided [...] is scheduled to see Dr. Castellon at [facility] on 07/31/2022 Assessment & Plan (11/18/2021 [...] given in writing. Skin rash 11/12/2018 Methotrexate, shelter, current use 03/19/2018 Assessment & Plan (01/30/2023 [...] while taking methotrexate. Inform any new , HELP DESK CONSULTANT, PA about chronic immunosuppression with methotrexate especially [...] while taking methotrexate. Inform any new , HELP DESK CONSULTANT, PA about chronic immunosuppression with methotrexate especially [...] while taking methotrexate. Inform any new MD, HELP DESK CONSULTANT, PA about chronic immunosuppression with methotrexate especially [...] while taking methotrexate. Inform any new MD, HELP DESK CONSULTANT, PA about chronic immunosuppression with methotrexate especially [...] while taking methotrexate. Inform any new MD HELP DESK CONSULTANT, PA about chronic immunosuppression with methotrexate especially [...] while taking methotrexate. Inform any new MD, HELP DESK CONSULTANT, PA about chronic immunosuppression with methotrexate especially [...] while taking methotrexate. Inform any new , HELP DESK CONSULTANT, PA about chronic immunosuppression with methotrexate especially [...] while taking methotrexate. Inform any new MD HELP DESK CONSULTANT, PA about chronic immunosuppression with methotrexate especially [...] while taking methotrexate. Inform any new MD HELP DESK CONSULTANT, PA about chronic immunosuppression with methotrexate especially [...] while taking methotrexate. Inform any new MD HELP DESK CONSULTANT, PA about chronic immunosuppression with methotrexate especially [...] while taking methotrexate. Inform any new MD HELP DESK CONSULTANT, PA about chronic immunosuppression with methotrexate especially [...] while taking methotrexate. Inform any new MD, HELP DESK CONSULTANT, PA about chronic immunosuppression with methotrexate especially [...] while taking methotrexate. Inform any new MD HELP DESK CONSULTANT, PA about chronic immunosuppression with methotrexate especially [...] while taking methotrexate. Inform any new MD, HELP DESK CONSULTANT, PA about chronic immunosuppression with methotrexate especially [...] in 3 months and standing orders in [facility]. Carefully continue weekly oral methotrexate for Friday and daily folic acid except for the day of weekly methotrexate dose. Carefully continue Cosentyx 300 mg subcutaneously every 4 weeks on Friday. Continue Plaquenil 200 mg twice daily. I have educated her to follow-up with her rouge presser within 12 months of starting Plaquenil. Keep [...] have educated her to follow-up with her rouge presser within 12 months of starting Plaquenil. Keep [...] formulary for coverage. She is applying for [employer] financial assistance by [employer] Start Form that I have filled [...] regular warm pool exercising such as at [employer] in [place], [place]. Assessment & Plan (09/16/2022 4:30 PM [...] regular warm pool exercising such as at [place]. Assessment & Plan (07/28/2022 9:11 PM [...] regular warm pool exercising [place] at [place]. Assessment & Plan (10/18/2021 5:03 PM [...] regular warm pool exercising [place] at [place]. Assessment & Plan (02/13/2021 6:38 PM [...] regular warm pool exercising [place] at [place]. Assessment & Plan (09/20/2020 4:25 PM [...] the diet. Close follow-up with PCP/diabetic nurse educator/bead worker sewing as scheduled. Assessment & Plan (05/12/2020 4:00 PM EDT): Keep blood glucose in 90-110 mg % Limit or eliminate concentrated sugars from the diet. Close follow-up with PCP/diabetic nurse educator/bead worker sewing as scheduled. Assessment & Plan (03/10/2020 4:02 PM EST): Keep blood glucose in 90-110 mg % Limit or eliminate concentrated sugars from the diet. Close follow-up with PCP/diabetic nurse educator/bead worker sewing as scheduled. Assessment & Plan (09/03/2019 3:55 PM EDT): Keep blood glucose in 90-110 mg % Limit or eliminate concentrated sugars from the diet. Close follow-up with PCP/diabetic nurse educator/bead worker sewing as scheduled. Assessment & Plan (04/18/2019 7:50 PM EST): Keep blood glucose in 90-110 mg % Limit or eliminate concentrated sugars from the diet. Close follow-up with PCP/diabetic nurse educator/bead worker sewing as scheduled. Assessment & Plan (10/25/2018 11:36 AM EDT): Keep blood glucose in 90-110 mg % Limit or eliminate concentrated sugars from the diet. Close follow-up with PCP/diabetic nurse educator/bead worker sewing as scheduled. Assessment & Plan (07/02/2018 11:07 PM EDT): Keep blood glucose in 90-110 mg % Limit or eliminate concentrated sugars from the diet. Close follow-up with PCP/diabetic nurse educator/bead worker sewing as scheduled. Assessment & Plan (05/06/2018 11:09 PM EDT): Keep blood glucose in 90-110 mg % Limit or eliminate concentrated sugars from the diet. Close follow-up with PCP/diabetic nurse educator/bead worker sewing as scheduled. alf prescription opiate use 07/24/2017 Assessment & Plan [...] the diet. Close follow-up with PCP/diabetic nurse educator/bead worker sewing as scheduled. Assessment & Plan (07/02/2018 11:07 [...] sure to inform any new MD, PA, HELP DESK CONSULTANT about chronic immunosuppression particularly in emergency situations. Assessment & Plan (07/21/2020 2:58 PM EDT): Continue monthly Taltz injections as prescribed and return for regular lab monitoring as requested. Hold injection whenever running fever, feeling sick or taking antibiotics. Avoid sick contacts. Make sure to inform any new MD, PA, HELP DESK CONSULTANT about chronic immunosuppression particularly in emergency situations. Assessment & Plan (05/12/2020 4:09 PM EDT): Continue monthly Taltz injections as prescribed and return for regular lab monitoring as requested. Hold injection whenever running fever, feeling sick or taking antibiotics. Avoid sick contacts. Make sure to inform any new MD, PA, HELP DESK CONSULTANT about chronic immunosuppression particularly in emergency situations. [...] sure to inform any new MD, PA, HELP DESK CONSULTANT about chronic immunosuppression with Humira (adalimumab) especially in emergency situations. Call if questions or problems. Encounter for monitoring certolizumab therapy 04/29/1909/03/2019 Assessment & Plan (05/02/2019 11:30 PM EDT): Hold injection if sick, running fevers or taking antibiotics. Inform any new MD, PA, HELP DESK CONSULTANT about chronic immunosuppression with Cimzia and methotrexate [...] FOBT 08/05/2007 SIGMOIDOSCOPY 08/05/2007 VIRTUAL COLONOSCOPY 08/05/2007 RSV VACCINE (1 - Risk 50-74 years 1-dose series) 2012 DIABETIC EYE EXAM 07/24/2017 PNEUMOCOCCAL VACCINES (50+ years) (2 of 2 - PCV) 11/06/2017 11/06/2016 HEMOGLOBIN A1C 03/19/2023 09/16/2022, 03/0 07/2022, 09/14/2021, [...] 2 diabetes mellitus without complication, unspecified whether termite control servicer insulin use HEMOGLOBIN A1C Routine 09/16/2022 3:29 PM EDT Type 2 diabetes mellitus without complication, without long-term current use of insulin from Last 3 Months or Most Recently Relevant to Health Maintenance Results * Microalbumin/creatinine ratio, random urine (09/16/2022 3:41 PM EDT) URINE MICROALBUMIN <1.2 0 - 2.3 mg/dL [facility] URINE CREATININE 136 mg/dL NEEDLE CONTROL [facility] MICROALB/CRE RATIO NOT CALCULATED 0 - 20 mg/g Cre [facility] Comment:due to Microalbumin <1.2 Urine (Urine) 09/16/2022 3:4 1 PM EDT 09/16/2022 3:45 PM EDT us Alexis Murrieta MD URINE ORDERABLES Final Re sult [address] [address] * (ABNORMAL) Hemoglobin A1c (09/16/2022 3:29 PM EDT) HEMOGLOBIN A1C 6.2(H) 4.3 - 5.8 % [facility] Blood 09/16/2022 3:2 9 PM EDT 09/16/2022 3:36 PM EDT us Alexis Murrieta MD LAB BLOOD ORDERABLES Marjorie l Result Performing Organization Address City/[facility]/ZIP Co de Phone Number [address] [address] from Last 3 Months or Most Recently Relevant to Health Maintenance Insurance [facility] [place] [address] [address] [address] [place] [address] [place] [address] Care Teams Fire And Safety Helper Relationship Specialty Start Date End Date Alexis Murrieta MD [address] [place] [address] [place] [address] PCP - General Internal Medicine 12/24/16 Additional Source Comments The information contained in this document represents components of the legal health record. It is not the complete legal health record.[facility]
--- OUTSIDE RECORDS SUMMARY | 2024-12-23 11:33 | XMS_ITS | Encounter Summary ---
Author Organization [facility] Address [address] [facility] [address] [place] [address] Phone Care Team Providers Care Dairy Management Specialist Name Role Phone Alexis Murrieta MD Primary Care Provider [phone] -[phone] Encounter Details Date Type Department Care Team (Late st Contact Info) Description 03/31/2019 Ancillary Orders [facility] Rheumatology [address] [place] [address] Elsa Bourne MD [address] [facility], [address] [place] [address] [email or web address] Chronic pain of left knee; Psoriatic arthritis [...] arthropathy documented in this encounter Care Teams Dairy Management Specialist Relationship Specialty Start Date End Date Alexis Murrieta MD [address] [place] [address] Dr Garcia [address] [place] [address] PCP - General Internal Medicine 12/24/16 documented as of this encounter Additional Source Comments The information contained in this document represents components of the legal health record. It is not the complete legal health record.[facility]
--- OUTSIDE RECORDS SUMMARY | 2024-12-23 11:33 | XMS_ITS | Encounter Summary ---
Author Organization [facility] Address [address] [place] [address] Care Team Providers Care Household Cook Name Role Phone Alexis Murrieta MD Primary Care Provider [phone]- [phone] Encounter Details Date Type Department Care Team (Late st Contact Info) Description 02/26/2022 Scanned Document [facility] RHEUMATOLOGY SCAN Rheumatology, Scan Social [...] Description 04/12/2025 10:30 AM EST Office Visit [facility] Rheumatology [address] [address] Osei Dickey MD [address] [place] [address] documented as of this encounter Visit Diagnoses Not on filedocumented in this encounter Care Teams Household Cook Relationship Specialty Start Date End Date Alexis Murrieta MD [address] [place] [address] [place], [place] PCP - General Internal Medicine 02/27/22 documented as of this encounter
--- OUTSIDE RECORDS SUMMARY | 2024-12-23 11:33 | XMS_ITS | Encounter Summary ---
Author Organization [facility] Address [address] [place] [address] Care Team Providers Care Flight Manager Name Role Phone Alexis Murrieta MD Primary Care Provider +1- [phone] Encounter Details Date Type Department Care Team (Late st Contact Info) Description 11/25/2023 Scanned Document [facility] Rheumatology [address] [address] Osei Dickey MD [address] [place] [address] Social History Tobacco Use Types Packs/Day Years Used Date Smoking Tobacco: Former Cigarettes Smokeless Tobacco: Never Alcohol Use Standard Drinks/Week Comments Yes 2 (1 standard drink = 0.6 oz pur e alcohol) [facility] [place] of Occupat ional Health - Occupational Stress [...] Description 04/12/2025 10:30 AM EST Office Visit [facility] Rheumatology [address] [address] Osei Dickey MD [address] [address] documented as of this encounter Visit Diagnoses Not on filedocumented in this encounter Care Teams Flight Manager Relationship Specialty Start Date End Date Alexis Murrieta MD [address] [place] [address] Dr Garcia [address] [place] [address] PCP - General Internal Medicine 02/27/22 documented as of this encounter
--- OUTSIDE RECORDS SUMMARY | 2024-12-23 11:33 | XMS_ITS | Encounter Summary ---
Author Organization [facility] Address [address] [address] Phone Care Team Providers Care Design Assistant Name Role Phone Alexis Murrieta MD Primary Care Provider [phone] -[phone] Encounter Details Date Type Department Care Team (Late st Contact Info) Description 02/11/2023 Procedure Pass [facility] [address] [place] [address] Social History Tobacco Use Types Packs/Day Years [...] on filedocumented in this encounter Care Teams Design Assistant Relationship Specialty Start Date End Date Alexis Murrieta MD [address] [place] [address] [place] [address] PCP - General Internal Medicine 12/24/16 documented as of this encounter Additional Source Comments The information contained in this document represents components of the legal health record. It is not the complete legal health record.[facility]
--- OUTSIDE RECORDS SUMMARY | 2024-12-23 11:33 | XMS_ITS | Patient Health Record ---
Author Organization [facility] Address [address] [place] [address] Care Team Providers Care Mushroom Growth Media Mixer Name Role Phone Xavier Wyman Unavailable [phone] Reason For Referral No Information Plan Of Treatment No Information
--- OUTSIDE RECORDS SUMMARY | 2024-12-23 11:33 | XMS_ITS | Encounter Summary ---
Author Organization [facility] Address [address] [facility] [address] [place] [address] Phone Care Team Providers Care Tread Builder Name Role Phone Alexis Murrieta MD Primary Care Provider [phone] [phone] Encounter Details Date Type Department Care Team (Late st Contact Info) Description 11/19/2022 Procedure Pass [facility], Ct Scan - [address] [address] Social History Tobacco Use Types Packs/Day Years [...] on filedocumented in this encounter Care Teams Tread Builder Relationship Specialty Start Date End Date Alexis Murrieta MD [address] [place] [address] [place] [address] PCP - General Internal Medicine 12/24/16 documented as of this encounter Additional Source Comments The information contained in this document represents components of the legal health record. It is not the complete legal health record.[facility]
[2024-12-23 16:40] LABS: Alanine Aminotransferase 38 U/L (0-31); Albumin Level 4.1 g/dL (3.5-5.0); Alkaline Phosphatase 85 U/L (39-117); Anion Gap 12 (12-20); Aspartate Amino Transferase 48 U/L (5-31); Blood Urea Nitrogen 15 mg/dL (9-16); Calcium 9.2 mg/dL (8.4-10.2); Carbon Dioxide 23 mmol/L (22-29); Chloride 110 mmol/L (96-108); Estimated Glomerular Filt Rate > 60; Lipase 20 U/L (8-78); Potassium 4.0 mmol/L (3.3-5.1); Sodium 141 mmol/L (135-145); Total Protein 7.1 g/dL (6.5-8.0); Uric Acid 6.7 mg/dL (2.4-5.7)
[2024-12-24 23:04] LABS: Antibody to SS-A Antigen <1.0 NEG AI (<1.0 NEG); Antibody to SS-B Antigen <1.0 NEG AI (<1.0 NEG)
== END 2024-12-23 09:42 | disposition home or self-care (01) ==
LOC: HO.LAB 09:41
PROVIDERS: PCP Internal Medicine; Visit Provider Internal Medicine
DX: M19.90 Unspecified osteoarthritis, unspecified site (principal); L40.50 Arthropathic psoriasis, unspecified; R11.2 Nausea with vomiting, unspecified; Z79.899 Other long term (current) drug therapy
CPT/HCPCS: 36415; 80053; 83690; 84550; 85025; 85652; 86140; 86235

== ENCOUNTER 2025-01-28 16:29 | Outpatient (AMB) | payer BC, SELFPAY ==
[2025-01-28 16:30] VITALS: BP 110/60; PULSE 84; O2SAT 95; BMI 46.5
--- NOTE | 2025-01-28 16:30 | MHC.PC.OV ---
Vital Signs 01/28/25 16:30 Height 5 ft 1 in Weight 246 lb BMI 46.5 BP 110/60 Blood Pressure Location Lt brachial Position Sitting Pulse 84 Pulse Source Pulse Oximeter Pulse Oximetry (%) 95 Oxygen Delivery Method Room Air Intake Visit Reasons: [facility] 01/20 Penciller Required: No Accompanied by: Self / Same As Patient Allergies aspirin Allergy (Unknown, Verified 01/28/25 16:52) Unknown Sulfa (Sulfonamide Antibiotics) Allergy (Unknown, Verified 01/28/25 16:52) pruritis, severe itching metformin Adverse Reaction (Unknown, Verified 01/28/25 16:52) diarrhea Medication List - Last Reconciled 01/28/25 by Alexis Murrieta MD albuterol sulfate 90 mcg/actuation (Ventolin HFA) 2 puffs inhalation Q6H PRN 30 days alendronate 70 mg PO QWEEK 3 months amoxicillin 2,000 mg (4 x 500 mg) PO ONCE PRN 1 day atorvastatin 20 mg PO DAILY budesonide 180 mcg/actuation (Pulmicort Flexhaler) 1 inh inhalation BID 30 days qgecbssmsi-qetrtmrdmmzmr-beow 50-325-40 mg 1 cap PO BID PRN 30 days cephalexin 500 mg PO Q6H 7 days cholecalciferol (vitamin D3) 50 mcg PO DAILY 90 days enoxaparin (Lovenox) 110 mg subcut Q12H ergocalciferol (vitamin D2) 1,250 mcg PO QWEEK folic acid 1 mg PO DAILY gabapentin 300 mg PO TID PRN hydroxychloroquine 200 mg PO BID lidocaine 5% 2 patches topical DAILY 30 days mecobalamin (vitamin B12) 1,000 mcg PO DAILY 90 days methotrexate sodium 20 mg PO QWEEK nystatin 1 appl topical TID 10 days oxycodone 5 mg PO TID PRN 7 days secukinumab (Cosentyx UnoReady Pen) 300 mg subcut Q4W semaglutide (weight loss) 1.7 mg (0.75 mL) subcut QWEEK 4 weeks tizanidine 4 mg PO TID PRN tramadol 50 mg PO Q6H PRN 15 days trazodone 150 mg (1.5 x 100 mg) PO BEDTIME 30 days Tobacco use date assessed: 01/28/25 Dental Screening Dental Screen Date: 01/28/25 Did you have a dental visit in the last 12 months?: Yes Did you have a dental problem in the last 6 months where you did not have access to dental care?: No Was dental information given to patient?: Patient has dentist [facility] 01/20 [facility] Details Patient comes in today for her F follow up visit after her recent right total hip arthroplasty and subsequent complications Patient initially underwent a right total hip arthroplasty last month on 12/31/24 Postoperatively, she developed palpitations, CASTELAN, lightheadedness and near syncope and presented to the ER, where CT angiogram revealed (+) bilateral pulmonary emboli Venous doppler done showed (+) DVT in the right lower extremity She was initially started on Heparin drip and this was eventually transitioned over to oral anticoagulation with Eliquis 5 mg BID during her admission to the hospital but follow up exam reportedly revealed worsening DVT while on oral anticoagulation and she was subsequently switched to Lovenox SQ BID due to concerns of failure of anticoagulation with Eliquis She was also diagnosed with a UTI and completed an antibiotic course before , but patient feels that the infection may still be present as she is still experiencing (+) symptoms of dysuria and urinary urgency Patient was also seen at the ER a few days ago for what was diagnosed as a viral illness, which she feels is still affecting her - she is currently still experiencing sore throat and some chest congestion and recurrent cough with minimal phlegm; denies any fever Chest x-rays and labs done did not reveal any findings of pneumonia She also continues to experience significant right hip pain, stating it feels like she is one week post-surgery rather than one month States that she just completed her current in-home physical therapy sessions and would like to get a referral to [facility] to continue with her physical therapy at home, which she feels have been very helpful for her States that the previous [facility] who conducted her home physical therapy will be closing and she is requesting the referral be placed with Santi PEREZ She finds that her currently prescribed Oxycodone 5 mg to be too strong for her current pain level and is looking for something less stronger than her current Rx but stronger than Tramadol The patient is currently still taking Methotrexate and Cosentyx for her psoriatic arthritis She denies any chest pains but still has some CASTELAN No nausea/vomiting, no abdominal pain No change in bowel habits noted [facility] Medical History (Updated 01/29/25 @ 07:41 by Alexis Murrieta MD) DVT (deep venous thrombosis) Morbid obesity with BMI of 50.0-59.9, adult Compression fracture of L3 vertebra Insomnia Nasal sore Morbid obesity with BMI of 45.0-49.9, adult Depression Vitamin D deficiency Vitamin B12 deficiency Migraine Pure hypercholesterolemia Fibromyalgia Diabetes mellitus Psoriatic arthritis Lumbar degenerative disc disease Surgical History History of total left hip arthroplasty History of esophagogastroduodenoscopy (EGD) History of colonoscopy (~04/06/04) Family History Father No problems noted. Mother No problems noted. Social History Housing: House Alcohol intake: current Alcohol intake frequency: holidays/special occasions only Patient Tobacco Use Status: Former Tobacco user Tobacco use type: Cigarette e-Cigarette/Vaping Use: Never Used Second Hand Smoke Exposure: Yes service: No Current occupational status: disabled Current occupation: rt hand Current occupational exposures/hazards: No Cognitive needs: Yes Hearing needs: No Vision needs: Yes Questionnaire PHQ-9 Over the last 2 weeks, how often have you been bothered by any of the following problems? 1. Little interest or pleasure in doing things: not at all 2. Feeling down, depressed, or hopeless: not at all 3. Trouble falling or staying asleep, or sleeping too much: not at all 4. Feeling tired or having little energy: not at all 5. Poor appetite or overeating: not at all 6. Feeling bad about yourself - or that you are a failure or have let yourself or your family down: not at all 7. Trouble concentrating on things, such as reading the newspaper or watching television: not at all 8. Moving or speaking so slowly that other people could have noticed. Or the opposite - being so fidgety or restless that you have been moving around a lot more than usual: not at all 9. Thoughts that you would be better off or of hurting yourself in some way: not at all Total score: 0 Depression Screening Interpretation: Negative Depression Screening Done: Yes 93177 - PHQ-9 Billing: Yes Source: Developed by Ashley Saleem Kurt Kroenke and colleagues, with an educational jade from [employer]. Thrive Questionnaire Date Thrive assessed: 01/28/25 I am a: Patient What is your living situation today?: I have a steady place to live Within the past 12 months, did the food you bought not last and you didn't have the money to get more?: Never true Within the past 12 months, did you worry whether your food would run out before you got money to buy more?: Never true Do you have trouble paying for medicines?: No Do you have trouble getting transportation to medical appointments?: No Do you have trouble paying your heating and electricity bill?: No Do you have trouble taking care of your child, family member or friend?: No Do you have trouble with day-to-day activities such as bathing, preparing meals, shopping, managing finances, etc.?: No Are you currently unemployed and looking for a job?: No Are you interested in more education?: No Please select the resources that you would like help with: None Currently or been in a relationship where the following occur: No concerns reported THRIVE Score: 0 AUDIT C Alcohol Use Questionnaire (AUDIT-C) 1. How often do you have a drink containing alcohol?: Never 3. How often do you have six or more drinks on one occasion?: Never Total Score: 0 Score Reviewed/Action Taken: Yes NAWAF-7 AMB Questionnaire NAWAF-7 Date NAWAF - 7 assessed: 01/28/25 Feeling nervous, anxious, or on edge: 0 = Not at all Not being able to stop or control worryin = Not at all Worrying too much about different things: 0 = Not at all Trouble relaxin = Not at all Being so restless that it is hard to sit still: 0 = Not at all Becoming easily annoyed or irritable: 0 = Not at all Feeling afraid as if something awful might happen: 0 = Not at all Total NAWAF-7 score (0-4 normal; 5-9 mild; 10-14 moderate; 15-21 severe): 0 Source: Developed by Ashley Saleem Kurt Kroenke and colleagues, with an educational jade from [employer]. Review of Systems Const Denies chills, Reports fatigue, Denies fever(s) and Denies headache(s) ENT Denies dysphagia, Denies dizziness, Denies otalgia, Denies headache(s), Reports nasal congestion, Reports neck pain (chronic), Denies odynophagia and Reports sore throat Card Denies chest pain, Denies palpitations and Reports dyspnea on exertion Resp Reports chest congestion, Reports cough (on and off), Denies hemoptysis, Reports dyspnea on exertion and Denies wheezing GI Denies abdominal pain, Denies constipation, Denies dysphagia, Denies heartburn, Denies diarrhea, Denies nausea, Denies odynophagia and Denies vomiting Denies difficulty voiding, Denies nocturia, Reports dysuria (mild) and Reports urinary urgency Musc Reports back pain (chronic - increased lately due to acute injury), Reports myalgias (diffuse), Reports arthralgias (over multiple joints, including both hips & shoulders and puneet the R knee), Reports neck pain (chronic) and Reports stiffness Skin/Breast Denies rash Neuro Denies dizziness and Denies headache(s) Endo Reports fatigue and Denies palpitations Aller/Immun Denies wheezing Physical exam (Primary Care) Vital Signs: Last Vital Signs Pulse 84 01/28/25 16:30 BP 110/60 01/28/25 16:30 Pulse Ox 95 01/28/25 16:30 Oxygen Delivery Method Room Air 01/28/25 16:30 BMI result Body Mass Index 46.5 Tobacco/Smoking Status: Tobacco use Status Tobacco use date assessed 01/28/25 01/28/25 16:35 Patient Tobacco Use Status Former Tobacco user 01/28/25 16:35 Tobacco use type Cigarette 01/28/25 16:35 e-Cigarette/Vaping Use Never Used 01/28/25 16:35 PHQ-9: PHQ-9 Score PHQ-9: Total score 0 01/28/25 22:53 Depression Screening Interpretation: Negative Thrive Assessment: Date of Thrive Assessment Date Thrive assessed 01/28/25 01/28/25 16:35 Currently or been in a relationship where the following occur: No concerns reported Const General: no acute distress and alert HENMT Ears: TM's normal bilaterally and EAC's normal Throat: Yes posterior oropharynx normal and Yes tonsils normal (no TP congestion noted) Neck Neck: No lymphadenopathy Thyroid: Thyroid normal Resp Auscultation: no crackles, no rales, rhonchi (occasional) throughout, no wheezes and diminished lung sounds (slightly) bilateral Cardio Rate: regular rate Rhythm: regular rhythm Heart sounds: no murmurs GI Palpation (GI): Soft to palpation and nontender Auscultation: normal bowel sounds General: Yes no CVA tenderness Back/Spine/Pelvis Back: no CVA tenderness Cervical Spine: Cervical spine tenderness Thoracic/Lumbar Spine: lumbar spinal tenderness Skin Rashes: no rashes Extrem General: Yes no clubbing, cyanosis or edema Left upper extremity: shoulder/upper arm Details: tenderness Location: of the A-C joint and of the proximal humerus Right lower extremity: hip/thigh Details: tenderness Location: of the hip and knee Details: tenderness; no swelling Left lower extremity: hip/thigh Details: tenderness (improved with surgery in September 2024) Location: of the hip and knee Details: tenderness; no swelling Coding Level of Care Code Est Pt Level 4 (70549) Diagnoses Acute pulmonary embolism without acute cor pulmonale, unspecified pulmonary embolism type I26.99 Pulmonary embolism type: unspecified Acute cor pulmonale presence: without acute cor pulmonale Acute deep vein thrombosis (DVT) of right lower extremity, unspecified vein I82.401 DVT location: lower extremity Affected thrombotic vein of extremity: unspecified vein of extremity Chronicity: acute Laterality: right Osteoarthritis involving multiple joints on both sides of body M15.9 Compression fracture of L3 vertebra, sequela S32.030S Encounter type: sequela Psoriatic arthritis L40.50 Fibromyalgia M79.7 Type 2 diabetes mellitus without complication, without long-term current use of insulin E11.9 Diabetes mellitus type: type 2 Diabetes mellitus intermodal dispatcher insulin use: without intermodal dispatcher use Diabetes mellitus complication status: without complication Pure hypercholesterolemia E78.00 Migraine without status migrainosus, not intractable, unspecified migraine type G43.909 Migraine type: unspecified Status migrainosus presence: without status migrainosus Intractability: not intractable Upper respiratory tract infection, unspecified type J06.9 URI type: unspecified URI Dysuria R30.0 Vitamin B12 deficiency E53.8 Vitamin D deficiency E55.9 Insomnia, unspecified type G47.00 Insomnia type: unspecified Depression, unspecified depression type F32.9 Depression Type: unspecified Morbid obesity with BMI of 45.0-49.9, adult E66.01; Z68.42 Additional Codes PHQ-9 - 31463 - PHQ-9 Billing: Yes ([id number]) Assessment & Plan Assessment & Plan (1) Acute pulmonary embolism: Code(s): I26.99 - Other pulmonary embolism without acute cor pulmonale Category: Medical Qualifiers: Pulmonary embolism type: unspecified Acute cor pulmonale presence: without acute cor pulmonale Qualified Code(s): I26.99 - Other pulmonary embolism without acute cor pulmonale Plan: Patient was diagnosed with pulmonary embolism and DVT of the right lower extremity shortly after her total right knee arthroplasty last month She was initially started on Apixaban 5 mg BID but apparently developed worsening of her DVT while on Apixaban - she was then switched over to Lovenox SQ BID due to concerns about failure of anticoagulation with Apixaban (2) DVT (deep venous thrombosis): Code(s): I82.409 - Acute embolism and thrombosis of unspecified deep veins of unspecified lower extremity Category: Medical Qualifiers: DVT location: lower extremity Affected thrombotic vein of extremity: unspecified vein of extremity Chronicity: acute Laterality: right Qualified Code(s): I82.401 - Acute embolism and thrombosis of unspecified deep veins of right lower extremity Plan: Patient was also diagnosed with DVT of the right lower extremity along with her acute pulmonary embolism back on 01/06/2025 when she presented to the ER a week after her total right knee arthroplasty with recurrent lightheadedness, CASTELAN, palpitations and near syncope As mentioned above, she was initially started on Apixaban 5 mg BID but apparently developed worsening of her DVT while on Apixaban, after which she was then switched over to Lovenox SQ BID due to concerns about failure of anticoagulation with Apixaban Will refer her to hematology for further evaluation and management and to assess her for a hypercoagulable state (3) Osteoarthritis involving multiple joints on both sides of body: Code(s): M15.9 - Polyosteoarthritis, unspecified Category: Medical Plan: She is S/P total left hip arthroplasty on 10/15/2024 and total right hip arthroplasty on 12/31/2024 She just completed her in-home physical therapy sessions and states that PT was very helpful but she feels that she would benefit from continuing PT at this time and is requesting for a referral to [facility] so she can continue in-home physical therapy at this time, as she reports that her right knee is still bothering (hurting) her a lot - referral to [facility] placed X-rays done last year revealed (+) mild degenerative changes in the hip joints bilaterally with no visible acute changes or fracture and mild degenerative changes in the right shoulder joint with enthesophyte along the inferior acromion. There is a healed fracture of the left humeral neck without dislocation; the soft tissues are normal. (+) degenerative disc changes at the C4-C5 disc level with ventral spondylosis and no visible acute fracture or dislocation are seen Continue Lidocaine patches 5% QD PRN and Oxycodone 5 mg TID PRN - she is however looking for something less stronger and have advised her to just try taking half a tablet of her current Oxycodone 5 mg per dose at this time Follow-up with [facility] as scheduled (4) Compression fracture of L3 vertebra: Code(s): S32.030A - Wedge compression fracture of third lumbar vertebra, initial encounter for closed fracture Category: Medical Qualifiers: Encounter type: sequela Qualified Code(s): S32.030S - Wedge compression fracture of third lumbar vertebra, sequela Plan: This was first seen on imaging studies done at [facility] in late July 2023 and appeared to be acute in onset at the time Patient denies any recent falls or injuries prior to her injury being discovered BMD done in 08/2022 revealed (+) osteopenia with the lowest T-score value of -2.0 in the lumbar spine She has a Hx of multilevel lumbar spine DDD and was getting injections into her lower back for pain; she most recently had injection to L4-L5 at [facility] a few months prior, with some relief of her low back pain She was referred to Dr. Hernández at [facility] for further evaluation and management of her compression fracture and was subsequently admitted to [facility] in [place] for short-term rehab, which she states helped somewhat Continue Tramadol 50 mg TID PRN for pain (5) Psoriatic arthritis: Code(s): L40.50 - Arthropathic psoriasis, unspecified Category: Medical Plan: She was switched over from Taltz 80 mg SQ Q 4 weeks to Cosentyx 300 mg Q 4 weeks by her current reverse unit operator a few months ago - she was off Cosentyx for a while but started back on it in January 2024 Continue Methotrexate 20 mg once a week and Folic Acid 1 mg QD She was seeing Dr. Lopez in [place] for rheumatology follow up and management for the past few years but recently switched over to the [facility] and is now following up with her current reverse unit operator in [place], [place] regularly as scheduled (6) Fibromyalgia: Code(s): M79.7 - Fibromyalgia Category: Medical Plan: She is again encouraged to continue to try exercising regularly to help manage her fibromyalgia symptoms but patient states that this is proving to be very difficult due to the progression of her psoriatic arthritis Patient was on Carisoprodol 350 mg TID PRN in the past but was encouraged to come off of it due to its habit-forming potential and high risk of dependence and drug interactions with her opioids - this was DISCONTINUED last year Continue Tizanidine 4 mg TID PRN Per request, a referral was also previously made out for integrative medicine for her to see Dr. Whiteside to explore alternative treatment options for her chronic pain but states that she still has not seen Dr. Whiteside yet and is currently just seeing her chiropractor regularly for treatments at this time (7) Diabetes mellitus: Code(s): E11.9 - Type 2 diabetes mellitus without complications Category: Medical Qualifiers: Diabetes mellitus type: type 2 Diabetes mellitus intermodal dispatcher insulin use: without fdc use Diabetes mellitus complication status: without complication Qualified Code(s): E11.9 - Type 2 diabetes mellitus without complications Plan: Her HgbA1c was at 5.3% on her labs done a couple of months ago - goal is <6.5% Reinforced diabetic diet She used to take Januvia 100 mg QD, Metformin 500 mg BID and Glipizide ER 5 mg QD but has not been on any Rx for her diabetes in a while She was on weekly Semaglutide injections but had to stop taking it for about a month after her hip surgery but developed severe nausea and vomiting when she started back on it a couple of months ago at 1.7 mg and has not taken it again since (8) Pure hypercholesterolemia: Code(s): E78.00 - Pure hypercholesterolemia, unspecified Category: Medical Plan: Reinforced low cholesterol diet Continue Atorvastatin 20 mg QD Will recheck her labs and fasting lipids as scheduled next month for follow up (9) Migraine: Code(s): G43.909 - Migraine, unspecified, not intractable, without status migrainosus Category: Medical Qualifiers: Migraine type: unspecified Status migrainosus presence: without status migrainosus Intractability: not intractable Qualified Code(s): G43.909 - Migraine, unspecified, not intractable, without status migrainosus Plan: Reinforced avoidance of all potential migraine triggers Continue Fiorinal 1 capsule BID PRN She may need to see neurology again if her headaches progress or get worse (10) Upper respiratory tract infection: Code(s): J06.9 - Acute upper respiratory infection, unspecified Category: Medical Qualifiers: URI type: unspecified URI Qualified Code(s): J06.9 - Acute upper respiratory infection, unspecified Plan: Patient had chest x-rays and labs done at the ER a few days ago (01/24/2025), all of which came back negative She feels that her respiratory symptoms have gotten slightly worse since Will go ahead and start her empirically on Cephalexin 500 mg Q 6 hours x 7 days - patient is advised that this should also potentially cover her current UTI symptoms (11) Dysuria: Code(s): R30.0 - Dysuria Category: Medical Plan: Patient is reminded to increase her oral fluid intake She is being started on empiric Tx of her respiratory tract infection and has been advised that the Abx should also potentially cover any possible UTI (12) Vitamin B12 deficiency: Code(s): E53.8 - Deficiency of other specified B group vitamins Category: Medical Plan: Continue Vitamin B12 tablets 1000 mcg daily (13) Vitamin D deficiency: Code(s): E55.9 - Vitamin D deficiency, unspecified Category: Medical Plan: Continue Vitamin D2 82827 units once a week (14) Insomnia: Code(s): G47.00 - Insomnia, unspecified Category: Medical Qualifiers: Insomnia type: unspecified Qualified Code(s): G47.00 - Insomnia, unspecified Plan: Sleep hygiene reinforced She was taking Carisoprodol at bedtime in the past to help her sleep better at night but she has since discontinued Rx Continue Trazodone 100 mg 1.5 tablets (150 mg) Q HS PRN (15) Depression: Code(s): F32.9 - Major depressive disorder, single episode, unspecified Category: Medical Qualifiers: Depression Type: unspecified Qualified Code(s): F32.9 - Major depressive disorder, single episode, unspecified Plan: She is currently not on any Rx for depression and states that she has been doing okay lately - does not feel that she needs anything at this time but will call if anything changes (16) Morbid obesity with BMI of 45.0-49.9, adult: Code(s): E66.01 - Morbid (severe) obesity due to excess calories; Z68.42 - Body mass index [BMI] 45.0-49.9, adult Category: Medical Plan: Reinforced diet/lose weight; exercise is difficult and is an unlikely option due to patient's physical incapacities and disabilities She was on weekly Semaglutide injections but had to stop taking it for a few months after her hip surgery but developed severe nausea and vomiting when she started back on it a couple of months ago at 1.7 mg and has not been on it since Plan Follow up as scheduled next month Orders: [facility]errals [facility] Referral I26.99 - Other pulmonary embolism without acute cor pulmonale, M25.551 - Pain in right hip Hematology & Oncology Referral I26.99 - Other pulmonary embolism without acute cor pulmonale, I82.409 - Acute embolism and thrombosis of unspecified deep veins of unspecified lower extremity Medications: New cephalexin 500 mg PO Q6H 28 caps 0RF 7 days
--- OUTSIDE RECORDS SUMMARY | 2025-01-28 19:53 | XMS_ITS | Encounter Summary ---
Author Organization [facility] Address [address] [facility] [address] [place] [address] Phone Care Team Providers Care Cinder Man Name Role Phone Alexis Murrieta MD Primary Care Provider +1 [phone] Encounter Details Date Type Department Care Team (Late st Contact Info) Description 11/19/2022 Procedure Pass [facility], Ct Scan - [address] [address] Social History Tobacco Use Types Packs/Day Years [...] on filedocumented in this encounter Care Teams Cinder Man Relationship Specialty Start Date End Date Alexis Murrieta MD [address] [place] [address] [place] [address] PCP - General Internal Medicine 12/24/16 documented as of this encounter Additional Source Comments The information contained in this document represents components of the legal health record. It is not the complete legal health record.[facility]
--- OUTSIDE RECORDS SUMMARY | 2025-01-28 19:53 | XMS_ITS | Clinical Summary ---
Author Organization [facility] Address [address] [place] [address] Care Team Providers Care Substation Operator Conversion Name Role Phone Alexis Murrieta MD Primary Care Provider +1- [phone] Allergies No known active allergies Medications traMADol [...] UP TO 12 HOURS 023 Active ergocalciferol 81634 units Cap TAKE 1 CAPSULE BY MOUTH [...] 0.25 MG/0.5ML Solution Auto-injector Active nystatin (MYCOSTATIN) 739021 UNIT/GM cream APPLY TOPICALLY TO THE AFFECTED AREA THREE TIMES DAILY FOR 10 DAYS Active aspirin enteric coated (Ecotrin) 325 MG EC tablet Take 1 tablet (325 mg total) by mouth. Active celeCOXIB (CeleBREX) 200 MG capsule Take 1 capsule (200 mg total) by mouth. Active PANTOprazole (PROTONIX) 40 MG EC tablet Take 1 tablet (40 mg total) by mouth. Active Cosentyx UnoReady 300 MG/2ML subcutaneous auto-injectorIn dications:Psori atic arthritis (HCC) INJECT 1 PEN SUBCUTANEOUSLY EVERY 4 WEEKS 2 mL 3 Active folic acid (FOLVITE) 1 MG tabletIndicatio ns:Psoriatic arthritis (HCC) TAKE 1 TABLET(1 MG) BY MOUTH DAILY 90 tablet 1 025 Active methoTREXate (RHEUMATREX) 2.5 mg tabletIndicatio ns:Psoriatic arthritis (HCC) Take 8 tablets (20 mg total) by mouth once a week 32 tablet 025 Active folic acid (FOLVITE) 1 MG tabletIndicatio ns:Psoriatic arthritis (HCC) TAKE 1 TABLET(1 MG) BY MOUTH DAILY 90 tablet 1 025 2024 Discontinued Cosentyx UnoReady 300 MG/2ML subcutaneous auto-injectorIn dications:Psori atic arthritis (HCC) INJECT 300MG SUBCUTANEOUSLY EVERY 4 WEEKS 2 mL 3 025 2024 Discontinued methoTREXate (RHEUMATREX) 2.5 mg tabletIndicatio [...] Description 11/12/2024 10:30 AM EDT Office Visit [facility] Rheumatology [address] [address] Osei Dickey MD Psoriatic arthritis (HCC) (Primary Dx); Psoriasis ; High risk medication use; Arthritis from Last 3 Months Family History Relation Name Status Comments Father Mother Social History Tobacco Use Types Packs/Day Years Used Date Smoking Tobacco: Former Cigarettes Smokeless Tobacco: Never Tobacco Cessation:Counseling Given: Not Answered Alcohol Use Standard Drinks/Week Comments Yes 2 (1 standard drink = 0.6 oz pur e alcohol) [facility] [place] of Occupat ional Health - Occupational Stress [...] Description 04/12/2025 10:30 AM EST Office Visit [facility] Rheumatology [address] [place] [address] Osei Dickey MD [address] [place] [address] [address] [place] [address] Health Maintenance Due Date Last Done Comments [...] Procedure Name Priority Date/Time Associated Diagnosis Comments LA (SSB) ANTIBODY Routine 12/23/2024 Arthritis RO (SSA) ANTIBODY Routine 12/23/2024 Arthritis HEPATITIS C VIRUS (HCV) ANTIBODY Routine 07/22/2024 High risk medication use Need for hepatitis C screening test from Last 3 Months or Most Recently Relevant to Health Maintenance Results * La (SSB) Antibody (12/23/2024) Blood Blood specimen / Unknown 12/23/2024 us Osei Dickey MD LAB BLOOD ORDERABLES Final Res ult [facility] * Ro (SSA) Antibody (12/23/2024) Blood Blood specimen / Unknown 12/23/2024 Osei Dickey MD LAB BLOOD ORDERABLES Final Res ult [facility] * HEPATITIS C VIRUS (HCV) ANTIBODY (07/22/2024) Blood Blood specimen / Unknown 07/22/2024 Osei Dickey MD LAB BLOOD ORDERABLES Final Res ult [facility] from Last 3 Months or Most Recently Relevant to Health Maintenance Insurance [facility] Care Teams Substation Operator Conversion Relationship Specialty Start Date End Date Alexis Murrieta MD [address] [place] [address] Dr Tariq [place], [place] PCP - General Internal Medicine 02/27/22
--- OUTSIDE RECORDS SUMMARY | 2025-01-28 19:53 | XMS_ITS | Encounter Summary ---
Author Organization [facility] Address [address] [place] [address] Care Team Providers Care Blockman Name Role Phone Alexis Murrieta MD Primary Care Provider +1- [phone] Encounter Details Date Type Department Care Team (Late st Contact Info) Description 11/25/2023 Scanned Document [facility] Rheumatology [address] [address] Osei Dickey MD [address] [place] [address] Social History Tobacco Use Types Packs/Day Years Used Date Smoking Tobacco: Former Cigarettes Smokeless Tobacco: Never Alcohol Use Standard Drinks/Week Comments Yes 2 (1 standard drink = 0.6 oz pur e alcohol) [facility] [place] of Occupat ional Health - Occupational Stress [...] 04/12/2025 10:30 AM EST Office Visit [facility] Rheumatology [address] [address] Osei Dickey MD [address] [address] documented as of this encounter Visit Diagnoses Not on filedocumented in this encounter Care Teams Blockman Relationship Specialty Start Date End Date Alexis Murrieta MD [address] [place] [address] Dr [address] [place] [address] PCP - General Internal Medicine 02/27/22 documented as of this encounter
--- OUTSIDE RECORDS SUMMARY | 2025-01-28 19:53 | XMS_ITS | Encounter Summary ---
Author Organization [facility] Address [address] [facility] [address] [place] [address] Phone Care Team Providers Care Flumer Name Role Phone Alexis Murrieta MD Primary Care Provider [phone] -[phone] Encounter Details Date Type Department Care Team (Late st Contact Info) Description 12/16/2022 Procedure Pass [address] [address] Social History Tobacco Use Types Packs/Day Years [...] on filedocumented in this encounter Care Teams Flumer Relationship Specialty Start Date End Date Alexis Murrieta MD [address] [place] [address] [place] [address] PCP - General Internal Medicine 12/24/16 documented as of this encounter Additional Source Comments The information contained in this document represents components of the legal health record. It is not the complete legal health record.[facility]
--- OUTSIDE RECORDS SUMMARY | 2025-01-28 19:53 | XMS_ITS | Encounter Summary ---
Author Organization [facility] Address [address] [place] [address] Care Team Providers Care Pipe Setter Name Role Phone Alexis Murrieta MD Primary Care Provider +1- [phone] Encounter Details Date Type Department Care Team (Late st Contact Info) Description 02/26/[address] [facility] RHEUMATOLOGY SCAN Rheumatology, Scan Social History [...] Description 04/12/2025 10:30 AM EST Office Visit [facility] Rheumatology [address] [address] Osei Dickey MD [address] [place] [address] documented as of this encounter Visit Diagnoses Not on filedocumented in this encounter Care Teams Pipe Setter Relationship Specialty Start Date End Date Alexis Murrieta MD [address] [place] [address] [place], [place] PCP - General Internal Medicine 02/27/22 documented as of this encounter
--- OUTSIDE RECORDS SUMMARY | 2025-01-28 19:54 | XMS_ITS | Clinical Summary ---
Author Organization [facility] Address [address] [address] Phone Care Team Providers Care Tag Writer Name Role Phone Alexis Murrieta MD Primary Care Provider +1 -[phone] Allergies Active Allergy Reactions Criticality Noted Date [...] (FOLVITE) 1 MG tabletIndications :Psoriatic arthritis,Methotr exate, long term care phlebotomist, current use TAKE 1 TABLET(1000 MCG) BY [...] for the next 30 min. 4 tablet 11 01/31/20 Active Active Problems Problem Noted Date [...] to inform any new MD, PA or ENTRY LEVEL FINANCIAL ANALYST about chronic immunosuppression with Cosentyx and methotrexate [...] to inform any new MD, PA or ENTRY LEVEL FINANCIAL ANALYST about chronic immunosuppression with Cosentyx and methotrexate particularly in emergency situations. Ischial bursitis of left side 07/18/2022 Assessment & Plan (07/28/2022 9:18 PM EDT): Gentle warm packs followed by stretching, massage and consideration for therapeutic ultrasound versus/and acupuncture and/or chiropractic treatments. Continue regular warm pool exercising. Consider personal day habilitation specialist sessions-she has list of several personal trainers from [employer] in [place], [place]-see copy in media section of [employer]. Chronic left-sided low back pain with left-sided [...] is scheduled to see Dr. Castellon at [facility] on 07/31/2022 Assessment & Plan (11/18/2021 [...] given in writing. Skin rash 11/12/2018 Methotrexate, retirement, current use 03/19/2018 Assessment & Plan (01/30/2023 [...] while taking methotrexate. Inform any new , ENTRY LEVEL FINANCIAL ANALYST, PA about chronic immunosuppression with methotrexate especially [...] while taking methotrexate. Inform any new , ENTRY LEVEL FINANCIAL ANALYST, PA about chronic immunosuppression with methotrexate especially [...] while taking methotrexate. Inform any new MD, ENTRY LEVEL FINANCIAL ANALYST, PA about chronic immunosuppression with methotrexate especially [...] while taking methotrexate. Inform any new MD, ENTRY LEVEL FINANCIAL ANALYST, PA about chronic immunosuppression with methotrexate especially [...] while taking methotrexate. Inform any new MD, ENTRY LEVEL FINANCIAL ANALYST, PA about chronic immunosuppression with methotrexate especially [...] while taking methotrexate. Inform any new MD, ENTRY LEVEL FINANCIAL ANALYST, PA about chronic immunosuppression with methotrexate especially [...] while taking methotrexate. Inform any new , ENTRY LEVEL FINANCIAL ANALYST, PA about chronic immunosuppression with methotrexate especially [...] while taking methotrexate. Inform any new MD ENTRY LEVEL FINANCIAL ANALYST, PA about chronic immunosuppression with methotrexate especially [...] while taking methotrexate. Inform any new MD ENTRY LEVEL FINANCIAL ANALYST, PA about chronic immunosuppression with methotrexate especially [...] while taking methotrexate. Inform any new MD ENTRY LEVEL FINANCIAL ANALYST, PA about chronic immunosuppression with methotrexate especially [...] while taking methotrexate. Inform any new MD ENTRY LEVEL FINANCIAL ANALYST, PA about chronic immunosuppression with methotrexate especially [...] while taking methotrexate. Inform any new MD, ENTRY LEVEL FINANCIAL ANALYST, PA about chronic immunosuppression with methotrexate especially [...] while taking methotrexate. Inform any new MD ENTRY LEVEL FINANCIAL ANALYST, PA about chronic immunosuppression with methotrexate especially in emergency situations. Assessment & Plan (07/02/2018 11:15 PM EDT): Take exactly as prescribed. Keep well-hydrated. Avoid sick contacts. Hold methotrexate whenever running fever, taking antibiotics or feeling sick. Remain alcohol free while taking methotrexate Use double contraception if sexually active while taking methotrexate. Inform any new MD ENTRY LEVEL FINANCIAL ANALYST, PA about chronic immunosuppression with methotrexate especially in emergency situations. Assessment & Plan (05/06/2018 11:14 PM EDT): Take exactly as prescribed. Keep well-hydrated. Avoid sick contacts. Hold methotrexate whenever running fever, taking antibiotics or feeling sick. Remain alcohol free while taking methotrexate Use double contraception if sexually active while taking methotrexate. Inform any new MD, ENTRY LEVEL FINANCIAL ANALYST, PA about chronic immunosuppression with methotrexate especially [...] in 3 months and standing orders in [facility]. Carefully continue weekly oral methotrexate for Friday and daily folic acid except for the day of weekly methotrexate dose. Carefully continue Cosentyx 300 mg subcutaneously every 4 weeks on Friday. Continue Plaquenil 200 mg twice daily. I have educated her to follow-up with her manager budget within 12 months of starting Plaquenil. Keep [...] have educated her to follow-up with her manager budget within 12 months of starting Plaquenil. Keep [...] formulary for coverage. She is applying for [employer] financial assistance by [employer] Start Form that I have filled [...] in book written by Dr Jose L garza -I previously sent her pamphlet on fibromyalgia [...] regular warm pool exercising [facility] [place], [place]. Assessment & Plan (09/16/2022 4:30 PM [...] regular warm pool exercising such as at [place]. Assessment & Plan (07/28/2022 9:11 PM [...] regular warm pool exercising such as at [place]. Assessment & Plan (10/18/2021 5:03 PM [...] regular warm pool exercising [place] as at [place]. Assessment & Plan (02/13/2021 6:38 PM [...] regular warm pool exercising such as at [place]. Assessment & Plan (09/20/2020 4:25 PM [...] the diet. Close follow-up with PCP/diabetic nurse educator/banking services advisor as scheduled. Assessment & Plan (05/12/2020 4:00 PM EDT): Keep blood glucose in 90-110 mg % Limit or eliminate concentrated sugars from the diet. Close follow-up with PCP/diabetic nurse educator/banking services advisor as scheduled. Assessment & Plan (03/10/2020 4:02 PM EST): Keep blood glucose in 90-110 mg % Limit or eliminate concentrated sugars from the diet. Close follow-up with PCP/diabetic nurse educator/banking services advisor as scheduled. Assessment & Plan (09/03/2019 3:55 PM EDT): Keep blood glucose in 90-110 mg % Limit or eliminate concentrated sugars from the diet. Close follow-up with PCP/diabetic nurse educator/banking services advisor as scheduled. Assessment & Plan (04/18/2019 7:50 PM EST): Keep blood glucose in 90-110 mg % Limit or eliminate concentrated sugars from the diet. Close follow-up with PCP/diabetic nurse educator/banking services advisor as scheduled. Assessment & Plan (10/25/2018 11:36 AM EDT): Keep blood glucose in 90-110 mg % Limit or eliminate concentrated sugars from the diet. Close follow-up with PCP/diabetic nurse educator/banking services advisor as scheduled. Assessment & Plan (07/02/2018 11:07 PM EDT): Keep blood glucose in 90-110 mg % Limit or eliminate concentrated sugars from the diet. Close follow-up with PCP/diabetic nurse educator/banking services advisor as scheduled. Assessment & Plan (05/06/2018 11:09 PM EDT): Keep blood glucose in 90-110 mg % Limit or eliminate concentrated sugars from the diet. Close follow-up with PCP/diabetic nurse educator/banking services advisor as scheduled. half-way prescription opiate use 07/24/2017 Assessment & Plan [...] the diet. Close follow-up with PCP/diabetic nurse educator/banking services advisor as scheduled. Assessment & Plan (07/02/2018 11:07 [...] sure to inform any new MD, PA, ENTRY LEVEL FINANCIAL ANALYST about chronic immunosuppression particularly in emergency situations. Assessment & Plan (07/21/2020 2:58 PM EDT): Continue monthly Taltz injections as prescribed and return for regular lab monitoring as requested. Hold injection whenever running fever, feeling sick or taking antibiotics. Avoid sick contacts. Make sure to inform any new MD PA, ENTRY LEVEL FINANCIAL ANALYST about chronic immunosuppression particularly in emergency situations. Assessment & Plan (05/12/2020 4:09 PM EDT): Continue monthly Taltz injections as prescribed and return for regular lab monitoring as requested. Hold injection whenever running fever, feeling sick or taking antibiotics. Avoid sick contacts. Make sure to inform any new MD, PA, ENTRY LEVEL FINANCIAL ANALYST about chronic immunosuppression particularly in emergency situations. [...] sure to inform any new MD, PA, ENTRY LEVEL FINANCIAL ANALYST about chronic immunosuppression with Humira (adalimumab) especially in emergency situations. Call if questions or problems. Encounter for monitoring certolizumab therapy 04/29/1909/03/2019 Assessment & Plan (05/02/2019 11:30 PM EDT): Hold injection if sick, running fevers or taking antibiotics. Inform any new MD, PA, ENTRY LEVEL FINANCIAL ANALYST about chronic immunosuppression with Cimzia and methotrexate [...] 2 diabetes mellitus without complication, unspecified whether long term care phlebotomist insulin use HEMOGLOBIN A1C Routine 09/16/2022 3:29 PM EDT Type 2 diabetes mellitus without complication, without long-term current use of insulin from Last 3 Months or Most Recently Relevant to Health Maintenance Results * Microalbumin/creatinine ratio, random urine (09/16/2022 3:41 PM EDT) URINE MICROALBUMIN <1.2 0 - 2.3 mg/dL [facility] URINE CREATININE 136 mg/dL [facility] MICROALB/CRE RATIO NOT CALCULATED 0 - 20 mg/g Cre [facility] Comment:due to Microalbumin <1.2 Urine (Urine) 09/16/2022 3:4 1 PM EDT 09/16/2022 3:45 PM EDT us Alexis Murrieta MD LAB URINE ORDERABLES Marjorie l Result [address] [address] * (ABNORMAL) Hemoglobin A1c (09/16/2022 3:29 PM EDT) HEMOGLOBIN A1C 6.2(H) 4.3 - 5.8 % [facility] Blood 09/16/2022 3:29 PM EDT 09/16/2022 3:36 PM EDT Alexis Murrieta MD LAB BLOOD BKR ORDERABLES Final Result Performing Organization Address City/[facility]/ZIP Co de Phone Number [address] [address] from Last 3 Months or Most Recently Relevant to Health Maintenance Insurance [facility] [place] [place] [address] [place] [address] [place] [address] Care Teams Tag Writer Relationship Specialty Start Date End Date Alexis Murrieta MD [address] [place] [address] [place] [address] PCP - General Internal Medicine 12/24/16 Additional Source Comments The information contained in this document represents components of the legal health record. It is not the complete legal health record.[facility]
--- OUTSIDE RECORDS SUMMARY | 2025-01-28 19:54 | XMS_ITS | Encounter Summary ---
Author Organization [facility] Address [address] [address] Phone Care Team Providers Care Professor Of Industrial Technology Name Role Phone Alexis Murrieta MD Primary Care Provider +1 -[phone] Encounter Details Date Type Department Care Team (Late st Contact Info) Description 02/11/2023 Procedure Pass [facility] Radiology [address] [place] [address] Social History Tobacco Use Types Packs/Day Years [...] on filedocumented in this encounter Care Teams Professor Of Industrial Technology Relationship Specialty Start Date End Date Alexis Murrieta MD [address] [place] [address] [place] [address] PCP - General Internal Medicine 12/24/16 documented as of this encounter Additional Source Comments The information contained in this document represents components of the legal health record. It is not the complete legal health record.[facility]
--- OUTSIDE RECORDS SUMMARY | 2025-01-28 19:54 | XMS_ITS | Encounter Summary ---
Author Organization [facility] Address [address] [facility] [address] [place] [address] Phone Care Team Providers Care Grain Weigher Name Role Phone Alexis Murrieta MD Primary Care Provider +1 -[phone] Encounter Details Date Type Department Care Team (Late st Contact Info) Description 03/31/2019 Ancillary Orders [facility] Rheumatology [address] [place] [address] Elsa Bourne MD [address] [facility], [address] [place] [address] [email or web address] Chronic pain of left knee; Psoriatic [...] joint effusions. Large habitus. Procedure Note Suzy aCstillo MD - 03/31/2019 HISTORY: As above. No [...] arthropathy documented in this encounter Care Teams Grain Weigher Relationship Specialty Start Date End Date Alexis Murrieta MD [address] [place] [address] Dr Garcia [address] [place] [address] [place] [address] PCP - General Internal Medicine 12/24/16 documented as of this encounter Additional Source Comments The information contained in this document represents components of the legal health record. It is not the complete legal health record.[facility]
== END 2025-01-28 17:08 | disposition home or self-care (01) ==
LOC: HO.HMCH 16:30
PROVIDERS: PCP Internal Medicine; Visit Provider Internal Medicine
DX: I26.99 Other pulmonary embolism without acute cor pulmonale (principal); I82.401 Acute embolism and thrombosis of unspecified deep veins of right lower extremity; L40.50 Arthropathic psoriasis, unspecified; E11.9 Type 2 diabetes mellitus without complications; E66.01 Morbid (severe) obesity due to excess calories; Z68.42 Body mass index [BMI] 45.0-49.9, adult; M15.9 Polyosteoarthritis, unspecified; S32.030S Wedge compression fracture of third lumbar vertebra, sequela; M79.7 Fibromyalgia; E78.00 Pure hypercholesterolemia, unspecified; G43.909 Migraine, unspecified, not intractable, without status migrainosus; J06.9 Acute upper respiratory infection, unspecified; R30.0 Dysuria; E53.8 Deficiency of other specified B group vitamins; E55.9 Vitamin D deficiency, unspecified; G47.00 Insomnia, unspecified; F32.9 Major depressive disorder, single episode, unspecified

== ENCOUNTER → 2025-01-28 16:29 | Outpatient (BNVA) | payer BC, SELFPAY | PROVIDERS: PCP Internal Medicine; Visit Provider Internal Medicine | DX: I26.99 Other pulmonary embolism without acute cor pulmonale (principal); I82.401 Acute embolism and thrombosis of unspecified deep veins of right lower extremity; M15.9 Polyosteoarthritis, unspecified; S32.030S Wedge compression fracture of third lumbar vertebra, sequela; L40.50 Arthropathic psoriasis, unspecified; M79.7 Fibromyalgia; E11.9 Type 2 diabetes mellitus without complications; E78.00 Pure hypercholesterolemia, unspecified; G43.909 Migraine, unspecified, not intractable, without status migrainosus; J06.9 Acute upper respiratory infection, unspecified; R30.0 Dysuria; E53.8 Deficiency of other specified B group vitamins; E55.9 Vitamin D deficiency, unspecified; G47.00 Insomnia, unspecified; F32.9 Major depressive disorder, single episode, unspecified; E66.01 Morbid (severe) obesity due to excess calories; Z68.42 Body mass index [BMI] 45.0-49.9, adult | CPT/HCPCS: 96127 ==

== ENCOUNTER 2025-02-01 10:23 | Outpatient (AMB) | payer BC, SELFPAY ==
--- NOTE | 2025-02-01 10:33 | A.OFFPC_ITS ---
Vital Signs 02/01/25 10:34 Height 5 ft 1 in Weight 248 lb BMI 46.9 BP 130/72 Blood Pressure Location Lt brachial Position Sitting Pulse 75 Pulse Source Pulse Oximeter Pulse Oximetry (%) 98 Oxygen Delivery Method Room Air Intake Visit Reasons: hard painful lump to injection site on abdomen Allergies aspirin Allergy (Unknown, Verified 02/01/25 11:24) Unknown Sulfa (Sulfonamide Antibiotics) Allergy (Unknown, Verified 02/01/25 11:24) pruritis, severe itching metformin Adverse Reaction (Unknown, Verified 02/01/25 11:24) diarrhea Medication List - Last Reconciled 02/01/25 by Alexis Murrieta MD albuterol sulfate 90 mcg/actuation (Ventolin HFA) 2 puffs inhalation Q6H PRN 30 days alendronate 70 mg PO QWEEK 3 months atorvastatin 20 mg PO DAILY budesonide 180 mcg/actuation (Pulmicort Flexhaler) 1 inh inhalation BID 30 days bsbycfbgai-gdhakbuzdhyol-hgsw 50-325-40 mg 1 cap PO BID PRN 30 days cephalexin 500 mg PO Q6H 7 days cholecalciferol (vitamin D3) 50 mcg PO DAILY 90 days enoxaparin (Lovenox) 110 mg subcut Q12H ergocalciferol (vitamin D2) 1,250 mcg PO QWEEK folic acid 1 mg PO DAILY gabapentin 300 mg PO TID PRN hydroxychloroquine 200 mg PO BID lidocaine 5% 2 patches topical DAILY 30 days mecobalamin (vitamin B12) 1,000 mcg PO DAILY 90 days methotrexate sodium 20 mg PO QWEEK nystatin 1 appl topical TID 10 days oxycodone 5 mg PO TID PRN 7 days secukinumab (Cosentyx UnoReady Pen) 300 mg subcut Q4W semaglutide (weight loss) 1.7 mg (0.75 mL) subcut QWEEK 4 weeks tizanidine 4 mg PO TID PRN tramadol 50 mg PO Q6H PRN 15 days trazodone 150 mg (1.5 x 100 mg) PO BEDTIME 30 days Tobacco use date assessed: 01/28/25 Dental Screening Dental Screen Date: 01/28/25 HPI hard painful lump to injection site on abdomen HPI Details - The patient is a 64 year old female pr esenting with a painful Lovenox injection site and concerns about antibiotic ineffectiveness. - The patient has been self-administerin g Lovenox injections, rotating sites. - She reports that one specific spot has become hard and painful, and she has avoided injecting in that area for 7-10 days. - She was prescribed cephalexin for a ur inary tract infection and lung issues but feels she is getting worse - states that she still has increased chest congestion and recurrent coughing - She describes a sensation of her whole body shaking internally, similar to chills; she denies any fever - The patient has been icing the painful injection site. [facility] Medical History DVT (deep venous thrombosis) Morbid obesity with BMI of 50.0-59.9, adult Compression fracture of L3 vertebra Insomnia Nasal sore Morbid obesity with BMI of 45.0-49.9, adult Depression Vitamin D deficiency Vitamin B12 deficiency Migraine Pure hypercholesterolemia Fibromyalgia Diabetes mellitus Psoriatic arthritis Lumbar degenerative disc disease Surgical History History of total left hip arthroplasty History of esophagogastroduodenoscopy (EGD) History of colonoscopy (~04/06/04) Family History Father No problems noted. Mother No problems noted. Social History Housing: House Alcohol intake: current Alcohol intake frequency: holidays/special occasions only Patient Tobacco Use Status: Former Tobacco user Tobacco use type: Cigarette e-Cigarette/Vaping Use: Never Used Second Hand Smoke Exposure: Yes service: No Current occupational status: disabled Current occupation: rt hand Current occupational exposures/hazards: No Cognitive needs: Yes Hearing needs: No Vision needs: Yes Questionnaire PHQ-9 Over the last 2 weeks, how often have you been bothered by any of the following problems? Depression Screening Interpretation: Negative Depression Screening Done: Yes Source: Developed by Drs. Xavier Lewis, Ashley Rea, Jose Napier and colleagues, with an educational jade from [employer]. Thrive Questionnaire Date Thrive assessed: 01/28/25 Currently or been in a relationship where the following occur: No concerns reported THRIVE Score: 0 NAWAF-7 AMB Questionnaire NAWAF-7 Date NAWAF - 7 assessed: 01/28/25 Source: Developed by Drs. Xavier Lewis, Ashley Rea, Jose Napier and colleagues, with an educational jade from [employer]. Review of Systems Const Reports chills, Reports fatigue, Denies fever(s) and Denies headache(s) ENT Denies dysphagia, Denies dizziness, Denies otalgia, Denies headache(s), Reports nasal congestion, Reports neck pain (chronic), Denies odynophagia and Reports sore throat Card Denies chest pain, Denies palpitations and Reports dyspnea on exertion Resp Reports chest congestion, Reports cough (on and off), Denies hemoptysis, Reports dyspnea on exertion and Denies wheezing GI Details: increased erythema and (+) painful 'lumps' over the right abdominal wall Reports abdominal pain (see above), Denies constipation, Denies dysphagia, Denies heartburn, Denies diarrhea, Denies nausea, Denies odynophagia and Denies vomiting Denies difficulty voiding, Denies nocturia, Reports dysuria (mild) and Reports urinary urgency Musc Reports back pain (chronic - increased lately due to acute injury), Reports myalgias (diffuse), Reports arthralgias (over multiple joints, including both hips & shoulders and puneet the R knee), Reports neck pain (chronic) and Reports stiffness Skin/Breast Denies rash Neuro Denies dizziness and Denies headache(s) Endo Reports fatigue and Denies palpitations Aller/Immun Denies wheezing Physical exam (Primary Care) Vital Signs: Last Vital Signs Pulse 75 02/01/25 10:34 BP 130/72 02/01/25 10:34 Pulse Ox 98 02/01/25 10:34 Oxygen Delivery Method Room Air 02/01/25 10:34 BMI result Body Mass Index 46.9 Tobacco/Smoking Status: Tobacco use Status Tobacco use date assessed 01/28/25 02/01/25 10:39 Patient Tobacco Use Status Former Tobacco user 02/01/25 10:39 Tobacco use type Cigarette 02/01/25 10:39 e-Cigarette/Vaping Use Never Used 02/01/25 10:39 Depression Screening Interpretation: Negative Thrive Assessment: Date of Thrive Assessment Date Thrive assessed 01/28/25 02/01/25 10:39 Currently or been in a relationship where the following occur: No concerns reported Const General: no acute distress and alert HENMT Throat: Yes posterior oropharynx normal and Yes tonsils normal (no TP congestion noted) Neck Neck: No lymphadenopathy Thyroid: Thyroid normal Resp Auscultation: no crackles, no rales, rhonchi (occasional) throughout, no wheezes and diminished lung sounds (slightly) bilateral Cardio Rate: regular rate Rhythm: regular rhythm Heart sounds: no murmurs GI Other: (+) tender nodular lesions over the right abdominal wall, with some scattered erythema over this area - this corresponds to where patient was self injecting with Lovenox until the last 7 to 10 days General: Yes no CVA tenderness Back/Spine/Pelvis Back: no CVA tenderness Cervical Spine: Cervical spine tenderness Thoracic/Lumbar Spine: lumbar spinal tenderness Skin Rashes: no rashes Extrem General: Yes no clubbing, cyanosis or edema Left upper extremity: shoulder/upper arm Details: tenderness Location: of the A- C joint and of the proximal humerus Right lower extremity: hip/thigh Details: tenderness Location: of the hip and knee Details: tenderness; no swelling Left lower extremity: hip/thigh Details: tenderness (improved with surgery in September 2024) Location: of the hip and knee Details: tenderness; no swelling Coding Level of Care Code Est Pt Level 4 (62248) Diagnoses Abdominal wall cellulitis L03.311 Injection site reaction, sequela T80.90XS Encounter type: sequela Bronchitis J40 Assessment & Plan Assessment & Plan (1) Abdominal wall cellulitis: Code(s): L03.311 - Cellulitis of abdominal wall Category: Medical (2) Injection site reaction: Code(s): T80.90XA - Unspecified complication following infusion and therapeutic injection, initial encounter Category: Medical Qualifiers: Encounter type: sequela Qualified Code(s): T80.90XS - Unspecified complication following infusion and therapeutic injection, sequela (3) Bronchitis: Code(s): J40 - Bronchitis, not specified as acute or chronic Category: Medical Plan Patient was started on Cephalexin 500 mg Q 6 hours last week for both her respiratory and possible urinary tract infection but states that she does not feel any better at present after being on her current Abx for the past 4 days and in fact is feeling worse, with increased chest congestion, weakness and a recurrent sensation similar to chills Will have her stop her Cephalexin and start her instead on oral Doxycycline 100 mg BID x 7 days and Levofloxacin 500 mg QD x 7 days and this should hopefully cover her abdominal wall cellulitis as well as her respiratory infection She is instructed to check back with us sometime next week if she still does not feel significantly better by then Have advised patient as well to start applying some warm compress over her right abdominal wall to help clear up the hematomas and erythema a little faster; adv ised that cold compress will just serve to numb up the areas and reduce the pain temporarily but will not do anything else to her clear these up Have also advised her to inject her Lovenox at other areas of her abdomen and avoid the right side for a while Follow up as scheduled next month Medications: New doxycycline hyclate 100 mg PO BID 14 caps 0RF 7 days levofloxacin 500 mg PO DAILY 7 tabs 0RF 7 days Discontinued cephalexin Discontinued Reason: Doctor's Order 500 mg PO Q6H 7 days 28 caps 0RF
[2025-02-01 10:34] VITALS: BP 130/72; PULSE 75; O2SAT 98; BMI 46.9
== END 2025-02-01 12:24 | disposition home or self-care (01) ==
LOC: HO.HMCH 10:23
PROVIDERS: PCP Internal Medicine; Visit Provider Internal Medicine
DX: L03.311 Cellulitis of abdominal wall (principal); T80.9 Unspecified complication following infusion, transfusion and therapeutic injection; J40 Bronchitis, not specified as acute or chronic